=== PATIENT | female | born 1950 | race Caucasian/White ===

== ENCOUNTER 2019-06-07 14:22 | Emergency (ER) | payer MEDICARE ==
[~2019-06-07] VITALS: Ht 167.6 cm; Wt 87.5 kg
[~2019-06-07 14:22] MED LIST: ALDACTONE; BACLOFEN; COREG; HYDROCODONE; MORPHINE
--- OUTSIDE RECORDS SUMMARY | 2019-06-07 14:31 | XMS REPORT | Clinical Summary ---
Author Author NAZ [facility] Address Unknown Phone Unavailable Care Team Providers Care Auditor Name Role Phone Sabina Duncan MD PCP Unavailable Allergies Comments Active Allergy Reactions Severity Noted Date Baltazar Inhibitors Anaphylaxis High 03/03/2019 Amoxicillin 07/04/2017 Arb-Angiotensin Receptor Swelling 03/03/2019 Antagonist Luteinizing Hormone 07/25/2017 Analogues Medications End Date Status Medication Sig Dispensed Refills Start Date Active aspirin 81 MG EC tablet Take 1 tablet 0 (81 mg total) 7 by mouth daily. Active HYDROcodone-acetaminophen Take 1 tablet 0 (NORCO 10-325) 10-325 mg by mouth per tablet every 6 (six) hours as needed for Pain . Active amiodarone (PACERONE) 200 Take 1 tablet 0 201 MG tablet (200 mg 7 total) by mouth daily. Active doxycycline (DORYX) 100 Take 100 mg 0 MG EC tablet by mouth 2 (two) times daily. Active famotidine (PEPCID) 20 MG Take 1 tablet 30 tablet 0 tablet (20 mg total) 7 by mouth nightly. Active escitalopram oxalate Take 20 mg by 0 (LEXAPRO) 20 MG tablet mouth daily. 8 Active traZODone (DESYREL) 50 MG Take 50 mg by 0 tablet mouth 8 nightly. 03/11/2020 Active gabapentin (NEURONTIN) Take 1 60 capsule 0 400 MG capsule capsule (400 9 mg total) by mouth 3 (three) times daily. 03/11/2020 Active bumetanide (BUMEX) 1 MG Take 1 tablet 60 tablet 0 tablet (1 mg total) 9 by mouth 2 (two) times daily. 03/12/2020 Active magnesium oxide (MAG-OX) Take 1 tablet 60 tablet 0 400 mg (241.3 mg (400 mg 9 magnesium) tablet total) by mouth 2 (two) times daily. 03/12/2019 Discontinued docusate sodium (COLACE) Take 1 10 capsule 0 100 MG capsule capsule (100 7 mg total) by mouth 2 (two) times daily. 03/12/2019 Discontinued polyethylene glycol Take 17 g by 0 (GLYCOLAX) 17 gram packet mouth daily. 03/12/2019 Discontinued gabapentin (NEURONTIN) Take 300 mg 0 300 MG capsule by mouth 3 (three) times daily. 10/11/2018 omeprazole (PRILOSEC) 20 Take 1 30 capsule 0 MG capsule capsule (20 7 mg total) by mouth every morning before breakfast. 06/13/2018 morphine (MS CONTIN) 60 Take 60 mg by 0 MG 12 hr tablet mouth every 8 12 (twelve) hours as needed for Pain. 05/25/2019 acetaminophen (TYLENOL) Take 2 30 tablet 0 325 MG tablet tablets (650 8 mg total) by mouth every 4 (four) hours as needed for up to 360 days. 03/12/2019 Discontinued furosemide (LASIX) 20 MG Take 1 tablet 20 tablet 0 tablet (20 mg total) 8 by mouth daily. 03/13/2019 Discontinued heparin injection 5,000 Inject 1 mL 1 mL 0 units/mL for DVT (5,000 Units 8 prophylaxis/dialysis total) lock/IV bolus subcutaneousl y every 12 (twelve) hours. 06/30/2018 lidocaine (LIDODERM) 5 % Place 2 30 patch 0 patch patches onto 8 the skin daily for 30 days Remove & Discard patch within 12 hours or as directed by . 03/12/2019 Discontinued morphine (MSIR) 30 MG Take 30 mg by 0 tabletIndications: Pain mouth every 12 (twelve) hours as needed for Pain. 03/12/2019 Discontinued amLODIPine (NORVASC) 5 MG Take 5 mg by 0 tabletIndications: mouth daily. hypertension 03/12/2019 Discontinued bumetanide (BUMEX) 1 MG Take 1 mg by 0 tablet mouth 2 (two) times daily. 03/12/2019 Discontinued citalopram (CELEXA) 40 MG Take 40 mg by 0 tablet mouth daily. 03/12/2019 Discontinued lisinopril Take 10 mg by 0 (PRINIVIL,ZESTRIL) 10 MG mouth 2 (two) tablet times daily. 03/12/2019 Discontinued metOLazone (ZAROXOLYN) Take 2.5 mg 0 2.5 MG tablet by mouth daily. 03/12/2019 Discontinued pantoprazole (PROTONIX) Take 40 mg by 0 40 MG tablet mouth daily. 03/12/2019 Discontinued propranolol (INDERAL) 10 Take 10 mg by 0 MG tablet mouth 2 (two) times daily. 03/12/2019 Discontinued bumetanide (BUMEX) 1 MG Take 1 tablet 60 tablet 0 tablet (1 mg total) 9 by mouth daily. 03/13/2019 Discontinued doxycycline (MONODOX) 100 Take 1 14 capsule 0 MG capsule capsule (100 9 mg total) by mouth every 12 (twelve) hours for 7 days. 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 10/07/2017 Chronic diastolic congestive heart failure 10/07/2017 Chronic back pain greater than 3 months duration 10/07/2017 Depression 10/07/2017 Postoperative atrial fibrillation 10/07/2017 Syncope, unspecified syncope type 10/06/2017 H/O aortic valve replacement with tissue graft 07/23/2017 H/O aortic arch replacement 07/23/2017 Essential hypertension 07/04/2017 CKD (chronic kidney disease) stage 3, GFR 30-59 ml/min 07/04/2017 Paroxysmal atrial fibrillation Encounters Care Team Description Date Type Specialty Jorge Luis Monteiro MD Barrantes Perez, Jairo Hernando, MD Al-Himyary, Ali Jafar S., MD Nuria, Rodney, MD Encephalopathy acute (Primary Dx); Hypotension, unspecified hypotension type; Hypotension due to hypovolemia; Anxiety and depression 03/02/2019 [facility] General Internal Medicine - Encounter 03/13/2019 03/02/2019 Orders Only General Internal Medicine 03/02/2019 Travel after 06/06/2018 Family History Medical History Relation Name Comments Cancer Brother Heart disease Father Cancer Mother Cancer Paternal Aunt Relation Name Status Comments Brother Father Mother Paternal Aunt Social History Date Tobacco Use Types Packs/Day Years Used Former Smoker 10 Smokeless Tobacco: Former Quit: 10/31/2002 User Alcohol Use Drinks/Week oz/Week Comments No Sex Assigned at Date Recorded Not on file Industry Job Start Date Occupation Not on file Not on file Not on file Travel End Travel History Travel Start No recent travel history available. Last Filed Vital Signs Time Taken Vital Sign Reading 03/13/2019 11:58 AM CDT Blood Pressure 135/86 03/13/2019 11:58 AM CDT Pulse 71 03/13/2019 11:58 AM CDT Temperature 36.3 C (97.3 F) 03/13/2019 11:58 AM CDT Respiratory Rate 18 03/13/2019 11:58 AM CDT Oxygen Saturation 99% - Inhaled Oxygen - Concentration 03/13/2019 6:00 AM CDT Weight 87.1 kg (192 lb) 03/04/2019 3:40 PM CDT Height 167.6 cm (5' 6") 03/13/2019 6:00 AM CDT Body Mass Index 30.99 Plan of Treatment Not on file Implants Device Identifier Shelf Expiration Date Model / Serial / Lot Implanted Type Area Manufactur er 03/30/2022 M655G / / [id number] Sut Surg Stl 7 18g 18in Mls Mp Crowley/Art N/A: Chest J M655g - [id number] hroscopy Wall &J:ETHICON Implanted: Qty: 3 on 07/04/2017 by Wilmer Juan MD 03/30/2022 M655G / N/A / [id number] Sut Surg Stl 7 18g 18in Mls Mp Crowley/Art J M655g - Sn/A hroscopy &J:ETHICON Implanted: Qty: 2 on 08/08/2017 by Wilmer Juan MD 03/30/2021 BW-012 / NONE / [id number] Material Bone Hemostasis Bw-012 - Cement/Rakan N/A: Sternum CEREMED Snone ler/Adhesi Implanted: Qty: 1 on 07/04/2017 by Wilmer Valenzuela MD 01/03/2019 [id number] / / [id number] Tiss Live Bioglue 10ml [id number] Cement/Rakan N/A: Aorta CRYOLIFE - [id number] ler/Adhesi Implanted: Qty: 1 on 07/04/2017 by Wilmer Valenzuela MD 06/30/2018 [id number] / / [id number] Cement Bone Smplx Tobra 40gm Cement/Rakan N/A: Chest SREEKANTH:ST [id number] - [id number] ler/Adhesi ALTON Implanted: Qty: 1 on 07/25/2017 by Lobito Beaulieu MD 02/25/2022 [id number] / NONE / [id number] Patch Vasc [place] 1.65mm 1x6in Graft/Patc N/A: Aorta CR [id number] - Snone h BARD:PERIP Implanted: Qty: 1 on 07/04/2017 by HERAL Wilmer Real MD [id number] / [id number] / [id number] Grft Vasc [id number] - Graft/Patc N/A: Aorta TERUMO:VAS [id number] CUTEK Implanted: Qty: 1 on 07/04/2017 by Wilmer Juan MD 01/28/2022 [id number] / [id number] / [id number] Grft Vasc 26x8mm [id number]/8a - Graft/Patc N/A: Sternum TERUMO:CAR [id number] DIOVASC Implanted: Qty: 1 on 07/04/2017 by Wilmer Redman MD 12/13/2021 [id number] / / [id number] Patch Supple Aneta-Grd [id number] Tissue SYNOVIS Pc-1016sn - [id number] Graft/Subs LIFE TECH Implanted: Qty: 1 on 07/25/2017 by Wilmer Eubanks MD 01/18/2021 TFGT-25A / [id number] / NONE Valve Tiss Trifecta W/Gld 25a Valves N/A: Sternum ST VERONICA Tfgt-25a - [id number] MED:CARDIA Implanted: Qty: 1 on 07/04/2017 by Wilmer Grimaldo MD Procedures Comments Procedure Name Priority Date/Time Associated Diagnosis RHYTHM STRIP - SCAN 03/14/2019 1:31 PM CDT POCT-GLUCOSE METER Routine 03/12/2019 12:06 PM CDT MAGNESIUM Routine 03/12/2019 6:05 AM CDT BASIC METABOLIC PANEL (7) Routine 03/12/2019 6:05 AM CDT POCT-GLUCOSE METER Routine 03/10/2019 9:37 PM CDT POCT-GLUCOSE METER Routine 03/10/2019 8:08 AM CDT PHOSPHORUS Routine 03/10/2019 6:02 AM CDT MAGNESIUM Routine 03/10/2019 6:02 AM CDT BASIC METABOLIC PANEL (7) Routine 03/10/2019 6:02 AM CDT POCT-GLUCOSE METER Routine 03/09/2019 9:25 PM CDT POCT-GLUCOSE METER Routine 03/09/2019 5:54 PM CDT POCT-GLUCOSE METER Routine 03/09/2019 11:48 AM CDT POCT-GLUCOSE METER Routine 03/09/2019 7:52 AM CDT PHOSPHORUS Routine 03/09/2019 6:50 AM CDT MAGNESIUM Routine 03/09/2019 6:50 AM CDT BASIC METABOLIC PANEL (7) Routine 03/09/2019 6:50 AM CDT POCT-GLUCOSE METER Routine 03/08/2019 9:54 PM CDT POCT-GLUCOSE METER Routine 03/08/2019 11:22 AM CDT PHOSPHORUS Routine 03/08/2019 6:38 AM CDT MAGNESIUM Routine 03/08/2019 6:38 AM CDT BASIC METABOLIC PANEL (7) Routine 03/08/2019 6:38 AM CDT POCT-GLUCOSE METER Routine 03/07/2019 10:20 PM CDT POCT-GLUCOSE METER Routine 03/07/2019 1:06 PM CDT POCT-GLUCOSE METER Routine 03/07/2019 9:12 AM CDT CBC W/PLT COUNT & AUTO Routine 03/07/2019 DIFFERENTIAL 7:53 AM CDT CBC W/PLT COUNT & AUTO Routine 03/07/2019 DIFFERENTIAL 7:53 AM CDT PHOSPHORUS Routine 03/07/2019 5:47 AM CDT MAGNESIUM Routine 03/07/2019 5:47 AM CDT BASIC METABOLIC PANEL (7) Routine 03/07/2019 5:47 AM CDT POCT-GLUCOSE METER Routine 03/06/2019 9:04 PM CDT REPORT OF PROCEDURE - 03/06/2019 ENDOSCOPY SCAN 6:00 PM CDT POCT-GLUCOSE METER Routine 03/06/2019 4:45 PM CDT POCT-GLUCOSE METER Routine 03/06/2019 12:20 PM CDT POCT-GLUCOSE METER Routine 03/06/2019 7:25 AM CDT PHOSPHORUS Routine 03/06/2019 3:07 AM CDT MAGNESIUM Routine 03/06/2019 3:07 AM CDT BASIC METABOLIC PANEL (7) Routine 03/06/2019 3:07 AM CDT POCT-GLUCOSE METER Routine 03/05/2019 9:05 PM CDT POCT-GLUCOSE METER Routine 03/05/2019 5:05 PM CDT DRUG SCREEN, URINE, Routine 03/05/2019 COMPREHENSIVE 4:46 PM CDT CBC W/PLT COUNT & AUTO Routine 03/05/2019 DIFFERENTIAL 5:49 AM CDT VANCOMYCIN LEVEL, RANDOM Routine 03/05/2019 5:49 AM CDT BASIC METABOLIC PANEL (7) Routine 03/05/2019 5:49 AM CDT B-TYPE NATRIURETIC FACTOR Routine 03/05/2019 (BNP) 5:49 AM CDT CBC W/PLT COUNT & AUTO Routine 03/05/2019 DIFFERENTIAL 5:49 AM CDT POCT-GLUCOSE METER Routine 03/04/2019 9:40 PM CDT ECHOCARDIOGRAM REPORT - 03/04/2019 SCAN 9:20 PM CDT VANCOMYCIN LEVEL, RANDOM Timed 03/04/2019 8:12 PM CDT BASIC METABOLIC PANEL (7) Routine 03/04/2019 1:26 PM CDT POCT-GLUCOSE METER Routine 03/04/2019 11:23 AM CDT CBC W/PLT COUNT & AUTO Routine 03/04/2019 DIFFERENTIAL 5:56 AM CDT BASIC METABOLIC PANEL (7) Routine 03/04/2019 5:56 AM CDT B-TYPE NATRIURETIC FACTOR Routine 03/04/2019 (BNP) 5:56 AM CDT CBC W/PLT COUNT & AUTO Routine 03/04/2019 DIFFERENTIAL 5:56 AM CDT POCT-GLUCOSE METER Routine 03/04/2019 5:54 AM CDT BASIC METABOLIC PANEL (7) Routine 03/04/2019 12:19 AM CDT POCT-GLUCOSE METER Routine 03/03/2019 8:32 PM CDT VANCOMYCIN LEVEL, RANDOM Timed 03/03/2019 8:22 PM CDT 2D ECHO W/ DOPPLER Routine 03/03/2019 (CW/PW/COLOR) 4:17 PM CDT BLOOD CULTURE Routine 03/03/2019 3:38 PM CDT BLOOD CULTURE Routine 03/03/2019 3:37 PM CDT POCT-GLUCOSE METER Routine 03/03/2019 10:38 AM CDT BASIC METABOLIC PANEL (7) STAT 03/03/2019 9:34 AM CDT POCT-GLUCOSE METER Routine 03/03/2019 6:44 AM CDT CBC W/PLT COUNT & AUTO Routine 03/03/2019 DIFFERENTIAL 3:44 AM CDT B-TYPE NATRIURETIC FACTOR Routine 03/03/2019 (BNP) 3:44 AM CDT CBC W/PLT COUNT & AUTO Routine 03/03/2019 DIFFERENTIAL 3:44 AM CDT STOOL PATH CHARGE Routine 03/03/2019 3:43 AM CDT SHIGA TOXIN SCREEN Routine 03/03/2019 3:43 AM CDT STOOL CULTURE + SHIGA Routine 03/03/2019 TOXIN 3:43 AM CDT C. DIFFICILE GDH TOXIN Routine 03/03/2019 3:43 AM CDT US RENAL COMPLETE Routine 03/02/2019 11:01 PM CDT POCT-GLUCOSE METER Routine 03/02/2019 10:12 PM CDT B-TYPE NATRIURETIC FACTOR Routine 03/02/2019 (BNP) 10:02 PM CDT LACTIC ACID, ARTERIAL Routine 03/02/2019 10:02 PM CDT URINALYSIS W/ REFLEX STAT 03/02/2019 URINE CULTURE 9:53 PM CDT URINE CULTURE Routine 03/02/2019 9:53 PM CDT B-TYPE NATRIURETIC FACTOR STAT 03/02/2019 (BNP) 9:17 PM CDT CBC W/PLT COUNT & AUTO STAT 03/02/2019 DIFFERENTIAL 8:20 PM CDT MAGNESIUM STAT 03/02/2019 8:20 PM CDT PT/APTT STAT 03/02/2019 8:20 PM CDT TROPONIN I STAT 03/02/2019 8:20 PM CDT COMPREHENSIVE METABOLIC STAT 03/02/2019 PANEL 8:20 PM CDT CBC W/PLT COUNT & AUTO STAT 03/02/2019 DIFFERENTIAL 8:20 PM CDT XR CHEST 1 VIEW STAT 03/02/2019 PORTABLE/BEDSIDE 7:59 PM CDT POCT-GLUCOSE METER Routine 03/02/2019 7:01 PM CDT BLOOD CULTURE STAT 03/02/2019 6:59 PM CDT BLOOD CULTURE STAT 03/02/2019 6:[address] SPINE CERVICAL WITHOUT STAT 03/02/2019 IV CONTRAST 6:[address] BRAIN WITHOUT IV STAT 03/02/2019 CONTRAST 6:52 PM CDT XR CHEST 1 VIEW STAT 03/02/2019 PORTABLE/BEDSIDE 6:39 PM CDT POCT-LACTIC ACID, VENOUS Routine 03/02/2019 6:36 PM CDT CRITICAL CARE Routine 03/02/2019 6:27 PM CDT ECG 12-LEAD Routine 03/02/2019 6:15 PM CDT Procedure Note - Interface, External Ris In - 03/02/2019 9:16 PM CDT Ventricula r Rate 63 BPM Atrial Rate 63 BPM P-R Interval 182 ms QRS Duration 88 ms Q-T Interval 458 ms QTC Calculatio n(Bazett) 468 ms P [place] 49 degrees R [place] -67 degrees T [place] 87 degrees Normal sinus rhythm Possible Left atrial enlargemen t Left axis deviation Septal infarct , age undetermin ed Abnormal ECG When compared with ECG of 8 00:21, QRS axis Shifted left Septal infarct is now Present ECG 12-LEAD STAT 03/02/2019 6:15 PM CDT RHYTHM STRIP - SCAN 02/23/2019 5:36 PM CDT TRANSFUSE LEUKO-REDUCED Routine 12/07/2018 RED BLOOD CELLS 5:24 PM COMPLETION SUPERVISOR TRANSFUSE LEUKO-REDUCED STAT 12/07/2018 RED BLOOD CELLS 5:24 PM COMPLETION SUPERVISOR TRANSFUSE LEUKO-REDUCED EVAN 12/07/2018 RED BLOOD CELLS 5:24 PM COMPLETION SUPERVISOR after 06/06/2018 Results * RHYTHM STRIP - SCAN (03/14/2019 1:31 PM CDT) Only the most recent of 2 results within the time period is included. Narrative Performed At * POC-Glucose meter (03/12/2019 12:06 PM CDT) Only the most recent of 26 results within the time period is included. POC-Glucose Meter 107Comment: TESTED AT [facility] 70 - 110 mg/dL [place] [id number] [facility] Specimen Blood Performing Organization Address City/State/Zipcode Phone Number [address] [address] [facility] * Magnesium (03/12/2019 6:05 AM CDT) Only the most recent of 7 results within the time period is included. Magnesium 1.2 (L) 1.6 - 2.6 mg/dL [facility] Specimen Blood Performing Organization Address City/[facility]/Zipcode Phone Number [facility] [address] [place] [address] [facility] * Basic Metabolic Panel (03/12/2019 6:05 AM CDT) Only the most recent of 11 results within the time period is included. Sodium 137 136 - 145 meq/L [facility] Potassium 4.9 3.5 - 5.1 meq/L [facility] Chloride 100 98 - 107 meq/L [facility] CO2 26 22 - 29 meq/L [facility] BUN 37 (H) 7 - 21 mg/dL [facility] Creatinine 1.85 (H) 0.57 - 1.25 mg/dL [facility] Glucose 130 (H) 70 - 105 mg/dL [facility] Calcium 9.6 8.4 - 10.2 mg/dL [facility] EGFR 33Comment: ESTIMATED GFR IS mL/min/1.73 sq m [facility] NOT ACCURATE CREATININE [facility] CLEARANCE IN PREDICTING GLOMERULAR FILTRATION RATE. ESTIMATED GFR IS NOT APPLICABLE FOR DIALYSIS PATIENTS. Specimen Blood Performing Organization Address City/[facility] Phone Number [facility] [address] [place] [address] [facility] * Phosphorus (03/10/2019 6:02 AM CDT) Only the most recent of 5 results within the time period is included. Phosphorus 2.6 2.3 - 4.7 mg/dL [facility] Specimen Blood Performing Organization Address City/[facility]/Zipcode Phone Number [facility] [address] [place] [address] [facility] * CBC with platelet count + automated diff (03/07/2019 7:53 AM CDT) Only the most recent of 5 results within the time period is included. WBC 12.1 (H) 3.5 - 10.5 K/L [facility] RBC 3.70 (L) 3.93 - 5.22 M/L [facility] Hemoglobin 9.5 (L) 11.2 - 15.7 GM/DL [facility] Hematocrit 29.6 (L) 34.1 - 44.9 % [facility] MCV 80.0 79.4 - 94.8 fL [facility] MCH 25.7 25.6 - 32.2 pg [facility] MCHC 32.1 (L) 32.2 - 35.5 GM/DL [facility] RDW 14.1 11.7 - 14.4 % [facility] Platelets 164 150 - 450 K/CU MM [facility] MPV 9.2 (L) 9.4 - 12.3 fL [facility] nRBC 3 (H) 0 - 0 /100 WBC [facility] % Neutros 73 % [facility] % Lymphs 17 % [facility] % Monos 9 % [facility] % Eos 0 % [facility] % Baso 0 % [facility] # Neutros 8.84 (H) 1.56 - 6.13 K/L [facility] # Lymphs 2.10 1.18 - 3.74 K/L [facility] # Monos 1.14 (H) 0.24 - 0.36 K/L [facility] # Eos 0.00 (L) 0.04 - 0.36 K/L [facility] # Baso 0.01 0.01 - 0.08 K/L [facility] Immature 0 0 - 1 % [facility] Granulocytes-Relative [facility] Specimen Blood Performing Organization Address City/[facility]/Zipcode Phone Number [facility] [address] [place] [phone] [address] * EKG-SCANNED (03/06/2019 6:00 PM CDT) Narrative Performed At * Drug screen, urine, comprehensive (03/05/2019 4:46 PM CDT) Specimen Urine Narrative Performed At * B-type Natriuretic Factor (BNP) (03/05/2019 5:49 AM CDT) Only the most recent of 5 results within the time period is included. BNP 3,118 (H) 0 - 100 pg/mL [facility] Specimen Blood Performing Organization Address City/[facility] Phone Number [address] * Vancomycin level, random (03/05/2019 5:49 AM CDT) Only the most recent of 3 results within the time period is included. Vancomycin Rm 22.4 ug/mL [facility] Specimen Blood Narrative Performed At Reference Range: No Normals [facility] Performing Organization Address City/[facility] Phone Number [address] [address] [phone] * ECHOCARDIOGRAM REPORT - SCAN (03/04/2019 9:20 PM CDT) Narrative Performed At * 2D Echo W/Doppler(CW/PW/Color) (03/03/2019 4:17 PM CDT) Ejection Fraction [facility] ECHO [facility]ART[facility] Specimen Narrative Performed At Transthoracic Echocardiography Report (TTE) [facility] ECHO [facility]ART[facility] Demographics [facility] Patient Name Dell ALEXIS of Study 03/03/2019 ANDRÉS [id number] Female Visit Number [id number] Room Number 2109 Number Date of Birth1950Referring Physician Jorge Luis Monteiro MD Age68 year(s)Head Teller Taiwo Cain, Physician MD Young Willis MD Procedure Type of Study TTE procedure:2DECHO W DOPPLER(CW/PW/COLOR) (Routine) Indications:Valvular Disease with change in clinical symptoms and Heart murmur. Clinical History HGB 10.3 HCT 31.9 % CKD HTN OK AFIB CHF AVR 07/04/17 25 MM [address]AST. VERONICA AATA REPAIR 07/04/17 Height: 67 inches Weight: 122.02 kg (269 lbs) BSA: 2.29 m^2 BMI: 42.13 kg/m^2 HR: 70 bpm BP: 89/66 mmHg Summary 1. Normal LV size and function. LVEF is >60%. Mild concentric LVH noted 2. Diastology: Indeterminate 3. Normal RV size and function 4. S/p AVR. Pk /Mn: 13 / 8 mm Hg. DI=0.63 5. S/p AATA repair 6. Mild TR. Estimated PASP is 30-35 mm Hg 7. No pericardial effusion noted Previous Study In comparison with the prior exam on 05-25-18 there are no significant changes. Signature Findings Technical Quality: Technically adequate exam. Left Ventricle The left ventricle is chamber size (by PSLAX dimension) is normal (female - LVIDd 3.8-5.2cm) . Mild concentric LV hypertrophy. Septal motion is abnormal, likely related to prior cardiac surgery . The other segments contract normally. Global LV systolic function normal . Estimated LVEF by qualitative assessment is normal (>60%) . Normal (cardiac index 2-3 L/min/m2) cardiac output state at rest is noted. Diastology: Indeterminate Left AtriumLA size is moderately enlarged (42-48 ml/m2) . Right VentricleRV chamber size is mildly enlarged . Global RV systolic function is normal . Right Atrium RA cavity size is enlarged . Aortic Valve A stented biologic AoV prosthesis is visualized . The prosthetic AoV appears well-seated with normal function by Doppler. AoV dimensionless obstructive index (DOI)) is 0.63 . Prosthetic AoV systolic gradients are normal . Prosthetic AoV regurgitaton is not demonstrated . Mitral Valve Normal MV structure. Trace mitral regurgitation. Tricuspid ValveMild tricuspid regurgitation. Estimated peak systolic PA pressure is 30-35 mmHg . Pulmonic Valve Normal PV structure and function. AortaS/P AATA repair. Aortic root size is normal . PericardiumNo significant pericardial effusion is visualized. IVC/SVC/PA/PV/PleuralThe estimated RA pressure by IVC dynamics 5-10mmHg . Chambers/Structures Left Atrium LA Volume: 107.52 mlLA Area: 28.09 cm^2 LA Vol. Index: 47 ml/m^2 Left Ventricle LVIDd: 3.92 cm LV Septum Diastolic: 1.2 cm LV PW Diastolic: 1.17 cm LV Length: 8.09 cm LVOT Diameter: 2.17 cm Aorta Ao Root S of Thania.: 3.3 cm Doppler/Quantitative Measurements Mitral Valve MV Peak E-Wave: 0.83 m/sMV Peak A-Wave: 0.7 m/s E/A Ratio: 1.18 Peak Gradient: 2.75 mmHg Deceleration Time: 126.5 msec MV Herbert. Peak: Tissue Doppler E' Septal Velocity: 0.08 m/sE/E': 10.6 E' Lateral Velocity: 0.11 m/s Aortic Valve Peak Velocity: 1.81 m/sMean Velocity: 1.4 m/s Peak Gradient: 13.05 mmHgMean Gradient: 8.57 mmHg AV Area (continuity): 2.33 cm^2 AV VTI: 42.13 cm AV DVI: 0.63 LVOT Peak Velocity: 1.07 m/s Peak Gradient: 4.54 mmHg Mean Velocity: 0.8 m/sMean Gradient: 2.77 mmHg LVOT Diameter: 2.17 cmLVOT VTI: 26.61 cm LVOT Area: 3.7 cm^2 LVOT SV:98.36 ml LVOT CO: 6.89 l/min LVOT CI: 3.01 l/min/m^2 Tricuspid Valve TR Velocity: 2.51 m/s TR Gradient: 25.16 mmHg Procedure Note Interface, External Ris In - 03/04/2019 6:12 PM CDT Transthoracic Echocardiography Report (TTE) Demographics Patient Name ANN ALEXIS Date of Study 03/03/2019 ANDRÉS Gender Female Visit Number [id number] Race Black Room Number 2109 Number Date of 1950 Referring Physician Jorge Luis Monteiro MD Age 68 year(s) Head Teller Taiwo Romero Angle Shear Operator Zayda Owen Interpreting Usama Cain, Physician MD Young Willis MD Procedure Type of Study TTE procedure:2DECHO W DOPPLER(CW/PW/COLOR) (Routine) Indications:Valvular Disease with change in clinical symptoms and Heart murmur. Clinical History HGB 10.3 HCT 31.9 % CKD HTN OK AFIB CHF AVR 07/04/17 25 [address]. VERONICA AATA REPAIR 07/04/17 Height: 67 inches Weight: 122.02 kg (269 lbs) BSA: 2.29 m^2 BMI: 42.13 kg/m^2 HR: 70 bpm BP: 89/66 mmHg Summary 1. Normal LV size and function. LVEF is >60%. Mild concentric LVH noted 2. Diastology: Indeterminate 3. Normal RV size and function 4. S/p AVR. Pk /Mn: 13 / 8 mm Hg. DI=0.63 5. S/p AATA repair 6. Mild TR. Estimated PASP is 30-35 mm Hg 7. No pericardial effusion noted Previous Study In comparison with the prior exam on 05-25-18 there are no significant changes. Signature Findings Technical Quality: Technically adequate exam. Left Ventricle The left ventricle is chamber size (by PSLAX dimension) is normal (female - LVIDd 3.8-5.2cm) . Mild concentric LV hypertrophy. Septal motion is abnormal, likely related to prior cardiac surgery . The other segments contract normally. Global LV systolic function normal . Estimated LVEF by qualitative assessment is normal (>60%) . Normal (cardiac index 2-3 L/min/m2) cardiac output state at rest is noted. Diastology: Indeterminate Left Atrium LA size is moderately enlarged (42-48 ml/m2) . Right Ventricle RV chamber size is mildly enlarged . Global RV systolic function is normal . Right Atrium RA cavity size is enlarged . Aortic Valve A stented biologic AoV prosthesis is visualized . The prosthetic AoV appears well-seated with normal function by Doppler. AoV dimensionless obstructive index (DOI)) is 0.63 . Prosthetic AoV systolic gradients are normal . Prosthetic AoV regurgitaton is not demonstrated . Mitral Valve Normal MV structure. Trace mitral regurgitation. Tricuspid Valve Mild tricuspid regurgitation. Estimated peak systolic PA pressure is 30-35 mmHg . Pulmonic Valve Normal PV structure and function. Aorta S/P AATA repair. Aortic root size is normal . Pericardium No significant pericardial effusion is visualized. IVC/SVC/PA/PV/Pleural The estimated RA pressure by IVC dynamics 5-10mmHg . Chambers/Structures Left Atrium LA Volume: 107.52 ml LA Area: 28.09 cm^2 LA Vol. Index: 47 ml/m^2 Left Ventricle LVIDd: 3.92 cm LV Septum Diastolic: 1.2 cm LV PW Diastolic: 1.17 cm LV Length: 8.09 cm LVOT Diameter: 2.17 cm Aorta Ao Root S of Thania.: 3.3 cm Doppler/Quantitative Measurements Mitral Valve MV Peak E-Wave: 0.83 m/s MV Peak A-Wave: 0.7 m/s E/A Ratio: 1.18 Peak Gradient: 2.75 mmHg Deceleration Time: 126.5 msec MV Herbert. Peak: Tissue Doppler E' Septal Velocity: 0.08 m/s E/E': 10.6 E' Lateral Velocity: 0.11 m/s Aortic Valve Peak Velocity: 1.81 m/s Mean Velocity: 1.4 m/s Peak Gradient: 13.05 mmHg Mean Gradient: 8.57 mmHg AV Area (continuity): 2.33 cm^2 AV VTI: 42.13 cm AV DVI: 0.63 LVOT Peak Velocity: 1.07 m/s Peak Gradient: 4.54 mmHg Mean Velocity: 0.8 m/s Mean Gradient: 2.77 mmHg LVOT Diameter: 2.17 cm LVOT VTI: 26.61 cm LVOT Area: 3.7 cm^2 LVOT SV:98.36 ml LVOT CO: 6.89 l/min LVOT CI: 3.01 l/min/m^2 Tricuspid Valve TR Velocity: 2.51 m/s TR Gradient: 25.16 mmHg Performing Organization Address City/[facility] Phone Number [facility] * Blood Culture - Routine (Left Venipuncture) (03/03/2019 3:38 PM CDT) Only the most recent of 4 results within the time period is included. Result No growth in 5 days [facility] Specimen Blood Performing Organization Address City/[facility]/Zipcode Phone Number [facility] [address] [place] [address] [facility] * Clostridium difficile [facility] Toxin (03/03/2019 3:43 AM CDT) C. Difficle Toxin Negative Negative [facility] C. Difficile GDH Antigen NegativeComment: No indication Negative [facility] of Clostridium difficile [facility] infection and no colonization. Discontinue enteric isolation and therapy. Specimen Stool Narrative Performed At Testing performed by [employer] Rapid Cassette Assay.For GDH, published [facility] sensitivity of the assay is 98.7% compared to cytotoxicity testing.For Toxin [facility] AB, published sensitivity is 87.8% and specificity 99.4% compared to cytotoxicity testing. Verification of kit performance was done by the [facility] Microbiology Lab prior to clinical use. Performing Organization Address City/State/Zipcode Phone Number [facility] [address] [place] [address] [facility] * STOOL PATH CHARGE (03/03/2019 3:43 AM CDT) Pathogen exam charged Done [facility] Specimen Stool Performing Organization Address City/[facility]/Zipcode Phone Number [address] [address] [phone] [place] [address] * Shiga Toxin Screen (03/03/2019 3:43 AM CDT) Shiga toxin 1 Not detected Not detected [facility] Shiga toxin 2 Not detected Not detected [facility] Specimen Stool Performing Organization Address City/[facility]/Zipcode Phone Number [address] [address] [phone] [place] [address] * Stool culture + Shiga toxin (03/03/2019 3:43 AM CDT) Result No Salmonella, Shigella or [facility] Campylobacter isolated [facility] Specimen Stool Performing Organization Address City/[facility] Phone Number [address] [address] [phone] [place] [address] * US renal complete (03/02/2019 11:01 PM CDT) Specimen Narrative Performed At FINAL REPORT [id number] Renal ultrasound dated 03/02/2019 Comment:Real-time transabdominal renal ultrasound was performed. Right kidney measures 6.9 x 3.1 x 2.1 cm.Left kidney measures 11 x 4.9 x 4 point cm.Right renal cortex measures 0.6 cm.Left renal cortex measures 1.7 cm. Echogenicity of the right renal parenchyma is increased. The echogenicity of the left renal parenchyma is normal. No hydronephrosis, solid or cystic mass seen. The urinary bladder measures 11 cc. Doppler ultrasound demonstrates patent main renal artery and vein bilaterally. Impression:Small atrophic right kidney. Signed: Glenys Ruiz MD Report Verified Date/Time:03/02/2019 23:21:09 Reading Location: [facility] [id number] Consult Reading Room Procedure Note Interface, External Ris In - 03/02/2019 11:23 PM CDT FINAL REPORT Renal ultrasound dated 03/02/2019 Comment: Real-time transabdominal renal ultrasound was performed. Right kidney measures 6.9 x 3.1 x 2.1 cm. Left kidney measures 11 x 4.9 x 4 point cm. Right renal cortex measures 0.6 cm. Left renal cortex measures 1.7 cm. Echogenicity of the right renal parenchyma is increased. The echogenicity of the left renal parenchyma is normal. No hydronephrosis, solid or cystic mass seen. The urinary bladder measures 11 cc. Doppler ultrasound demonstrates patent main renal artery and vein bilaterally. Impression: Small atrophic right kidney. Signed: Glenys Ruiz MD Report Verified Date/Time: 03/02/2019 23:21:09 Reading Location: [facility] [id number] Consult Reading Room Performing Organization Address City/State/Zipcode Phone Number [facility] * Lactic Acid, Arterial (03/02/2019 10:02 PM CDT) Lactate, Art 1.3Comment: Specimen 0.5 - 2.2 mmol/L [facility] moderately hemolyzed [facility] Specimen Blood, Arterial Performing Organization Address City/[facility]/Zipcode Phone Number [place] [phone] [place] [address] [facility] * Urinalysis w/Microscopic + Reflex to Culture (03/02/2019 9:53 PM CDT) Color, UA Light Yellow [facility] Clarity, UA Clear [facility] Specific Gilbert, UA 1.007 1.001 - 1.035 [facility] pH, UA 7.0 5.0 - 8.0 [facility] Protein, UA Negative Negative [facility] Glucose, UA Negative Negative [facility] Ketones, UA Negative Negative [facility] Bilirubin, UA Negative Negative [facility] Blood, UA Negative Negative [facility] Nitrite, UA Negative Negative [facility] Leukocytes, UA Negative Negative [facility] Urobilinogen, UA 0.2 0.2 - 1.0 mg/dL [facility] RBC, UA 0 /HPF [facility] WBC, UA <1 /HPF [facility] Specimen Source [facility] Specimen Urine Performing Organization Address City/State/Zipcode Phone Number [address] * Urine culture (03/02/2019 9:53 PM CDT) Result No growth [facility] Specimen Urine Performing Organization Address City/[facility]/Zipcode Phone Number [address] * PT/aPTT (03/02/2019 8:20 PM CDT) Protime 16.4 (H) 11.7 - 14.7 seconds [facility] INR 1.4 <=5.9 [facility] PTT 34.3 22.5 - 36.0 seconds [facility] Specimen Blood Narrative Performed At RECOMMENDED COUMADIN/WARFARIN INR THERAPY RANGES [facility] STANDARD DOSE: 2.0 - 3.0 Includes: PROPHYLAXIS for venous thrombosis, [facility] systemic embolization; TREATMENT for venous thrombosis and/or pulmonary embolus. HIGH RISK: Target INR is 2.5-3.5 for patients with mechanical heart valves. Performing Organization Address [facility] Phone Number [place] [phone] [place] [address] [phone] * Troponin I (03/02/2019 8:20 PM CDT) Troponin I <0.01 0.00 - 0.03 ng/mL [facility] Specimen Blood Narrative Performed At Troponin I (TnI) levels must be interpreted in the context of the presenting [facility] symptoms and the clinical findings. Elevated TnI levels indicate myocardial [facility] damage, but are not specific for ischemic heart disease. Elevated TnI levels are seen in patients with other cardiac conditions (including myocarditis and congestive heart failure), and slight TnI elevations occur in patients with other conditions, including sepsis, renal failure, acidosis, acute neurological disease, and persistent tachyarrhythmia. Performing Organization Address [facility] Hospitalcomt Phone Number [address] * Comprehensive metabolic panel (03/02/2019 8:20 PM CDT) Protein, Total 5.5 (L) 6.0 - 8.3 gm/dL [facility] Albumin 2.9 (L) 3.5 - 5.0 g/dL [facility] Alkaline Phosphatase 59 40 - 150 U/L [facility] Total Bilirubin 0.5 0.2 - 1.2 mg/dL [facility] Sodium 127 (L) 136 - 145 meq/L [facility] Potassium 4.2 3.5 - 5.1 meq/L [facility] Chloride 90 (L) 98 - 107 meq/L [facility] CO2 27 22 - 29 meq/L [facility] BUN 124 (H) 7 - 21 mg/dL [facility] Creatinine 4.07 (H) 0.57 - 1.25 mg/dL [facility] Glucose 150 (H) 70 - 105 mg/dL [facility] Calcium 7.9 (L) 8.4 - 10.2 mg/dL [facility] AST 36 (H) 5 - 34 U/L [facility] ALT 15 6 - 55 U/L [facility] EGFR 13Comment: ESTIMATED GFR IS mL/min/1.73 sq m [facility] NOT ACCURATE CREATININE [facility] CLEARANCE IN PREDICTING GLOMERULAR FILTRATION RATE. ESTIMATED GFR IS NOT APPLICABLE FOR DIALYSIS PATIENTS. Specimen Blood Performing Organization Address City/State/Zipcode Phone Number [facility] [address] [place] [address] [facility] * XR chest 1 view portable / bedside (03/02/2019 7:59 PM CDT) Only the most recent of 2 results within the time period is included. Specimen Narrative Performed At FINAL REPORT [facility] EXAMINATION: AP PORTABLE CHEST RADIOGRAPH CLINICAL INDICATION: Central line placement. Altered mental status IMPRESSION: Compared with 03/02/2019, 1839 hours. Tip of the new right jugular central line projects along the expected course of the superior vena cava. 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 Heart is enlarged as before. Mediastinal contours are stable with soft tissue fullness of the paratracheal spaces and an ectatic thoracic aorta. Thin curvilinear opacities persist at the lung bases. Morphology and distribution favor atelectasis. No evidence of new focal lung consolidation, pulmonary edema, large pleural effusion or pneumothorax. Signed: Davis Hartman MD Report Verified Date/Time:03/02/2019 21:27:02 Reading Location: [address] Reading Room Procedure Note Interface, External Ris In - 03/02/2019 9:29 PM CDT FINAL REPORT EXAMINATION: AP PORTABLE CHEST RADIOGRAPH CLINICAL INDICATION: Central line placement. Altered mental status IMPRESSION: Compared with 03/02/2019, 1839 hours. Tip of the new right jugular central line projects along the expected course of the superior vena cava. 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 Heart is enlarged as before. Mediastinal contours are stable with soft tissue fullness of the paratracheal spaces and an ectatic thoracic aorta. Thin curvilinear opacities persist at the lung bases. Morphology and distribution favor atelectasis. No evidence of new focal lung consolidation, pulmonary edema, large pleural effusion or pneumothorax. Signed: Davis Hartman MD Report Verified Date/Time: 03/02/2019 21:27:02 Reading Location: [address] Reading Room Performing Organization Address City/State/Zipcode Phone Number [facility] * CT spine cervical without IV contrast (03/02/2019 6:52 PM CDT) Specimen Narrative Performed At FINAL REPORT [id number] CT cervical spine without contrast INDICATION: C-spine trauma, NEXUS/CCR positive, +risk factor(s) fall COMPARISON: No priors TECHNIQUE: Multiple axial CT images of the cervical spine were obtained without contrast. Sagittal and coronal 2D reconstructions were provided as well. This exam was performed according to our departmental dose optimization program which includes automated exposure control, adjustment of the mA and/or kV according to patient's size and/or use of iterative reconstructive technique. FINDINGS: Vertebral body height is normal, and alignment is maintained. No acute fracture, or dislocation is identified. There is moderate degenerative change in cervical spine, most pronounced at C5-C6 and C6-C7. There is no hematoma, or abnormal fluid collection. No prevertebral edema. Visualized paraspinal soft tissues are unremarkable. There are multiple nodules in both lobes of the thyroid gland, the largest is located in the left, measuring up to 1.5 cm. Visualized lung apices are unremarkable. IMPRESSION: Degenerative change in cervical spine. No acute fracture, or dislocation is identified. Bilateral thyroid nodules, measuring up to 1.5 cm. Finding is amenable to ultrasound correlation on a nonemergent basis. Signed: Bony Morrow MD Report Verified Date/Time:03/02/2019 19:17:52 Reading Location: [facility] Reading Room Procedure Note Interface, External Ris In - 03/02/2019 7:20 PM CDT FINAL REPORT CT cervical spine without contrast INDICATION: C-spine trauma, NEXUS/CCR positive, +risk factor(s) fall COMPARISON: No priors TECHNIQUE: Multiple axial CT images of the cervical spine were obtained without contrast. Sagittal and coronal 2D reconstructions were provided as well. This exam was performed according to our departmental dose optimization program which includes automated exposure control, adjustment of the mA and/or kV according to patient's size and/or use of iterative reconstructive technique. FINDINGS: Vertebral body height is normal, and alignment is maintained. No acute fracture, or dislocation is identified. There is moderate degenerative change in cervical spine, most pronounced at C5-C6 and C6-C7. There is no hematoma, or abnormal fluid collection. No prevertebral edema. Visualized paraspinal soft tissues are unremarkable. There are multiple nodules in both lobes of the thyroid gland, the largest is located in the left, measuring up to 1.5 cm. Visualized lung apices are unremarkable. IMPRESSION: Degenerative change in cervical spine. No acute fracture, or dislocation is identified. Bilateral thyroid nodules, measuring up to 1.5 cm. Finding is amenable to ultrasound correlation on a nonemergent basis. Signed: Bony Morrow MD Report Verified Date/Time: 03/02/2019 19:17:52 Reading Location: [facility] Radiology Reading Room Performing Organization Address City/State/Zipcode Phone Number [place] [facility] * CT brain without IV contrast (03/02/2019 6:52 PM CDT) Specimen Narrative Performed At FINAL REPORT [id number] CT head without contrast. Reason for exam: AMS, fall Comparisons: May 24, 2018 Discussion: Multiple axial CT images of the head are provided without contrast evaluated in brain and bone windows. This exam was performed according to our departmental dose optimization program which includes automated exposure control, adjustment of the mA and/or kV according to patient's size and/or use of iterative reconstructive technique. There is age related generalized brain volume loss. Nonspecific scattered supratentorial white matter hypodensity most likely reflects chronic small vessel ischemic disease. No evidence of acute territorial infarct. Intracranial vascular calcifications are present.There is no CT evidence of intracranial hemorrhage, mass-effect, hydrocephalus, shift, or extra-axial collections. The visualized orbital contents, bones and surrounding soft tissues are unremarkable. The visualized paranasal sinuses and mastoid air cells are unremarkable. Impressions: No CT evidence of acute intracranial process. Mild involutional and chronic microvascular ischemic changes. Signed: Bony Morrow MD Report Verified Date/Time:03/02/2019 19:10:06 Reading Location: [facility] Radiology Reading Room Procedure Note Interface, External Ris In - 03/02/2019 7:12 PM CDT FINAL REPORT CT head without contrast. Reason for exam: AMS, fall Comparisons: May 24, 2018 Discussion: Multiple axial CT images of the head are provided without contrast evaluated in brain and bone windows. This exam was performed according to our departmental dose optimization program which includes automated exposure control, adjustment of the mA and/or kV according to patient's size and/or use of iterative reconstructive technique. There is age related generalized brain volume loss. Nonspecific scattered supratentorial white matter hypodensity most likely reflects chronic small vessel ischemic disease. No evidence of acute territorial infarct. Intracranial vascular calcifications are present. There is no CT evidence of intracranial hemorrhage, mass-effect, hydrocephalus, shift, or extra-axial collections. The visualized orbital contents, bones and surrounding soft tissues are unremarkable. The visualized paranasal sinuses and mastoid air cells are unremarkable. Impressions: No CT evidence of acute intracranial process. Mild involutional and chronic microvascular ischemic changes. Signed: Bony Morrow MD Report Verified Date/Time: 03/02/2019 19:10:06 Reading Location: [facility] Radiology Reading Room Performing Organization Address City/[facility]/Zipcode Phone Number [facility] * POC-Lactic Acid, Venous (03/02/2019 6:36 PM CDT) POC-Lactic Acid, Venous 2.0 (H)Comment: TESTED AT 0.9 - 1.7 mmol/L [facility] [address] [facility] [address] Specimen Blood Performing Organization Address City/[facility]/Zipcode Phone Number [facility] [address] [place] [address] [facility] * CRITICAL CARE (03/02/2019 6:27 PM CDT) Narrative Performed At Jorge Luis Monteiro MD 03/05/20198:26 AM Critical Care Performed by: Jorge Luis Monteiro MD Authorized by: Harlan Cerda MD Total critical care time: 60 minutes Critical care time was exclusive of separately billable procedures and treating other patients and teaching time. Critical care was necessary to treat or prevent imminent or life-threatening deterioration of the following conditions: RECORD LABEL INTERN failure or compromise and shock. Critical care was time spent personally by me on the following activities: blood draw for specimens, discussions with consultants, evaluation of patient's response to treatment, obtaining history from patient or surrogate, ordering and review of laboratory studies, pulse oximetry, re-evaluation of patient's condition, ordering and review of radiographic studies, examination of patient, interpretation of cardiac output measurements, development of treatment plan with patient or surrogate and ordering and performing treatments and interventions. * ECG 12 lead (03/02/2019 6:15 PM CDT) Specimen Narrative Performed At Ventricular Rate 63 BPM [facility] Atrial Rate 63 BPM P-R Interval 182 ms QRS Duration 88 ms Q-T Interval 458 ms QTC Calculation(Bazett) 468 ms P [place] 49 degrees R [place] -67 degrees T [place] 87 degrees Normal sinus rhythm Possible Left atrial enlargement Left axis deviation Septal infarct , age undetermined Abnormal ECG When compared with ECG of 27-MAY-2018 00:21, QRS axis Shifted left Septal infarct is now Present Confirmed by MD OSHEA RUPA ([id number]) on 03/04/2019 1:44:37 PM Procedure Note Interface, External Ris In - 03/04/2019 1:44 PM CDT Ventricular Rate 63 BPM Atrial Rate 63 BPM P-R Interval 182 ms QRS Duration 88 ms Q-T Interval 458 ms QTC Calculation(Bazett) 468 ms P [place] 49 degrees R [place] -67 degrees T [place] 87 degrees Normal sinus rhythm Possible Left atrial enlargement Left axis deviation Septal infarct , age undetermined Abnormal ECG When compared with ECG of 27-MAY-2018 00:21, QRS axis Shifted left Septal infarct is now Present Confirmed by MD OSHEA RUPA ([id number]) on 03/04/2019 1:44:37 PM Performing Organization Address City/State/Zipcode Phone Number [facility] * Transfuse Leuko-Red RBC (12/07/2018 5:24 PM COMPLETION SUPERVISOR) Only the most recent of 6 results within the time period is included. after 06/06/2018 Insurance Payer Benefit Subscriber ID Type Phone Address Plan / Group [employer] xxxxxxxxx Maps HMO ALL Contracted Advance Directives For more information, please contact: [facility] [address] [place] [address] Date Inactivated Comments Code Status Date Activated 03/13/2019 5:50 PM Full Code 03/02/2019 9:31 PM This code status was determined by: Patient 03/02/2019 9:30 PM Full Code 03/02/2019 8:03 PM This code status was determined by: Patient 03/02/2019 8:03 PM Full Code 03/02/2019 7:50 PM This code status was determined by: Patient 05/30/2018 9:25 PM Full Code 05/24/2018 8:38 PM This code status was determined by: Patient 03/08/2018 7:03 PM Full Code 03/06/2018 7:12 PM This code status was determined by: Patient
--- OUTSIDE RECORDS SUMMARY | 2019-06-07 14:35 | XMS REPORT ---
[facility] Address Unknown Phone Unavailable Care Team Providers Care Churn Operator Name Role Phone KIRSTENKAMINI LORRAINE Unavailable Unavailable Jeanette MAYERS Unavailable Unavailable JAIME HANKINS Unavailable Unavailable PAULCHUN Unavailable Unavailable OTHEE, BROOKLYN JON Unavailable Unavailable CUCO LOZADA Unavailable Unavailable SOLOMON SETHI Unavailable Unavailable GLENYS BALLESTEROS Unavailable Unavailable Payers Payer Name Policy Type Policy Number Effective Date Expiration Date Problems This patient has no known problems. Allergies, Adverse Reactions, Alerts Allergy Name Allergy Type Status Severity Reaction(s) Onset Date Inactive Date Treating Clinician Comments lisinopril DA Active U 2019-05-29 00:00:00 amoxicillin DA Active U 2019-05-29 00:00:00 amoxicillin DA Active U 2017-07-03 00:00:00 Medications This patient has no known medications. Results Test Description Test Time Test Comments Text Results Atomic Results Result Comments BASIC METABOLIC PANEL 2019-06-04 08:05:00 SODIUM (test code=NA) 143 mmol/L 136-145 POTASSIUM (test code=K) 4.1 mmol/L 3.5-5.1 CHLORIDE (test code=CL) 111.0 mmol/L 98-107 CARBON DIOXIDE (test code=CO2) 27.0 mmol/L 21-32 ANION GAP (test code=GAP) 9.1 10-20 GLUCOSE (test code=GLU) 75 mg/dL 74-106 BLOOD UREA NITROGEN (test code=BUN) 22 mg/dL 7-18 GLOMERULAR FILTRATION RATE (test code=GFR) 39 mL/min >=60 Estimated GFR by using Modified MDRD formula.Chronic kidney disease is defined as either kidney damageor GFR <60 mL/min/1.73 m2 for >3 months. CREATININE (test code=CREAT) 1.60 mg/dL 0.55-1.02 Note change in reference range due to change in reagent. BUN/CREATININE RATIO (test code=BUN/CREA) 14.1 10-20 CALCIUM (test code=CA) 8.8 mg/dL 8.5-10.1 BASIC METABOLIC [id number] 07:58:00* Test Item Value Reference Range Comments SODIUM (test code=NA) 143 mmol/L 136-145 POTASSIUM (test code=K) 4.1 mmol/L 3.5-5.1 CHLORIDE (test code=CL) 111.0 mmol/L 98-107 CARBON DIOXIDE (test code=CO2) mmol/L 21-32 ANION GAP (test code=GAP) 10-20 GLUCOSE (test code=GLU) mg/dL 74-106 BLOOD UREA NITROGEN (test code=BUN) mg/dL 7-18 GLOMERULAR FILTRATION RATE (test code=GFR) mL/min >=60 CREATININE (test code=CREAT) mg/dL 0.55-1.02 BUN/CREATININE RATIO (test code=BUN/CREA) 10-20 CALCIUM (test code=CA) mg/dL 8.5-10.1 CBC W/AUTO [id number] 07:43:00* Test Item Value Reference Range Comments WHITE BLOOD CELL (test code=WBC) 4.1 K/mm3 4.5-12.5 RED BLOOD CELL (test code=RBC) 4.01 mill/mm3 3.7-5.2 HEMOGLOBIN (test code=HGB) 10.0 gram/dL 11.5-15.5 HEMATOCRIT (test code=HCT) 32.4 % 36.0-46.0 MEAN CELL VOLUME (test code=MCV) 80.8 fL 80-98 MEAN CELL HGB (test code=MCH) 24.9 picogram 27.0-33.0 MEAN CELL HGB CONCETRATION (test code=MCHC) 30.9 gram/dL 33.0-36.0 RED CELL DISTRIBUTION WIDTH (test code=RDW) 14.3 % 11.6-16.2 RED CELL DISTRIBUTION WIDTH SD (test code=RDW-SD) 42.3 fL 37.0-51.0 PLATELET COUNT (test code=PLT) 225 K/mm3 150-450 MEAN PLATELET VOLUME (test code=MPV) 8.9 fL 6.7-11.0 NEUTROPHIL % (test code=NT%) 27.9 % 39.0-69.0 IMMATURE GRANULOCYTE % (test code=IG%) 0.2 % 0.0-5.0 LYMPHOCYTE % (test code=LY%) 56.0 % 25.0-55.0 MONOCYTE % (test code=MO%) 12.5 % 0.0-10.0 EOSINOPHIL % (test code=EO%) 2.7 % 0.0-5.0 BASOPHIL % (test code=BA%) 0.7 % 0.0-1.0 NUCLEATED RBC % (test code=NRBC%) 0.0 % 0-0 NEUTROPHIL # (test code=NT#) 1.13 K/mm3 1.8-7.7 IMMATURE GRANULOCYTE # (test code=IG#) 0.01 x10 3/uL 0-0.03 LYMPHOCYTE # (test code=LY#) 2.28 K/mm3 1.0-5.0 MONOCYTE # (test code=MO#) 0.51 K/mm3 0-0.8 EOSINOPHIL # (test code=EO#) 0.11 K/mm3 0.0-0.5 BASOPHIL # (test code=BA#) 0.03 K/mm3 0.0-0.2 NUCLEATED RBC # (test code=NRBC#) 0.00 K/mm3 0.0-0.1 BASIC METABOLIC [id number] 09:17:00* Test Item Value Reference Range Comments SODIUM (test code=NA) 142 mmol/L 136-145 POTASSIUM (test code=K) 3.9 mmol/L 3.5-5.1 CHLORIDE (test code=CL) 109.0 mmol/L 98-107 CARBON DIOXIDE (test code=CO2) 29.0 mmol/L 21-32 ANION GAP (test code=GAP) 7.9 10-20 GLUCOSE (test code=GLU) 79 mg/dL 74-106 BLOOD UREA NITROGEN (test code=BUN) 24 mg/dL 7-18 GLOMERULAR FILTRATION RATE (test code=GFR) 36 mL/min >=60 Estimated GFR by using Modified MDRD formula.Chronic kidney disease is defined as either kidney damageor GFR <60 mL/min/1.73 m2 for >3 months. CREATININE (test code=CREAT) 1.70 mg/dL 0.55-1.02 Note change in reference range due to change in reagent. BUN/CREATININE RATIO (test code=BUN/CREA) 14.3 10-20 CALCIUM (test code=CA) 8.9 mg/dL 8.5-10.1 BASIC METABOLIC [id number] 09:10:00* Test Item Value Reference Range Comments SODIUM (test code=NA) 142 mmol/L 136-145 POTASSIUM (test code=K) 3.9 mmol/L 3.5-5.1 CHLORIDE (test code=CL) 109.0 mmol/L 98-107 CARBON DIOXIDE (test code=CO2) mmol/L 21-32 ANION GAP (test code=GAP) 10-20 GLUCOSE (test code=GLU) mg/dL 74-106 BLOOD UREA NITROGEN (test code=BUN) mg/dL 7-18 GLOMERULAR FILTRATION RATE (test code=GFR) mL/min >=60 CREATININE (test code=CREAT) mg/dL 0.55-1.02 BUN/CREATININE RATIO (test code=BUN/CREA) 10-20 CALCIUM (test code=CA) mg/dL 8.5-10.1 BASIC METABOLIC [id number] 07:07:00* Test Item Value Reference Range Comments SODIUM (test code=NA) 141 mmol/L 136-145 POTASSIUM (test code=K) 3.3 mmol/L 3.5-5.1 CHLORIDE (test code=CL) 106.0 mmol/L 98-107 CARBON DIOXIDE (test code=CO2) 30.0 mmol/L 21-32 ANION GAP (test code=GAP) 8.3 10-20 GLUCOSE (test code=GLU) 83 mg/dL 74-106 BLOOD UREA NITROGEN (test code=BUN) 25 mg/dL 7-18 GLOMERULAR FILTRATION RATE (test code=GFR) 36 mL/min >=60 Estimated GFR by using Modified MDRD formula.Chronic kidney disease is defined as either kidney damageor GFR <60 mL/min/1.73 m2 for >3 months. CREATININE (test code=CREAT) 1.70 mg/dL 0.55-1.02 Note change in reference range due to change in reagent. BUN/CREATININE RATIO (test code=BUN/CREA) 14.4 10-20 CALCIUM (test code=CA) 8.7 mg/dL 8.5-10.1 BASIC METABOLIC [id number] 07:03:00* Test Item Value Reference Range Comments SODIUM (test code=NA) 141 mmol/L 136-145 POTASSIUM (test code=K) 3.3 mmol/L 3.5-5.1 CHLORIDE (test code=CL) 106.0 mmol/L 98-107 CARBON DIOXIDE (test code=CO2) mmol/L 21-32 ANION GAP (test code=GAP) 10-20 GLUCOSE (test code=GLU) mg/dL 74-106 BLOOD UREA NITROGEN (test code=BUN) mg/dL 7-18 GLOMERULAR FILTRATION RATE (test code=GFR) mL/min >=60 CREATININE (test code=CREAT) mg/dL 0.55-1.02 BUN/CREATININE RATIO (test code=BUN/CREA) 10-20 CALCIUM (test code=CA) mg/dL 8.5-10.1 UR CREATININE CLEARANCE [id number] 23:21:00* Test Item Value Reference Range Comments CREATININE CLEARANCE RESULT (test code=CREATCLR) 43 mL/min 100-120 CREATININE (test code=CREAT) 3.10 mg/dL 0.55-1.02 Note change in reference range due to change in reagent. UR CREATININE RANDOM (test code=CREATU) 66.0 mg/dL 30-125 UR VOLUME 24HR (test code=VOL) 2900 mL/24hrs [id number] 24 HR URINE TOTAL MOMXZA=1671 ML UR CREATININE CLEARANCE [id number] 23:16:00* Test Item Value Reference Range Comments CREATININE CLEARANCE RESULT (test code=CREATCLR) mL/min 100-120 CREATININE (test code=CREAT) 3.10 mg/dL 0.55-1.02 Note change in reference range due to change in reagent. UR CREATININE RANDOM (test code=CREATU) 66.0 mg/dL 30-125 UR VOLUME 24HR (test code=VOL) mL/24hrs [id number] 24 HR URINE TOTAL ZTBAHP=5576 ML COMPREHENSIVE METABOLIC [id number] 02:55:00* Test Item Value Reference Range Comments SODIUM (test code=NA) 139 mmol/L 136-145 POTASSIUM (test code=K) 3.4 mmol/L 3.5-5.1 CHLORIDE (test code=CL) 104.0 mmol/L 98-107 CARBON DIOXIDE (test code=CO2) 27.0 mmol/L 21-32 ANION GAP (test code=GAP) 11.4 10-20 GLUCOSE (test code=GLU) 105 mg/dL 74-106 BLOOD UREA NITROGEN (test code=BUN) 47 mg/dL 7-18 GLOMERULAR FILTRATION RATE (test code=GFR) 18 mL/min >=60 Estimated GFR by using Modified MDRD formula.Chronic kidney disease is defined as either kidney damageor GFR <60 mL/min/1.73 m2 for >3 months. CREATININE (test code=CREAT) 3.10 mg/dL 0.55-1.02 Note change in reference range due to change in reagent. BUN/CREATININE RATIO (test code=BUN/CREA) 15.1 10-20 TOTAL PROTEIN (test code=PROT) 6.1 gram/dL 6.4-8.2 ALBUMIN (test code=ALB) 2.8 g/dL 3.4-5.0 GLOBULIN (test code=GLOB) 3.3 gram/dL 2.7-4.2 ALBUMIN/GLOBULIN RATIO (test code=A/G) 0.8 0.75-1.50 CALCIUM (test code=CA) 8.1 mg/dL 8.5-10.1 BILIRUBIN TOTAL (test code=BILT) 0.30 mg/dL 0.0-1.0 SGOT/AST (test code=AST) 14 IUnit/L 15-37 SGPT/ALT (test code=ALT) 13 IUnit/L 12-78 ALKALINE PHOSPHATASE TOTAL (test code=ALKP) 117 IUnit/L 45-117 Note change in reference range due to change in reagent. COMPREHENSIVE METABOLIC [id number] 02:47:00* Test Item Value Reference Range Comments SODIUM (test code=NA) 139 mmol/L 136-145 POTASSIUM (test code=K) 3.4 mmol/L 3.5-5.1 CHLORIDE (test code=CL) 104.0 mmol/L 98-107 CARBON DIOXIDE (test code=CO2) mmol/L 21-32 ANION GAP (test code=GAP) 10-20 GLUCOSE (test code=GLU) mg/dL 74-106 BLOOD UREA NITROGEN (test code=BUN) mg/dL 7-18 GLOMERULAR FILTRATION RATE (test code=GFR) mL/min >=60 CREATININE (test code=CREAT) mg/dL 0.55-1.02 BUN/CREATININE RATIO (test code=BUN/CREA) 10-20 TOTAL PROTEIN (test code=PROT) gram/dL 6.4-8.2 ALBUMIN (test code=ALB) g/dL 3.4-5.0 GLOBULIN (test code=GLOB) gram/dL 2.7-4.2 ALBUMIN/GLOBULIN RATIO (test code=A/G) 0.75-1.50 CALCIUM (test code=CA) mg/dL 8.5-10.1 BILIRUBIN TOTAL (test code=BILT) mg/dL 0.0-1.0 SGOT/AST (test code=AST) IUnit/L 15-37 SGPT/ALT (test code=ALT) IUnit/L 12-78 ALKALINE PHOSPHATASE TOTAL (test code=ALKP) IUnit/L 45-117 - US RETRO [id number] 18:46:00 Name: DARYL ALEXIS [facility] : 1950 Age/S: 68 / F [address] [facility]: [id number] Loc: [place] [address] Phys: Genaro Kenney MD Acct: [id number] Dis Date: Status: ADM IN PHONE #: [phone] Exam Date: 05/30/2019 1843 FAX #: [phone] Reason: ASHLEE EXAMS: CPT CODE: [id number] US RETRO LTD [id number] REASON FOR EXAM: ASHLEE EXAM ORDER DATE: 05/30/2019 5:15 PM Attending M.Maura.: Genaro Kenney MD PROCEDURE: - US RETRO LTD FINDINGS: The right kidney measures 4.3 x 2.5 cm. The cross-sectional thickness of the right renal cortex measured 0.5 cm. The left kidney measures 10.6 x 4.9 cm. The cross-sectional thickness of the left renal cortex measured 1.5 cm. There is no evidence of hydronephrosis. There is no evidence of nephrolithiasis. There is no evidence of renal mass. The urinary bladder is unremarkable IMPRESSION: Severe atrophy of the right kidney. Unremarkable left kidney at 1846 Reported and signed by: Luis Cazares M.D. CC: Genaro Kenney MD; Glenys Bernardo; Cabrera Uribe MD Technologist: Clayton Luo Trnscb Date/Time: 05/30/2019 (184) t.SDR.VTL Orig Print D/T: S: 05/30/2019 (1848) Probe: PAGE 1 Signed Report BASIC METABOLIC [id number] 08:58:00* Test Item Value Reference Range Comments SODIUM (test code=NA) 139 mmol/L 136-145 POTASSIUM (test code=K) 3.3 mmol/L 3.5-5.1 CHLORIDE (test code=CL) 101.0 mmol/L 98-107 CARBON DIOXIDE (test code=CO2) 30.0 mmol/L 21-32 ANION GAP (test code=GAP) 11.3 10-20 GLUCOSE (test code=GLU) 81 mg/dL 74-106 BLOOD UREA NITROGEN (test code=BUN) 46 mg/dL 7-18 GLOMERULAR FILTRATION RATE (test code=GFR) 13 mL/min >=60 Estimated GFR by using Modified MDRD formula.Chronic kidney disease is defined as either kidney damageor GFR <60 mL/min/1.73 m2 for >3 months. CREATININE (test code=CREAT) 4.10 mg/dL 0.55-1.02 Note change in reference range due to change in reagent. BUN/CREATININE RATIO (test code=BUN/CREA) 11.2 10-20 CALCIUM (test code=CA) 8.9 mg/dL 8.5-10.1 THYROID PROFILE [id number] 08:58:00* Test Item Value Reference Range Comments T3 UPTAKE (test code=T3UP) 38.0 % 30.0-40.0 T4 (THYROXINE) (test code=T4) 9.6 ug/dL 4.5-13.9 T7 (FREE THYROXINE INDEX) (test code=T7) 3.64 FTI 1.3-5.1 THYROID STIMULATING HORMONE (test code=TSH) 7.020 uIU/mL 0.36-3.74 TSH REFERENCE RANGES: EUTHYROID: 0.35 - 4.3 mIU/mL HYPO : > 5.5 mIU/mL HYPER : < 0.35 mIU/mL BASIC METABOLIC [id number] 08:51:00* Test Item Value Reference Range Comments SODIUM (test code=NA) 139 mmol/L 136-145 POTASSIUM (test code=K) 3.3 mmol/L 3.5-5.1 CHLORIDE (test code=CL) 101.0 mmol/L 98-107 CARBON DIOXIDE (test code=CO2) mmol/L 21-32 ANION GAP (test code=GAP) 10-20 GLUCOSE (test code=GLU) mg/dL 74-106 BLOOD UREA NITROGEN (test code=BUN) mg/dL 7-18 GLOMERULAR FILTRATION RATE (test code=GFR) mL/min >=60 CREATININE (test code=CREAT) mg/dL 0.55-1.02 BUN/CREATININE RATIO (test code=BUN/CREA) 10-20 CALCIUM (test code=CA) mg/dL 8.5-10.1 THYROID PROFILE [id number] 08:51:00* Test Item Value Reference Range Comments T3 UPTAKE (test code=T3UP) % 30.0-40.0 T4 (THYROXINE) (test code=T4) ug/dL 4.5-13.9 T7 (FREE THYROXINE INDEX) (test code=T7) FTI 1.3-5.1 THYROID STIMULATING HORMONE (test code=TSH) uIU/mL 0.36-3.74 [id number] 08:50:00* Test Item Value Reference Range Comments TROPONIN-I (test code=TROPI) 0.043 ng/mL 0-0.045 COMMENTS TO STOPPING BUILDER: COLLECT 3 HOURS AFTER PREVIOUS SAMPLECBC W/AUTO [id number] 08:28:00* Test Item Value Reference Range Comments WHITE BLOOD CELL (test code=WBC) 6.0 K/mm3 4.5-12.5 RED BLOOD CELL (test code=RBC) 4.61 mill/mm3 3.7-5.2 HEMOGLOBIN (test code=HGB) 11.4 gram/dL 11.5-15.5 HEMATOCRIT (test code=HCT) 37.7 % 36.0-46.0 MEAN CELL VOLUME (test code=MCV) 81.8 fL 80-98 MEAN CELL HGB (test code=MCH) 24.7 picogram 27.0-33.0 MEAN CELL HGB CONCETRATION (test code=MCHC) 30.2 gram/dL 33.0-36.0 RED CELL DISTRIBUTION WIDTH (test code=RDW) 14.5 % 11.6-16.2 RED CELL DISTRIBUTION WIDTH SD (test code=RDW-SD) 42.5 fL 37.0-51.0 PLATELET COUNT (test code=PLT) 212 K/mm3 150-450 RESULT VERIFIED BY REPEAT ANALYSIS MEAN PLATELET VOLUME (test code=MPV) 8.7 fL 6.7-11.0 NEUTROPHIL % (test code=NT%) 37.1 % 39.0-69.0 IMMATURE GRANULOCYTE % (test code=IG%) 0.2 % 0.0-5.0 LYMPHOCYTE % (test code=LY%) 48.9 % 25.0-55.0 MONOCYTE % (test code=MO%) 11.6 % 0.0-10.0 EOSINOPHIL % (test code=EO%) 1.7 % 0.0-5.0 BASOPHIL % (test code=BA%) 0.5 % 0.0-1.0 NUCLEATED RBC % (test code=NRBC%) 0.0 % 0-0 NEUTROPHIL # (test code=NT#) 2.23 K/mm3 1.8-7.7 IMMATURE GRANULOCYTE # (test code=IG#) 0.01 x10 3/uL 0-0.03 LYMPHOCYTE # (test code=LY#) 2.94 K/mm3 1.0-5.0 MONOCYTE # (test code=MO#) 0.70 K/mm3 0-0.8 EOSINOPHIL # (test code=EO#) 0.10 K/mm3 0.0-0.5 BASOPHIL # (test code=BA#) 0.03 K/mm3 0.0-0.2 NUCLEATED RBC # (test code=NRBC#) 0.00 K/mm3 0.0-0.1 MANUAL DIFF REQUIRED (test code=MDIFF) NO URINALYSIS [id number] 03:01:00* Test Item Value Reference Range Comments UA COLOR (test code=COLU) YELLOW YELLOW UA APPEARANCE (test code=APPU) Cloudy CLEAR UA GLUCOSE DIPSTICK (test code=DGLUU) NEGATIVE mg/dL NEGATIVE UA BILIRUBIN DIPSTICK (test code=BILU) NEGATIVE mg/dL NEGATIVE UA KETONE DIPSTICK (test code=KETU) NEGATIVE mg/dL NEGATIVE UA SPECIFIC GRAVITY (test code=SGU) 1.023 1.001-1.035 UA BLOOD DIPSTICK (test code=MAURA) Negative mg/dL NEGATIVE UA PH DIPSTICK (test code=NAOMI) 5.5 5.0-8.0 UA PROTEIN DIPSTICK (test code=PROU) 50 (1+) mg/dL NEGATIVE UA UROBILINIOGEN DIPSTICK (test code=URO) 2.0 (1+) mg/dL NEGATIVE UA NITRITE DIPSTICK (test code=CURTIS) NEGATIVE NEGATIVE UA LEUKOCYTE ESTERASE W REFLEX (test code=LEUUR) NEGATIVE Genet/uL NEGATIVE UA WBC (test code=WBCU) 0-5 per HPF 0-5 UA RBC (test code=RBCU) 0-2 #/HPF 0-5 UA EPITHELIAL CELLS (test code=EPIU) MANY per HPF FEW UA BACTERIA (test code=BACU) FEW #/HPF NONE UA HYALINE CAST (test code=HYALU) >20 #/LPF 0-5 UA MUCUS (test code=MUCU) FEW #/LPF FEW Urine Source? Clean CatchDRUGS OF ABUSE SCREEN [id number] 03:01:00* Test Item Value Reference Range Comments URN COCAINE (test code=COCAURN) NEGATIVE <300 ng/mL URN CANNABINOIDS (test code=CANNABURN) NEGATIVE <50 ng/mL URN AMPHETAMINE (test code=AMPHETURN) NEGATIVE <1000 ng/mL URN BARBITURATE (test code=BARBITURN) NEGATIVE <200 ng/mL URN BENZODIAZEPINE (test code=BENZOURN) NEGATIVE <200 ng/mL URN OPIATES (test code=OPIATURN) POSITIVE <300 ng/mL This test provides only a preliminary test result. A morespecific alternate chemical method must be used in order toobtain a confirmed analytical result. Gas chromatography/mass spectrometry (GC/MS) is thepreferred confirmatory method. Other chemical confirmationmethods are available. Clinical consideration and professional judgment should be applied to any drug of abusetest result, particularly when preliminary positive resultsare used.Unconfirmed screening results must not be used fornon-medical purposes (e.g., employment testing, legaltesting). URN PHENCYCLIDINE (PCP) (test code=PHENCURN) NEGATIVE <25 ng/mL URN METHADONE (test code=METHAURN) NEGATIVE <300 ng/mL Urine Source? Clean [id number] 02:24:00* Test Item Value Reference Range Comments TROPONIN-I (test code=TROPI) 0.037 ng/mL 0-0.045 COMMENTS TO STOPPING BUILDER: COLLECT 3 HOURS AFTER PREVIOUS SAMPLEURINALYSIS [id number] 01:04:00* Test Item Value Reference Range Comments UA COLOR (test code=COLU) YELLOW YELLOW UA APPEARANCE (test code=APPU) Cloudy CLEAR UA GLUCOSE DIPSTICK (test code=DGLUU) NEGATIVE mg/dL NEGATIVE UA BILIRUBIN DIPSTICK (test code=BILU) NEGATIVE mg/dL NEGATIVE UA KETONE DIPSTICK (test code=KETU) NEGATIVE mg/dL NEGATIVE UA SPECIFIC GRAVITY (test code=SGU) 1.023 1.001-1.035 UA BLOOD DIPSTICK (test code=MAURA) Negative mg/dL NEGATIVE UA PH DIPSTICK (test code=NAOMI) 5.5 5.0-8.0 UA PROTEIN DIPSTICK (test code=PROU) 50 (1+) mg/dL NEGATIVE UA UROBILINIOGEN DIPSTICK (test code=URO) 2.0 (1+) mg/dL NEGATIVE UA NITRITE DIPSTICK (test code=CURTIS) NEGATIVE NEGATIVE UA LEUKOCYTE ESTERASE W REFLEX (test code=LEUUR) NEGATIVE Genet/uL NEGATIVE UA WBC (test code=WBCU) 0-5 per HPF 0-5 UA RBC (test code=RBCU) 0-2 #/HPF 0-5 UA EPITHELIAL CELLS (test code=EPIU) MANY per HPF FEW UA BACTERIA (test code=BACU) FEW #/HPF NONE UA HYALINE CAST (test code=HYALU) >20 #/LPF 0-5 UA MUCUS (test code=MUCU) FEW #/LPF FEW Urine Source? Clean CatchDRUGS OF ABUSE SCREEN [id number] 01:04:00* Test Item Value Reference Range Comments URN COCAINE (test code=COCAURN) <300 ng/mL URN CANNABINOIDS (test code=CANNABURN) <50 ng/mL URN AMPHETAMINE (test code=AMPHETURN) <1000 ng/mL URN BARBITURATE (test code=BARBITURN) <200 ng/mL URN BENZODIAZEPINE (test code=BENZOURN) <200 ng/mL URN OPIATES (test code=OPIATURN) <300 ng/mL URN PHENCYCLIDINE (PCP) (test code=PHENCURN) <25 ng/mL URN METHADONE (test code=METHAURN) <300 ng/mL Urine Source? Clean CatchB-TYPE NATRIURETIC [id number] 19:58:00* Test Item Value Reference Range Comments B-TYPE NATRIURETIC PEPTIDE (test code=BNP) 298.60 pgram/mL 0-100 CBC W/O [id number] 19:35:00* Test Item Value Reference Range Comments WHITE BLOOD CELL (test code=WBC) 7.4 K/mm3 4.5-12.5 RED BLOOD CELL (test code=RBC) 5.11 mill/mm3 3.7-5.2 HEMOGLOBIN (test code=HGB) 12.7 gram/dL 11.5-15.5 HEMATOCRIT (test code=HCT) 41.5 % 36.0-46.0 MEAN CELL VOLUME (test code=MCV) 81.2 fL 80-98 MEAN CELL HGB (test code=MCH) 24.9 picogram 27.0-33.0 MEAN CELL HGB CONCETRATION (test code=MCHC) 30.6 gram/dL 33.0-36.0 RED CELL DISTRIBUTION WIDTH (test code=RDW) 14.5 % 11.6-16.2 PLATELET COUNT (test code=PLT) 262 K/mm3 150-450 MEAN PLATELET VOLUME (test code=MPV) 8.7 fL 6.7-11.0 BASIC METABOLIC [id number] 19:29:00* Test Item Value Reference Range Comments SODIUM (test code=NA) 138 mmol/L 136-145 POTASSIUM (test code=K) 3.4 mmol/L 3.5-5.1 CHLORIDE (test code=CL) 97.0 mmol/L 98-107 CARBON DIOXIDE (test code=CO2) 31.0 mmol/L 21-32 ANION GAP (test code=GAP) 13.4 10-20 GLUCOSE (test code=GLU) 92 mg/dL 74-106 BLOOD UREA NITROGEN (test code=BUN) 40 mg/dL 7-18 GLOMERULAR FILTRATION RATE (test code=GFR) 13 mL/min >=60 Estimated GFR by using Modified MDRD formula.Chronic kidney disease is defined as either kidney damageor GFR <60 mL/min/1.73 m2 for >3 months. CREATININE (test code=CREAT) 4.10 mg/dL 0.55-1.02 Note change in reference range due to change in reagent. BUN/CREATININE RATIO (test code=BUN/CREA) 9.9 10-20 CALCIUM (test code=CA) 9.5 mg/dL 8.5-10.1 HEPATIC FUNCTION [id number] 19:29:00* Test Item Value Reference Range Comments TOTAL PROTEIN (test code=PROT) 7.8 gram/dL 6.4-8.2 ALBUMIN (test code=ALB) 3.8 g/dL 3.4-5.0 GLOBULIN (test code=GLOB) 4.0 gram/dL 2.7-4.2 ALBUMIN/GLOBULIN RATIO (test code=A/G) 1.0 0.75-1.50 BILIRUBIN TOTAL (test code=BILT) 0.50 mg/dL 0.0-1.0 BILIRUBIN DIRECT (test code=BILD) 0.15 mg/dL 0.0-0.20 SGOT/AST (test code=AST) 26 IUnit/L 15-37 SGPT/ALT (test code=ALT) 19 IUnit/L 12-78 ALKALINE PHOSPHATASE TOTAL (test code=ALKP) 114 IUnit/L 45-117 Note change in reference range due to change in reagent. [id number] 19:29:00* Test Item Value Reference Range Comments LIPASE (test code=LIP) 464 U/L 73.0-393.0 [id number] 19:29:00* Test Item Value Reference Range Comments TROPONIN-I (test code=TROPI) 0.053 ng/mL 0-0.045 Results called to [id number] by V.[email or web address].LT 05/29/19 192Critical results verified and read back by Nurse? Y CBC W/O [id number] 19:25:00* Test Item Value Reference Range Comments WHITE BLOOD CELL (test code=WBC) K/mm3 4.5-12.5 RED BLOOD CELL (test code=RBC) mill/mm3 3.7-5.2 HEMOGLOBIN (test code=HGB) 12.7 gram/dL 11.5-15.5 HEMATOCRIT (test code=HCT) 41.5 % 36.0-46.0 MEAN CELL VOLUME (test code=MCV) fL 80-98 MEAN CELL HGB (test code=MCH) picogram 27.0-33.0 MEAN CELL HGB CONCETRATION (test code=MCHC) gram/dL 33.0-36.0 RED CELL DISTRIBUTION WIDTH (test code=RDW) % 11.6-16.2 PLATELET COUNT (test code=PLT) K/mm3 150-450 MEAN PLATELET VOLUME (test code=MPV) fL 6.7-11.0 BASIC METABOLIC [id number] 19:17:00* Test Item Value Reference Range Comments SODIUM (test code=NA) 138 mmol/L 136-145 POTASSIUM (test code=K) 3.4 mmol/L 3.5-5.1 CHLORIDE (test code=CL) 97.0 mmol/L 98-107 CARBON DIOXIDE (test code=CO2) mmol/L 21-32 ANION GAP (test code=GAP) 10-20 GLUCOSE (test code=GLU) mg/dL 74-106 BLOOD UREA NITROGEN (test code=BUN) mg/dL 7-18 GLOMERULAR FILTRATION RATE (test code=GFR) mL/min >=60 CREATININE (test code=CREAT) mg/dL 0.55-1.02 BUN/CREATININE RATIO (test code=BUN/CREA) 10-20 CALCIUM (test code=CA) mg/dL 8.5-10.1 HEPATIC FUNCTION [id number] 19:17:00* Test Item Value Reference Range Comments TOTAL PROTEIN (test code=PROT) gram/dL 6.4-8.2 ALBUMIN (test code=ALB) g/dL 3.4-5.0 GLOBULIN (test code=GLOB) gram/dL 2.7-4.2 ALBUMIN/GLOBULIN RATIO (test code=A/G) 0.75-1.50 BILIRUBIN TOTAL (test code=BILT) mg/dL 0.0-1.0 BILIRUBIN DIRECT (test code=BILD) mg/dL 0.0-0.20 SGOT/AST (test code=AST) IUnit/L 15-37 SGPT/ALT (test code=ALT) IUnit/L 12-78 ALKALINE PHOSPHATASE TOTAL (test code=ALKP) IUnit/L 45-117 [id number] 19:17:00* Test Item Value Reference Range Comments LIPASE (test code=LIP) U/L 73.0-393.0 [id number] 19:17:00* Test Item Value Reference Range Comments TROPONIN-I (test code=TROPI) ng/mL 0-0.045 - XR CHEST 1 [id number] 19:03:00 FAX: Selvin Bermudez [place]: St: REG Name: DARYL [facility] : 07/10/19 50 Age/S: 68/F [address] [facility] Unit #: [id number] Loc: [place] [address] Phys: Sevlin Bermudez MD Acct: [id number] Dis Date: Status: REG ER PHONE #: [phone] Exam Date: 05/29/2019 1853 FAX #: [phone] Reason: CHEST PAIN EXAMS: CPT CODE: [id number] XR CHEST 1 V [id number] REASON FOR EXAM: CHEST PAIN EXAM ORDER DATE: 05/29/2019 6:26 PM Ordering MBruce: Selvin Bermudez MD PROCEDURE: - XR CHEST 1 V CO MPARISON: 07/19/2018 FINDINGS: Portable AP frontal view of the [facility] st obtained at 6:53 PM shows clear lungs without evidence of consolidation . There is no evidence of effusion. The heart size is minimally enlarged. Pulmonary vasculatures are unremarkable. IMPRESSION: No a ctive disease. a t 1903 Reported and signed by: Luis Cazares M.D. CC: Selvin Bermudez MD Technolog ist: Christopher Santiago, RT(R Trnscrd Date/Time/By : 05/29/2019 (1902) : By: CassidyVTL Orig Print D/T: S: 05/29/2019 (190 6) PAGE 1 Signed Report POCT-GLUCOSE [id number] 12:10:00* Test Item Value Reference Range Comments POC-GLUCOSE METER (BEAKER) (test syjl=1214) 107 mg/dL 70-[address] [facility] [address] [facility] [address] [id number] 07:32:00* Test Item Value Reference Range Comments MAGNESIUM (BEAKER) (test yboz=177) 1.2 mg/dL 1.6-2.6 BASIC METABOLIC [id number] 07:32:00* Test Item Value Reference Range Comments SODIUM (BEAKER) (test cdqx=465) 137 meq/L 136-145 POTASSIUM (BEAKER) (test yace=545) 4.9 meq/L 3.5-5.1 CHLORIDE (BEAKER) (test rpkh=542) 100 meq/L 98-107 CO2 (BEAKER) (test mhwm=467) 26 meq/L 22-29 BLOOD UREA NITROGEN (BEAKER) (test ujbk=951) 37 mg/dL 7-21 CREATININE (BEAKER) (test obri=467) 1.85 mg/dL 0.57-1.25 GLUCOSE RANDOM (BEAKER) (test xdhq=228) 130 mg/dL 70-105 CALCIUM (BEAKER) (test qben=099) 9.6 mg/dL 8.4-10.2 EGFR (BEAKER) (test bhqy=9212) 33 mL/min/1.73 sq m ESTIMATED GFR IS NOT ACCURATE CREATININE CLEARANCE IN PREDICTING GLOMERULAR FILTRATION RATE. ESTIMATED GFR IS NOT APPLICABLE FOR DIALYSIS PATIENTS. POCT-GLUCOSE [id number] 21:38:00* Test Item Value Reference Range Comments POC-GLUCOSE METER (BEAKER) (test nqcf=4648) 72 mg/dL 70-[address] [facility] [address] [facility] [address] POCT-GLUCOSE [id number] 08:13:00* Test Item Value Reference Range Comments POC-GLUCOSE METER (BEAKER) (test elmm=6525) 69 mg/dL 70-[address] [facility] [address] [facility] [address] [id number] 07:57:00* Test Item Value Reference Range Comments PHOSPHORUS (BEAKER) (test spuz=448) 2.6 mg/dL 2.3-4.7 [id number] 07:57:00* Test Item Value Reference Range Comments MAGNESIUM (BEAKER) (test xvdw=143) 1.4 mg/dL 1.6-2.6 BASIC METABOLIC [id number] 07:57:00* Test Item Value Reference Range Comments SODIUM (BEAKER) (test rzzp=584) 134 meq/L 136-145 POTASSIUM (BEAKER) (test wzse=523) 3.9 meq/L 3.5-5.1 CHLORIDE (BEAKER) (test gbco=570) 99 meq/L 98-107 CO2 (BEAKER) (test zssc=749) 27 meq/L 22-29 BLOOD UREA NITROGEN (BEAKER) (test hyhx=757) 34 mg/dL 7-21 CREATININE (BEAKER) (test eplm=151) 1.95 mg/dL 0.57-1.25 GLUCOSE RANDOM (BEAKER) (test hjfu=039) 80 mg/dL 70-105 CALCIUM (BEAKER) (test ibhb=643) 8.5 mg/dL 8.4-10.2 EGFR (BEAKER) (test vtmo=5857) 31 mL/min/1.73 sq m ESTIMATED GFR IS NOT ACCURATE CREATININE CLEARANCE IN PREDICTING GLOMERULAR FILTRATION RATE. ESTIMATED GFR IS NOT APPLICABLE FOR DIALYSIS PATIENTS. POCT-GLUCOSE [id number] 21:27:00* Test Item Value Reference Range Comments POC-GLUCOSE METER (BEAKER) (test hzxc=0502) 126 mg/dL 70-[address] [facility] [address] [facility] [address] POCT-GLUCOSE [id number] 18:02:00* Test Item Value Reference Range Comments POC-GLUCOSE METER (BEAKER) (test vslt=7113) 115 mg/dL 70-[address] [facility] [address] [facility] [address] POCT-GLUCOSE [id number] 12:47:00* Test Item Value Reference Range Comments POC-GLUCOSE METER (BEAKER) (test hhdl=9013) 93 mg/dL 70-110 [address]ED AT [address] [address] POCT-GLUCOSE [id number] 08:30:00* Test Item Value Reference Range Comments POC-GLUCOSE METER (BEAKER) (test syxt=1573) 79 mg/dL 70-110 TESTED AT [address] [address] [id number] 07:39:00* Test Item Value Reference Range Comments PHOSPHORUS (BEAKER) (test inzh=401) 1.7 mg/dL 2.3-4.7 [id number] 07:39:00* Test Item Value Reference Range Comments MAGNESIUM (BEAKER) (test lpfi=212) 1.4 mg/dL 1.6-2.6 BASIC METABOLIC [id number] 07:39:00* Test Item Value Reference Range Comments SODIUM (BEAKER) (test gdcr=593) 133 meq/L 136-145 POTASSIUM (BEAKER) (test ubbx=971) 3.3 meq/L 3.5-5.1 CHLORIDE (BEAKER) (test nktl=567) 99 meq/L 98-107 CO2 (BEAKER) (test xgks=995) 27 meq/L 22-29 BLOOD UREA NITROGEN (BEAKER) (test bqqp=035) 40 mg/dL 7-21 CREATININE (BEAKER) (test zwbm=697) 2.08 mg/dL 0.57-1.25 GLUCOSE RANDOM (BEAKER) (test bpic=845) 94 mg/dL 70-105 CALCIUM (BEAKER) (test walf=846) 8.3 mg/dL 8.4-10.2 EGFR (BEAKER) (test bcii=4344) 29 mL/min/1.73 sq m ESTIMATED GFR IS NOT ACCURATE CREATININE CLEARANCE IN PREDICTING GLOMERULAR FILTRATION RATE. ESTIMATED GFR IS NOT APPLICABLE FOR DIALYSIS PATIENTS. POCT-GLUCOSE [id number] 22:09:00* Test Item Value Reference Range Comments POC-GLUCOSE METER (BEAKER) (test bfdb=0531) 81 mg/dL 70-[address] [facility] [address] [facility] [address] BLOOD [id number] 20:01:00* Test Item Value Reference Range Comments CULTURE (BEAKER) (test tfxh=9159) No growth in 5 days BLOOD [id number] 20:01:00* Test Item Value Reference Range Comments CULTURE (BEAKER) (test qsxj=2231) No growth in 5 days POCT-GLUCOSE [id number] 11:24:00* Test Item Value Reference Range Comments POC-GLUCOSE METER (BEAKER) (test ygnf=9544) 98 mg/dL 70-[address] [facility] [address] [facility] [address] BASIC METABOLIC [id number] 08:02:00* Test Item Value Reference Range Comments SODIUM (BEAKER) (test eglh=826) 136 meq/L 136-145 POTASSIUM (BEAKER) (test pbvx=140) 3.0 meq/L 3.5-5.1 CHLORIDE (BEAKER) (test ryqa=824) 97 meq/L 98-107 CO2 (BEAKER) (test sbse=410) 30 meq/L 22-29 BLOOD UREA NITROGEN (BEAKER) (test azdv=726) 47 mg/dL 7-21 CREATININE (BEAKER) (test cfbj=472) 2.19 mg/dL 0.57-1.25 GLUCOSE RANDOM (BEAKER) (test rnqg=097) 81 mg/dL 70-105 CALCIUM (BEAKER) (test neuk=058) 8.8 mg/dL 8.4-10.2 EGFR (BEAKER) (test bxfq=3086) 27 mL/min/1.73 sq m ESTIMATED GFR IS NOT ACCURATE CREATININE CLEARANCE IN PREDICTING GLOMERULAR FILTRATION RATE. ESTIMATED GFR IS NOT APPLICABLE FOR DIALYSIS PATIENTS. [id number] 08:01:00* Test Item Value Reference Range Comments PHOSPHORUS (BEAKER) (test ezhv=758) 2.2 mg/dL 2.3-4.7 [id number] 08:01:00* Test Item Value Reference Range Comments MAGNESIUM (BEAKER) (test elew=051) 1.2 mg/dL 1.6-2.6 BLOOD [id number] 02:01:00* Test Item Value Reference Range Comments CULTURE (BEAKER) (test lgxy=6960) No growth in 5 days BLOOD [id number] 02:01:00* Test Item Value Reference Range Comments CULTURE (BEAKER) (test wygd=8934) No growth in 5 days POCT-GLUCOSE [id number] 22:23:00* Test Item Value Reference Range Comments POC-GLUCOSE METER (BEAKER) (test tnam=0435) 103 mg/dL 70-110 TESTED AT [address] [address] POCT-GLUCOSE [id number] 13:09:00* Test Item Value Reference Range Comments POC-GLUCOSE METER (BEAKER) (test qzxt=9248) 91 mg/dL 70-110 TESTED AT [address] [address] POCT-GLUCOSE [id number] 09:36:00* Test Item Value Reference Range Comments POC-GLUCOSE METER (BEAKER) (test thzj=0210) 117 mg/dL 70-110 TESTED AT [address] [address] CBC W/PLT COUNT & AUTO [id number] 08:45:00* Test Item Value Reference Range Comments WHITE BLOOD CELL COUNT (BEAKER) (test raig=110) 12.1 K/ L 3.5-10.5 RED BLOOD CELL COUNT (BEAKER) (test ivgs=601) 3.70 M/ L 3.93-5.22 HEMOGLOBIN (BEAKER) (test uwwk=591) 9.5 GM/DL 11.2-15.7 HEMATOCRIT (BEAKER) (test gfcz=598) 29.6 % 34.1-44.9 MEAN CORPUSCULAR VOLUME (BEAKER) (test kcsz=824) 80.0 fL 79.4-94.8 MEAN CORPUSCULAR HEMOGLOBIN (BEAKER) (test hcoj=250) 25.7 pg 25.6-32.2 MEAN CORPUSCULAR HEMOGLOBIN CONC (BEAKER) (test svch=124) 32.1 GM/DL 32.2-35.5 RED CELL DISTRIBUTION WIDTH (BEAKER) (test cjcv=902) 14.1 % 11.7-14.4 PLATELET COUNT (BEAKER) (test uaso=865) 164 K/CU MM 150-450 MEAN PLATELET VOLUME (BEAKER) (test ratp=606) 9.2 fL 9.4-12.3 NUCLEATED RED BLOOD CELLS (BEAKER) (test bdyy=980) 3 /100 WBC 0-0 NEUTROPHILS RELATIVE PERCENT (BEAKER) (test qjlu=921) 73 % LYMPHOCYTES RELATIVE PERCENT (BEAKER) (test iemp=559) 17 % MONOCYTES RELATIVE PERCENT (BEAKER) (test exlk=786) 9 % EOSINOPHILS RELATIVE PERCENT (BEAKER) (test dhyj=773) 0 % BASOPHILS RELATIVE PERCENT (BEAKER) (test ljqi=260) 0 % NEUTROPHILS ABSOLUTE COUNT (BEAKER) (test mwue=776) 8.84 K/ L 1.56-6.13 LYMPHOCYTES ABSOLUTE COUNT (BEAKER) (test ugzp=483) 2.10 K/ L 1.18-3.74 MONOCYTES ABSOLUTE COUNT (BEAKER) (test yjtu=147) 1.14 K/ L 0.24-0.36 EOSINOPHILS ABSOLUTE COUNT (BEAKER) (test acjv=322) 0.00 K/ L 0.04-0.36 BASOPHILS ABSOLUTE COUNT (BEAKER) (test lxwi=657) 0.01 K/ L 0.01-0.08 IMMATURE GRANULOCYTES-RELATIVE PERCENT (BEAKER) (test kell=2291) 0 % 0-1 BASIC METABOLIC [id number] 06:43:00* Test Item Value Reference Range Comments SODIUM (BEAKER) (test jkio=893) 139 meq/L 136-145 POTASSIUM (BEAKER) (test ecad=727) 3.5 meq/L 3.5-5.1 Specimen slightly hemolyzed CHLORIDE (BEAKER) (test ppiv=746) 103 meq/L 98-107 CO2 (BEAKER) (test mohl=124) 25 meq/L 22-29 BLOOD UREA NITROGEN (BEAKER) (test dgyo=381) 49 mg/dL 7-21 CREATININE (BEAKER) (test pgwo=775) 2.16 mg/dL 0.57-1.25 Specimen slightly hemolyzed GLUCOSE RANDOM (BEAKER) (test vhzg=579) 106 mg/dL 70-105 CALCIUM (BEAKER) (test lxpl=116) 9.0 mg/dL 8.4-10.2 EGFR (BEAKER) (test jubz=3614) 27 mL/min/1.73 sq m ESTIMATED GFR IS NOT ACCURATE CREATININE CLEARANCE IN PREDICTING GLOMERULAR FILTRATION RATE. ESTIMATED GFR IS NOT APPLICABLE FOR DIALYSIS PATIENTS. [id number] 06:37:00* Test Item Value Reference Range Comments MAGNESIUM (BEAKER) (test izyq=187) 1.6 mg/dL 1.6-2.6 Specimen slightly hemolyzed [id number] 06:37:00* Test Item Value Reference Range Comments PHOSPHORUS (BEAKER) (test ydyt=327) 2.0 mg/dL 2.3-4.7 Specimen slightly hemolyzed POCT-GLUCOSE [id number] 21:13:00* Test Item Value Reference Range Comments POC-GLUCOSE METER (BEAKER) (test jozg=0797) 141 mg/dL 70-110 TESTED AT [address] [address] POCT-GLUCOSE [id number] 21:13:00* Test Item Value Reference Range Comments POC-GLUCOSE METER (BEAKER) (test ppva=4170) 158 mg/dL 70-110 TESTED AT [address] [address] POCT-GLUCOSE [id number] 17:00:00* Test Item Value Reference Range Comments POC-GLUCOSE METER (BEAKER) (test wjub=3001) 146 mg/dL 70-110 TESTED AT [address] [address] STOOL CULTURE + SHIGA [id number] 10:05:00* Test Item Value Reference Range Comments CULTURE (BEAKER) (test ztts=9440) No Salmonella, Shigella or Campylobacter isolated POCT-GLUCOSE [id number] 07:43:00* Test Item Value Reference Range Comments POC-GLUCOSE METER (BEAKER) (test mwvg=3440) 176 mg/dL 70-110 TESTED AT [address] [address] BASIC METABOLIC [id number] 05:06:00* Test Item Value Reference Range Comments SODIUM (BEAKER) (test korr=243) 142 meq/L 136-145 POTASSIUM (BEAKER) (test voug=833) 3.4 meq/L 3.5-5.1 CHLORIDE (BEAKER) (test sjcf=987) 102 meq/L 98-107 CO2 (BEAKER) (test stcg=795) 27 meq/L 22-29 BLOOD UREA NITROGEN (BEAKER) (test caen=334) 53 mg/dL 7-21 CREATININE (BEAKER) (test iiob=615) 2.10 mg/dL 0.57-1.25 GLUCOSE RANDOM (BEAKER) (test sepk=997) 146 mg/dL 70-105 CALCIUM (BEAKER) (test qzbi=120) 9.3 mg/dL 8.4-10.2 EGFR (BEAKER) (test ninu=4579) 28 mL/min/1.73 sq m ESTIMATED GFR IS NOT ACCURATE CREATININE CLEARANCE IN PREDICTING GLOMERULAR FILTRATION RATE. ESTIMATED GFR IS NOT APPLICABLE FOR DIALYSIS PATIENTS. [id number] 05:05:00* Test Item Value Reference Range Comments PHOSPHORUS (BEAKER) (test hcpl=031) 2.0 mg/dL 2.3-4.7 [id number] 05:05:00* Test Item Value Reference Range Comments MAGNESIUM (BEAKER) (test ufju=778) 1.3 mg/dL 1.6-2.6 POCT-GLUCOSE [id number] 21:07:00* Test Item Value Reference Range Comments POC-GLUCOSE METER (BEAKER) (test jzti=8138) 141 mg/dL 70-110 TESTED AT [address] [address] POCT-GLUCOSE [id number] 17:07:00* Test Item Value Reference Range Comments POC-GLUCOSE METER (BEAKER) (test vadr=4216) 163 mg/dL 70-110 TESTED AT [address] [address] SHIGA TOXIN [id number] 15:40:00* Test Item Value Reference Range Comments SHIGA TOXIN 1 (BEAKER) (test ozkc=4618) Not detected Not detected SHIGA TOXIN 2 (BEAKER) (test wrlb=1006) Not detected Not detected BASIC METABOLIC [id number] 07:16:00* Test Item Value Reference Range Comments SODIUM (BEAKER) (test jzrc=544) 139 meq/L 136-145 POTASSIUM (BEAKER) (test vejy=151) 3.3 meq/L 3.5-5.1 Specimen slightly hemolyzed CHLORIDE (BEAKER) (test ugtj=730) 106 meq/L 98-107 CO2 (BEAKER) (test smzd=481) 23 meq/L 22-29 BLOOD UREA NITROGEN (BEAKER) (test nklk=711) 72 mg/dL 7-21 CREATININE (BEAKER) (test hpce=454) 2.20 mg/dL 0.57-1.25 Specimen slightly hemolyzed GLUCOSE RANDOM (BEAKER) (test tats=675) 118 mg/dL 70-105 CALCIUM (BEAKER) (test exgn=320) 8.5 mg/dL 8.4-10.2 EGFR (BEAKER) (test vzmn=1707) 27 mL/min/1.73 sq m ESTIMATED GFR IS NOT ACCURATE CREATININE CLEARANCE IN PREDICTING GLOMERULAR FILTRATION RATE. ESTIMATED GFR IS NOT APPLICABLE FOR DIALYSIS PATIENTS. B-TYPE NATRIURETIC FACTOR (BNP)2019-03-05 06:38:00* Test Item Value Reference Range Comments B-TYPE NATRIURETIC PEPTIDE (BEAKER) (test hjhe=776) 3118 pg/mL 0-100 VANCOMYCIN LEVEL, [id number] 06:38:00* Test Item Value Reference Range Comments VANCOMYCIN RANDOM (BEAKER) (test apho=807) 22.4 ug/mL Reference Range: No NormalsCBC W/PLT COUNT & AUTO [id number] 06:29:00* Test Item Value Reference Range Comments WHITE BLOOD CELL COUNT (BEAKER) (test lefm=803) 12.7 K/ L 3.5-10.5 RED BLOOD CELL COUNT (BEAKER) (test rwug=581) 3.56 M/ L 3.93-5.22 HEMOGLOBIN (BEAKER) (test ohei=450) 9.1 GM/DL 11.2-15.7 HEMATOCRIT (BEAKER) (test utgh=518) 28.1 % 34.1-44.9 MEAN CORPUSCULAR VOLUME (BEAKER) (test zdkz=460) 78.9 fL 79.4-94.8 MEAN CORPUSCULAR HEMOGLOBIN (BEAKER) (test ppau=644) 25.6 pg 25.6-32.2 MEAN CORPUSCULAR HEMOGLOBIN CONC (BEAKER) (test gxpb=465) 32.4 GM/DL 32.2-35.5 RED CELL DISTRIBUTION WIDTH (BEAKER) (test binj=692) 13.6 % 11.7-14.4 PLATELET COUNT (BEAKER) (test dofc=442) 148 K/CU MM 150-450 MEAN PLATELET VOLUME (BEAKER) (test zzjd=602) 9.1 fL 9.4-12.3 NUCLEATED RED BLOOD CELLS (BEAKER) (test dkju=168) 0 /100 WBC 0-0 NEUTROPHILS RELATIVE PERCENT (BEAKER) (test fruc=973) 83 % LYMPHOCYTES RELATIVE PERCENT (BEAKER) (test jnlc=510) 10 % MONOCYTES RELATIVE PERCENT (BEAKER) (test piak=790) 6 % EOSINOPHILS RELATIVE PERCENT (BEAKER) (test byvj=882) 0 % BASOPHILS RELATIVE PERCENT (BEAKER) (test gjxz=443) 0 % NEUTROPHILS ABSOLUTE COUNT (BEAKER) (test viqc=637) 10.51 K/ L 1.56-6.13 LYMPHOCYTES ABSOLUTE COUNT (BEAKER) (test ymyd=594) 1.28 K/ L 1.18-3.74 MONOCYTES ABSOLUTE COUNT (BEAKER) (test kszf=405) 0.78 K/ L 0.24-0.36 EOSINOPHILS ABSOLUTE COUNT (BEAKER) (test chxj=634) 0.00 K/ L 0.04-0.36 BASOPHILS ABSOLUTE COUNT (BEAKER) (test zxhc=486) 0.01 K/ L 0.01-0.08 IMMATURE GRANULOCYTES-RELATIVE PERCENT (BEAKER) (test rjqt=7651) 1 % 0-1 POCT-GLUCOSE [id number] 21:45:00* Test Item Value Reference Range Comments POC-GLUCOSE METER (BEAKER) (test szdd=3929) 113 mg/dL 70-110 TESTED AT [place] [id number] [facility] [address] VANCOMYCIN LEVEL, [id number] 20:52:00* Test Item Value Reference Range Comments VANCOMYCIN RANDOM (BEAKER) (test ytqh=553) 26.4 ug/mL Reference Range: No NormalsBASIC METABOLIC [id number] 14:11:00* Test Item Value Reference Range Comments SODIUM (BEAKER) (test ljdx=309) 135 meq/L 136-145 POTASSIUM (BEAKER) (test hrbm=663) 3.9 meq/L 3.5-5.1 CHLORIDE (BEAKER) (test luda=429) 101 meq/L 98-107 CO2 (BEAKER) (test ltib=072) 25 meq/L 22-29 BLOOD UREA NITROGEN (BEAKER) (test wkbs=317) 93 mg/dL 7-21 CREATININE (BEAKER) (test ndyi=330) 2.84 mg/dL 0.57-1.25 GLUCOSE RANDOM (BEAKER) (test qydt=147) 90 mg/dL 70-105 CALCIUM (BEAKER) (test qlbu=737) 8.6 mg/dL 8.4-10.2 EGFR (BEAKER) (test dnxu=4283) 20 mL/min/1.73 sq m ESTIMATED GFR IS NOT ACCURATE CREATININE CLEARANCE IN PREDICTING GLOMERULAR FILTRATION RATE. ESTIMATED GFR IS NOT APPLICABLE FOR DIALYSIS PATIENTS. POCT-GLUCOSE [id number] 11:27:00* Test Item Value Reference Range Comments POC-GLUCOSE METER (BEAKER) (test pjhg=6068) 121 mg/dL 70-[address] [facility] [address] [facility] [address] URINE [id number] 09:01:00* Test Item Value Reference Range Comments CULTURE (BEAKER) (test meyp=8584) No growth BASIC METABOLIC [id number] 08:59:00* Test Item Value Reference Range Comments SODIUM (BEAKER) (test htuy=878) 132 meq/L 136-145 POTASSIUM (BEAKER) (test wvld=397) 3.9 meq/L 3.5-5.1 CHLORIDE (BEAKER) (test anxb=817) 100 meq/L 98-107 CO2 (BEAKER) (test kzwi=002) 24 meq/L 22-29 BLOOD UREA NITROGEN (BEAKER) (test oqvd=016) 99 mg/dL 7-21 CREATININE (BEAKER) (test rvrh=842) 2.95 mg/dL 0.57-1.25 GLUCOSE RANDOM (BEAKER) (test qoog=842) 87 mg/dL 70-105 CALCIUM (BEAKER) (test siga=850) 8.1 mg/dL 8.4-10.2 EGFR (BEAKER) (test dufh=5247) 19 mL/min/1.73 sq m ESTIMATED GFR IS NOT ACCURATE CREATININE CLEARANCE IN PREDICTING GLOMERULAR FILTRATION RATE. ESTIMATED GFR IS NOT APPLICABLE FOR DIALYSIS PATIENTS. B-TYPE NATRIURETIC FACTOR (BNP)2019-03-04 08:32:00* Test Item Value Reference Range Comments B-TYPE NATRIURETIC PEPTIDE (BEAKER) (test obia=510) 1406 pg/mL 0-100 STOOL PATH [id number] 08:14:00* Test Item Value Reference Range Comments PATHOGEN EXAM CHARGED (BEAKER) (test fwjg=5673) Done CBC W/PLT COUNT & AUTO [id number] 08:08:00* Test Item Value Reference Range Comments WHITE BLOOD CELL COUNT (BEAKER) (test ahvc=314) 10.7 K/ L 3.5-10.5 RED BLOOD CELL COUNT (BEAKER) (test frcq=467) 3.16 M/ L 3.93-5.22 HEMOGLOBIN (BEAKER) (test tiri=288) 8.1 GM/DL 11.2-15.7 HEMATOCRIT (BEAKER) (test qslw=610) 24.8 % 34.1-44.9 MEAN CORPUSCULAR VOLUME (BEAKER) (test zwmi=572) 78.5 fL 79.4-94.8 MEAN CORPUSCULAR HEMOGLOBIN (BEAKER) (test riid=745) 25.6 pg 25.6-32.2 MEAN CORPUSCULAR HEMOGLOBIN CONC (BEAKER) (test otek=031) 32.7 GM/DL 32.2-35.5 RED CELL DISTRIBUTION WIDTH (BEAKER) (test opdp=546) 13.6 % 11.7-14.4 PLATELET COUNT (BEAKER) (test ntyi=998) 134 K/CU MM 150-450 MEAN PLATELET VOLUME (BEAKER) (test pdxo=598) 9.1 fL 9.4-12.3 NUCLEATED RED BLOOD CELLS (BEAKER) (test stib=771) 0 /100 WBC 0-0 NEUTROPHILS RELATIVE PERCENT (BEAKER) (test uuxu=464) 86 % LYMPHOCYTES RELATIVE PERCENT (BEAKER) (test cbnb=087) 10 % MONOCYTES RELATIVE PERCENT (BEAKER) (test glxb=268) 4 % EOSINOPHILS RELATIVE PERCENT (BEAKER) (test chnm=126) 0 % BASOPHILS RELATIVE PERCENT (BEAKER) (test mgus=779) 0 % NEUTROPHILS ABSOLUTE COUNT (BEAKER) (test nxqm=125) 9.23 K/ L 1.56-6.13 LYMPHOCYTES ABSOLUTE COUNT (BEAKER) (test gtjq=607) 1.02 K/ L 1.18-3.74 MONOCYTES ABSOLUTE COUNT (BEAKER) (test hniy=384) 0.39 K/ L 0.24-0.36 EOSINOPHILS ABSOLUTE COUNT (BEAKER) (test mleq=370) 0.00 K/ L 0.04-0.36 BASOPHILS ABSOLUTE COUNT (BEAKER) (test okdq=429) 0.00 K/ L 0.01-0.08 IMMATURE GRANULOCYTES-RELATIVE PERCENT (BEAKER) (test wwaj=6465) 1 % 0-1 POCT-GLUCOSE [id number] 05:58:00* Test Item Value Reference Range Comments POC-GLUCOSE METER (BEAKER) (test aizq=5320) 101 mg/dL 70-110 TESTED AT [address] [address] BASIC METABOLIC [id number] 01:42:00* Test Item Value Reference Range Comments SODIUM (BEAKER) (test teuj=479) 131 meq/L 136-145 POTASSIUM (BEAKER) (test tvuv=356) 3.8 meq/L 3.5-5.1 CHLORIDE (BEAKER) (test gmge=886) 98 meq/L 98-107 CO2 (BEAKER) (test egbh=241) 23 meq/L 22-29 BLOOD UREA NITROGEN (BEAKER) (test ffjw=069) 105 mg/dL 7-21 CREATININE (BEAKER) (test mlgr=000) 3.19 mg/dL 0.57-1.25 GLUCOSE RANDOM (BEAKER) (test rbll=754) 112 mg/dL 70-105 CALCIUM (BEAKER) (test zyfl=177) 8.0 mg/dL 8.4-10.2 EGFR (BEAKER) (test serl=3889) 18 mL/min/1.73 sq m ESTIMATED GFR IS NOT ACCURATE CREATININE CLEARANCE IN PREDICTING GLOMERULAR FILTRATION RATE. ESTIMATED GFR IS NOT APPLICABLE FOR DIALYSIS PATIENTS. POCT-GLUCOSE [id number] 21:27:00* Test Item Value Reference Range Comments POC-GLUCOSE METER (BEAKER) (test pfhh=5117) 146 mg/dL 70-110 TESTED AT [address] [address] VANCOMYCIN LEVEL, [id number] 20:46:00* Test Item Value Reference Range Comments VANCOMYCIN RANDOM (BEAKER) (test bwdg=900) 16.0 ug/mL Reference Range: No NormalsC. DIFFICILE GDH [id number] 13:53:00* Test Item Value Reference Range Comments CDT TOXIN (test hdvn=[id number]) Negative Negative CDT GDH ANTIGEN (test zhxw=[id number]) Negative Negative No indication of Clostridium difficile infection and no colonization. Discontinue enteric isolation and therapy. Testing performed by [employer] Rapid Cassette Assay. For GDH, published sensitivity of the assay is 98.7% compared to cytotoxicity testing. For Toxin AB, published sensitivity is 87.8% and specificity 99.4% compared to cytotoxicity testing.Ve rification of kit performance was done by the [facility] prior to cl inical use.POCT-GLUCOSE [id number] 11:05:00* Test Item Value Reference Range Comments POC-GLUCOSE METER (BEAKER) (test ejss=6903) 150 mg/dL 70-110 TESTED AT [address] [address] BASIC METABOLIC [id number] 10:07:00* Test Item Value Reference Range Comments SODIUM (BEAKER) (test ektz=823) 129 meq/L 136-145 POTASSIUM (BEAKER) (test onso=150) 3.9 meq/L 3.5-5.1 CHLORIDE (BEAKER) (test qzok=114) 93 meq/L 98-107 CO2 (BEAKER) (test ycoj=400) 26 meq/L 22-29 BLOOD UREA NITROGEN (BEAKER) (test etjs=090) 120 mg/dL 7-21 CREATININE (BEAKER) (test vbtk=747) 3.70 mg/dL 0.57-1.25 GLUCOSE RANDOM (BEAKER) (test zhwe=217) 130 mg/dL 70-105 CALCIUM (BEAKER) (test qasq=615) 7.8 mg/dL 8.4-10.2 EGFR (BEAKER) (test nmuk=5903) 15 mL/min/1.73 sq m ESTIMATED GFR IS NOT ACCURATE CREATININE CLEARANCE IN PREDICTING GLOMERULAR FILTRATION RATE. ESTIMATED GFR IS NOT APPLICABLE FOR DIALYSIS PATIENTS. POCT-GLUCOSE [id number] 06:55:00* Test Item Value Reference Range Comments POC-GLUCOSE METER (BEAKER) (test rvca=8765) 147 mg/dL 70-110 TESTED AT [address] [address] B-TYPE NATRIURETIC FACTOR (BNP)2019-03-03 04:52:00* Test Item Value Reference Range Comments B-TYPE NATRIURETIC PEPTIDE (BEAKER) (test kwyy=387) 270 pg/mL 0-100 CBC W/PLT COUNT & AUTO [id number] 04:19:00* Test Item Value Reference Range Comments WHITE BLOOD CELL COUNT (BEAKER) (test lcew=582) 12.6 K/ L 3.5-10.5 RED BLOOD CELL COUNT (BEAKER) (test qjbb=832) 4.05 M/ L 3.93-5.22 HEMOGLOBIN (BEAKER) (test ebny=858) 10.3 GM/DL 11.2-15.7 HEMATOCRIT (BEAKER) (test haue=310) 31.9 % 34.1-44.9 MEAN CORPUSCULAR VOLUME (BEAKER) (test qgkq=528) 78.8 fL 79.4-94.8 MEAN CORPUSCULAR HEMOGLOBIN (BEAKER) (test vvtt=368) 25.4 pg 25.6-32.2 MEAN CORPUSCULAR HEMOGLOBIN CONC (BEAKER) (test cydi=709) 32.3 GM/DL 32.2-35.5 RED CELL DISTRIBUTION WIDTH (BEAKER) (test yrpu=918) 13.4 % 11.7-14.4 PLATELET COUNT (BEAKER) (test gjhu=400) 170 K/CU MM 150-450 MEAN PLATELET VOLUME (BEAKER) (test sduc=848) 8.7 fL 9.4-12.3 NUCLEATED RED BLOOD CELLS (BEAKER) (test ygda=279) 0 /100 WBC 0-0 NEUTROPHILS RELATIVE PERCENT (BEAKER) (test oohz=548) 91 % LYMPHOCYTES RELATIVE PERCENT (BEAKER) (test lbly=532) 8 % MONOCYTES RELATIVE PERCENT (BEAKER) (test fmja=601) 1 % EOSINOPHILS RELATIVE PERCENT (BEAKER) (test vfbo=948) 0 % BASOPHILS RELATIVE PERCENT (BEAKER) (test ompu=904) 0 % NEUTROPHILS ABSOLUTE COUNT (BEAKER) (test gcsi=506) 11.49 K/ L 1.56-6.13 LYMPHOCYTES ABSOLUTE COUNT (BEAKER) (test iyvn=702) 0.98 K/ L 1.18-3.74 MONOCYTES ABSOLUTE COUNT (BEAKER) (test cqfd=556) 0.11 K/ L 0.24-0.36 EOSINOPHILS ABSOLUTE COUNT (BEAKER) (test wjov=998) 0.00 K/ L 0.04-0.36 BASOPHILS ABSOLUTE COUNT (BEAKER) (test tgal=699) 0.01 K/ L 0.01-0.08 IMMATURE GRANULOCYTES-RELATIVE PERCENT (BEAKER) (test mwjv=5691) 0 % 0-1 POCT-GLUCOSE [id number] 23:57:00* Test Item Value Reference Range Comments POC-GLUCOSE METER (BEAKER) (test zigi=0168) 122 mg/dL 70-[address] [facility] [address] [facility] [address] U/S, RENAL, [id number] 23:21:00Reason for exam:->acute renal failure FINAL REPORT Renal ultrasound dated 03/02/2019 Comment: R eal-time transabdominal renal ultrasound was performed.Right kidney measures 6.9 x 3.1 x 2.1 cm. Left kidney measures 11 x 4.9 x 4 point cm. Right renal cortex measures 0.6 cm. Left renal cortex measures 1.7 cm. Echogenicity of the right renal parenchyma is increased. The echogenicity of the left renal parenchyma is normal. No hydronephrosis, solid or cystic mass seen. The urinary bladder measu res 11 cc. Doppler ultrasound demonstrates patent main renal artery and vein minnie aterally. Impression: Small atrophic right kidney. Signed: Glenys Ruiz Verified Date/Time: 03/02/2019 23:21:09 Reading Location: [facility] [address] Reading Room 1 1:21 PM URINALYSIS W/ REFLEX URINE [id number] 22:54:00* Test Item Value Reference Range Comments COLOR (BEAKER) (test vslg=147) Light Yellow CLARITY (BEAKER) (test iatl=140) Clear SPECIFIC GRAVITY UA (BEAKER) (test ncey=737) 1.007 1.001-1.035 PH UA (BEAKER) (test ptrs=660) 7.0 5.0-8.0 PROTEIN UA (BEAKER) (test wdjs=970) Negative Negative GLUCOSE UA (BEAKER) (test okhg=155) Negative Negative KETONES UA (BEAKER) (test shne=762) Negative Negative BILIRUBIN UA (BEAKER) (test dcka=972) Negative Negative BLOOD UA (BEAKER) (test vxqg=790) Negative Negative NITRITE UA (BEAKER) (test ryzd=442) Negative Negative LEUKOCYTE ESTERASE UA (BEAKER) (test zgmz=218) Negative Negative UROBILINOGEN UA (BEAKER) (test mryq=971) 0.2 mg/dL 0.2-1.0 RBC UA (BEAKER) (test cgnx=615) 0 /HPF WBC UA (BEAKER) (test lcaq=105) < /HPF SOURCE(BEAKER) (test oexm=2896) B-TYPE NATRIURETIC FACTOR (BNP)2019-03-02 22:46:00* Test Item Value Reference Range Comments B-TYPE NATRIURETIC PEPTIDE (BEAKER) (test angw=014) 231 pg/mL 0-100 LACTIC ACID, [id number] 22:34:00* Test Item Value Reference Range Comments LACTATE BLOOD ARTERIAL (2) (BEAKER) (test pfqm=0017) 1.3 mmol/L 0.5-2.2 Specimen moderately hemolyzed B-TYPE NATRIURETIC FACTOR (BNP)2019-03-02 22:21:00* Test Item Value Reference Range Comments B-TYPE NATRIURETIC PEPTIDE (BEAKER) (test rsut=875) 259 pg/mL 0-100 RAD, CHEST, 1 VIEW, NON [id number] 21:27:00Reason for exam:->ALTERED MENTAL STATUSReason for exam:->ANGIOEDEMAShould this be performed at the bedside?->Yes FINAL REPORT EXAMINATION: AP PORTABLE CHEST RADIOGRAPH CL INICAL INDICATION: Central line placement. Altered mental status IMPRESSION: Com pared with 03/02/2019, 1839 hours. Tip of the new right jugular central line proje cts along the expected course of the superior vena cava. 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 Heart is enlarged as before. Mediastin al contours are stable with soft tissue fullness of the paratracheal spaces and an ectatic thoracic aorta. Thin curvilinear opacities persist at the lung bases. Morphology and distribution favor atelectasis. No evidence of new focal lung co nsolidation, pulmonary edema, large pleural effusion or pneumothorax. Signed: Maldonado Solis Verified Date/Time: 03/02/2019 21:27:02 Reading Location: [address] Reading Room ONIN [id number] 21:04:00* Test Item Value Reference Range Comments TROPONIN I (BEAKER) (test ftui=422) < ng/mL 0.00-0.03 Troponin I (TnI) levels must be interpreted in the context of the presenting sym ptoms and the clinical findings. Elevated TnI levels indicate myocardial damage, but are not specific for ischemic heart disease. Elevated TnI levels are seen in patients with other cardiac conditions (including myocarditis and congestive h eart failure), and slight TnI elevations occur in patients with other conditions , including sepsis, renal failure, acidosis, acute neurological disease, and per sistent tachyarrhythmia.COMPREHENSIVE METABOLIC [id number] 21:04:00* Test Item Value Reference Range Comments TOTAL PROTEIN (BEAKER) (test cycp=571) 5.5 gm/dL 6.0-8.3 ALBUMIN (BEAKER) (test odbf=5390) 2.9 g/dL 3.5-5.0 ALKALINE PHOSPHATASE (BEAKER) (test ezxg=355) 59 U/L 40-150 BILIRUBIN TOTAL (BEAKER) (test fkjb=404) 0.5 mg/dL 0.2-1.2 SODIUM (BEAKER) (test chah=665) 127 meq/L 136-145 POTASSIUM (BEAKER) (test qofc=409) 4.2 meq/L 3.5-5.1 CHLORIDE (BEAKER) (test ojrj=599) 90 meq/L 98-107 CO2 (BEAKER) (test xmaw=001) 27 meq/L 22-29 BLOOD UREA NITROGEN (BEAKER) (test wtuc=383) 124 mg/dL 7-21 CREATININE (BEAKER) (test nrfu=383) 4.07 mg/dL 0.57-1.25 GLUCOSE RANDOM (BEAKER) (test uamh=962) 150 mg/dL 70-105 CALCIUM (BEAKER) (test uneb=889) 7.9 mg/dL 8.4-10.2 AST (SGOT) (BEAKER) (test edhx=381) 36 U/L 5-34 ALT (SGPT) (BEAKER) (test rrqm=987) 15 U/L 6-55 EGFR (BEAKER) (test lpla=1116) 13 mL/min/1.73 sq m ESTIMATED GFR IS NOT ACCURATE CREATININE CLEARANCE IN PREDICTING GLOMERULAR FILTRATION RATE. ESTIMATED GFR IS NOT APPLICABLE FOR DIALYSIS PATIENTS. [id number] 20:57:00* Test Item Value Reference Range Comments MAGNESIUM (BEAKER) (test jsqp=945) 1.7 mg/dL 1.6-2.6 CBC W/PLT COUNT & AUTO [id number] 20:52:00* Test Item Value Reference Range Comments WHITE BLOOD CELL COUNT (BEAKER) (test yybk=436) 13.8 K/ L 3.5-10.5 RED BLOOD CELL COUNT (BEAKER) (test hxlk=012) 4.77 M/ L 3.93-5.22 HEMOGLOBIN (BEAKER) (test mypx=343) 12.3 GM/DL 11.2-15.7 HEMATOCRIT (BEAKER) (test hjjk=194) 37.4 % 34.1-44.9 MEAN CORPUSCULAR VOLUME (BEAKER) (test vitn=718) 78.4 fL 79.4-94.8 MEAN CORPUSCULAR HEMOGLOBIN (BEAKER) (test bqwe=871) 25.8 pg 25.6-32.2 MEAN CORPUSCULAR HEMOGLOBIN CONC (BEAKER) (test ktfy=071) 32.9 GM/DL 32.2-35.5 RED CELL DISTRIBUTION WIDTH (BEAKER) (test cnzb=899) 13.5 % 11.7-14.4 PLATELET COUNT (BEAKER) (test jxde=445) 185 K/CU MM 150-450 MEAN PLATELET VOLUME (BEAKER) (test hrfq=105) 8.5 fL 9.4-12.3 NUCLEATED RED BLOOD CELLS (BEAKER) (test jgct=465) 0 /100 WBC 0-0 NEUTROPHILS RELATIVE PERCENT (BEAKER) (test orcw=307) 88 % LYMPHOCYTES RELATIVE PERCENT (BEAKER) (test lhhx=556) 7 % MONOCYTES RELATIVE PERCENT (BEAKER) (test rrzc=458) 4 % EOSINOPHILS RELATIVE PERCENT (BEAKER) (test cfys=578) 0 % BASOPHILS RELATIVE PERCENT (BEAKER) (test pghc=816) 0 % NEUTROPHILS ABSOLUTE COUNT (BEAKER) (test xemx=474) 12.21 K/ L 1.56-6.13 LYMPHOCYTES ABSOLUTE COUNT (BEAKER) (test dkqi=330) 0.93 K/ L 1.18-3.74 MONOCYTES ABSOLUTE COUNT (BEAKER) (test poyp=549) 0.56 K/ L 0.24-0.36 EOSINOPHILS ABSOLUTE COUNT (BEAKER) (test elbi=159) 0.01 K/ L 0.04-0.36 BASOPHILS ABSOLUTE COUNT (BEAKER) (test nzkm=630) 0.03 K/ L 0.01-0.08 IMMATURE GRANULOCYTES-RELATIVE PERCENT (BEAKER) (test pfmf=7184) 1 % 0-1 [id number] 20:40:00* Test Item Value Reference Range Comments PROTIME (BEAKER) (test gbhe=763) 16.4 seconds 11.7-14.7 INR (BEAKER) (test yrbx=608) 1.4 <=5.9 PARTIAL THROMBOPLASTIN TIME (BEAKER) (test flmh=278) 34.3 seconds 22.5-36.0 RECOMMENDED COUMADIN/WARFARIN INR THERAPY RANGESSTANDARD DOSE: 2.0 - 3.0 Inclu rip: PROPHYLAXIS for venous thrombosis, systemic embolization; TREATMENT for kris ous thrombosis and/or pulmonary embolus.HIGH RISK: Target INR is 2.5-3.5 for pat ients with mechanical heart valves.RAD, CHEST, 1 VIEW, NON [id number] 19:30:00Reason for exam:->chest painShould this be performed at the bedside?-> YesFINAL REPORT EXAMINATION: AP PORTABLE CHEST RADIOGRAPH CLINICAL INDICATION: Chest pain IMPRESSION: Compared with upright PA and lateral chest radiograph 05/27/2018. Lung volumes have decreased in the interval. Thin curvilinear basilar lung opacities are favored to reflect associated passive atelectasis. No definite evidence of pulmonary edema, large pleural effusion or pneumothorax. The heart is mildly enlarged as before. Mediastinal contours are grossly unchanged allowing for differences in technique, positioning and inspiratory effort. 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 Signed: Maldonado Hartman MDReport Verified Date/Time: 03/02/2019 19:30:39 Reading Location: [address] Reading Room -GLUCOSE METER 2019-03-02 19:17:00* Test Item Value Reference Range Comments POC-GLUCOSE METER (BEAKER) (test akjk=7904) 122 mg/dL 70-110 TESTED AT [address] [address] [address], SPINE, CERVICAL, WO [id number] 19:17:00Reason for exam:->fallWhat is the patient's sedation requirement?->No SedationFINAL REPORT CT cervical spine without contrast INDICATION: C-spine trauma, NEXUS/CCR positive, +risk factor(s)fall COMPARISON: No priors TECHNIQUE: Multiple axial CT images of the cervical spine were obtained without contrast. Sagittal and coronal 2D reconstructions were provided as well. This exam was performed according to our departmental dose optimization program which includes automated exposure control, adjustment of the mA and/or kV according to patient's size and/or use of iterative reconstructive technique. FINDINGS: Vert ebral body height is normal, and alignment is maintained. No acute fracture, or dislocation is identified. There is moderate degenerative change in cervical spi ne, most pronounced at C5-C6 and C6-C7. There is no hematoma, or abnormal fluid collection. No prevertebral edema. Visualized paraspinal soft tissues are unrema rkable. There are multiple nodules in both lobes of the thyroid gland, the large st is located in the left, measuring up to 1.5 cm. Visualized lung apices are un remarkable. IMPRESSION: Degenerative change in cervical spine. No acute fracture , or dislocation is identified. Bilateral thyroid nodules, measuring up to 1.5 c m. Finding is amenable to ultrasound correlation on a nonemergent basis. Signed: Bony Morrow Verified Date/Time: 03/02/2019 19:17:52 Reading Location: [facility] Radiology Reading Room , BRAIN, WITHOUT [id number] 19:10:00Reason for exam:->AMS, fallWhat is the patient's sedation requirement?->No Sedation FINAL REPORT CT head without contrast. Reason for exam: AMS, fall Comparisons: May 24, 2018 Discussion: Multiple axial CT images of the head are provided without contrast evaluated in brain and bone windows. This ex am was performed according to our departmental dose optimization program which i ncludes automated exposure control, adjustment of the mA and/or kV according to patient's size and/or use of iterative reconstructive technique. There is age re lated generalized brain volume loss. Nonspecific scattered supratentorial white matter hypodensity most likely reflects chronic small vessel ischemic disease. N o evidence of acute territorial infarct. Intracranial vascular calcifications ar e present. There is no CT evidence of intracranial hemorrhage, mass-effect, hyd rocephalus, shift, or extra-axial collections. The visualized orbital contents, bones and surrounding soft tissues are unremarkable. The visualized paranasal si nuses and mastoid air cells are unremarkable. Impressions: No CT evidence of ac tahir intracranial process. Mild involutional and chronic microvascular ischemic changes. Signed: Bony Morroweport Verified Date/Time: 03/02/2019 19:10:06 Read ing Location: [facility] Radiology Reading Room -LACTIC ACID, [id number] 18:41:00* Test Item Value Reference Range Comments POC-LACTIC ACID, VENOUS (BEAKER) (test sfns=1004) 2.0 mmol/L 0.9-1.[address] [facility] [address] [place] [address] BASIC METABOLIC [id number] 06:07:00* Test Item Value Reference Range Comments SODIUM (BEAKER) (test kwsi=333) 137 meq/L 136-145 POTASSIUM (BEAKER) (test kblu=329) 5.2 meq/L 3.5-5.1 Specimen slightly hemolyzed CHLORIDE (BEAKER) (test qsrx=723) 105 meq/L 98-107 CO2 (BEAKER) (test aaud=203) 25 meq/L 22-29 BLOOD UREA NITROGEN (BEAKER) (test miym=328) 44 mg/dL 7-21 CREATININE (BEAKER) (test ntun=908) 1.74 mg/dL 0.57-1.25 Specimen slightly hemolyzed GLUCOSE RANDOM (BEAKER) (test nudi=211) 86 mg/dL 70-105 CALCIUM (BEAKER) (test lehh=639) 9.4 mg/dL 8.4-10.2 EGFR (BEAKER) (test iabz=4733) 35 mL/min/1.73 sq m ESTIMATED GFR IS NOT ACCURATE CREATININE CLEARANCE IN PREDICTING GLOMERULAR FILTRATION RATE. ESTIMATED GFR IS NOT APPLICABLE FOR DIALYSIS PATIENTS. BASIC METABOLIC [id number] 06:28:00* Test Item Value Reference Range Comments SODIUM (BEAKER) (test bjje=687) 137 meq/L 136-145 POTASSIUM (BEAKER) (test aslg=304) 5.4 meq/L 3.5-5.1 CHLORIDE (BEAKER) (test cvvy=948) 104 meq/L 98-107 CO2 (BEAKER) (test hvlm=402) 29 meq/L 22-29 BLOOD UREA NITROGEN (BEAKER) (test eoqn=490) 41 mg/dL 7-21 CREATININE (BEAKER) (test ifcy=680) 1.65 mg/dL 0.57-1.25 GLUCOSE RANDOM (BEAKER) (test txro=122) 82 mg/dL 70-105 CALCIUM (BEAKER) (test rnus=320) 9.4 mg/dL 8.4-10.2 EGFR (BEAKER) (test zzwr=8882) 38 mL/min/1.73 sq m ESTIMATED GFR IS NOT ACCURATE CREATININE CLEARANCE IN PREDICTING GLOMERULAR FILTRATION RATE. ESTIMATED GFR IS NOT APPLICABLE FOR DIALYSIS PATIENTS. BASIC METABOLIC [id number] 06:27:00* Test Item Value Reference Range Comments SODIUM (BEAKER) (test vfky=246) 140 meq/L 136-145 POTASSIUM (BEAKER) (test gpnz=672) 5.2 meq/L 3.5-5.1 CHLORIDE (BEAKER) (test ypsd=596) 107 meq/L 98-107 CO2 (BEAKER) (test rkzz=607) 26 meq/L 22-29 BLOOD UREA NITROGEN (BEAKER) (test wwks=312) 43 mg/dL 7-21 CREATININE (BEAKER) (test xjsq=812) 1.64 mg/dL 0.57-1.25 GLUCOSE RANDOM (BEAKER) (test vowg=090) 80 mg/dL 70-105 CALCIUM (BEAKER) (test aolw=690) 9.2 mg/dL 8.4-10.2 EGFR (BEAKER) (test hzpo=7012) 38 mL/min/1.73 sq m ESTIMATED GFR IS NOT ACCURATE CREATININE CLEARANCE IN PREDICTING GLOMERULAR FILTRATION RATE. ESTIMATED GFR IS NOT APPLICABLE FOR DIALYSIS PATIENTS. RAD, CHEST, 2 [id number] 15:48:00Reason for exam:->CPShould this be performed at the bedside?->NoFINAL REPORT Chest, two views HISTORY: Chest pain COMPARISON: 05/24/2018 IMPRESSION: No significant change. Lungs clear without focal consolidation. Mild tortuosity and ectasia of the thoracic aorta. Cardiomediastinal silhouette is mildly enlarged but unchanged from prior examination. Signed: Efren Cesarort Verified Date/Time: 05/27/2018 15:48:16 Reading Location: [facility] C013Y CT Body Reading Room [id number] 06:12:00* Test Item Value Reference Range Comments MAGNESIUM (BEAKER) (test xvca=359) 1.9 mg/dL 1.6-2.6 BASIC METABOLIC [id number] 06:12:00* Test Item Value Reference Range Comments SODIUM (BEAKER) (test uxxq=181) 139 meq/L 136-145 POTASSIUM (BEAKER) (test cikl=117) 4.5 meq/L 3.5-5.1 CHLORIDE (BEAKER) (test kbsn=837) 107 meq/L 98-107 CO2 (BEAKER) (test decg=318) 29 meq/L 22-29 BLOOD UREA NITROGEN (BEAKER) (test pvhy=094) 46 mg/dL 7-21 CREATININE (BEAKER) (test qmnr=138) 1.75 mg/dL 0.57-1.25 GLUCOSE RANDOM (BEAKER) (test soyc=128) 85 mg/dL 70-105 CALCIUM (BEAKER) (test rqeo=632) 8.7 mg/dL 8.4-10.2 EGFR (BEAKER) (test igmk=4365) 35 mL/min/1.73 sq m ESTIMATED GFR IS NOT ACCURATE CREATININE CLEARANCE IN PREDICTING GLOMERULAR FILTRATION RATE. ESTIMATED GFR IS NOT APPLICABLE FOR DIALYSIS PATIENTS. [id number] 04:07:00* Test Item Value Reference Range Comments MAGNESIUM (BEAKER) (test edcv=152) 2.1 mg/dL 1.6-2.6 BASIC METABOLIC [id number] 04:07:00* Test Item Value Reference Range Comments SODIUM (BEAKER) (test ngns=340) 140 meq/L 136-145 POTASSIUM (BEAKER) (test zuxr=920) 4.5 meq/L 3.5-5.1 CHLORIDE (BEAKER) (test ckqn=792) 105 meq/L 98-107 CO2 (BEAKER) (test sdax=006) 30 meq/L 22-29 BLOOD UREA NITROGEN (BEAKER) (test qyxy=620) 46 mg/dL 7-21 CREATININE (BEAKER) (test xurw=006) 1.66 mg/dL 0.57-1.25 GLUCOSE RANDOM (BEAKER) (test cdpu=475) 81 mg/dL 70-105 CALCIUM (BEAKER) (test ndrq=853) 9.1 mg/dL 8.4-10.2 EGFR (BEAKER) (test sfdb=9532) 37 mL/min/1.73 sq m ESTIMATED GFR IS NOT ACCURATE CREATININE CLEARANCE IN PREDICTING GLOMERULAR FILTRATION RATE. ESTIMATED GFR IS NOT APPLICABLE FOR DIALYSIS PATIENTS. TROPONIN [id number] 08:41:00* Test Item Value Reference Range Comments TROPONIN I (BEAKER) (test zgze=010) 0.01 ng/mL 0.00-0.03 Troponin I (TnI) levels must be interpreted in the context of the presenting sym ptoms and the clinical findings. Elevated TnI levels indicate myocardial damage, but are not specific for ischemic heart disease. Elevated TnI levels are seen in patients with other cardiac conditions (including myocarditis and congestive h eart failure), and slight TnI elevations occur in patients with other conditions , including sepsis, renal failure, acidosis, acute neurological disease, and per sistent tachyarrhythmia.TROPONIN [id number] 01:55:00* Test Item Value Reference Range Comments TROPONIN I (BEAKER) (test cmbc=638) < ng/mL 0.00-0.03 Troponin I (TnI) levels must be interpreted in the context of the presenting sym ptoms and the clinical findings. Elevated TnI levels indicate myocardial damage, but are not specific for ischemic heart disease. Elevated TnI levels are seen in patients with other cardiac conditions (including myocarditis and congestive h eart failure), and slight TnI elevations occur in patients with other conditions , including sepsis, renal failure, acidosis, acute neurological disease, and per sistent tachyarrhythmia.CBC W/PLT COUNT & AUTO [id number] 01:53:00* Test Item Value Reference Range Comments WHITE BLOOD CELL COUNT (BEAKER) (test atkb=608) 4.5 K/ L 3.5-10.5 RED BLOOD CELL COUNT (BEAKER) (test lrdj=621) 3.32 M/ L 3.93-5.22 HEMOGLOBIN (BEAKER) (test rvzh=393) 8.5 GM/DL 11.2-15.7 HEMATOCRIT (BEAKER) (test vyqr=973) 27.6 % 34.1-44.9 MEAN CORPUSCULAR VOLUME (BEAKER) (test erxc=926) 83.1 fL 79.4-94.8 MEAN CORPUSCULAR HEMOGLOBIN (BEAKER) (test zfox=847) 25.6 pg 25.6-32.2 MEAN CORPUSCULAR HEMOGLOBIN CONC (BEAKER) (test jlpw=341) 30.8 GM/DL 32.2-35.5 RED CELL DISTRIBUTION WIDTH (BEAKER) (test nfyw=914) 12.8 % 11.7-14.4 PLATELET COUNT (BEAKER) (test lske=698) 198 K/CU MM 150-450 MEAN PLATELET VOLUME (BEAKER) (test muor=056) 8.9 fL 9.4-12.3 NUCLEATED RED BLOOD CELLS (BEAKER) (test mfog=023) 0 /100 WBC 0-0 NEUTROPHILS RELATIVE PERCENT (BEAKER) (test ejqx=631) 42 % LYMPHOCYTES RELATIVE PERCENT (BEAKER) (test rdhl=592) 47 % MONOCYTES RELATIVE PERCENT (BEAKER) (test ivob=715) 9 % EOSINOPHILS RELATIVE PERCENT (BEAKER) (test avwt=299) 2 % BASOPHILS RELATIVE PERCENT (BEAKER) (test flpc=980) 0 % NEUTROPHILS ABSOLUTE COUNT (BEAKER) (test wxzd=033) 1.91 K/ L 1.56-6.13 LYMPHOCYTES ABSOLUTE COUNT (BEAKER) (test ikqj=635) 2.12 K/ L 1.18-3.74 MONOCYTES ABSOLUTE COUNT (BEAKER) (test yhst=726) 0.41 K/ L 0.24-0.36 EOSINOPHILS ABSOLUTE COUNT (BEAKER) (test juih=981) 0.07 K/ L 0.04-0.36 BASOPHILS ABSOLUTE COUNT (BEAKER) (test enzo=627) 0.02 K/ L 0.01-0.08 IMMATURE GRANULOCYTES-RELATIVE PERCENT (BEAKER) (test jeho=2389) 0 % 0-1 [id number] 01:47:00* Test Item Value Reference Range Comments MAGNESIUM (BEAKER) (test xkvs=767) 2.2 mg/dL 1.6-2.6 BASIC METABOLIC [id number] 01:47:00* Test Item Value Reference Range Comments SODIUM (BEAKER) (test hmjo=247) 139 meq/L 136-145 POTASSIUM (BEAKER) (test oubo=949) 3.7 meq/L 3.5-5.1 CHLORIDE (BEAKER) (test clyc=168) 104 meq/L 98-107 CO2 (BEAKER) (test jlzx=088) 26 meq/L 22-29 BLOOD UREA NITROGEN (BEAKER) (test drju=345) 49 mg/dL 7-21 CREATININE (BEAKER) (test ezfd=011) 2.02 mg/dL 0.57-1.25 GLUCOSE RANDOM (BEAKER) (test zfwp=549) 103 mg/dL 70-105 CALCIUM (BEAKER) (test jxdb=680) 8.7 mg/dL 8.4-10.2 EGFR (BEAKER) (test oiie=6159) 30 mL/min/1.73 sq m ESTIMATED GFR IS NOT ACCURATE CREATININE CLEARANCE IN PREDICTING GLOMERULAR FILTRATION RATE. ESTIMATED GFR IS NOT APPLICABLE FOR DIALYSIS PATIENTS. CREATININE [id number] 23:28:00* Test Item Value Reference Range Comments CREATININE CLEARANCE (BEAKER) (test kjmm=949) 20.7 mL/min 70.0-140.0 VOLUME, TOTAL (BEAKER) (test eyme=5521) 1700 ml CREATININE URINE (BEAKER) (test rldw=996) 46.2 mg/dL PATIENT HEIGHT (CM) (BEAKER) (test ilot=1705) 170.2 cm PATIENT WEIGHT (KG) (BEAKER) (test cqjj=7058) 73.500 kg [id number] 20:05:00* Test Item Value Reference Range Comments CREATININE (BEAKER) (test limd=046) 2.45 mg/dL 0.57-1.25 EGFR (BEAKER) (test dbkt=1437) 24 mL/min/1.73 sq m ESTIMATED GFR IS NOT ACCURATE CREATININE CLEARANCE IN PREDICTING GLOMERULAR FILTRATION RATE. ESTIMATED GFR IS NOT APPLICABLE FOR DIALYSIS PATIENTS. CT, BRAIN, WITHOUT [id number] 18:10:00Reason for exam:->LOSS OF CONSCIOUSNESSReason for exam:->HEADACHEWhat is the patient's sedation requirement?->No SedationFINAL REPORT CT head without contrast 05/24/2018 6:08 PM CLINICAL HISTORY: Head trauma, headacheLOSS OF CONSCIOUSNESSHEADACHE TECHNIQUE: Axial noncontrast CT images through the head were obtained. This examination was performed according to our departmental dose optimization program, which includes automated exposure control, adjustment of the mA and/or kV according to patient size, and/or use of iterated reconstruction technique. COMPARISON: 01/09/2018 FINDINGS: There is no hemorrhage, extra-axial collection, mass, hydrocephalus, or midline shift. There is rare chronic-appearing microvascular ischemia in the supratentorial white matter. There is generalized parenchymal volume loss. There is an empty sella turcica appearance. The paranasal sinuses and mastoid air cells are well aerated. There is a shallow right parietal scalp hematoma. The skull is intact. IMPRESSION: No intracranial hemorrhage or mass effect. If concern for acute pathology persists, further evaluation with MRI is recommended. Signed: Taot Montano Verified Date/Time: 05/24/2018 18:10:31 Reading Location: [facility] Radiology Reading Room TINE KINASE (CK), TOTAL AND [id number] 17:52:00* Test Item Value Reference Range Comments CREATINE KINASE TOTAL (BEAKER) (test mdpy=884) 114 U/L 29-200 CREATINE KINASE-MB (BEAKER) (test tszv=200) 1.9 ng/mL 0.0-6.6 CREATINE KINASE-MB INDEX (BEAKER) (test bkbs=601) 1.7 % CK-MB Reference Range:<6.7 Normal6.7-10.0 Borderline>10.0 Abnormal TROPONIN [id number] 17:52:00* Test Item Value Reference Range Comments TROPONIN I (BEAKER) (test lwml=704) < ng/mL 0.00-0.03 Troponin I (TnI) levels must be interpreted in the context of the presenting sym ptoms and the clinical findings. Elevated TnI levels indicate myocardial damage, but are not specific for ischemic heart disease. Elevated TnI levels are seen in patients with other cardiac conditions (including myocarditis and congestive h eart failure), and slight TnI elevations occur in patients with other conditions , including sepsis, renal failure, acidosis, acute neurological disease, and per sistent tachyarrhythmia.B-TYPE NATRIURETIC FACTOR (BNP)2018-05-24 17:50:00* Test Item Value Reference Range Comments B-TYPE NATRIURETIC PEPTIDE (BEAKER) (test ddqu=113) 246 pg/mL 0-100 BASIC METABOLIC [id number] 17:47:00* Test Item Value Reference Range Comments SODIUM (BEAKER) (test epqh=605) 138 meq/L 136-145 POTASSIUM (BEAKER) (test nptl=107) 4.0 meq/L 3.5-5.1 CHLORIDE (BEAKER) (test wryc=839) 100 meq/L 98-107 CO2 (BEAKER) (test vxet=271) 30 meq/L 22-29 BLOOD UREA NITROGEN (BEAKER) (test qufb=289) 51 mg/dL 7-21 CREATININE (BEAKER) (test eshm=609) 2.62 mg/dL 0.57-1.25 GLUCOSE RANDOM (BEAKER) (test doex=907) 122 mg/dL 70-105 CALCIUM (BEAKER) (test vknx=604) 10.0 mg/dL 8.4-10.2 EGFR (BEAKER) (test zhtq=5368) 22 mL/min/1.73 sq m ESTIMATED GFR IS NOT ACCURATE CREATININE CLEARANCE IN PREDICTING GLOMERULAR FILTRATION RATE. ESTIMATED GFR IS NOT APPLICABLE FOR DIALYSIS PATIENTS. [id number] 17:45:00* Test Item Value Reference Range Comments MAGNESIUM (BEAKER) (test bemk=206) 2.1 mg/dL 1.6-2.6 PT/[id number] 17:39:00* Test Item Value Reference Range Comments PROTIME (BEAKER) (test fsvo=290) 15.5 seconds 11.7-14.7 INR (BEAKER) (test mbgl=126) 1.2 <=5.9 PARTIAL THROMBOPLASTIN TIME (BEAKER) (test jyfk=395) 33.7 seconds 22.5-36.0 RECOMMENDED COUMADIN/WARFARIN INR THERAPY RANGESSTANDARD DOSE: 2.0 - 3.0 Inclu rip: PROPHYLAXIS for venous thrombosis, systemic embolization; TREATMENT for kris ous thrombosis and/or pulmonary embolus.HIGH RISK: Target INR is 2.5-3.5 for pat ients with mechanical heart valves.CBC W/PLT COUNT & AUTO [id number] 17:31:00* Test Item Value Reference Range Comments WHITE BLOOD CELL COUNT (BEAKER) (test yknm=306) 5.0 K/ L 3.5-10.5 RED BLOOD CELL COUNT (BEAKER) (test grai=159) 3.62 M/ L 3.93-5.22 HEMOGLOBIN (BEAKER) (test uqph=057) 9.4 GM/DL 11.2-15.7 HEMATOCRIT (BEAKER) (test kjsk=014) 30.5 % 34.1-44.9 MEAN CORPUSCULAR VOLUME (BEAKER) (test qcph=868) 84.3 fL 79.4-94.8 MEAN CORPUSCULAR HEMOGLOBIN (BEAKER) (test jxuo=241) 26.0 pg 25.6-32.2 MEAN CORPUSCULAR HEMOGLOBIN CONC (BEAKER) (test jmjq=250) 30.8 GM/DL 32.2-35.5 RED CELL DISTRIBUTION WIDTH (BEAKER) (test wkvv=769) 12.8 % 11.7-14.4 PLATELET COUNT (BEAKER) (test mmnx=107) 205 K/CU MM 150-450 MEAN PLATELET VOLUME (BEAKER) (test axwm=126) 8.8 fL 9.4-12.3 NUCLEATED RED BLOOD CELLS (BEAKER) (test yukd=369) 0 /100 WBC 0-0 NEUTROPHILS RELATIVE PERCENT (BEAKER) (test ycqg=396) 47 % LYMPHOCYTES RELATIVE PERCENT (BEAKER) (test xhts=698) 43 % MONOCYTES RELATIVE PERCENT (BEAKER) (test rxpf=078) 8 % EOSINOPHILS RELATIVE PERCENT (BEAKER) (test cqlh=196) 1 % BASOPHILS RELATIVE PERCENT (BEAKER) (test vkyg=296) 0 % NEUTROPHILS ABSOLUTE COUNT (BEAKER) (test jhnx=796) 2.36 K/ L 1.56-6.13 LYMPHOCYTES ABSOLUTE COUNT (BEAKER) (test xyqa=549) 2.16 K/ L 1.18-3.74 MONOCYTES ABSOLUTE COUNT (BEAKER) (test fgmz=849) 0.41 K/ L 0.24-0.36 EOSINOPHILS ABSOLUTE COUNT (BEAKER) (test zqex=413) 0.06 K/ L 0.04-0.36 BASOPHILS ABSOLUTE COUNT (BEAKER) (test nppo=169) 0.02 K/ L 0.01-0.08 IMMATURE GRANULOCYTES-RELATIVE PERCENT (BEAKER) (test nfey=7524) 0 % 0-1 RAD, ANKLE, MIN 3 VIEWS, [id number] 17:25:00Reason for exam:->LOSS OF CONSCIOUSNESSReason for exam:->ankle injuryFINAL REPORT Technique: 3 views of the right ankle COMPARISON: None FINDINGS: There is a subtle cortical lucency along the lateral aspect of the distal tibia , only seen on the oblique view, for which a subtle nondisplaced fracture cannot be excluded.Correlation with focal tenderness and history recommended. No definite additional fracture or dislocation. Ankle mortise is well-maintained. Signed: Logan Dolanort Verified Date/Time: 05/24/2018 17:25:10 Reading Location: [facility] Radiology Reading Room , CHEST, 1 VIEW, NON [id number] 17:25:00Reason for exam:->LOSS OF CONSCIOUSNESSReason for exam:->coughFINAL REPORT TECHNIQUE: Single view of the chest. COMPARISON: 03/06/2018 FINDINGS: The cardiac silhouette is enlarged. Postsurgical changes in the mediastinum noted. Lungs are clear. No acute skeletal abnormality. Soft tissues appear unremarkable. IMPRESSION: No acute cardiopulmonary disease. Signed: Logan Dolan Verified Date/Time: 05/24/2018 17:25:40 Reading Location: [facility] Radiology Reading Room , KNEE, COMPLETE (4 VIEWS), [id number] 17:23:00 Reason for exam:->LOSS OF CONSCIOUSNESSReason for exam:->knee injuryFINAL REPORT COMPARISON: None TECHNIQUE: Multiple views of the right knee. FINDINGS: There are no acute fractures or dislocations. No radiopaque foreign bodies. Joint spaces are maintained. No lytic or blastic lesions. Degenerative changes in the joint noted. IMPRESSION: No acute bony abnormality. Signed: Logan Dolan MDReport Verified Date/Time: 05/24/2018 17:23:00 Reading Location: [facility] Radiology Reading Room -GLUCOSE [id number] 17:15:00 * Test Item Value Reference Range Comments POC-GLUCOSE METER (BEAKER) (test fdqx=8423) 128 mg/dL 70-[address] [facility] [address] [place] [address] BLOOD [id number] 00:00:00* Test Item Value Reference Range Comments CULTURE (BEAKER) (test zvnb=2804) No growth in 5 days BLOOD [id number] 00:00:00* Test Item Value Reference Range Comments CULTURE (BEAKER) (test zkyp=0953) No growth in 5 days BLOOD [id number] 12:31:00* Test Item Value Reference Range Comments CULTURE (BEAKER) (test dusd=5810) From Aerobic Bottle Only Same organism has been isolated from cultures(s) of the same body site and collection date. Repeat identification and susceptibility testing performed only after consultation with the clinical microbiology laboratory.Refer to previous culture ofCoagulase negative Staphylococcus GRAM STAIN RESULT (BEAKER) (test ciud=5188) From aerobic bottle only: gram positive cocci in clusters BLOOD [id number] 12:24:00* Test Item Value Reference Range Comments CULTURE (BEAKER) (test hiig=8759) COAGULASE NEGATIVE STAPHYLOCOCCUS From Aerobic Bottle Only Coagulase negative Staphylococcus Clindamycin (test code=10) Erythromycin (test code=4) Levofloxacin (test code=22) Linezolid (test code=40) Nitrofurantoin (test code=23) Oxacillin (test code=14) Rifampin (test code=43) Tetracycline (test code=2) Trimethoprim + Sulfamethoxazole (test code=47) Vancomycin (test code=13) GRAM STAIN RESULT (BEAKER) (test xewp=8686) From aerobic bottle only: gram positive cocci in clusters 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 Other organisms and resistance markers not contained in this PCR panel cannot be excluded and follow-up of traditional culture results is requir ed. This sample was tested at the [facility] using the [employer] Blood Culture ID Panel. This test is FDA cleared for in vi tro diagnostic use and has been verified and approved by the [facility] Clinical Micr obiology laboratory for clinical use. Reference Range: Not DetectedPHOSPHORUS 2018-03-08 06:00:00* Test Item Value Reference Range Comments PHOSPHORUS (BEAKER) (test thsa=261) 2.7 mg/dL 2.3-4.7 [id number] 06:00:00* Test Item Value Reference Range Comments MAGNESIUM (BEAKER) (test tduw=950) 1.9 mg/dL 1.6-2.6 BASIC METABOLIC [id number] 06:00:00* Test Item Value Reference Range Comments SODIUM (BEAKER) (test rimp=582) 140 meq/L 136-145 POTASSIUM (BEAKER) (test jjzg=961) 4.1 meq/L 3.5-5.1 CHLORIDE (BEAKER) (test nzun=162) 104 meq/L 98-107 CO2 (BEAKER) (test utfx=146) 31 meq/L 22-29 BLOOD UREA NITROGEN (BEAKER) (test glud=033) 60 mg/dL 7-21 CREATININE (BEAKER) (test sswh=214) 1.85 mg/dL 0.57-1.25 GLUCOSE RANDOM (BEAKER) (test vscr=097) 98 mg/dL 70-105 CALCIUM (BEAKER) (test xxat=044) 8.6 mg/dL 8.4-10.2 EGFR (BEAKER) (test lnny=8560) 33 mL/min/1.73 sq m ESTIMATED GFR IS NOT ACCURATE CREATININE CLEARANCE IN PREDICTING GLOMERULAR FILTRATION RATE. ESTIMATED GFR IS NOT APPLICABLE FOR DIALYSIS PATIENTS. LIPID [id number] 06:00:00* Test Item Value Reference Range Comments TRIGLYCERIDES (BEAKER) (test dkza=287) 42 mg/dL CHOLESTEROL (BEAKER) (test kirp=567) 122 mg/dL HDL CHOLESTEROL (BEAKER) (test kseq=404) 46 mg/dL LDL CHOLESTEROL CALCULATED (BEAKER) (test caiv=176) 68 mg/dL Triglyceride Reference Range: Low Risk <150 Borderline 150-199 High Risk 200-499 Very High Risk >=500Cholesterol Reference Range: Low Risk <200 Borderline 200-239 High Risk >240HDL Cholesterol Reference Range: Low Risk >=60 High Risk <40LDL Cholesterol Reference Range: Optimal <100 Near Optimal 100-129 Borderline 130-159 High 160-189 Very High >=190 HEPATIC FUNCTION [id number] 06:00:00* Test Item Value Reference Range Comments TOTAL PROTEIN (BEAKER) (test zrkt=892) 5.0 gm/dL 6.0-8.3 ALBUMIN (BEAKER) (test xolh=3966) 2.9 g/dL 3.5-5.0 BILIRUBIN TOTAL (BEAKER) (test ocmv=039) 0.3 mg/dL 0.2-1.2 BILIRUBIN DIRECT (BEAKER) (test mkgd=707) 0.1 mg/dL 0.1-0.5 ALKALINE PHOSPHATASE (BEAKER) (test pfcg=548) 67 U/L 40-150 AST (SGOT) (BEAKER) (test oswu=521) 22 U/L 5-34 ALT (SGPT) (BEAKER) (test lrjo=392) 12 U/L 6-55 B-TYPE NATRIURETIC FACTOR (BNP)2018-03-08 05:57:00* Test Item Value Reference Range Comments B-TYPE NATRIURETIC PEPTIDE (BEAKER) (test unwr=065) 736 pg/mL 0-100 CALCIUM, [id number] 05:55:00* Test Item Value Reference Range Comments CALCIUM IONIZED (BEAKER) (test ggee=210) 1.10 mmol/L 1.12-1.27 PH, BLOOD (BEAKER) (test paes=7843) 7.43 MISCELLANEOUS LAB [id number] 05:45:00* Test Item Value Reference Range Comments SCAN RESULT (test jvih=[id number]) Result comments: Coagulase Negative Staphylococcus Species (CoNS) DETECTED, Meth icillin Resistant First line therapy: Vancomycin Coagulase Negative Staphylo coccus (CoNS) DETECTED mecA DETECTED Possible contamination.The likelihood of pa thogenicity is increased if the organism is observed in multiple blood cultures obtained from separate venipunctures. Other organisms and resistance markers not contained in this PCR panel cannot be excluded and follow-up of traditional cul ture results is required. This sample was tested at the [facility] using the [employer] Blood Culture ID Panel. This test i s FDA cleared for in vitro diagnostic use and has been verified and approved by the [facility]biology laboratory for clinical use. Reference Range: No t DetectedCT, CHEST, WITHOUT [id number] 23:27:00FINAL REPORT INDICATION: 67-year-old female with positive blood cultures (bacteremia). Evaluate for pneumonia. COMPARISON:Chest radiograph March 06, 2018Chest CT October 06, 2017 TECHNIQUE: Chest CT exam WITHOUT intravenous contrast. The exam was performed according to our department dose-optimization protocol, which includes automated exposure control, adjustments of mA and kV according to patient size. Iterative reconstructions are also sometimes employe d. FINDINGS:Lung parenchyma is normal in attenuation and architecture. There is no pneumonia. No suspicious pulmonary nodule or mass. Central airways are clear. No pleural effusion. No mediastinal or hilar lymphadenopathy is demonstrated. T hyroid gland and esophagus are unremarkable. Patient is status post aortic valve replacement and there is suggestion of a graft of the ascending aorta. Left atr ium is mildly enlarged. No pericardial effusion. Upper abdomen notable for atrop hy right kidney. Median sternotomy with intact sternal wires noted. IMPRESSION: No evidence of pneumonia. Prior aortic valve replacement and graft of the ascend ing aorta. Signed: Jess Sellers MDReport Verified Date/Time: 03/07/2018 23: 27:34 Reading Location: [address] Consult Reading Room MENTATION RATE 2018-03-07 19:43:00* Test Item Value Reference Range Comments SEDIMENTATION RATE, ERYTHROCYTE (BEAKER) (test lmij=775) 20 mm/HR 0-40 C-REACTIVE [id number] 18:56:00* Test Item Value Reference Range Comments C-REACTIVE PROTEIN (BEAKER) (test bkjx=989) 0.07 mg/dL 0.00-0.50 [id number] 07:49:00* Test Item Value Reference Range Comments PHOSPHORUS (BEAKER) (test epof=013) 3.5 mg/dL 2.3-4.7 [id number] 07:49:00* Test Item Value Reference Range Comments MAGNESIUM (BEAKER) (test abjc=123) 2.3 mg/dL 1.6-2.6 BASIC METABOLIC [id number] 07:49:00* Test Item Value Reference Range Comments SODIUM (BEAKER) (test bzij=994) 140 meq/L 136-145 POTASSIUM (BEAKER) (test ypwy=619) 4.7 meq/L 3.5-5.1 CHLORIDE (BEAKER) (test ccwy=391) 103 meq/L 98-107 CO2 (BEAKER) (test ksre=897) 30 meq/L 22-29 BLOOD UREA NITROGEN (BEAKER) (test nahy=875) 61 mg/dL 7-21 CREATININE (BEAKER) (test enxx=185) 1.94 mg/dL 0.57-1.25 GLUCOSE RANDOM (BEAKER) (test xyqh=698) 82 mg/dL 70-105 CALCIUM (BEAKER) (test turx=596) 8.9 mg/dL 8.4-10.2 EGFR (BEAKER) (test jszc=5174) 31 mL/min/1.73 sq m ESTIMATED GFR IS NOT ACCURATE CREATININE CLEARANCE IN PREDICTING GLOMERULAR FILTRATION RATE. ESTIMATED GFR IS NOT APPLICABLE FOR DIALYSIS PATIENTS. LIPID [id number] 07:49:00* Test Item Value Reference Range Comments TRIGLYCERIDES (BEAKER) (test zifj=923) 25 mg/dL CHOLESTEROL (BEAKER) (test mkxi=807) 134 mg/dL HDL CHOLESTEROL (BEAKER) (test uloc=834) 51 mg/dL LDL CHOLESTEROL CALCULATED (BEAKER) (test zsks=004) 78 mg/dL Triglyceride Reference Range: Low Risk <150 Borderline 150-199 High Risk 200-499 Very High Risk >=500Cholesterol Reference Range: Low Risk <200 Borderline 200-239 High Risk >240HDL Cholesterol Reference Range: Low Risk >=60 High Risk <40LDL Cholesterol Reference Range: Optimal <100 Near Optimal 100-129 Borderline 130-159 High 160-189 Very High >=190 HEPATIC FUNCTION [id number] 07:49:00* Test Item Value Reference Range Comments TOTAL PROTEIN (BEAKER) (test pjud=517) 5.7 gm/dL 6.0-8.3 ALBUMIN (BEAKER) (test ozvv=1954) 3.3 g/dL 3.5-5.0 BILIRUBIN TOTAL (BEAKER) (test tafb=802) 0.3 mg/dL 0.2-1.2 BILIRUBIN DIRECT (BEAKER) (test ipxa=677) 0.1 mg/dL 0.1-0.5 ALKALINE PHOSPHATASE (BEAKER) (test turl=627) 69 U/L 40-150 AST (SGOT) (BEAKER) (test vfsk=632) 25 U/L 5-34 ALT (SGPT) (BEAKER) (test azrq=669) 13 U/L 6-55 CALCIUM, [id number] 07:44:00* Test Item Value Reference Range Comments CALCIUM IONIZED (BEAKER) (test goof=475) 1.05 mmol/L 1.12-1.27 PH, BLOOD (BEAKER) (test tnsa=6701) 7.42 TROPONIN [id number] 07:41:00* Test Item Value Reference Range Comments TROPONIN I (BEAKER) (test yyus=110) 0.02 ng/mL 0.00-0.03 Troponin I (TnI) levels must be interpreted in the context of the presenting sym ptoms and the clinical findings. Elevated TnI levels indicate myocardial damage, but are not specific for ischemic heart disease. Elevated TnI levels are seen in patients with other cardiac conditions (including myocarditis and congestive h eart failure), and slight TnI elevations occur in patients with other conditions , including sepsis, renal failure, acidosis, acute neurological disease, and per sistent tachyarrhythmia.B-TYPE NATRIURETIC FACTOR (BNP)2018-03-07 07:29:00* Test Item Value Reference Range Comments B-TYPE NATRIURETIC PEPTIDE (BEAKER) (test shds=542) 624 pg/mL 0-100 TROPONIN [id number] 00:43:00* Test Item Value Reference Range Comments TROPONIN I (BEAKER) (test wrfu=936) < ng/mL 0.00-0.03 Troponin I (TnI) levels must be interpreted in the context of the presenting sym ptoms and the clinical findings. Elevated TnI levels indicate myocardial damage, but are not specific for ischemic heart disease. Elevated TnI levels are seen in patients with other cardiac conditions (including myocarditis and congestive h eart failure), and slight TnI elevations occur in patients with other conditions , including sepsis, renal failure, acidosis, acute neurological disease, and per sistent tachyarrhythmia.TROPONIN [id number] 20:46:00* Test Item Value Reference Range Comments TROPONIN I (BEAKER) (test klys=105) 0.01 ng/mL 0.00-0.03 Troponin I (TnI) levels must be interpreted in the context of the presenting sym ptoms and the clinical findings. Elevated TnI levels indicate myocardial damage, but are not specific for ischemic heart disease. Elevated TnI levels are seen in patients with other cardiac conditions (including myocarditis and congestive h eart failure), and slight TnI elevations occur in patients with other conditions , including sepsis, renal failure, acidosis, acute neurological disease, and per sistent tachyarrhythmia.B-TYPE NATRIURETIC FACTOR (BNP)2018-03-06 20:06:00* Test Item Value Reference Range Comments B-TYPE NATRIURETIC PEPTIDE (BEAKER) (test jtmy=550) 341 pg/mL 0-100 CBC W/PLT COUNT & AUTO [id number] 19:45:00* Test Item Value Reference Range Comments WHITE BLOOD CELL COUNT (BEAKER) (test zvbo=479) 4.5 K/ L 3.5-10.5 RED BLOOD CELL COUNT (BEAKER) (test whns=569) 2.87 M/ L 3.93-5.22 HEMOGLOBIN (BEAKER) (test ztet=273) 7.7 GM/DL 11.2-15.7 HEMATOCRIT (BEAKER) (test kpuo=804) 24.4 % 34.1-44.9 MEAN CORPUSCULAR VOLUME (BEAKER) (test mapy=584) 85.0 fL 79.4-94.8 MEAN CORPUSCULAR HEMOGLOBIN (BEAKER) (test msiw=476) 26.8 pg 25.6-32.2 MEAN CORPUSCULAR HEMOGLOBIN CONC (BEAKER) (test pqib=380) 31.6 GM/DL 32.2-35.5 RED CELL DISTRIBUTION WIDTH (BEAKER) (test yyfv=608) 12.7 % 11.7-14.4 PLATELET COUNT (BEAKER) (test gomn=380) 170 K/CU MM 150-450 MEAN PLATELET VOLUME (BEAKER) (test abvc=497) 8.0 fL 9.4-12.3 NUCLEATED RED BLOOD CELLS (BEAKER) (test sfhz=315) 0 /100 WBC 0-0 NEUTROPHILS RELATIVE PERCENT (BEAKER) (test kbdf=903) 39 % LYMPHOCYTES RELATIVE PERCENT (BEAKER) (test ksvl=148) 48 % MONOCYTES RELATIVE PERCENT (BEAKER) (test bniy=601) 11 % EOSINOPHILS RELATIVE PERCENT (BEAKER) (test lqys=392) 2 % BASOPHILS RELATIVE PERCENT (BEAKER) (test sknq=996) 0 % NEUTROPHILS ABSOLUTE COUNT (BEAKER) (test rygh=675) 1.74 K/ L 1.56-6.13 LYMPHOCYTES ABSOLUTE COUNT (BEAKER) (test gehx=061) 2.17 K/ L 1.18-3.74 MONOCYTES ABSOLUTE COUNT (BEAKER) (test nycr=481) 0.49 K/ L 0.24-0.36 EOSINOPHILS ABSOLUTE COUNT (BEAKER) (test vpyh=309) 0.08 K/ L 0.04-0.36 BASOPHILS ABSOLUTE COUNT (BEAKER) (test anct=754) 0.01 K/ L 0.01-0.08 IMMATURE GRANULOCYTES-RELATIVE PERCENT (BEAKER) (test pwbf=4496) 0 % 0-1 URINALYSIS W/ REFLEX URINE [id number] 14:55:00* Test Item Value Reference Range Comments COLOR (BEAKER) (test sqyg=364) Light Yellow CLARITY (BEAKER) (test yuee=180) Clear SPECIFIC GRAVITY UA (BEAKER) (test imae=057) 1.008 1.001-1.035 PH UA (BEAKER) (test iwim=027) 5.0 5.0-8.0 PROTEIN UA (BEAKER) (test poeq=985) Negative Negative GLUCOSE UA (BEAKER) (test itqk=990) Negative Negative KETONES UA (BEAKER) (test cidz=220) Negative Negative BILIRUBIN UA (BEAKER) (test tpxc=942) Negative Negative BLOOD UA (BEAKER) (test gpgd=408) Negative Negative NITRITE UA (BEAKER) (test cpcf=111) Negative Negative LEUKOCYTE ESTERASE UA (BEAKER) (test bcuh=266) Negative Negative UROBILINOGEN UA (BEAKER) (test ngkr=881) 0.2 mg/dL 0.2-1.0 RBC UA (BEAKER) (test dhos=403) < /HPF WBC UA (BEAKER) (test eqcr=281) 0 /HPF BACTERIA (BEAKER) (test wbth=686) Rare HYALINE CASTS (BEAKER) (test isrv=681) 3 /LPF SOURCE(BEAKER) (test shdo=2433) BASIC METABOLIC [id number] 14:40:00* Test Item Value Reference Range Comments SODIUM (BEAKER) (test avsv=866) 138 meq/L 136-145 POTASSIUM (BEAKER) (test rrxx=888) 4.2 meq/L 3.5-5.1 CHLORIDE (BEAKER) (test qhls=043) 101 meq/L 98-107 CO2 (BEAKER) (test ctdw=685) 30 meq/L 22-29 BLOOD UREA NITROGEN (BEAKER) (test gmxr=839) 64 mg/dL 7-21 CREATININE (BEAKER) (test ibja=482) 2.05 mg/dL 0.57-1.25 GLUCOSE RANDOM (BEAKER) (test hgjb=369) 112 mg/dL 70-105 CALCIUM (BEAKER) (test btho=116) 9.2 mg/dL 8.4-10.2 EGFR (BEAKER) (test dxmb=6400) 29 mL/min/1.73 sq m ESTIMATED GFR IS NOT ACCURATE CREATININE CLEARANCE IN PREDICTING GLOMERULAR FILTRATION RATE. ESTIMATED GFR IS NOT APPLICABLE FOR DIALYSIS PATIENTS. CREATINE KINASE (CK), TOTAL AND [id number] 14:24:00* Test Item Value Reference Range Comments CREATINE KINASE TOTAL (BEAKER) (test ldys=667) 232 U/L 29-200 CREATINE KINASE-MB (BEAKER) (test xmcr=131) 3.1 ng/mL 0.0-6.6 CREATINE KINASE-MB INDEX (BEAKER) (test sdvg=729) 1.3 % CK-MB Reference Range:<6.7 Normal6.7-10.0 Borderline>10.0 Abnormal TROPONIN [id number] 14:24:00* Test Item Value Reference Range Comments TROPONIN I (BEAKER) (test hulx=666) 0.02 ng/mL 0.00-0.03 Troponin I (TnI) levels must be interpreted in the context of the presenting sym ptoms and the clinical findings. Elevated TnI levels indicate myocardial damage, but are not specific for ischemic heart disease. Elevated TnI levels are seen in patients with other cardiac conditions (including myocarditis and congestive h eart failure), and slight TnI elevations occur in patients with other conditions , including sepsis, renal failure, acidosis, acute neurological disease, and per sistent tachyarrhythmia.RAD, CHEST, 2 [id number] 14:17:00Reason for exam:-> SHORTNESS OF BREATHReason for exam:->LEG SWELLINGFINAL REPORT EXAM: Frontal and lateral chest radiograph HISTORY PROVIDED: Shortness of breath, leg swelling COMPARISON: 01/09/2018 FINDINGS:Postsurgical changes of median sternotomy for cardiac valve replacement are noted. No focal consolidation, pneumothorax, or significant pleural fluid. The cardiac silhouette is mildly enlarged. The thoracic aorta is ectatic/tortuous. No acute osseous abnormality. IMPRESSION:No acute cardiopulmonary disease. Signed: Nataliia [facility] Verified Date/Time: 03/06/2018 14:17:29 Reading Loc ation: [facility] Mammo Reading Room W/PLT COUNT & AUTO [id number] 13:53:00 * Test Item Value Reference Range Comments WHITE BLOOD CELL COUNT (BEAKER) (test hvwl=567) 4.8 K/ L 3.5-10.5 RED BLOOD CELL COUNT (BEAKER) (test pivb=360) 3.13 M/ L 3.93-5.22 HEMOGLOBIN (BEAKER) (test zsij=803) 8.2 GM/DL 11.2-15.7 HEMATOCRIT (BEAKER) (test klkd=013) 27.1 % 34.1-44.9 MEAN CORPUSCULAR VOLUME (BEAKER) (test bfvl=675) 86.6 fL 79.4-94.8 MEAN CORPUSCULAR HEMOGLOBIN (BEAKER) (test npew=781) 26.2 pg 25.6-32.2 MEAN CORPUSCULAR HEMOGLOBIN CONC (BEAKER) (test dayt=777) 30.3 GM/DL 32.2-35.5 RED CELL DISTRIBUTION WIDTH (BEAKER) (test eetw=672) 12.6 % 11.7-14.4 PLATELET COUNT (BEAKER) (test hssu=704) 193 K/CU MM 150-450 MEAN PLATELET VOLUME (BEAKER) (test geng=649) 8.8 fL 9.4-12.3 NUCLEATED RED BLOOD CELLS (BEAKER) (test cccq=843) 0 /100 WBC 0-0 NEUTROPHILS RELATIVE PERCENT (BEAKER) (test dpos=511) 48 % LYMPHOCYTES RELATIVE PERCENT (BEAKER) (test fzhb=389) 39 % MONOCYTES RELATIVE PERCENT (BEAKER) (test qolr=716) 10 % EOSINOPHILS RELATIVE PERCENT (BEAKER) (test joic=712) 2 % BASOPHILS RELATIVE PERCENT (BEAKER) (test opkq=650) 1 % NEUTROPHILS ABSOLUTE COUNT (BEAKER) (test pmur=563) 2.30 K/ L 1.56-6.13 LYMPHOCYTES ABSOLUTE COUNT (BEAKER) (test hahg=937) 1.88 K/ L 1.18-3.74 MONOCYTES ABSOLUTE COUNT (BEAKER) (test unro=503) 0.50 K/ L 0.24-0.36 EOSINOPHILS ABSOLUTE COUNT (BEAKER) (test whoi=954) 0.07 K/ L 0.04-0.36 BASOPHILS ABSOLUTE COUNT (BEAKER) (test quau=474) 0.03 K/ L 0.01-0.08 IMMATURE GRANULOCYTES-RELATIVE PERCENT (BEAKER) (test cbdh=3442) 0 % 0-1 MYOCARD IMAGING, MULTI, PHARM, [id number] 16:36:00NPO for 4 hr and caffeine-free for 12 hr prior to testingReason for exam:->cpFINAL REPORT PROCEDURE: Rest/Stress MYOCARDIAL PERFUSION SPECT with regadenoson\\XA9\\ CPT CODE: 31504 INDICATION: Chest pain HISTORY: Cardiac risk factors: Age, hypertension. Other cardiovascular history: Myocardial infarction, congestive heart failure. Recent cardiac symptoms: Chest pain. Current cardiovascular-related medications: Aspirin, carvedilol. PROTOCOL: 11.0 mCi of Tc-99m sestamibi was injected iv at rest, and SPECT (tomographic) images were obtained. Also, 32.1 mCi of Tc-99m sestamibi was injected iv at expected peak pharmacologic effect, and gated SPECT images were o btained. PRELIMINARY STRESS TEST DATA FROM NONINVASIVE CARDIOLOGY: Pharmacolog ic stress was by 10-second iv infusion of 0.4 mg of regadenoson. Radiotracer was injected 30 seconds after start of stress. Heart rate was 58 beats/min at rest and 56 beats/min (36 % of MPHR) at tracer injection. BP was 184/90 mmHg at rest and 150/90 mmHg at tracer injection. Stress was stopped for predetermined endpoi nt. The patient experienced no symptoms; treatment was not required. Preliminary ECG evaluation revealed sinus bradycardia at rest and no ischemic changes with stress. (Final ECG interpretation and other stress and monitoring data are repor deyanira separately by Cardiology.) IMAGING FINDINGS: Study quality is good. Images obtained after stress injection and at rest show moderate decrease in act ivity in the apical inferior LV and mild decrease in the mid inferior LV. LV and RV volumes appear normal. Gated images obtained at rest show normal LV wall mot ion and thickening. QGS LVEF is 58%. IMPRESSION: 1. Abnormal study. 2. Appro priate pharmacologic stress. 3. Abnormal myocardial perfusion. There is a moder ate, small, fixed, inferior/inferoapical perfusion defect. No reversibility is i dentified. 4. Normal resting LV function. 5. Normal extracardiac tracer distrib ution. 6. No previous [facility] study for comparison. Signed: Jace Alvarenga MDRep ort Verified Date/Time: 01/13/2018 16:36:38 Reading Location: [address] Reading Room Electronically signed by: JACE ALVARENGA MD on 0 01/13/2018 04:36 PM POCT-GLUCOSE [id number] 22:24:00* Test Item Value Reference Range Comments POC-GLUCOSE METER (BEAKER) (test vrpa=8168) 157 mg/dL 70-110 [address]ED AT [address] [address] POCT-GLUCOSE [id number] 16:55:00* Test Item Value Reference Range Comments POC-GLUCOSE METER (BEAKER) (test lazx=8473) 140 mg/dL 70-110 TESTED AT [address] [address] POCT-GLUCOSE [id number] 13:48:00* Test Item Value Reference Range Comments POC-GLUCOSE METER (BEAKER) (test konv=0841) 67 mg/dL 70-110 TESTED AT [address] [address] POCT-GLUCOSE [id number] 09:03:00* Test Item Value Reference Range Comments POC-GLUCOSE METER (BEAKER) (test rhzl=4765) 81 mg/dL 70-[address] [facility] [address] [facility] [address] CBC W/PLT COUNT & AUTO [id number] 08:07:00* Test Item Value Reference Range Comments WHITE BLOOD CELL COUNT (BEAKER) (test cxmi=280) 4.6 K/ L 3.5-10.5 RED BLOOD CELL COUNT (BEAKER) (test rmpa=115) 3.95 M/ L 3.93-5.22 HEMOGLOBIN (BEAKER) (test guqv=525) 10.3 GM/DL 11.2-15.7 HEMATOCRIT (BEAKER) (test ooge=080) 34.2 % 34.1-44.9 MEAN CORPUSCULAR VOLUME (BEAKER) (test bqiz=793) 86.6 fL 79.4-94.8 MEAN CORPUSCULAR HEMOGLOBIN (BEAKER) (test wbgo=504) 26.1 pg 25.6-32.2 MEAN CORPUSCULAR HEMOGLOBIN CONC (BEAKER) (test vkel=393) 30.1 GM/DL 32.2-35.5 RED CELL DISTRIBUTION WIDTH (BEAKER) (test tqzy=325) 13.4 % 11.7-14.4 PLATELET COUNT (BEAKER) (test lezm=516) 197 K/CU MM 150-450 MEAN PLATELET VOLUME (BEAKER) (test qnlt=157) 9.0 fL 9.4-12.3 NUCLEATED RED BLOOD CELLS (BEAKER) (test opbb=195) 0 /100 WBC 0-0 NEUTROPHILS RELATIVE PERCENT (BEAKER) (test oyvh=296) 31 % LYMPHOCYTES RELATIVE PERCENT (BEAKER) (test zele=121) 55 % MONOCYTES RELATIVE PERCENT (BEAKER) (test vmin=053) 10 % EOSINOPHILS RELATIVE PERCENT (BEAKER) (test hylr=858) 3 % BASOPHILS RELATIVE PERCENT (BEAKER) (test fmci=652) 1 % NEUTROPHILS ABSOLUTE COUNT (BEAKER) (test brba=965) 1.42 K/ L 1.56-6.13 LYMPHOCYTES ABSOLUTE COUNT (BEAKER) (test tbzc=014) 2.57 K/ L 1.18-3.74 MONOCYTES ABSOLUTE COUNT (BEAKER) (test vuzz=155) 0.47 K/ L 0.24-0.36 EOSINOPHILS ABSOLUTE COUNT (BEAKER) (test zbli=049) 0.14 K/ L 0.04-0.36 BASOPHILS ABSOLUTE COUNT (BEAKER) (test khjl=612) 0.03 K/ L 0.01-0.08 IMMATURE GRANULOCYTES-RELATIVE PERCENT (BEAKER) (test sykw=3237) 0 % 0-1 (MANUAL DIFFERENTIAL)2018-01-12 08:07:00* Test Item Value Reference Range Comments TOTAL COUNTED (BEAKER) (test jslo=9804) BASIC METABOLIC [id number] 07:16:00* Test Item Value Reference Range Comments SODIUM (BEAKER) (test yjhq=846) 140 meq/L 136-145 POTASSIUM (BEAKER) (test wfxm=693) 5.0 meq/L 3.5-5.1 CHLORIDE (BEAKER) (test kdyq=031) 102 meq/L 98-107 CO2 (BEAKER) (test hqja=802) 32 meq/L 22-29 BLOOD UREA NITROGEN (BEAKER) (test pbzu=512) 39 mg/dL 7-21 CREATININE (BEAKER) (test tkqa=150) 1.50 mg/dL 0.57-1.25 GLUCOSE RANDOM (BEAKER) (test vxhy=793) 80 mg/dL 70-105 CALCIUM (BEAKER) (test kkwv=580) 9.3 mg/dL 8.4-10.2 EGFR (BEAKER) (test lgbk=8830) 42 mL/min/1.73 sq m ESTIMATED GFR IS NOT ACCURATE CREATININE CLEARANCE IN PREDICTING GLOMERULAR FILTRATION RATE. ESTIMATED GFR IS NOT APPLICABLE FOR DIALYSIS PATIENTS. CREATINE KINASE (CK), TOTAL AND [id number] 07:16:00* Test Item Value Reference Range Comments CREATINE KINASE TOTAL (BEAKER) (test kely=608) 52 U/L 29-200 CREATINE KINASE-MB (BEAKER) (test ietn=729) 0.6 ng/mL 0.0-6.6 CREATINE KINASE-MB INDEX (BEAKER) (test onqc=999) 1.2 % CK-MB Reference Range:<6.7 Normal6.7-10.0 Borderline>10.0 Abnormal TROPONIN [id number] 07:06:00* Test Item Value Reference Range Comments TROPONIN I (BEAKER) (test wbya=565) 0.01 ng/mL 0.00-0.03 Troponin I (TnI) levels must be interpreted in the context of the presenting sym ptoms and the clinical findings. Elevated TnI levels indicate myocardial damage, but are not specific for ischemic heart disease. Elevated TnI levels are seen in patients with other cardiac conditions (including myocarditis and congestive h eart failure), and slight TnI elevations occur in patients with other conditions , including sepsis, renal failure, acidosis, acute neurological disease, and per sistent tachyarrhythmia.POCT-GLUCOSE [id number] 22:32:00* Test Item Value Reference Range Comments POC-GLUCOSE METER (BEAKER) (test rnht=3375) 127 mg/dL 70-[address] [facility] [address] [facility] [address] CREATINE KINASE (CK), TOTAL AND [id number] 18:26:00* Test Item Value Reference Range Comments CREATINE KINASE TOTAL (BEAKER) (test wfmx=829) 53 U/L 29-200 CREATINE KINASE-MB (BEAKER) (test muiv=985) 0.6 ng/mL 0.0-6.6 CREATINE KINASE-MB INDEX (BEAKER) (test ipgv=687) 1.1 % CK-MB Reference Range:<6.7 Normal6.7-10.0 Borderline>10.0 Abnormal TROPONIN [id number] 18:25:00* Test Item Value Reference Range Comments TROPONIN I (BEAKER) (test wizl=250) 0.01 ng/mL 0.00-0.03 Troponin I (TnI) levels must be interpreted in the context of the presenting sym ptoms and the clinical findings. Elevated TnI levels indicate myocardial damage, but are not specific for ischemic heart disease. Elevated TnI levels are seen in patients with other cardiac conditions (including myocarditis and congestive h eart failure), and slight TnI elevations occur in patients with other conditions , including sepsis, renal failure, acidosis, acute neurological disease, and per sistent tachyarrhythmia.POCT-GLUCOSE [id number] 17:29:00* Test Item Value Reference Range Comments POC-GLUCOSE METER (BEAKER) (test gjfb=5302) 91 mg/dL 70-[address] [facility] [address] [facility] [address] POCT-GLUCOSE [id number] 13:13:00* Test Item Value Reference Range Comments POC-GLUCOSE METER (BEAKER) (test jyyi=0947) 116 mg/dL 70-[address] [facility] [address] [facility] [address] POCT-GLUCOSE [id number] 08:49:00* Test Item Value Reference Range Comments POC-GLUCOSE METER (BEAKER) (test lgbv=8621) 84 mg/dL 70-[address] [facility] [address] [facility] [address] BASIC METABOLIC [id number] 06:50:00* Test Item Value Reference Range Comments SODIUM (BEAKER) (test jeej=228) 144 meq/L 136-145 POTASSIUM (BEAKER) (test yfru=270) 4.1 meq/L 3.5-5.1 CHLORIDE (BEAKER) (test ylib=966) 106 meq/L 98-107 CO2 (BEAKER) (test fyts=089) 33 meq/L 22-29 BLOOD UREA NITROGEN (BEAKER) (test juki=071) 36 mg/dL 7-21 CREATININE (BEAKER) (test msdg=349) 1.56 mg/dL 0.57-1.25 GLUCOSE RANDOM (BEAKER) (test jolr=171) 80 mg/dL 70-105 CALCIUM (BEAKER) (test orvf=546) 9.3 mg/dL 8.4-10.2 EGFR (BEAKER) (test qmml=5930) 40 mL/min/1.73 sq m ESTIMATED GFR IS NOT ACCURATE CREATININE CLEARANCE IN PREDICTING GLOMERULAR FILTRATION RATE. ESTIMATED GFR IS NOT APPLICABLE FOR DIALYSIS PATIENTS. CBC W/PLT COUNT & AUTO [id number] 06:45:00* Test Item Value Reference Range Comments WHITE BLOOD CELL COUNT (BEAKER) (test dglr=813) 4.8 K/ L 3.5-10.5 RED BLOOD CELL COUNT (BEAKER) (test tder=539) 3.93 M/ L 3.93-5.22 HEMOGLOBIN (BEAKER) (test cdnx=368) 10.0 GM/DL 11.2-15.7 HEMATOCRIT (BEAKER) (test oxcs=191) 33.7 % 34.1-44.9 MEAN CORPUSCULAR VOLUME (BEAKER) (test ydzk=930) 85.8 fL 79.4-94.8 MEAN CORPUSCULAR HEMOGLOBIN (BEAKER) (test fgke=468) 25.4 pg 25.6-32.2 MEAN CORPUSCULAR HEMOGLOBIN CONC (BEAKER) (test hjyb=121) 29.7 GM/DL 32.2-35.5 RED CELL DISTRIBUTION WIDTH (BEAKER) (test wbtw=403) 13.5 % 11.7-14.4 PLATELET COUNT (BEAKER) (test tydd=297) 195 K/CU MM 150-450 MEAN PLATELET VOLUME (BEAKER) (test dgds=811) 9.3 fL 9.4-12.3 NUCLEATED RED BLOOD CELLS (BEAKER) (test qcsc=573) 0 /100 WBC 0-0 NEUTROPHILS RELATIVE PERCENT (BEAKER) (test ztno=452) 27 % LYMPHOCYTES RELATIVE PERCENT (BEAKER) (test vdis=738) 59 % MONOCYTES RELATIVE PERCENT (BEAKER) (test ztcf=528) 11 % EOSINOPHILS RELATIVE PERCENT (BEAKER) (test mdpa=162) 3 % BASOPHILS RELATIVE PERCENT (BEAKER) (test ovri=690) 1 % NEUTROPHILS ABSOLUTE COUNT (BEAKER) (test izau=095) 1.26 K/ L 1.56-6.13 LYMPHOCYTES ABSOLUTE COUNT (BEAKER) (test ptvp=618) 2.82 K/ L 1.18-3.74 MONOCYTES ABSOLUTE COUNT (BEAKER) (test snvz=743) 0.53 K/ L 0.24-0.36 EOSINOPHILS ABSOLUTE COUNT (BEAKER) (test wghe=143) 0.12 K/ L 0.04-0.36 BASOPHILS ABSOLUTE COUNT (BEAKER) (test alrd=143) 0.03 K/ L 0.01-0.08 IMMATURE GRANULOCYTES-RELATIVE PERCENT (BEAKER) (test bdee=0119) 0 % 0-1 POCT-GLUCOSE [id number] 21:51:00* Test Item Value Reference Range Comments POC-GLUCOSE METER (BEAKER) (test buya=8815) 135 mg/dL 70-[address] [facility] [address] [facility] [address] PUL PERF IMAGING, [facility], [id number] 12:24:00FINAL REPORT PROCEDURE: V/Q LUNG SCAN CPT CODE: 67117 INDICATION: Acute chest pain. PROTOCOL: 9.2 mCi of Xe-133 gas was administered by inhalation. Single breath and rebreathing/washout images were obtained in the anterior and the posterior projections. 4.2 mCi of Tc-99m MAA was then injected intravenously, and static perfusion images were obtained in multiple projections. FINDINGS: Ventilation: There is mild decrease in activity in the left upper lung field and moderate decrease in the left lower lung field. Distribution in the right lung is mildly irregular. Tracer washout is symm etrically moderately delayed. Perfusion: Mild nonsegmental irregulariti es of the left lung. Mild decrease tracer uptake over the left lung, more promin ent on the lower lung benedict. IMPRESSION: 1.Very low probability for acute p ulmonary embolism.2.Parenchymal abnormality of the left lung. Signed: Logan Alvarenga [facility] Verified Date/Time: 01/10/2018 12:24:54 Reading Location: [address] Reading Room TINE KINASE (CK), TOTAL AND [id number] 08:36:00* Test Item Value Reference Range Comments CREATINE KINASE TOTAL (BEAKER) (test dpun=703) 72 U/L 29-200 CREATINE KINASE-MB (BEAKER) (test duvp=453) 1.1 ng/mL 0.0-6.6 CREATINE KINASE-MB INDEX (BEAKER) (test jqbw=541) 1.5 % CK-MB Reference Range:<6.7 Normal6.7-10.0 Borderline>10.0 Abnormal TROPONIN [id number] 08:36:00* Test Item Value Reference Range Comments TROPONIN I (BEAKER) (test mibd=240) < ng/mL 0.00-0.03 Troponin I (TnI) levels must be interpreted in the context of the presenting sym ptoms and the clinical findings. Elevated TnI levels indicate myocardial damage, but are not specific for ischemic heart disease. Elevated TnI levels are seen in patients with other cardiac conditions (including myocarditis and congestive h eart failure), and slight TnI elevations occur in patients with other conditions , including sepsis, renal failure, acidosis, acute neurological disease, and per sistent tachyarrhythmia.CBC W/PLT COUNT & AUTO [id number] 08:19:00* Test Item Value Reference Range Comments WHITE BLOOD CELL COUNT (BEAKER) (test bcbk=691) 4.9 K/ L 3.5-10.5 RED BLOOD CELL COUNT (BEAKER) (test plti=819) 3.90 M/ L 3.93-5.22 HEMOGLOBIN (BEAKER) (test urml=507) 10.1 GM/DL 11.2-15.7 HEMATOCRIT (BEAKER) (test sgqk=504) 33.3 % 34.1-44.9 MEAN CORPUSCULAR VOLUME (BEAKER) (test dkje=354) 85.4 fL 79.4-94.8 MEAN CORPUSCULAR HEMOGLOBIN (BEAKER) (test dwql=350) 25.9 pg 25.6-32.2 MEAN CORPUSCULAR HEMOGLOBIN CONC (BEAKER) (test gffb=541) 30.3 GM/DL 32.2-35.5 RED CELL DISTRIBUTION WIDTH (BEAKER) (test tsft=087) 13.5 % 11.7-14.4 PLATELET COUNT (BEAKER) (test hrtw=034) 192 K/CU MM 150-450 MEAN PLATELET VOLUME (BEAKER) (test cnkl=434) 8.7 fL 9.4-12.3 NUCLEATED RED BLOOD CELLS (BEAKER) (test oebj=809) 0 /100 WBC 0-0 IMMATURE GRANULOCYTES-RELATIVE PERCENT (BEAKER) (test nldx=6657) 0 % 0-1 (MANUAL DIFFERENTIAL)2018-01-10 08:19:00* Test Item Value Reference Range Comments NEUTROPHILS - REL (DIFF) (BEAKER) (test xkry=3838) 38 % LYMPHOCYTES - REL (DIFF) (BEAKER) (test gntw=8400) 49 % MONOCYTES - REL (DIFF) (BEAKER) (test yoco=0600) 8 % EOSINOPHILS - REL (DIFF) (BEAKER) (test fjyp=7542) 3 % BASOPHILS - REL (DIFF) (BEAKER) (test blhm=6204) 2 % NEUTROPHILS - ABS (DIFF) (BEAKER) (test wvtm=3590) 1.86 K/ L 1.80-8.00 LYMPHOCYTES - ABS (DIFF) (BEAKER) (test chgr=6702) 2.40 K/ L 1.48-4.50 MONOCYTES - ABS (DIFF) (BEAKER) (test ozzm=3038) 0.39 K/ L 0.00-1.30 EOSINOPHILS - ABS (DIFF) (BEAKER) (test wktn=5379) 0.15 K/ L 0.00-0.50 BASOPHILS - ABS (DIFF) (BEAKER) (test cgic=9688) 0.10 K/ L 0.00-0.20 TOTAL COUNTED (BEAKER) (test gkeo=0930) 100 PLT MORPHOLOGY (BEAKER) (test idrv=807) Normal ATYPICAL LYMPHS(BEAKER) (test iucn=6613) Present POIKILOCYTES (BEAKER) (test uemh=518) 1+ few URINALYSIS W/ [id number] 05:46:00* Test Item Value Reference Range Comments COLOR (BEAKER) (test hlyw=450) Light Yellow CLARITY (BEAKER) (test rhgp=345) Clear SPECIFIC GRAVITY UA (BEAKER) (test wwyf=270) 1.007 1.001-1.035 PH UA (BEAKER) (test dsga=526) 7.0 5.0-8.0 PROTEIN UA (BEAKER) (test gpye=425) Negative Negative GLUCOSE UA (BEAKER) (test ekcy=094) Negative Negative KETONES UA (BEAKER) (test qfsg=895) Negative Negative BILIRUBIN UA (BEAKER) (test uryg=472) Negative Negative BLOOD UA (BEAKER) (test luza=049) Negative Negative NITRITE UA (BEAKER) (test hixn=312) Negative Negative LEUKOCYTE ESTERASE UA (BEAKER) (test gwfx=997) Negative Negative UROBILINOGEN UA (BEAKER) (test sqmz=809) 0.2 mg/dL 0.2-1.0 RBC UA (BEAKER) (test ajrb=534) 0 /HPF WBC UA (BEAKER) (test wfqu=043) < /HPF SOURCE(BEAKER) (test iwsu=4766) Urine, Clean Catch BASIC METABOLIC [id number] 04:38:00* Test Item Value Reference Range Comments SODIUM (BEAKER) (test mxzi=706) 143 meq/L 136-145 POTASSIUM (BEAKER) (test jcah=688) 3.5 meq/L 3.5-5.1 CHLORIDE (BEAKER) (test nbyx=195) 105 meq/L 98-107 CO2 (BEAKER) (test nlgc=330) 29 meq/L 22-29 BLOOD UREA NITROGEN (BEAKER) (test stlq=519) 40 mg/dL 7-21 CREATININE (BEAKER) (test euyt=766) 1.48 mg/dL 0.57-1.25 GLUCOSE RANDOM (BEAKER) (test ngsd=570) 71 mg/dL 70-105 CALCIUM (BEAKER) (test bmqu=518) 9.4 mg/dL 8.4-10.2 EGFR (BEAKER) (test gefo=7599) 43 mL/min/1.73 sq m ESTIMATED GFR IS NOT ACCURATE CREATININE CLEARANCE IN PREDICTING GLOMERULAR FILTRATION RATE. ESTIMATED GFR IS NOT APPLICABLE FOR DIALYSIS PATIENTS. CREATINE KINASE (CK), TOTAL AND [id number] 02:35:00* Test Item Value Reference Range Comments CREATINE KINASE TOTAL (BEAKER) (test okam=906) 69 U/L 29-200 CREATINE KINASE-MB (BEAKER) (test tnmb=409) 1.1 ng/mL 0.0-6.6 CREATINE KINASE-MB INDEX (BEAKER) (test xaas=773) 1.6 % CK-MB Reference Range:<6.7 Normal6.7-10.0 Borderline>10.0 Abnormal TROPONIN [id number] 02:35:00* Test Item Value Reference Range Comments TROPONIN I (BEAKER) (test bpek=462) 0.01 ng/mL 0.00-0.03 Troponin I (TnI) levels must be interpreted in the context of the presenting sym ptoms and the clinical findings. Elevated TnI levels indicate myocardial damage, but are not specific for ischemic heart disease. Elevated TnI levels are seen in patients with other cardiac conditions (including myocarditis and congestive h eart failure), and slight TnI elevations occur in patients with other conditions , including sepsis, renal failure, acidosis, acute neurological disease, and per sistent tachyarrhythmia.CT, BRAIN, WITHOUT [id number] 18:16:00Reason for exam:->HEART MURMURReason for exam:->FALLWhat is the patient's sedation requirement?->No SedationFINAL REPORT CT head without contrast 01/09/2018 6:15 PM CLINICAL HISTORY: Decreased alertnessHEART MURMURFALL TECHNIQUE: Axial noncontrast CT images through the head were obtained. This examination was performed according to our departmental dose optimization program, which includes automated exposure control, adjustment of the mA and/or kV according to patient size, and/or use of iterated reconstruction technique. COMPARISON: 10/06/2017 FINDINGS: There is no hemorrhage, extra-axial collection, mass, hydrocephalus, or midline shift. There is mild microvascular ischemia in the supratentorial white matter. There is generalized parenchymal volume loss. There is an empty sella turcica appearance. The visualized paranasal sinuses and mastoid air cells are well aerated. The skull is intact. IMPRESSION: No intracranial hemorrhage or mass effect. Chronic appearing microvascular and involutional changes. If concern for acute pathology persists, further evaluation with MRI is recommended. Signed: [facility] Verified Date/Time: 01/09/2018 18:16:46 Reading Location: [facility] Radiology Reading Room TINE KINASE (CK), TOTAL AND [id number] 17:03:00* Test Item Value Reference Range Comments CREATINE KINASE TOTAL (BEAKER) (test iymi=815) 97 U/L 29-200 CREATINE KINASE-MB (BEAKER) (test poyu=346) 1.7 ng/mL 0.0-6.6 CREATINE KINASE-MB INDEX (BEAKER) (test nmmm=441) 1.8 % CK-MB Reference Range:<6.7 Normal6.7-10.0 Borderline>10.0 Abnormal TROPONIN [id number] 17:03:00* Test Item Value Reference Range Comments TROPONIN I (BEAKER) (test bsun=870) 0.01 ng/mL 0.00-0.03 Troponin I (TnI) levels must be interpreted in the context of the presenting sym ptoms and the clinical findings. Elevated TnI levels indicate myocardial damage, but are not specific for ischemic heart disease. Elevated TnI levels are seen in patients with other cardiac conditions (including myocarditis and congestive h eart failure), and slight TnI elevations occur in patients with other conditions , including sepsis, renal failure, acidosis, acute neurological disease, and per sistent tachyarrhythmia.B-TYPE NATRIURETIC FACTOR (BNP)2018-01-09 16:58:00* Test Item Value Reference Range Comments B-TYPE NATRIURETIC PEPTIDE (BEAKER) (test lpzw=822) 344 pg/mL 0-100 COMPREHENSIVE METABOLIC [id number] 16:56:00* Test Item Value Reference Range Comments TOTAL PROTEIN (BEAKER) (test wryq=193) 6.6 gm/dL 6.0-8.3 ALBUMIN (BEAKER) (test lelw=9544) 3.8 g/dL 3.5-5.0 ALKALINE PHOSPHATASE (BEAKER) (test rikv=522) 90 U/L 40-150 BILIRUBIN TOTAL (BEAKER) (test kbue=326) < mg/dL 0.2-1.2 SODIUM (BEAKER) (test qblo=166) 142 meq/L 136-145 POTASSIUM (BEAKER) (test zsmo=699) 3.9 meq/L 3.5-5.1 CHLORIDE (BEAKER) (test cjcg=456) 105 meq/L 98-107 CO2 (BEAKER) (test nyyd=917) 30 meq/L 22-29 BLOOD UREA NITROGEN (BEAKER) (test kgel=355) 46 mg/dL 7-21 CREATININE (BEAKER) (test bjwj=374) 1.69 mg/dL 0.57-1.25 GLUCOSE RANDOM (BEAKER) (test whzu=368) 76 mg/dL 70-105 CALCIUM (BEAKER) (test xbyy=164) 9.4 mg/dL 8.4-10.2 AST (SGOT) (BEAKER) (test pzfk=737) 32 U/L 5-34 ALT (SGPT) (BEAKER) (test vuia=452) 28 U/L 6-55 EGFR (BEAKER) (test txyj=6818) 37 mL/min/1.73 sq m ESTIMATED GFR IS NOT ACCURATE CREATININE CLEARANCE IN PREDICTING GLOMERULAR FILTRATION RATE. ESTIMATED GFR IS NOT APPLICABLE FOR DIALYSIS PATIENTS. [id number] 16:51:00* Test Item Value Reference Range Comments D-DIMER QUANTITATIVE (BEAKER) (test dzgw=512) 1.81 MG/L FEU <0.50 Intended Use: The D-Dimer Assay can be used to aid in the diagnosis of Deep Vein Thrombosis (DVT) and Pulmonary Embolism Disease (PED).In patients with low pre- test probability, various studies concerning STA Liatest D-dimer test have repor deyanira that with a cutoff value of 0.50 MG/L FEU, the Negative Predictive Value (PETROLEUM REFINERY OPERATOR V) regarding the exclusion of thrombosis is within 95-100% range.PT/APTT 2018-01-09 16:50:00* Test Item Value Reference Range Comments PROTIME (BEAKER) (test yafy=880) 15.9 seconds 11.7-14.7 INR (BEAKER) (test qaei=578) 1.3 <=5.9 PARTIAL THROMBOPLASTIN TIME (BEAKER) (test lmch=816) 32.9 seconds 22.5-36.0 RECOMMENDED COUMADIN/WARFARIN INR THERAPY RANGESSTANDARD DOSE: 2.0 - 3.0 Inclu rip: PROPHYLAXIS for venous thrombosis, systemic embolization; TREATMENT for kris ous thrombosis and/or pulmonary embolus.HIGH RISK: Target INR is 2.5-3.5 for pat ients with mechanical heart valves.RAD, CHEST, 1 VIEW, NON [id number] 16:50:00Reason for exam:->HEART MURMURReason for exam:->FALLShould this be performed at the bedside?->YesFINAL REPORT Chest, AP view. History: Heart murmur, fall. Comparison: 10/07/2017. Discussion: Mild cardiomegaly and thoracic aortic ectasia. The lungs are clear without evidence of consolidation or effusion. There are no acute osseous abnormalities. The soft tissues are unremarkable. IMPRESSION: No acute cardiopulmonary abnormality. Signed: [facility] Verified Date/Time: 01/09/2018 16:50:53 Reading Location: [facility] Mammo Reading Room W/PLT COUNT & AUTO [id number] 16:38:00* Test Item Value Reference Range Comments WHITE BLOOD CELL COUNT (BEAKER) (test qjxi=775) 4.4 K/ L 3.5-10.5 RED BLOOD CELL COUNT (BEAKER) (test dmsa=908) 3.81 M/ L 3.93-5.22 HEMOGLOBIN (BEAKER) (test xnsd=187) 9.9 GM/DL 11.2-15.7 HEMATOCRIT (BEAKER) (test xedr=563) 32.9 % 34.1-44.9 MEAN CORPUSCULAR VOLUME (BEAKER) (test tcwz=213) 86.4 fL 79.4-94.8 MEAN CORPUSCULAR HEMOGLOBIN (BEAKER) (test mvog=254) 26.0 pg 25.6-32.2 MEAN CORPUSCULAR HEMOGLOBIN CONC (BEAKER) (test vsac=933) 30.1 GM/DL 32.2-35.5 RED CELL DISTRIBUTION WIDTH (BEAKER) (test qcrx=611) 13.4 % 11.7-14.4 PLATELET COUNT (BEAKER) (test lbxa=502) 196 K/CU MM 150-450 MEAN PLATELET VOLUME (BEAKER) (test rzvn=733) 8.9 fL 9.4-12.3 NUCLEATED RED BLOOD CELLS (BEAKER) (test zhzl=947) 0 /100 WBC 0-0 NEUTROPHILS RELATIVE PERCENT (BEAKER) (test yktl=654) 50 % LYMPHOCYTES RELATIVE PERCENT (BEAKER) (test qxit=588) 37 % MONOCYTES RELATIVE PERCENT (BEAKER) (test dgxk=923) 11 % EOSINOPHILS RELATIVE PERCENT (BEAKER) (test mnyb=828) 2 % BASOPHILS RELATIVE PERCENT (BEAKER) (test ddsk=444) 1 % NEUTROPHILS ABSOLUTE COUNT (BEAKER) (test ztvl=018) 2.18 K/ L 1.56-6.13 LYMPHOCYTES ABSOLUTE COUNT (BEAKER) (test xkci=939) 1.62 K/ L 1.18-3.74 MONOCYTES ABSOLUTE COUNT (BEAKER) (test qynn=912) 0.49 K/ L 0.24-0.36 EOSINOPHILS ABSOLUTE COUNT (BEAKER) (test yxyf=472) 0.08 K/ L 0.04-0.36 BASOPHILS ABSOLUTE COUNT (BEAKER) (test tcnf=145) 0.02 K/ L 0.01-0.08 IMMATURE GRANULOCYTES-RELATIVE PERCENT (BEAKER) (test smfx=0547) 0 % 0-1 BASIC METABOLIC [id number] 06:55:00* Test Item Value Reference Range Comments SODIUM (BEAKER) (test jxyj=077) 139 meq/L 136-145 POTASSIUM (BEAKER) (test euys=315) 4.6 meq/L 3.5-5.1 CHLORIDE (BEAKER) (test vmva=259) 106 meq/L 98-107 CO2 (BEAKER) (test rkhx=667) 27 meq/L 22-29 BLOOD UREA NITROGEN (BEAKER) (test rodc=746) 38 mg/dL 7-21 CREATININE (BEAKER) (test eosn=325) 1.63 mg/dL 0.57-1.25 GLUCOSE RANDOM (LEIGH) (test zusv=630) 76 mg/dL 70-105 CALCIUM (LEIGH) (test uqrn=160) 8.8 mg/dL 8.4-10.2 EGFR (LEIGH) (test fmrc=0906) 38 mL/min/1.73 sq m ESTIMATED GFR IS NOT ACCURATE CREATININE CLEARANCE IN PREDICTING GLOMERULAR FILTRATION RATE. ESTIMATED GFR IS NOT APPLICABLE FOR DIALYSIS PATIENTS. MR, MRA CHEST, [id number] 19:28:00FINAL REPORT Thoracic aortic MRA dated 10 October 2017 INDICATION: This is a 67 female, with diagnosis of aortic disease presents for assessment. The study is performed in an attempt to avoid an invasive procedure, and potentially nephrotoxic contrast agent. TECHNIQUE: [employer] MRI scanner. Gradient echo images were performed for planning purposes. In addition, a non-ECG gated gadolinium-enhanced MRA was performed in the oblique sagittal projection. Multi-planar 3-D volume-rendering reconstruction was performed using a [employer] work station. Please refer to the contrast sheet scanned in the RIS system for the amount and route of contrast given. FINDINGS: The chest wall and mediastinum appears unremarkable; patient is post median sternotomy. No pericardial effusion is seen in the central pulmonary artery is normal in calibre. Limited imaging through the lungs reveals no gross abnormalities; MR is not optimizing a ssessment of pulmonary parenchymal lung disease. The cardiac chambers demonstra te normal atrioventricular and ventriculoarterial concordance, and systemic and pulmonary venous return Once again of note, a bioprosthetic aortic valve is iden tified that appears to be well positioned. A graft is seen in the descending tho racic aorta that is widely patent with no anastomotic stenosis or extravasation of contrast identified. Thereafter remainder of the thoracic aorta is koi and is normal in course and calibre. Some atherosclerosis is identified throughout the course of the descending thoracic aorta. There is no evidence of acute aorti c pathology, such as dissection, intramural hematoma, or contained rupture. Not e, on review of the prior CT study only 2-3 months ago, the atherosclerotic ulce ration present near the diaphragmatic hiatus is no longer identified in this cur rent MRA series indicating interval improvement. The arch vessel branching patte rn is normal, and all of the arch branch vessels are widely patent in their prox imal portions. Quantitative dimension is of the thoracic aorta is not measured a s patient only had a CT scan 2-3 months ago. By comparison from prior examinatio n, no interval change is seen. Refer to prior dictation for measurement Note, in the cine imaging, turbulence is seen at the anastomotic site between the transv erse arch and the ascending thoracic aortic graft, however, by multiplanar refor mation, the minimum diameter is 2.9 x 1.6 cm suggesting no obstructive lesion is seen. See snapshot for details. The proximal abdominal aorta is also unremarkab le. Some atherosclerosis is identified. The celiac axis and widely patent proxim ally. Only single left renal arteries identified that is widely patent. Only the stump of the right renal artery is seen. Correlate clinically. The great veins are unremarkable. The visualised mesenteric veins also unremarkable. CONCLUSION : 1. No interval change is seen in the status of the thoracic aorta when meseret red to prior examination. The aortic root to be koi. A bioprosthetic aortic valve is present. A graft is seen in the ascending thoracic aorta. Thereafter re mainder of the thoracic aorta is koi with some atherosclerosis identified. In terval resolution of the atherosclerotic ulceration identified in July 2017 examination near the diaphragmatic hiatus. No interval change is seen in the si ze of the koi thoracic aorta is identified. No aneurysmal dilation or ectasia is seen in the koi aorta. 2. Other findings as described above Signed: Corey Prieto MDReport Verified Date/Time: 10/10/2017 19:28:50 Reading Location: [place] [id number] Cardiology MRI GLOBIN AND [id number] 10:08:00* Test Item Value Reference Range Comments HEMOGLOBIN (BEAKER) (test fdoq=510) 10.2 GM/DL 11.2-15.7 HEMATOCRIT (BEAKER) (test kqeb=443) 32.9 % 34.1-44.9 BASIC METABOLIC [id number] 06:38:00* Test Item Value Reference Range Comments SODIUM (BEAKER) (test aflk=336) 138 meq/L 136-145 POTASSIUM (BEAKER) (test awth=534) 4.5 meq/L 3.5-5.1 CHLORIDE (BEAKER) (test vnnr=024) 103 meq/L 98-107 CO2 (BEAKER) (test lwxe=284) 28 meq/L 22-29 BLOOD UREA NITROGEN (BEAKER) (test pnxn=944) 34 mg/dL 7-21 CREATININE (BEAKER) (test uxah=979) 1.99 mg/dL 0.57-1.25 GLUCOSE RANDOM (BEAKER) (test zxrs=850) 77 mg/dL 70-105 CALCIUM (BEAKER) (test llxi=875) 8.6 mg/dL 8.4-10.2 EGFR (BEAKER) (test caik=1874) 30 mL/min/1.73 sq m ESTIMATED GFR IS NOT ACCURATE CREATININE CLEARANCE IN PREDICTING GLOMERULAR FILTRATION RATE. ESTIMATED GFR IS NOT APPLICABLE FOR DIALYSIS PATIENTS. BASIC METABOLIC [id number] 03:43:00* Test Item Value Reference Range Comments SODIUM (BEAKER) (test uzfy=554) 137 meq/L 136-145 POTASSIUM (BEAKER) (test uwpf=362) 4.3 meq/L 3.5-5.1 CHLORIDE (BEAKER) (test ilqh=343) 103 meq/L 98-107 CO2 (BEAKER) (test ihad=837) 28 meq/L 22-29 BLOOD UREA NITROGEN (BEAKER) (test zdso=312) 25 mg/dL 7-21 CREATININE (BEAKER) (test axkm=416) 1.48 mg/dL 0.57-1.25 GLUCOSE RANDOM (BEAKER) (test outp=460) 85 mg/dL 70-105 CALCIUM (BEAKER) (test ejnn=988) 8.6 mg/dL 8.4-10.2 EGFR (BEAKER) (test pnjd=4305) 43 mL/min/1.73 sq m ESTIMATED GFR IS NOT ACCURATE CREATININE CLEARANCE IN PREDICTING GLOMERULAR FILTRATION RATE. ESTIMATED GFR IS NOT APPLICABLE FOR DIALYSIS PATIENTS. CBC W/PLT COUNT & AUTO [id number] 08:07:00* Test Item Value Reference Range Comments WHITE BLOOD CELL COUNT (BEAKER) (test soli=996) 5.3 K/ L 3.5-10.5 RED BLOOD CELL COUNT (BEAKER) (test crlf=304) 3.61 M/ L 3.93-5.22 HEMOGLOBIN (BEAKER) (test kcst=273) 9.4 GM/DL 11.2-15.7 HEMATOCRIT (BEAKER) (test ioed=455) 29.7 % 34.1-44.9 MEAN CORPUSCULAR VOLUME (BEAKER) (test xxbp=573) 82.3 fL 79.4-94.8 MEAN CORPUSCULAR HEMOGLOBIN (BEAKER) (test cwor=676) 26.0 pg 25.6-32.2 MEAN CORPUSCULAR HEMOGLOBIN CONC (BEAKER) (test xgqz=093) 31.6 GM/DL 32.2-35.5 RED CELL DISTRIBUTION WIDTH (BEAKER) (test ermx=639) 15.6 % 11.7-14.4 PLATELET COUNT (BEAKER) (test lbyz=934) 252 K/CU MM 150-450 MEAN PLATELET VOLUME (BEAKER) (test gzpp=408) 8.6 fL 9.4-12.3 NUCLEATED RED BLOOD CELLS (BEAKER) (test omdb=185) 0 /100 WBC 0-0 NEUTROPHILS RELATIVE PERCENT (BEAKER) (test mbwr=959) 38 % LYMPHOCYTES RELATIVE PERCENT (BEAKER) (test sbpk=122) 49 % MONOCYTES RELATIVE PERCENT (BEAKER) (test spog=896) 9 % EOSINOPHILS RELATIVE PERCENT (BEAKER) (test cvzp=336) 3 % BASOPHILS RELATIVE PERCENT (BEAKER) (test zrct=115) 1 % NEUTROPHILS ABSOLUTE COUNT (BEAKER) (test rcdn=206) 2.04 K/ L 1.56-6.13 LYMPHOCYTES ABSOLUTE COUNT (BEAKER) (test blix=012) 2.58 K/ L 1.18-3.74 MONOCYTES ABSOLUTE COUNT (BEAKER) (test sfmq=679) 0.46 K/ L 0.24-0.36 EOSINOPHILS ABSOLUTE COUNT (BEAKER) (test ewsz=859) 0.16 K/ L 0.04-0.36 BASOPHILS ABSOLUTE COUNT (BEAKER) (test ibuf=109) 0.05 K/ L 0.01-0.08 IMMATURE GRANULOCYTES-RELATIVE PERCENT (BEAKER) (test qfiu=8228) 1 % 0-1 (MANUAL DIFFERENTIAL)2017-10-08 08:07:00* Test Item Value Reference Range Comments TOTAL COUNTED (BEAKER) (test gfgu=4064) WBC MORPHOLOGY (BEAKER) (test uirm=160) Normal PLT MORPHOLOGY (BEAKER) (test uvkp=427) Normal RBC MORPHOLOGY (BEAKER) (test nmln=862) Normal [id number] 06:04:00* Test Item Value Reference Range Comments MAGNESIUM (BEAKER) (test pmih=953) 2.2 mg/dL 1.6-2.6 BASIC METABOLIC [id number] 06:04:00* Test Item Value Reference Range Comments SODIUM (BEAKER) (test qoem=306) 139 meq/L 136-145 POTASSIUM (BEAKER) (test ivni=677) 4.1 meq/L 3.5-5.1 CHLORIDE (BEAKER) (test vdkq=333) 106 meq/L 98-107 CO2 (BEAKER) (test xqya=959) 27 meq/L 22-29 BLOOD UREA NITROGEN (BEAKER) (test kwak=698) 17 mg/dL 7-21 CREATININE (BEAKER) (test wunw=490) 1.42 mg/dL 0.57-1.25 GLUCOSE RANDOM (BEAKER) (test baum=192) 77 mg/dL 70-105 CALCIUM (BEAKER) (test dbuk=256) 8.5 mg/dL 8.4-10.2 EGFR (BEAKER) (test ftiq=7437) 45 mL/min/1.73 sq m ESTIMATED GFR IS NOT ACCURATE CREATININE CLEARANCE IN PREDICTING GLOMERULAR FILTRATION RATE. ESTIMATED GFR IS NOT APPLICABLE FOR DIALYSIS PATIENTS. B-TYPE NATRIURETIC FACTOR (BNP)2017-10-08 05:49:00* Test Item Value Reference Range Comments B-TYPE NATRIURETIC PEPTIDE (BEAKER) (test gsll=791) 522 pg/mL 0-100 [id number] 23:33:00* Test Item Value Reference Range Comments MAGNESIUM (BEAKER) (test akae=971) 2.6 mg/dL 1.6-2.6 Specimen slightly hemolyzed BASIC METABOLIC [id number] 23:33:00* Test Item Value Reference Range Comments SODIUM (BEAKER) (test nmmp=950) 137 meq/L 136-145 POTASSIUM (BEAKER) (test rspu=667) 5.0 meq/L 3.5-5.1 Specimen slightly hemolyzed CHLORIDE (BEAKER) (test fvjd=774) 106 meq/L 98-107 CO2 (BEAKER) (test dxvh=574) 24 meq/L 22-29 BLOOD UREA NITROGEN (BEAKER) (test ccut=753) 19 mg/dL 7-21 CREATININE (BRIANNEAKER) (test qnou=592) 1.41 mg/dL 0.57-1.25 Specimen slightly hemolyzed GLUCOSE RANDOM (LEIGH) (test ilhu=298) 81 mg/dL 70-105 CALCIUM (BRIANNEAKER) (test fbli=031) 8.3 mg/dL 8.4-10.2 EGFR (LEIGH) (test hnpg=3641) 45 mL/min/1.73 sq m ESTIMATED GFR IS NOT ACCURATE CREATININE CLEARANCE IN PREDICTING GLOMERULAR FILTRATION RATE. ESTIMATED GFR IS NOT APPLICABLE FOR DIALYSIS PATIENTS. RAD, CHEST, 1 VIEW, NON [id number] 19:40:00Reason for exam:->dyspneaShould this be performed at the bedside?->YesFINAL REPORT EXAMINATION: AP PORTABLE CHEST RADIOGRAPH CLINICAL INDICATION: Dyspnea IMPRESSION: Compared with 08/12/2017. A midline sternotomy is again noted. Overall, aeration of the lungs has improved. No definite evidence of new focal lung consolidation, pulmonary edema or pleural effusion. The heart is enlarged as before. Mediastinal contours are grossly stable. No evidence of an acute osseous abnormality or pneumothorax. Signed: Maldonado Hartmaneport Verified Date/Time: 10/07/2017 19:40:25 Reading Location: [address] Reading Room ONIN [id number] 07:12:00* Test Item Value Reference Range Comments TROPONIN I (LEIGH) (test oujk=555) 0.01 ng/mL 0.00-0.03 Troponin I (TnI) levels must be interpreted in the context of the presenting sym ptoms and the clinical findings. Elevated TnI levels indicate myocardial damage, but are not specific for ischemic heart disease. Elevated TnI levels are seen in patients with other cardiac conditions (including myocarditis and congestive h eart failure), and slight TnI elevations occur in patients with other conditions , including sepsis, renal failure, acidosis, acute neurological disease, and per sistent tachyarrhythmia.CBC W/PLT COUNT & AUTO [id number] 07:09:00* Test Item Value Reference Range Comments WHITE BLOOD CELL COUNT (LEIGH) (test lwmm=568) 7.2 K/ L 3.5-10.5 RED BLOOD CELL COUNT (BEAKER) (test wavl=718) 3.07 M/ L 3.93-5.22 HEMOGLOBIN (BEAKER) (test srfg=158) 7.8 GM/DL 11.2-15.7 HEMATOCRIT (BEAKER) (test nqxs=550) 25.3 % 34.1-44.9 MEAN CORPUSCULAR VOLUME (BEAKER) (test feif=173) 82.4 fL 79.4-94.8 MEAN CORPUSCULAR HEMOGLOBIN (BEAKER) (test kgfx=230) 25.4 pg 25.6-32.2 MEAN CORPUSCULAR HEMOGLOBIN CONC (BEAKER) (test dkof=476) 30.8 GM/DL 32.2-35.5 RED CELL DISTRIBUTION WIDTH (BEAKER) (test bjee=121) 16.0 % 11.7-14.4 PLATELET COUNT (BEAKER) (test jrxp=422) 268 K/CU MM 150-450 MEAN PLATELET VOLUME (BEAKER) (test ibha=910) 8.8 fL 9.4-12.3 NUCLEATED RED BLOOD CELLS (BEAKER) (test wcki=069) 0 /100 WBC 0-0 NEUTROPHILS RELATIVE PERCENT (BEAKER) (test uogk=948) 51 % LYMPHOCYTES RELATIVE PERCENT (BEAKER) (test xbdl=761) 38 % MONOCYTES RELATIVE PERCENT (BEAKER) (test yush=892) 10 % EOSINOPHILS RELATIVE PERCENT (BEAKER) (test vsqr=467) 0 % BASOPHILS RELATIVE PERCENT (BEAKER) (test ehfs=504) 0 % NEUTROPHILS ABSOLUTE COUNT (BEAKER) (test nqih=941) 3.65 K/ L 1.56-6.13 LYMPHOCYTES ABSOLUTE COUNT (BEAKER) (test bkge=021) 2.77 K/ L 1.18-3.74 MONOCYTES ABSOLUTE COUNT (BEAKER) (test mqsb=588) 0.71 K/ L 0.24-0.36 EOSINOPHILS ABSOLUTE COUNT (BEAKER) (test gmlk=274) 0.03 K/ L 0.04-0.36 BASOPHILS ABSOLUTE COUNT (BEAKER) (test bxxo=612) 0.03 K/ L 0.01-0.08 IMMATURE GRANULOCYTES-RELATIVE PERCENT (BEAKER) (test pzpg=1368) 0 % 0-1 BASIC METABOLIC [id number] 07:04:00* Test Item Value Reference Range Comments SODIUM (BEAKER) (test bjrz=192) 140 meq/L 136-145 POTASSIUM (BEAKER) (test bmcs=220) 3.9 meq/L 3.5-5.1 CHLORIDE (BEAKER) (test rntv=862) 110 meq/L 98-107 CO2 (BEAKER) (test zvqy=915) 24 meq/L 22-29 BLOOD UREA NITROGEN (BEAKER) (test zmbi=094) 17 mg/dL 7-21 CREATININE (BEAKER) (test qmby=513) 1.27 mg/dL 0.57-1.25 GLUCOSE RANDOM (BEAKER) (test ojii=013) 78 mg/dL 70-105 CALCIUM (BEAKER) (test udmu=413) 8.8 mg/dL 8.4-10.2 EGFR (BEAKER) (test xycv=7422) 51 mL/min/1.73 sq m ESTIMATED GFR IS NOT ACCURATE CREATININE CLEARANCE IN PREDICTING GLOMERULAR FILTRATION RATE. ESTIMATED GFR IS NOT APPLICABLE FOR DIALYSIS PATIENTS. TROPONIN [id number] 01:18:00* Test Item Value Reference Range Comments TROPONIN I (BEAKER) (test efcr=537) 0.01 ng/mL 0.00-0.03 Troponin I (TnI) levels must be interpreted in the context of the presenting sym ptoms and the clinical findings. Elevated TnI levels indicate myocardial damage, but are not specific for ischemic heart disease. Elevated TnI levels are seen in patients with other cardiac conditions (including myocarditis and congestive h eart failure), and slight TnI elevations occur in patients with other conditions , including sepsis, renal failure, acidosis, acute neurological disease, and per sistent tachyarrhythmia.RAPID [id number] 16:49:00* Test Item Value Reference Range Comments RAPID CKMB (BEAKER) (test ktrv=3478) < ng/mL 0.0-4.3 RAPID [id number] 16:49:00* Test Item Value Reference Range Comments RAPID MYOGLOBIN (BEAKER) (test vzzv=7346) 63 ng/mL <107 RAPID TROPONIN [id number] 16:49:00* Test Item Value Reference Range Comments RAPID TROPONIN I (BEAKER) (test vafg=4475) < ng/mL <0.05 B-TYPE NATRIURETIC FACTOR (BNP)2017-10-06 16:49:00* Test Item Value Reference Range Comments B-TYPE NATRIURETIC PEPTIDE (BEAKER) (test kcjn=769) 530 pg/mL 0-100 [id number] 16:46:00* Test Item Value Reference Range Comments PROTIME (BEAKER) (test pjyf=368) 12.3 seconds 9.8-12.0 INR (BEAKER) (test bpke=285) 1.1 <=5.9 PARTIAL THROMBOPLASTIN TIME (BEAKER) (test jzcs=527) 28.0 seconds 25.8-34.5 RECOMMENDED COUMADIN/WARFARIN INR THERAPY RANGESSTANDARD DOSE: 2.0 - 3.0 Inclu rip: PROPHYLAXIS for venous thrombosis, systemic embolization; TREATMENT for kris ous thrombosis and/or pulmonary embolus.HIGH RISK: Target INR is 2.5-3.5 for pat ients with mechanical heart valves.[id number] 16:44:00* Test Item Value Reference Range Comments MAGNESIUM (BEAKER) (test tpjl=026) 1.9 mg/dL 1.5-3.0 BASIC METABOLIC [id number] 16:44:00* Test Item Value Reference Range Comments SODIUM (BEAKER) (test jqun=858) 139 meq/L 135-148 POTASSIUM (BEAKER) (test ybsz=720) 4.3 meq/L 3.6-5.5 CHLORIDE (BEAKER) (test heyi=911) 106 meq/L 98-106 CO2 (BEAKER) (test zxpz=554) 28 meq/L 24-32 BLOOD UREA NITROGEN (BEAKER) (test hwue=522) 19 mg/dL 10-26 CREATININE (BEAKER) (test mxlh=619) 1.40 mg/dL 0.50-1.20 GLUCOSE RANDOM (BEAKER) (test iggy=405) 107 mg/dL 70-110 CALCIUM (BEAKER) (test bdfg=170) 9.2 mg/dL 8.5-10.5 EGFR (BEAKER) (test gbjb=1985) 45 mL/min/1.73 sq m ESTIMATED GFR IS NOT ACCURATE CREATININE CLEARANCE IN PREDICTING GLOMERULAR FILTRATION RATE. ESTIMATED GFR IS NOT APPLICABLE FOR DIALYSIS PATIENTS. CREATINE KINASE (CK)2017-10-06 16:44:00* Test Item Value Reference Range Comments CREATINE KINASE TOTAL (BEAKER) (test pwub=370) 42 U/L 25-235 CBC W/PLT COUNT & AUTO [id number] 16:39:00* Test Item Value Reference Range Comments WHITE BLOOD CELL COUNT (BEAKER) (test gnsl=314) 4.4 10e3/ L 4.0-10.0 RED BLOOD CELL COUNT (BEAKER) (test urne=804) 3.62 10e6/ L 4.00-5.00 HEMOGLOBIN (BEAKER) (test jbnx=889) 9.4 g/dL 12.0-15.0 HEMATOCRIT (BEAKER) (test jryw=502) 29.5 % 36.0-45.0 MEAN CORPUSCULAR VOLUME (BEAKER) (test pwur=582) 81.6 fL 82.0-99.0 MEAN CORPUSCULAR HEMOGLOBIN (BEAKER) (test wfcs=520) 26.0 pg 27.0-33.0 MEAN CORPUSCULAR HEMOGLOBIN CONC (BEAKER) (test tnfq=953) 31.8 g/dL 32.0-36.0 RED CELL DISTRIBUTION WIDTH (BEAKER) (test yalv=157) 15.6 % 10.3-14.2 PLATELET COUNT (BEAKER) (test erhm=536) 302 10e3/ L 150-430 MEAN PLATELET VOLUME (BEAKER) (test rapz=313) 6.9 fL 6.5-10.5 NEUTROPHILS RELATIVE PERCENT (BEAKER) (test kbob=698) 77 % LYMPHOCYTES RELATIVE PERCENT (BEAKER) (test trzj=352) 20 % MONOCYTES RELATIVE PERCENT (BEAKER) (test opnt=512) 2 % EOSINOPHILS RELATIVE PERCENT (BEAKER) (test blzi=467) 1 % BASOPHILS RELATIVE PERCENT (BEAKER) (test fgim=089) 0 % NEUTROPHILS ABSOLUTE COUNT (BEAKER) (test piel=603) 3.40 10e3/ L 1.80-8.00 LYMPHOCYTES ABSOLUTE COUNT (BEAKER) (test qbze=581) 0.86 10e3/ L 1.48-4.50 MONOCYTES ABSOLUTE COUNT (BEAKER) (test zidf=851) 0.09 10e3/ L 0.00-1.30 EOSINOPHILS ABSOLUTE COUNT (BEAKER) (test xbrn=128) 0.04 10e3/ L 0.00-0.50 BASOPHILS ABSOLUTE COUNT (BEAKER) (test hzya=915) 0.01 10e3/ L 0.00-0.20 RAD, HAND, 3 VIEWS, [id number] 16:05:00Reason for exam:->right hand painShould this be performed at the bedside?->NoFINAL REPORT Exam:1. Right hand, three images.2. Right wrist, three images HISTORY: Pain Contrast: None IMPRESSION:Dorsal soft tissues are noted at the wrist and proximal hand. No fracture or subluxation evident. Normal osseous mineralization. No significant degenerative findings. Signed: Edwin Babin Verified Date/Time: 10/06/2017 16:05:32 Reading Location: [facility] Mammo Reading Room , WRIST, RIGHT, COMPLETE (MIN 3 VIEWS)2017-10-06 16:05:00 Reason for exam:->right wrist painShould this be performed at the bedside?->No FINAL REPORT Exam:1. Right hand, three images.2. Right wr ist, three images HISTORY: Pain Contrast: None IMPRESSION:Dorsal soft tissues ar e noted at the wrist and proximal hand. No fracture or subluxation evident. Norm al osseous mineralization. No significant degenerative findings. Signed: Edwin Babin Verified Date/Time: 10/06/2017 16:05:32 Reading Location: [facility] Mammo Reading Room , CHEST, WITHOUT [id number] 15:47:00FINAL REPORT CT scan of the chest. Clinical history: Chest trauma. COMPARISON STUDY: Chest x-ray dated August 12, [address] scan dated July 22, 2017. TECHNIQUE: Contiguous helical slices were acquired through the thorax without the administration of contrast. This exam was performed according to our department dose optimization program which includes automated exposure control, adjustment of the mA and/or kV according to the patient's size and/or use of iterative reconstruction technique. FINDINGS: The mediastinum demonstrates significant cardiomegaly. Atherosclerosis is seen and there has been aortic valve replacement. Trace pericardial fluid is present. No pleural effusions are seen. The visualized portions of the upper abdomen demonstrate an atrophic right kidney. Cholelithiasis is seen. Postsurgical changes are seen in the bowel. The tracheobronchial tree is clear with no endobronchial lesions. The pulmonary par enchyma demonstrates a tiny granuloma in the subpleural space of the left upper lobe on image 25. A 2.1 cm groundglass opacity is seen in the left lower lobe on image 42. Bone windows demonstrate degenerative changes. Poststernotomy changes are seen with no evidence of osseous union of the sternum. IMPRESSION:1. Cardio megaly with valve replacement.2. Upper abdominal findings as described above wit h no acute abnormality seen.3. Nonspecific groundglass opacity in the left lower lobe, atelectatic versus inflammatory change. It could be followed up to ensure resolution and exclude other etiologies. Signed: Cal Dangelo Verif ied Date/Time: 10/06/2017 15:47:10 Reading Location: [facility] Diagnostic Imaging [place] [id number] Electronically signed by: Margareth DUTTA 10/06/2017 03:[address], BRAIN, WITHOUT [id number] 15:39:00FINAL REPORT CT head without contrast INDICATION: Headache, post trauma. TECHNIQUE: Axial noncontrast CT images through the head were obtained. This exam was performed according to our departmental dose optimization program which includes automated exposure control, adjustment of the mA and/or kV according to patient size and/or use of iterative reconstruction technique. COM PARISON: None available FINDINGS:There is no focal scalp hematoma or calvarial f racture. No acute intra- or extra-axial hemorrhage is seen. Generalized volume l oss and mild vascular calcifications are noted. A partially empty sella turcica appearance is suspected. There is no hydrocephalus, mass effect, or midline shif t. There is minimal chronic sinus mucosal thickening, a small left ethmoid sinus osteoma, and trace left mastoid air cell fluid. The globes appear proptotic. Th ere is nonspecific mild parotid gland heterogeneity. IMPRESSION: No acute intrac ranial hemorrhage or calvarial fracture. Additional incidental and chronic findi ngs as discussed above. Signed: Celestine, Visveshwar MDReport Verified Date/Time : 10/06/2017 15:39:25 Reading Location: [facility] [id number] Consult Reading Room Comfort ctronically signed by: ROXANNE WOODS M.D. on 10/06/2017 03:39 PM AFB CULTURE + [id number] 11:00:00* Test Item Value Reference Range Comments CULTURE (BEAKER) (test bheh=8154) No acid-fast bacilli isolated in 42 days AFB SMEAR (BEAKER) (test puyp=949) No acid fast bacilli seen AFB CULTURE + [id number] 11:00:00* Test Item Value Reference Range Comments CULTURE (BEAKER) (test hpat=9957) No acid-fast bacilli isolated in 42 days AFB SMEAR (BEAKER) (test hcbc=352) No acid fast bacilli seen AFB CULTURE + [id number] 11:00:00* Test Item Value Reference Range Comments CULTURE (BEAKER) (test xdgg=4592) No acid-fast bacilli isolated in 42 days AFB SMEAR (BEAKER) (test wien=165) No acid fast bacilli seen FUNGUS CULTURE + [id number] 16:26:00* Test Item Value Reference Range Comments CULTURE (BEAKER) (test pqcf=0202) No fungus isolated in 28 days FUNGUS SMEAR (BEAKER) (test ilgh=5333) No fungi seen FUNGUS CULTURE + [id number] 16:26:00* Test Item Value Reference Range Comments CULTURE (BEAKER) (test oogs=1779) No fungus isolated in 28 days FUNGUS SMEAR (BEAKER) (test rwrm=0704) No fungi seen FUNGUS CULTURE + [id number] 16:26:00* Test Item Value Reference Range Comments CULTURE (BEAKER) (test bgil=1897) No fungus isolated in 28 days FUNGUS SMEAR (BEAKER) (test elrc=7828) No fungi seen RAD, CHEST, 1 VIEW, NON [id number] 09:54:00Reason for exam:->post opShould this be performed at the bedside?->YesFINAL REPORT Portable chest. CLINICAL HISTORY: Postoperative. COMPARISON STUDY: August 11, 2017. FINDINGS: The cardiac size is enlarged. The patient is status post sternotomy and valve replacement with a tortuous aorta. There is pulmonary venous congestion and increased interstitial and airspace opacities with costophrenic angle blunting. No pneumothorax is seen. A left PICC line remains in place. Degenerative changes are noted. IMPRESSION: Worsening pulmonary opacities most likely related to CHF. In the right clinical setting, a superimposed infection would be difficult to exclude. Clinical correlation and s hort term imaging follow-up could be made to exclude other etiologies. Signed: Cal Zamora MDReport Verified Date/Time: 08/12/2017 09:54:28 Reading Locatio n: H B1 P006J Ultrasound Reading Room (HEMOGRAM ONLY)2017-08-12 05:53:00* Test Item Value Reference Range Comments WHITE BLOOD CELL COUNT (BEAKER) (test syvm=441) 6.8 K/ L 3.5-10.5 RED BLOOD CELL COUNT (BEAKER) (test beof=866) 2.99 M/ L 3.93-5.22 HEMOGLOBIN (BEAKER) (test jwqy=976) 7.8 GM/DL 11.2-15.7 HEMATOCRIT (BEAKER) (test thkx=173) 24.7 % 34.1-44.9 MEAN CORPUSCULAR VOLUME (BEAKER) (test ipsv=136) 82.6 fL 79.4-94.8 MEAN CORPUSCULAR HEMOGLOBIN (BEAKER) (test bshf=387) 26.1 pg 25.6-32.2 MEAN CORPUSCULAR HEMOGLOBIN CONC (BEAKER) (test lyme=882) 31.6 GM/DL 32.2-35.5 RED CELL DISTRIBUTION WIDTH (BEAKER) (test ubvp=673) 17.4 % 11.7-14.4 PLATELET COUNT (BEAKER) (test ntxe=768) 312 K/CU MM 150-450 MEAN PLATELET VOLUME (BEAKER) (test eqhx=055) 8.4 fL 9.4-12.3 NUCLEATED RED BLOOD CELLS (BEAKER) (test uylp=663) 0 /100 WBC 0-0 [id number] 05:20:00* Test Item Value Reference Range Comments PHOSPHORUS (BEAKER) (test gnui=662) 2.6 mg/dL 2.3-4.7 [id number] 05:20:00* Test Item Value Reference Range Comments MAGNESIUM (BEAKER) (test fohb=107) 1.5 mg/dL 1.6-2.6 BASIC METABOLIC [id number] 05:20:00* Test Item Value Reference Range Comments SODIUM (BEAKER) (test vbtc=410) 139 meq/L 136-145 POTASSIUM (BEAKER) (test zlui=105) 3.8 meq/L 3.5-5.1 CHLORIDE (BEAKER) (test ejst=803) 111 meq/L 98-107 CO2 (BEAKER) (test krmp=550) 23 meq/L 22-29 BLOOD UREA NITROGEN (BEAKER) (test tudm=569) 9 mg/dL 7-21 CREATININE (BEAKER) (test xvko=452) 0.94 mg/dL 0.57-1.25 GLUCOSE RANDOM (BEAKER) (test jhbw=881) 91 mg/dL 70-105 CALCIUM (BEAKER) (test quyn=866) 8.6 mg/dL 8.4-10.2 EGFR (BEAKER) (test yxcu=3843) 72 mL/min/1.73 sq m ESTIMATED GFR IS NOT ACCURATE CREATININE CLEARANCE IN PREDICTING GLOMERULAR FILTRATION RATE. ESTIMATED GFR IS NOT APPLICABLE FOR DIALYSIS PATIENTS. [id number] 05:08:00* Test Item Value Reference Range Comments PARTIAL THROMBOPLASTIN TIME (BEAKER) (test cygg=870) 48.8 seconds 22.5-36.0 RAD, CHEST, 1 VIEW, NON [id number] 15:47:00Reason for exam:->post chest tube removalShould this be performed at the bedside?->YesFINAL REPORT Chest one view compared to August 11, 2017 Discussion: Sternotomy changes, left PICC line, midline drain, cardiac valve replacement are noted. Lungs are grossly clear. There may be a tiny right apical pneumothorax which was not convincingly seen on the previous study but may simply have been obscured by other regional structures. IMPRESSIONS: No significant change. Tiny right-sided potential pneumothorax. Signed: Lena Hinkle Verified Date/Time: 08/11/2017 15:47:24 Reading Location: [facility] C013W Consult Reading Room , CHEST, 1 VIEW, NON [id number] 11:04:00Reason for exam:->post opShould this be performed at the bedside?->YesFINAL REPORT Chest one view compared to August 10, 2017 Discussion: Left PICC line, sternotomy changes, cardiac valve replacement again noted. There is cardiac prominence and pulmonary congestion. No effusion or pneumothorax. Signed: Lena Hinkle MDReport Verified Date/Time: 08/11/2017 11:04:44 Reading Location: [facility] Radiology Reading Room [id number] 05:18:00* Test Item Value Reference Range Comments PHOSPHORUS (BEAKER) (test pbqj=594) 2.9 mg/dL 2.3-4.7 [id number] 05:18:00* Test Item Value Reference Range Comments MAGNESIUM (BEAKER) (test rgcd=033) 1.9 mg/dL 1.6-2.6 BASIC METABOLIC [id number] 05:18:00* Test Item Value Reference Range Comments SODIUM (BEAKER) (test eqiy=113) 139 meq/L 136-145 POTASSIUM (BEAKER) (test xlmx=261) 3.6 meq/L 3.5-5.1 CHLORIDE (BEAKER) (test qbrp=858) 111 meq/L 98-107 CO2 (BEAKER) (test sheo=772) 21 meq/L 22-29 BLOOD UREA NITROGEN (BEAKER) (test hvdm=231) 11 mg/dL 7-21 CREATININE (BEAKER) (test gfph=854) 1.03 mg/dL 0.57-1.25 GLUCOSE RANDOM (BEAKER) (test wqcw=533) 87 mg/dL 70-105 CALCIUM (BEAKER) (test jgxf=254) 8.2 mg/dL 8.4-10.2 EGFR (BEAKER) (test vvrw=9629) 65 mL/min/1.73 sq m ESTIMATED GFR IS NOT ACCURATE CREATININE CLEARANCE IN PREDICTING GLOMERULAR FILTRATION RATE. ESTIMATED GFR IS NOT APPLICABLE FOR DIALYSIS PATIENTS. [id number] 05:14:00* Test Item Value Reference Range Comments PARTIAL THROMBOPLASTIN TIME (BEAKER) (test kuto=011) 47.5 seconds 22.5-36.0 CBC (HEMOGRAM ONLY)2017-08-11 05:04:00* Test Item Value Reference Range Comments WHITE BLOOD CELL COUNT (BEAKER) (test txew=355) 7.4 K/ L 3.5-10.5 RED BLOOD CELL COUNT (BEAKER) (test crar=062) 3.09 M/ L 3.93-5.22 HEMOGLOBIN (BEAKER) (test hdqy=977) 8.0 GM/DL 11.2-15.7 HEMATOCRIT (BEAKER) (test woik=060) 25.6 % 34.1-44.9 MEAN CORPUSCULAR VOLUME (BEAKER) (test sroe=678) 82.8 fL 79.4-94.8 MEAN CORPUSCULAR HEMOGLOBIN (BEAKER) (test mciq=385) 25.9 pg 25.6-32.2 MEAN CORPUSCULAR HEMOGLOBIN CONC (BEAKER) (test vclj=266) 31.3 GM/DL 32.2-35.5 RED CELL DISTRIBUTION WIDTH (BEAKER) (test tode=243) 17.8 % 11.7-14.4 PLATELET COUNT (BEAKER) (test qkzu=312) 296 K/CU MM 150-450 MEAN PLATELET VOLUME (BEAKER) (test jsaa=441) 8.5 fL 9.4-12.3 NUCLEATED RED BLOOD CELLS (BEAKER) (test qcan=915) 0 /100 WBC 0-0 RAD, CHEST, 1 VIEW, NON [id number] 08:57:00Reason for exam:->post opShould this be performed at the bedside?->YesFINAL REPORT Chest one view compared to August 09 Discussion: Sternal wires, cardiac valve replacement, midline chest tubes, left PICC line unchanged. Lungs clear. No effusion or pneumothorax. Signed: Lena Hinkle Verified Date/Time: 08/10/2017 08:57:14 Reading Location: [facility] Radiology Reading Room PHORUS 2017-08-10 05:04:00* Test Item Value Reference Range Comments PHOSPHORUS (BEAKER) (test wkeu=309) 4.4 mg/dL 2.3-4.7 [id number] 05:04:00* Test Item Value Reference Range Comments MAGNESIUM (BEAKER) (test ewhz=480) 1.6 mg/dL 1.6-2.6 BASIC METABOLIC [id number] 05:04:00* Test Item Value Reference Range Comments SODIUM (BEAKER) (test xrkj=035) 136 meq/L 136-145 POTASSIUM (BEAKER) (test ymir=400) 3.9 meq/L 3.5-5.1 CHLORIDE (BEAKER) (test ilbj=470) 108 meq/L 98-107 CO2 (BEAKER) (test njtu=587) 20 meq/L 22-29 BLOOD UREA NITROGEN (BEAKER) (test pzcm=189) 13 mg/dL 7-21 CREATININE (BEAKER) (test szos=774) 1.12 mg/dL 0.57-1.25 GLUCOSE RANDOM (BEAKER) (test posa=459) 95 mg/dL 70-105 CALCIUM (BEAKER) (test hmsk=604) 8.3 mg/dL 8.4-10.2 EGFR (BEAKER) (test ccex=6882) 59 mL/min/1.73 sq m ESTIMATED GFR IS NOT ACCURATE CREATININE CLEARANCE IN PREDICTING GLOMERULAR FILTRATION RATE. ESTIMATED GFR IS NOT APPLICABLE FOR DIALYSIS PATIENTS. [id number] 04:32:00* Test Item Value Reference Range Comments PARTIAL THROMBOPLASTIN TIME (BEAKER) (test ilhj=310) 54.1 seconds 22.5-36.0 CBC (HEMOGRAM ONLY)2017-08-10 04:24:00* Test Item Value Reference Range Comments WHITE BLOOD CELL COUNT (BEAKER) (test pyxo=346) 10.8 K/ L 3.5-10.5 RED BLOOD CELL COUNT (BEAKER) (test bvie=873) 3.01 M/ L 3.93-5.22 HEMOGLOBIN (BEAKER) (test actu=252) 7.6 GM/DL 11.2-15.7 HEMATOCRIT (BEAKER) (test irpt=195) 25.3 % 34.1-44.9 MEAN CORPUSCULAR VOLUME (BEAKER) (test yxyu=369) 84.1 fL 79.4-94.8 MEAN CORPUSCULAR HEMOGLOBIN (BEAKER) (test zywy=668) 25.2 pg 25.6-32.2 MEAN CORPUSCULAR HEMOGLOBIN CONC (BEAKER) (test loxe=558) 30.0 GM/DL 32.2-35.5 RED CELL DISTRIBUTION WIDTH (BEAKER) (test letq=206) 18.6 % 11.7-14.4 PLATELET COUNT (BEAKER) (test adnm=257) 315 K/CU MM 150-450 MEAN PLATELET VOLUME (BEAKER) (test mwol=215) 8.3 fL 9.4-12.3 NUCLEATED RED BLOOD CELLS (BEAKER) (test hhqn=304) 0 /100 WBC 0-0 RAD, CHEST, 1 VIEW, NON [id number] 05:46:00Reason for exam:->post opShould this be performed at the bedside?->YesFINAL REPORT Comparison exam: 08/08/2017 No pneumothorax, focal pulmonary consolidation, or significant pleural effusion. Stable cardiomediastinal contours. Left PICC line terminates in the left subclavian vein. The remainder of the support hardware is appropriately positioned. Signed: Stoney Godfrey Verified Date/Time: 08/09/2017 05:46:44 Reading Location: [facility] C013X Ortho Consult Reading Room [id number] 05:09:00* Test Item Value Reference Range Comments PHOSPHORUS (BEAKER) (test yqtm=185) 3.5 mg/dL 2.3-4.7 [id number] 05:09:00* Test Item Value Reference Range Comments MAGNESIUM (BEAKER) (test mfcs=638) 1.6 mg/dL 1.6-2.6 BASIC METABOLIC [id number] 05:09:00* Test Item Value Reference Range Comments SODIUM (BEAKER) (test jiaq=506) 135 meq/L 136-145 POTASSIUM (BEAKER) (test sixp=209) 3.8 meq/L 3.5-5.1 CHLORIDE (BEAKER) (test tnfn=572) 107 meq/L 98-107 CO2 (BEAKER) (test kqmf=141) 18 meq/L 22-29 BLOOD UREA NITROGEN (BEAKER) (test ntxr=540) 10 mg/dL 7-21 CREATININE (BEAKER) (test iczm=563) 0.90 mg/dL 0.57-1.25 GLUCOSE RANDOM (BEAKER) (test irdp=959) 102 mg/dL 70-105 CALCIUM (BEAKER) (test nfoo=548) 8.6 mg/dL 8.4-10.2 EGFR (BEAKER) (test luuk=6736) 76 mL/min/1.73 sq m ESTIMATED GFR IS NOT ACCURATE CREATININE CLEARANCE IN PREDICTING GLOMERULAR FILTRATION RATE. ESTIMATED GFR IS NOT APPLICABLE FOR DIALYSIS PATIENTS. [id number] 04:46:00* Test Item Value Reference Range Comments PARTIAL THROMBOPLASTIN TIME (BEAKER) (test fego=106) 37.6 seconds 22.5-36.0 BLOOD GAS, [id number] 04:46:00* Test Item Value Reference Range Comments PH ARTERIAL (BEAKER) (test vsok=827) 7.53 7.35-7.45 PCO2 ARTERIAL (BEAKER) (test yccv=938) 24 mmHg 35-45 PO2 ARTERIAL (BEAKER) (test cbqb=383) 231 mmHg 80-90 O2 SATURATION ARTERIAL (BEAKER) (test aurt=787) 99.6 % 96.0-97.0 HCO3 ARTERIAL (BEAKER) (test upqc=438) 19 mmol/L 21-29 BASE EXCESS ARTERIAL (BEAKER) (test bodg=796) -2.5 mmol/L -2.0-3.0 PATIENT TEMPERATURE (BEAKER) (test npnj=4059) 37.0 C FIO2 (BEAKER) (test ooch=0227) 60.0 % Daily ABG with morning labs while patient is intubated.CBC (HEMOGRAM ONLY) 2017-08-09 04:45:00* Test Item Value Reference Range Comments WHITE BLOOD CELL COUNT (BEAKER) (test doji=481) 11.8 K/ L 3.5-10.5 RED BLOOD CELL COUNT (BEAKER) (test jwhw=539) 3.57 M/ L 3.93-5.22 HEMOGLOBIN (BEAKER) (test nrtz=347) 9.2 GM/DL 11.2-15.7 HEMATOCRIT (BEAKER) (test govz=841) 28.7 % 34.1-44.9 MEAN CORPUSCULAR VOLUME (BEAKER) (test xkyd=123) 80.4 fL 79.4-94.8 MEAN CORPUSCULAR HEMOGLOBIN (BEAKER) (test hcam=335) 25.8 pg 25.6-32.2 MEAN CORPUSCULAR HEMOGLOBIN CONC (BEAKER) (test easn=212) 32.1 GM/DL 32.2-35.5 RED CELL DISTRIBUTION WIDTH (BEAKER) (test jzow=257) 18.5 % 11.7-14.4 PLATELET COUNT (BEAKER) (test sxgo=412) 353 K/CU MM 150-450 MEAN PLATELET VOLUME (BEAKER) (test pkbx=976) 8.3 fL 9.4-12.3 NUCLEATED RED BLOOD CELLS (BEAKER) (test dsqy=660) 0 /100 WBC 0-0 RAD, CHEST, 1 VIEW, NON [id number] 18:28:00Reason for exam:->Post-opShould this be performed at the bedside?->YesFINAL REPORT TECHNIQUE: Frontal view of the chest. INDICATION: 67-year-old woman after surgery. COMPARISON: Chest radiograph from earlier same date. FINDINGS: LINES/TUBES: Unchanged left upper extremity PICC. Endotracheal tube tip appears to project approximately 4.6 cm above the deshaun, however accurate assessment of tube placement is limited by overlying median sternotomy wires. Mediastinal drains in place. Partially visualized enteric tube in place, the sidehole projects over the expected region of the proximal gastric body. LUNGS: Streaky opacities in the left lower lung zone. Right lung is clear. PLEURA: No pneumothorax or significant pleural effusion. HEART AND MEDIASTINUM: The car diomediastinal silhouette is mildly enlarged. Prosthetic cardiac valve. Tortuous thoracic aorta. SOFT TISSUES AND BONES: Median sternotomy wires. IMPRESSION:Li omar/tubes as above. Left lower lung zone opacities, likely atelectasis or aspira tion. Signed: Dolly Bowens MDReport Verified Date/Time: 08/08/2017 18:28:10 Reading Location: [facility] C013W Consult Reading Room [id number] 17:04:00* Test Item Value Reference Range Comments PHOSPHORUS (BEAKER) (test qgxt=556) 3.6 mg/dL 2.3-4.7 [id number] 17:04:00* Test Item Value Reference Range Comments MAGNESIUM (BEAKER) (test dulu=929) 1.6 mg/dL 1.6-2.6 BASIC METABOLIC [id number] 17:04:00* Test Item Value Reference Range Comments SODIUM (BEAKER) (test jhye=212) 137 meq/L 136-145 POTASSIUM (BEAKER) (test fngb=581) 4.1 meq/L 3.5-5.1 CHLORIDE (BEAKER) (test hpyd=610) 110 meq/L 98-107 CO2 (BEAKER) (test ydsu=492) 21 meq/L 22-29 BLOOD UREA NITROGEN (BEAKER) (test agla=077) 9 mg/dL 7-21 CREATININE (BEAKER) (test askf=057) 0.91 mg/dL 0.57-1.25 GLUCOSE RANDOM (BEAKER) (test wqzi=227) 103 mg/dL 70-105 CALCIUM (BEAKER) (test oyce=498) 9.3 mg/dL 8.4-10.2 EGFR (BEAKER) (test uiyu=7937) 75 mL/min/1.73 sq m ESTIMATED GFR IS NOT ACCURATE CREATININE CLEARANCE IN PREDICTING GLOMERULAR FILTRATION RATE. ESTIMATED GFR IS NOT APPLICABLE FOR DIALYSIS PATIENTS. PROTHROMBIN TIME/[id number] 16:57:00* Test Item Value Reference Range Comments PROTIME (BEAKER) (test omcr=537) 15.4 seconds 11.7-14.7 INR (BEAKER) (test fabz=462) 1.2 <=5.9 RECOMMENDED COUMADIN/WARFARIN INR THERAPY RANGESSTANDARD DOSE: 2.0 - 3.0 Inclu rip: PROPHYLAXIS for venous thrombosis, systemic embolization; TREATMENT for kris ous thrombosis and/or pulmonary embolus.HIGH RISK: Target INR is 2.5-3.5 for pat ients with mechanical heart valves.[id number] 16:57:00* Test Item Value Reference Range Comments PARTIAL THROMBOPLASTIN TIME (BEAKER) (test qmmi=027) 34.3 seconds 22.5-36.0 CBC W/PLT COUNT & AUTO [id number] 16:48:00* Test Item Value Reference Range Comments WHITE BLOOD CELL COUNT (BEAKER) (test tbhc=238) 8.4 K/ L 3.5-10.5 RED BLOOD CELL COUNT (BEAKER) (test dnue=530) 3.59 M/ L 3.93-5.22 HEMOGLOBIN (BEAKER) (test hukk=136) 9.4 GM/DL 11.2-15.7 HEMATOCRIT (BEAKER) (test xfhr=602) 29.2 % 34.1-44.9 MEAN CORPUSCULAR VOLUME (BEAKER) (test whdh=818) 81.3 fL 79.4-94.8 MEAN CORPUSCULAR HEMOGLOBIN (BEAKER) (test wifh=287) 26.2 pg 25.6-32.2 MEAN CORPUSCULAR HEMOGLOBIN CONC (BEAKER) (test gwop=335) 32.2 GM/DL 32.2-35.5 RED CELL DISTRIBUTION WIDTH (BEAKER) (test hjpd=734) 18.4 % 11.7-14.4 PLATELET COUNT (BEAKER) (test vmsn=166) 376 K/CU MM 150-450 MEAN PLATELET VOLUME (BEAKER) (test tdxw=343) 7.8 fL 9.4-12.3 NUCLEATED RED BLOOD CELLS (BEAKER) (test ugag=648) 0 /100 WBC 0-0 NEUTROPHILS RELATIVE PERCENT (BEAKER) (test zrup=947) 63 % LYMPHOCYTES RELATIVE PERCENT (BEAKER) (test iepf=792) 23 % MONOCYTES RELATIVE PERCENT (BEAKER) (test ocuf=120) 10 % EOSINOPHILS RELATIVE PERCENT (BEAKER) (test xnfs=868) 3 % BASOPHILS RELATIVE PERCENT (BEAKER) (test kuan=492) 1 % NEUTROPHILS ABSOLUTE COUNT (BEAKER) (test lbsa=908) 5.33 K/ L 1.56-6.13 LYMPHOCYTES ABSOLUTE COUNT (BEAKER) (test ydhm=660) 1.94 K/ L 1.18-3.74 MONOCYTES ABSOLUTE COUNT (BEAKER) (test pshh=499) 0.84 K/ L 0.24-0.36 EOSINOPHILS ABSOLUTE COUNT (BEAKER) (test znzf=598) 0.21 K/ L 0.04-0.36 BASOPHILS ABSOLUTE COUNT (BEAKER) (test eloy=915) 0.05 K/ L 0.01-0.08 IMMATURE GRANULOCYTES-RELATIVE PERCENT (BEAKER) (test sszg=2267) 1 % 0-1 GLUCOSE-STAT [id number] 16:39:00* Test Item Value Reference Range Comments GLUCOSE RANDOM (BEAKER) (test gmcz=757) 104 mg/dL 70-110 POTASSIUM-STAT [id number] 16:39:00* Test Item Value Reference Range Comments POTASSIUM (BEAKER) (test rjsl=257) 4.0 meq/L 3.6-5.5 BLOOD GAS, [id number] 16:39:00* Test Item Value Reference Range Comments PH ARTERIAL (BEAKER) (test qpcy=825) 7.55 7.35-7.45 PCO2 ARTERIAL (BEAKER) (test zfzo=115) 23 mmHg 35-45 PO2 ARTERIAL (BEAKER) (test dout=172) 252 mmHg 80-90 O2 SATURATION ARTERIAL (BEAKER) (test sple=932) 99.7 % 96.0-97.0 HCO3 ARTERIAL (BEAKER) (test amim=632) 20 mmol/L 21-29 BASE EXCESS ARTERIAL (BEAKER) (test nmab=636) -1.2 mmol/L -2.0-3.0 PATIENT TEMPERATURE (BEAKER) (test fctg=0033) 36.1 C FIO2 (BEAKER) (test muef=7343) 60.0 % SODIUM NA-STAT [id number] 16:39:00* Test Item Value Reference Range Comments SODIUM (BEAKER) (test blec=885) 134 meq/L 135-148 HGB/HCT (H&H) - STAT [id number] 16:39:00* Test Item Value Reference Range Comments HEMOGLOBIN (BEAKER) (test abhg=376) 10.2 g/dL 12.0-15.0 HEMATOCRIT (BEAKER) (test koyt=367) 30.0 % 36.0-45.0 CALCIUM, [id number] 16:38:00* Test Item Value Reference Range Comments CALCIUM IONIZED (BEAKER) (test rbdj=971) 1.25 mmol/L 1.12-1.27 PH, BLOOD (BEAKER) (test bvnj=9671) 7.54 RAD, X-RAY, NO [id number] 15:05:00Reason for exam:->Final Sternal Closure Should this be performed at the bedside?->YesFINAL REPORT Two frontal chest images compared to August 08 Discussion: Sternal wires are now in place. Antibiotic beads seen previously are removed. Note that I am not able to definitively exclude the possibility of a retained antibiotic bead given general low density. Cardiac valve replacement is present. Lungs grossly clear. Left PICC line and ET tube in place. Report called to the operating room. Signed: Lena Hinkle Verified Date/Time: 08/08/2017 15:05:54 Reading Location: [address] Consult Reading Room OSE-STAT [id number] 14:20:00* Test Item Value Reference Range Comments GLUCOSE RANDOM (BEAKER) (test cxko=679) 92 mg/dL 70-110 SODIUM NA-STAT [id number] 14:20:00* Test Item Value Reference Range Comments SODIUM (BEAKER) (test cuzk=854) 136 meq/L 135-148 POTASSIUM-STAT [id number] 14:20:00* Test Item Value Reference Range Comments POTASSIUM (BEAKER) (test kmuf=034) 4.0 meq/L 3.6-5.5 BLOOD GAS, [id number] 14:20:00* Test Item Value Reference Range Comments PH ARTERIAL (BEAKER) (test zqzg=670) 7.47 7.35-7.45 PCO2 ARTERIAL (BEAKER) (test xduy=142) 30 mmHg 35-45 PO2 ARTERIAL (BEAKER) (test bmms=220) 246 mmHg 80-90 O2 SATURATION ARTERIAL (BEAKER) (test xisb=939) 99.6 % 96.0-97.0 HCO3 ARTERIAL (BEAKER) (test ynsq=128) 21 mmol/L 21-29 BASE EXCESS ARTERIAL (BEAKER) (test pkex=045) -1.7 mmol/L -2.0-3.0 PATIENT TEMPERATURE (BEAKER) (test jbcc=9374) 36.6 C FIO2 (BEAKER) (test bcit=2292) 66.0 % HGB/HCT (H&H) - STAT [id number] 14:20:00* Test Item Value Reference Range Comments HEMOGLOBIN (BEAKER) (test zejo=336) 9.7 g/dL 12.0-15.0 HEMATOCRIT (BEAKER) (test evrj=155) 29.0 % 36.0-45.0 CALCIUM, [id number] 13:13:00* Test Item Value Reference Range Comments CALCIUM IONIZED (BEAKER) (test uevg=661) 0.80 mmol/L 1.12-1.27 PH, BLOOD (BEAKER) (test fmuj=7551) 7.45 GLUCOSE-STAT [id number] 13:05:00* Test Item Value Reference Range Comments GLUCOSE RANDOM (BEAKER) (test urcb=975) 76 mg/dL 70-110 SODIUM NA-STAT [id number] 13:05:00* Test Item Value Reference Range Comments SODIUM (BEAKER) (test zkrf=090) 141 meq/L 135-148 BLOOD GAS, [id number] 13:05:00* Test Item Value Reference Range Comments PH ARTERIAL (BEAKER) (test rdvn=697) 7.45 7.35-7.45 PCO2 ARTERIAL (BEAKER) (test wpos=950) 27 mmHg 35-45 PO2 ARTERIAL (BEAKER) (test mmuj=688) 222 mmHg 80-90 O2 SATURATION ARTERIAL (BEAKER) (test fovv=578) 99.5 % 96.0-97.0 HCO3 ARTERIAL (BEAKER) (test sofa=043) 18 mmol/L 21-29 BASE EXCESS ARTERIAL (BEAKER) (test cqwy=189) -4.9 mmol/L -2.0-3.0 PATIENT TEMPERATURE (BEAKER) (test sacf=5951) 36.7 C FIO2 (BEAKER) (test ofph=1334) 60.0 % POTASSIUM-STAT [id number] 13:05:00* Test Item Value Reference Range Comments POTASSIUM (BEAKER) (test muwd=979) 3.1 meq/L 3.6-5.5 HGB/HCT (H&H) - STAT [id number] 13:05:00* Test Item Value Reference Range Comments HEMOGLOBIN (BEAKER) (test trnf=932) 8.3 g/dL 12.0-15.0 HEMATOCRIT (BEAKER) (test rsna=213) 24.0 % 36.0-45.0 RAD, CHEST, 1 VIEW, NON [id number] 10:02:00Reason for exam:->post opShould this be performed at the bedside?->YesFINAL REPORT Chest one view compared to August 07 Discussion: Cardiac prominence, left PICC line, pulmonary congestion are similar. Cardiac valve replacement noted. No effusion or pneumothorax. Signed: Lena Hinkle Verified Date/Time: 08/08/2017 10:02:26 Reading Location: [facility] Radiology Reading Room OMYCIN LEVEL, [id number] 05:23:00* Test Item Value Reference Range Comments VANCOMYCIN TROUGH (BEAKER) (test jqte=449) 27.2 ug/mL 10.0-20.0 [id number] 05:23:00* Test Item Value Reference Range Comments PHOSPHORUS (BEAKER) (test rdfs=147) 3.3 mg/dL 2.3-4.7 [id number] 05:23:00* Test Item Value Reference Range Comments MAGNESIUM (BEAKER) (test ldyh=727) 1.9 mg/dL 1.6-2.6 BASIC METABOLIC [id number] 05:23:00* Test Item Value Reference Range Comments SODIUM (BEAKER) (test fzjr=909) 137 meq/L 136-145 POTASSIUM (BEAKER) (test ujao=055) 4.3 meq/L 3.5-5.1 CHLORIDE (BEAKER) (test whjx=214) 107 meq/L 98-107 CO2 (BEAKER) (test dpdq=635) 24 meq/L 22-29 BLOOD UREA NITROGEN (BEAKER) (test vexk=895) 10 mg/dL 7-21 CREATININE (BEAKER) (test shar=265) 1.03 mg/dL 0.57-1.25 GLUCOSE RANDOM (BEAKER) (test zvpd=632) 89 mg/dL 70-105 CALCIUM (BEAKER) (test wirm=944) 9.1 mg/dL 8.4-10.2 EGFR (BEAKER) (test oysi=2945) 65 mL/min/1.73 sq m ESTIMATED GFR IS NOT ACCURATE CREATININE CLEARANCE IN PREDICTING GLOMERULAR FILTRATION RATE. ESTIMATED GFR IS NOT APPLICABLE FOR DIALYSIS PATIENTS. [id number] 05:16:00* Test Item Value Reference Range Comments PARTIAL THROMBOPLASTIN TIME (BEAKER) (test jrya=973) 36.2 seconds 22.5-36.0 PROTHROMBIN TIME/[id number] 05:15:00* Test Item Value Reference Range Comments PROTIME (BEAKER) (test gmqy=402) 16.0 seconds 11.7-14.7 INR (BEAKER) (test silm=469) 1.3 <=5.9 RECOMMENDED COUMADIN/WARFARIN INR THERAPY RANGESSTANDARD DOSE: 2.0 - 3.0 Inclu rip: PROPHYLAXIS for venous thrombosis, systemic embolization; TREATMENT for kris ous thrombosis and/or pulmonary embolus.HIGH RISK: Target INR is 2.5-3.5 for pat ients with mechanical heart valves.CBC (HEMOGRAM ONLY)2017-08-08 05:08:00* Test Item Value Reference Range Comments WHITE BLOOD CELL COUNT (BEAKER) (test dkej=132) 7.2 K/ L 3.5-10.5 RED BLOOD CELL COUNT (BEAKER) (test ammi=884) 3.75 M/ L 3.93-5.22 HEMOGLOBIN (BEAKER) (test betq=245) 9.4 GM/DL 11.2-15.7 HEMATOCRIT (BEAKER) (test donm=932) 31.3 % 34.1-44.9 MEAN CORPUSCULAR VOLUME (BEAKER) (test meqd=073) 83.5 fL 79.4-94.8 MEAN CORPUSCULAR HEMOGLOBIN (BEAKER) (test djlh=231) 25.1 pg 25.6-32.2 MEAN CORPUSCULAR HEMOGLOBIN CONC (BEAKER) (test gjey=309) 30.0 GM/DL 32.2-35.5 RED CELL DISTRIBUTION WIDTH (BEAKER) (test pnnz=886) 18.6 % 11.7-14.4 PLATELET COUNT (BEAKER) (test nrso=242) 389 K/CU MM 150-450 MEAN PLATELET VOLUME (BEAKER) (test angs=371) 7.9 fL 9.4-12.3 NUCLEATED RED BLOOD CELLS (BEAKER) (test dxvx=537) 0 /100 WBC 0-0 VANCOMYCIN LEVEL, [id number] 16:24:00* Test Item Value Reference Range Comments VANCOMYCIN TROUGH (BEAKER) (test yqim=466) 34.4 ug/mL 10.0-20.0 RAD, CHEST, 1 VIEW, NON [id number] 09:03:00Reason for exam:->post opShould this be performed at the bedside?->YesFINAL REPORT INDICATION: post op COMPARISON: August 06, 2017 TECHNIQUE: Chest radiograph, single view, portable technique. FINDINGS / IMPRESSION: No pulmonary edema, aspiration, pneumonia, or pneumothorax is demonstrated. There is a probable small left pleural effusion. Cardiac and mediastinal contours are unremarkable. 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 Left PICC line again demonstrated. In summary, no evidence of postoperative complication. Signed: Jess Sellers MDReport Verified Date/Time: 08/07/2017 09:03:13 Reading Location: [address] Transitional Reading Room Electronically signed by: JESS SELLERS M.D. on 05/2017 09:03 AM [id number] 04:53:00* Test Item Value Reference Range Comments PHOSPHORUS (BEAKER) (test vulw=453) 3.4 mg/dL 2.3-4.7 [id number] 04:53:00* Test Item Value Reference Range Comments MAGNESIUM (BEAKER) (test grli=595) 2.1 mg/dL 1.6-2.6 BASIC METABOLIC [id number] 04:53:00* Test Item Value Reference Range Comments SODIUM (BEAKER) (test dmqy=392) 135 meq/L 136-145 POTASSIUM (BEAKER) (test pmwd=831) 4.1 meq/L 3.5-5.1 CHLORIDE (BEAKER) (test snqx=520) 106 meq/L 98-107 CO2 (BEAKER) (test uupz=759) 23 meq/L 22-29 BLOOD UREA NITROGEN (BEAKER) (test rnsi=226) 9 mg/dL 7-21 CREATININE (BEAKER) (test zusv=642) 0.99 mg/dL 0.57-1.25 GLUCOSE RANDOM (BEAKER) (test zwlj=926) 86 mg/dL 70-105 CALCIUM (BEAKER) (test tsho=490) 8.7 mg/dL 8.4-10.2 EGFR (BEAKER) (test bwhc=9113) 68 mL/min/1.73 sq m ESTIMATED GFR IS NOT ACCURATE CREATININE CLEARANCE IN PREDICTING GLOMERULAR FILTRATION RATE. ESTIMATED GFR IS NOT APPLICABLE FOR DIALYSIS PATIENTS. [id number] 03:50:00* Test Item Value Reference Range Comments PARTIAL THROMBOPLASTIN TIME (BEAKER) (test snfw=135) 34.9 seconds 22.5-36.0 PROTHROMBIN TIME/[id number] 03:49:00* Test Item Value Reference Range Comments PROTIME (BEAKER) (test amsv=358) 16.3 seconds 11.7-14.7 INR (BEAKER) (test dwny=143) 1.3 <=5.9 RECOMMENDED COUMADIN/WARFARIN INR THERAPY RANGESSTANDARD DOSE: 2.0 - 3.0 Inclu rip: PROPHYLAXIS for venous thrombosis, systemic embolization; TREATMENT for kris ous thrombosis and/or pulmonary embolus.HIGH RISK: Target INR is 2.5-3.5 for pat ients with mechanical heart valves.CBC (HEMOGRAM ONLY)2017-08-07 03:39:00* Test Item Value Reference Range Comments WHITE BLOOD CELL COUNT (BEAKER) (test adrf=054) 6.3 K/ L 3.5-10.5 RED BLOOD CELL COUNT (BEAKER) (test ebif=104) 3.67 M/ L 3.93-5.22 HEMOGLOBIN (BEAKER) (test cbtb=523) 9.5 GM/DL 11.2-15.7 HEMATOCRIT (BEAKER) (test svnp=748) 30.5 % 34.1-44.9 MEAN CORPUSCULAR VOLUME (BEAKER) (test sjzy=273) 83.1 fL 79.4-94.8 MEAN CORPUSCULAR HEMOGLOBIN (BEAKER) (test uufk=454) 25.9 pg 25.6-32.2 MEAN CORPUSCULAR HEMOGLOBIN CONC (BEAKER) (test ppvy=186) 31.1 GM/DL 32.2-35.5 RED CELL DISTRIBUTION WIDTH (BEAKER) (test ezvk=384) 18.7 % 11.7-14.4 PLATELET COUNT (BEAKER) (test fcuz=443) 355 K/CU MM 150-450 MEAN PLATELET VOLUME (BEAKER) (test tvue=924) 7.5 fL 9.4-12.3 NUCLEATED RED BLOOD CELLS (BEAKER) (test mmff=246) 0 /100 WBC 0-0 RAD, CHEST, 1 VIEW, NON [id number] 09:16:00Reason for exam:->post opShould this be performed at the bedside?->YesFINAL REPORT INDICATION: post op COMPARISON: August 05, 2017 TECHNIQUE: Chest radiograph, single view, portable technique. FINDINGS / IMPRESSION: No pulmonary edema, aspiration, pneumonia, pneumothorax, or pleural effusion is demonstrated. Patient is status post cardiac valve replacement. Cardiac silhouette unremarkable. Left PICC line unchanged in position. In summary, no evidence of postoperative complication. Signed: Jess Sellerseport Verified Date/Time: 08/06/2017 09:16:14 Reading Location: [address] ading Room [id number] 04:23:00* Test Item Value Reference Range Comments PHOSPHORUS (BEAKER) (test ccpu=486) 3.3 mg/dL 2.3-4.7 [id number] 04:23:00* Test Item Value Reference Range Comments MAGNESIUM (BEAKER) (test dvex=634) 1.7 mg/dL 1.6-2.6 BASIC METABOLIC [id number] 04:23:00* Test Item Value Reference Range Comments SODIUM (BEAKER) (test vjkq=067) 138 meq/L 136-145 POTASSIUM (BEAKER) (test veoe=702) 3.8 meq/L 3.5-5.1 CHLORIDE (BEAKER) (test dfoy=485) 107 meq/L 98-107 CO2 (BEAKER) (test lqup=117) 25 meq/L 22-29 BLOOD UREA NITROGEN (BEAKER) (test adby=434) 11 mg/dL 7-21 CREATININE (BEAKER) (test kibp=194) 1.00 mg/dL 0.57-1.25 GLUCOSE RANDOM (BEAKER) (test juuk=998) 86 mg/dL 70-105 CALCIUM (BEAKER) (test astl=460) 8.7 mg/dL 8.4-10.2 EGFR (BEAKER) (test qccm=7543) 67 mL/min/1.73 sq m ESTIMATED GFR IS NOT ACCURATE CREATININE CLEARANCE IN PREDICTING GLOMERULAR FILTRATION RATE. ESTIMATED GFR IS NOT APPLICABLE FOR DIALYSIS PATIENTS. [id number] 03:54:00* Test Item Value Reference Range Comments PARTIAL THROMBOPLASTIN TIME (BEAKER) (test vczg=800) 33.1 seconds 22.5-36.0 PROTHROMBIN TIME/[id number] 03:53:00* Test Item Value Reference Range Comments PROTIME (BEAKER) (test uyts=323) 15.5 seconds 11.7-14.7 INR (BEAKER) (test uftb=599) 1.2 <=5.9 RECOMMENDED COUMADIN/WARFARIN INR THERAPY RANGESSTANDARD DOSE: 2.0 - 3.0 Inclu rip: PROPHYLAXIS for venous thrombosis, systemic embolization; TREATMENT for kris ous thrombosis and/or pulmonary embolus.HIGH RISK: Target INR is 2.5-3.5 for pat ients with mechanical heart valves.CBC (HEMOGRAM ONLY)2017-08-06 03:45:00* Test Item Value Reference Range Comments WHITE BLOOD CELL COUNT (BEAKER) (test kzap=342) 6.9 K/ L 3.5-10.5 RED BLOOD CELL COUNT (BEAKER) (test fwbh=082) 3.29 M/ L 3.93-5.22 HEMOGLOBIN (BEAKER) (test umvv=523) 8.3 GM/DL 11.2-15.7 HEMATOCRIT (BEAKER) (test bllw=866) 27.3 % 34.1-44.9 MEAN CORPUSCULAR VOLUME (BEAKER) (test lode=034) 83.0 fL 79.4-94.8 MEAN CORPUSCULAR HEMOGLOBIN (BEAKER) (test vfig=164) 25.2 pg 25.6-32.2 MEAN CORPUSCULAR HEMOGLOBIN CONC (BEAKER) (test rfzh=356) 30.4 GM/DL 32.2-35.5 RED CELL DISTRIBUTION WIDTH (BEAKER) (test mzad=317) 19.8 % 11.7-14.4 PLATELET COUNT (BEAKER) (test xqqo=599) 397 K/CU MM 150-450 MEAN PLATELET VOLUME (BEAKER) (test pjyg=836) 7.7 fL 9.4-12.3 NUCLEATED RED BLOOD CELLS (BEAKER) (test sqrb=271) 0 /100 WBC 0-0 RAD, CHEST, 1 VIEW, NON [id number] 09:35:00Reason for exam:->post opShould this be performed at the bedside?->YesFINAL REPORT Chest one view compared to August 04 Discussion: Hazy lower lung opacities both sides left greater than right, overall similar. Left PICC line unchanged extending to the azygos arch level. I cannot exclude small left effusion. No pneumothorax. IMPRESSIONS: No significant change Signed: Lena Hinkle Verified Date/Time: 08/05/2017 09:35:01 Reading Location: [facility] Radiology Reading Room [id number] 05:52:00* Test Item Value Reference Range Comments PHOSPHORUS (BEAKER) (test vwas=597) 2.9 mg/dL 2.3-4.7 [id number] 05:52:00* Test Item Value Reference Range Comments MAGNESIUM (BEAKER) (test dxyb=042) 1.7 mg/dL 1.6-2.6 BASIC METABOLIC [id number] 05:52:00* Test Item Value Reference Range Comments SODIUM (BEAKER) (test bnjt=475) 137 meq/L 136-145 POTASSIUM (BEAKER) (test djhw=969) 3.9 meq/L 3.5-5.1 CHLORIDE (BEAKER) (test lonb=824) 106 meq/L 98-107 CO2 (BEAKER) (test adrv=658) 26 meq/L 22-29 BLOOD UREA NITROGEN (BEAKER) (test duna=585) 10 mg/dL 7-21 CREATININE (BEAKER) (test nuro=477) 0.97 mg/dL 0.57-1.25 GLUCOSE RANDOM (BEAKER) (test pwzd=131) 88 mg/dL 70-105 CALCIUM (BEAKER) (test zwee=028) 9.0 mg/dL 8.4-10.2 EGFR (BEAKER) (test soyc=6865) 69 mL/min/1.73 sq m ESTIMATED GFR IS NOT ACCURATE CREATININE CLEARANCE IN PREDICTING GLOMERULAR FILTRATION RATE. ESTIMATED GFR IS NOT APPLICABLE FOR DIALYSIS PATIENTS. [id number] 05:40:00* Test Item Value Reference Range Comments PARTIAL THROMBOPLASTIN TIME (BEAKER) (test pcbl=308) 38.3 seconds 22.5-36.0 PROTHROMBIN TIME/[id number] 05:38:00* Test Item Value Reference Range Comments PROTIME (BEAKER) (test drgy=565) 15.9 seconds 11.7-14.7 INR (BEAKER) (test dvqq=269) 1.3 <=5.9 RECOMMENDED COUMADIN/WARFARIN INR THERAPY RANGESSTANDARD DOSE: 2.0 - 3.0 Inclu rip: PROPHYLAXIS for venous thrombosis, systemic embolization; TREATMENT for kris ous thrombosis and/or pulmonary embolus.HIGH RISK: Target INR is 2.5-3.5 for pat ients with mechanical heart valves.CBC (HEMOGRAM ONLY)2017-08-05 05:35:00* Test Item Value Reference Range Comments WHITE BLOOD CELL COUNT (BEAKER) (test ohvg=943) 7.0 K/ L 3.5-10.5 RED BLOOD CELL COUNT (BEAKER) (test fjpx=575) 3.52 M/ L 3.93-5.22 HEMOGLOBIN (BEAKER) (test vibo=543) 9.1 GM/DL 11.2-15.7 HEMATOCRIT (BEAKER) (test sppb=818) 29.1 % 34.1-44.9 MEAN CORPUSCULAR VOLUME (BEAKER) (test vtnq=108) 82.7 fL 79.4-94.8 MEAN CORPUSCULAR HEMOGLOBIN (BEAKER) (test dzox=891) 25.9 pg 25.6-32.2 MEAN CORPUSCULAR HEMOGLOBIN CONC (BEAKER) (test kuoq=878) 31.3 GM/DL 32.2-35.5 RED CELL DISTRIBUTION WIDTH (BEAKER) (test bsez=737) 19.9 % 11.7-14.4 PLATELET COUNT (BEAKER) (test dmhs=467) 437 K/CU MM 150-450 MEAN PLATELET VOLUME (BEAKER) (test xedc=598) 8.1 fL 9.4-12.3 NUCLEATED RED BLOOD CELLS (BEAKER) (test laqm=814) 0 /100 WBC 0-0 RAD, CHEST, 1 VIEW, NON [id number] 09:59:00Reason for exam:->post opShould this be performed at the bedside?->YesFINAL REPORT Chest one view compared to August 03, 2017 Discussion: PICC line unchanged. Cardiac prominence and cardiac valve replacement are noted. Small suspected effusions left greater than right and nonspecific left lung base density are similar. No pneumothorax. Signed: Lena Hinkleeport Verified Date/Time: 08/04/2017 09:59:52 Reading Location: [facility] Radiology Reading Room PHORUS 2017-08-04 05:26:00* Test Item Value Reference Range Comments PHOSPHORUS (BEAKER) (test rxzw=950) 3.0 mg/dL 2.3-4.7 [id number] 05:26:00* Test Item Value Reference Range Comments MAGNESIUM (BEAKER) (test kjdn=084) 1.8 mg/dL 1.6-2.6 BASIC METABOLIC [id number] 05:26:00* Test Item Value Reference Range Comments SODIUM (BEAKER) (test lvwh=601) 137 meq/L 136-145 POTASSIUM (BEAKER) (test mcqt=929) 4.0 meq/L 3.5-5.1 CHLORIDE (BEAKER) (test szsl=642) 106 meq/L 98-107 CO2 (BEAKER) (test clmb=449) 26 meq/L 22-29 BLOOD UREA NITROGEN (BEAKER) (test etbo=883) 10 mg/dL 7-21 CREATININE (BEAKER) (test ezvq=499) 0.90 mg/dL 0.57-1.25 GLUCOSE RANDOM (BEAKER) (test mprj=808) 85 mg/dL 70-105 CALCIUM (BEAKER) (test kqhh=617) 8.6 mg/dL 8.4-10.2 EGFR (BEAKER) (test iflj=0563) 76 mL/min/1.73 sq m ESTIMATED GFR IS NOT ACCURATE CREATININE CLEARANCE IN PREDICTING GLOMERULAR FILTRATION RATE. ESTIMATED GFR IS NOT APPLICABLE FOR DIALYSIS PATIENTS. [id number] 05:06:00* Test Item Value Reference Range Comments PARTIAL THROMBOPLASTIN TIME (BEAKER) (test qjfu=597) 33.7 seconds 22.5-36.0 PROTHROMBIN TIME/[id number] 05:05:00* Test Item Value Reference Range Comments PROTIME (BEAKER) (test oonf=887) 15.2 seconds 11.7-14.7 INR (BEAKER) (test qcxe=273) 1.2 <=5.9 RECOMMENDED COUMADIN/WARFARIN INR THERAPY RANGESSTANDARD DOSE: 2.0 - 3.0 Inclu rip: PROPHYLAXIS for venous thrombosis, systemic embolization; TREATMENT for kris ous thrombosis and/or pulmonary embolus.HIGH RISK: Target INR is 2.5-3.5 for pat ients with mechanical heart valves.CBC (HEMOGRAM ONLY)2017-08-04 05:03:00* Test Item Value Reference Range Comments WHITE BLOOD CELL COUNT (BEAKER) (test mmec=901) 7.1 K/ L 3.5-10.5 RED BLOOD CELL COUNT (BEAKER) (test iysp=048) 3.36 M/ L 3.93-5.22 HEMOGLOBIN (BEAKER) (test frgo=407) 8.6 GM/DL 11.2-15.7 HEMATOCRIT (BEAKER) (test yvwo=040) 27.8 % 34.1-44.9 MEAN CORPUSCULAR VOLUME (BEAKER) (test mccc=818) 82.7 fL 79.4-94.8 MEAN CORPUSCULAR HEMOGLOBIN (BEAKER) (test nnqs=392) 25.6 pg 25.6-32.2 MEAN CORPUSCULAR HEMOGLOBIN CONC (BEAKER) (test nrov=692) 30.9 GM/DL 32.2-35.5 RED CELL DISTRIBUTION WIDTH (BEAKER) (test oodv=336) 19.9 % 11.7-14.4 PLATELET COUNT (BEAKER) (test ifgd=975) 405 K/CU MM 150-450 MEAN PLATELET VOLUME (BEAKER) (test ctfj=533) 8.2 fL 9.4-12.3 NUCLEATED RED BLOOD CELLS (BEAKER) (test jciv=715) 0 /100 WBC 0-0 RAD, CHEST, 1 VIEW, NON [id number] 08:30:00Reason for exam:->post opShould this be performed at the bedside?->YesFINAL REPORT Chest one view compared to August 02 Discussion: Bilateral small effusions and mild pulmonary congestion are noted. No pneumothorax. Left PICC line unchanged. Cardiac valve replacement again noted. Presumed antibiotic beads are seen along the midline. IMPRESSIONS: No significant change Signed: Lena Hinkleeport Verified Date/Time: 08/03/2017 08:30:01 Reading Location: [facility] Radiology Reading Room [id number] 06:14:00* Test Item Value Reference Range Comments PHOSPHORUS (BEAKER) (test mdtu=100) 2.9 mg/dL 2.3-4.7 [id number] 06:14:00* Test Item Value Reference Range Comments MAGNESIUM (BEAKER) (test uijd=675) 1.5 mg/dL 1.6-2.6 BASIC METABOLIC [id number] 06:14:00* Test Item Value Reference Range Comments SODIUM (BEAKER) (test nclz=912) 137 meq/L 136-145 POTASSIUM (BEAKER) (test kxmw=495) 3.7 meq/L 3.5-5.1 CHLORIDE (BEAKER) (test tfgu=047) 108 meq/L 98-107 CO2 (BEAKER) (test glwj=106) 24 meq/L 22-29 BLOOD UREA NITROGEN (BEAKER) (test vvfv=397) 7 mg/dL 7-21 CREATININE (BEAKER) (test wprf=437) 0.84 mg/dL 0.57-1.25 GLUCOSE RANDOM (BEAKER) (test antt=484) 88 mg/dL 70-105 CALCIUM (BEAKER) (test jzrv=505) 8.2 mg/dL 8.4-10.2 EGFR (BEAKER) (test cbsz=1129) 82 mL/min/1.73 sq m ESTIMATED GFR IS NOT ACCURATE CREATININE CLEARANCE IN PREDICTING GLOMERULAR FILTRATION RATE. ESTIMATED GFR IS NOT APPLICABLE FOR DIALYSIS PATIENTS. [id number] 05:58:00* Test Item Value Reference Range Comments PARTIAL THROMBOPLASTIN TIME (BEAKER) (test upag=164) 32.4 seconds 22.5-36.0 PROTHROMBIN TIME/[id number] 05:57:00* Test Item Value Reference Range Comments PROTIME (BEAKER) (test bqpe=972) 16.3 seconds 11.7-14.7 INR (BEAKER) (test lfts=106) 1.3 <=5.9 RECOMMENDED COUMADIN/WARFARIN INR THERAPY RANGESSTANDARD DOSE: 2.0 - 3.0 Inclu rip: PROPHYLAXIS for venous thrombosis, systemic embolization; TREATMENT for kris ous thrombosis and/or pulmonary embolus.HIGH RISK: Target INR is 2.5-3.5 for pat ients with mechanical heart valves.CBC (HEMOGRAM ONLY)2017-08-03 05:48:00* Test Item Value Reference Range Comments WHITE BLOOD CELL COUNT (BEAKER) (test qqnm=834) 7.4 K/ L 3.5-10.5 RED BLOOD CELL COUNT (BEAKER) (test matq=854) 3.36 M/ L 3.93-5.22 HEMOGLOBIN (BEAKER) (test oric=328) 8.6 GM/DL 11.2-15.7 HEMATOCRIT (BEAKER) (test ixiy=884) 27.7 % 34.1-44.9 MEAN CORPUSCULAR VOLUME (BEAKER) (test wkds=519) 82.4 fL 79.4-94.8 MEAN CORPUSCULAR HEMOGLOBIN (BEAKER) (test tzux=411) 25.6 pg 25.6-32.2 MEAN CORPUSCULAR HEMOGLOBIN CONC (BEAKER) (test wdqj=977) 31.0 GM/DL 32.2-35.5 RED CELL DISTRIBUTION WIDTH (BEAKER) (test prxj=568) 20.0 % 11.7-14.4 PLATELET COUNT (BEAKER) (test zicv=030) 407 K/CU MM 150-450 MEAN PLATELET VOLUME (BEAKER) (test phhs=197) 7.9 fL 9.4-12.3 NUCLEATED RED BLOOD CELLS (BEAKER) (test mrwq=001) 0 /100 WBC 0-0 TRIGLYCERIDES, BODY [id number] 15:57:00* Test Item Value Reference Range Comments TRIGLYCERIDES FLUID (BEAKER) (test uqgd=048) 129 mg/dL Reference Range: No Normals Assay performance has not been validated for this type of specimen.RAD, CHEST, 1 VIEW, NON [id number] 09:01:00Reason for exam:->post opShould this be performed at the bedside?->YesFINAL REPORT Portable chest. HISTORY: Postoperative. COMPARISON STUDY: August 01, 2017. FINDINGS: The cardiac silhouette is enlarged. The patient is status post valve replacement. A left-sided PICC line is noted, the tip projecting over the SVC. Airspace disease is seen in the mid to lower lung benedict bilaterally with small effusions, similar to previous. No pneumothorax is noted. Degenerative changes are seen. IMPRESSION: Findings most suggestive of CHF, similar to previous. Signed: Cal Dangelo Verified Date/Time: 09:01:29 Reading Location: [address] Radiology Reading Room El ectronically signed by: CAL DANGELO M.D. on 08/02/2017 09:01 AM PHOSPHORUS 2017-08-02 04:46:00* Test Item Value Reference Range Comments PHOSPHORUS (BEAKER) (test fwpu=659) 2.9 mg/dL 2.3-4.7 [id number] 04:46:00* Test Item Value Reference Range Comments MAGNESIUM (BEAKER) (test ufui=504) 1.9 mg/dL 1.6-2.6 BASIC METABOLIC [id number] 04:46:00* Test Item Value Reference Range Comments SODIUM (BEAKER) (test pzyw=635) 139 meq/L 136-145 POTASSIUM (BEAKER) (test eyds=243) 3.9 meq/L 3.5-5.1 CHLORIDE (BEAKER) (test lvrf=546) 109 meq/L 98-107 CO2 (BEAKER) (test mrsa=049) 25 meq/L 22-29 BLOOD UREA NITROGEN (BEAKER) (test coqg=106) 8 mg/dL 7-21 CREATININE (BEAKER) (test grdc=777) 0.86 mg/dL 0.57-1.25 GLUCOSE RANDOM (BEAKER) (test jflp=308) 89 mg/dL 70-105 CALCIUM (BEAKER) (test ftcc=551) 8.4 mg/dL 8.4-10.2 EGFR (BEAKER) (test lgvu=0752) 80 mL/min/1.73 sq m ESTIMATED GFR IS NOT ACCURATE CREATININE CLEARANCE IN PREDICTING GLOMERULAR FILTRATION RATE. ESTIMATED GFR IS NOT APPLICABLE FOR DIALYSIS PATIENTS. [id number] 04:22:00* Test Item Value Reference Range Comments PARTIAL THROMBOPLASTIN TIME (BEAKER) (test ysam=509) 37.1 seconds 22.5-36.0 PROTHROMBIN TIME/[id number] 04:21:00* Test Item Value Reference Range Comments PROTIME (BEAKER) (test orts=324) 16.4 seconds 11.7-14.7 INR (BEAKER) (test uflz=407) 1.3 <=5.9 RECOMMENDED COUMADIN/WARFARIN INR THERAPY RANGESSTANDARD DOSE: 2.0 - 3.0 Inclu rip: PROPHYLAXIS for venous thrombosis, systemic embolization; TREATMENT for kris ous thrombosis and/or pulmonary embolus.HIGH RISK: Target INR is 2.5-3.5 for pat ients with mechanical heart valves.CBC (HEMOGRAM ONLY)2017-08-02 04:16:00* Test Item Value Reference Range Comments WHITE BLOOD CELL COUNT (BEAKER) (test wabl=729) 8.2 K/ L 3.5-10.5 RED BLOOD CELL COUNT (BEAKER) (test hwnz=041) 3.28 M/ L 3.93-5.22 HEMOGLOBIN (BEAKER) (test eroq=246) 8.5 GM/DL 11.2-15.7 HEMATOCRIT (BEAKER) (test edwb=479) 26.9 % 34.1-44.9 MEAN CORPUSCULAR VOLUME (BEAKER) (test afmr=433) 82.0 fL 79.4-94.8 MEAN CORPUSCULAR HEMOGLOBIN (BEAKER) (test sspq=169) 25.9 pg 25.6-32.2 MEAN CORPUSCULAR HEMOGLOBIN CONC (BEAKER) (test gazp=237) 31.6 GM/DL 32.2-35.5 RED CELL DISTRIBUTION WIDTH (BEAKER) (test wiks=693) 20.3 % 11.7-14.4 PLATELET COUNT (BEAKER) (test bhjm=922) 380 K/CU MM 150-450 MEAN PLATELET VOLUME (BEAKER) (test mupn=264) 7.6 fL 9.4-12.3 NUCLEATED RED BLOOD CELLS (BEAKER) (test bvzj=404) 0 /100 WBC 0-0 ANAEROBIC [id number] 11:04:00* Test Item Value Reference Range Comments CULTURE (BEAKER) (test fzeq=9515) No anaerobes isolated RAD, CHEST, 1 VIEW, NON [id number] 09:16:00Reason for exam:->post opShould this be performed at the bedside?->YesFINAL REPORT Chest one view. Clinical history: post op Comparison: 07/31/2017 Discussion: A frontal chest is provided. Right IJ line has been removed. A left PICC line is in stable position. Cardiomediastinal contours are unchanged. There are small bilateral pleural effusions, grossly stable, associated with bibasilar atelectasis or consolidation. No new airspace disease identified. No pneumothorax. Signed: Bony Morrow Verified Date/Time: 08/01/2017 09:16:38 Reading Location: [facility] Radiology Reading Room D CULTURE + GRAM [id number] 08:07:00* Test Item Value Reference Range Comments CULTURE (BEAKER) (test yivm=1109) No growth GRAM STAIN RESULT (BEAKER) (test dobx=0580) <1+ WBCs GRAM STAIN RESULT (BEAKER) (test xvbj=63216) No organisms seen [id number] 03:59:00* Test Item Value Reference Range Comments PHOSPHORUS (BEAKER) (test uavo=494) 3.1 mg/dL 2.3-4.7 [id number] 03:59:00* Test Item Value Reference Range Comments MAGNESIUM (BEAKER) (test nojc=518) 1.6 mg/dL 1.6-2.6 BASIC METABOLIC [id number] 03:59:00* Test Item Value Reference Range Comments SODIUM (BEAKER) (test jtiz=468) 138 meq/L 136-145 POTASSIUM (BEAKER) (test ruwo=633) 3.8 meq/L 3.5-5.1 CHLORIDE (BEAKER) (test wiby=061) 108 meq/L 98-107 CO2 (BEAKER) (test gvgo=347) 23 meq/L 22-29 BLOOD UREA NITROGEN (BEAKER) (test omqb=921) 8 mg/dL 7-21 CREATININE (BEAKER) (test auuu=628) 0.89 mg/dL 0.57-1.25 GLUCOSE RANDOM (BEAKER) (test bxau=022) 86 mg/dL 70-105 CALCIUM (BEAKER) (test zeqg=526) 9.1 mg/dL 8.4-10.2 EGFR (BEAKER) (test lajt=4940) 77 mL/min/1.73 sq m ESTIMATED GFR IS NOT ACCURATE CREATININE CLEARANCE IN PREDICTING GLOMERULAR FILTRATION RATE. ESTIMATED GFR IS NOT APPLICABLE FOR DIALYSIS PATIENTS. CBC (HEMOGRAM ONLY)2017-08-01 03:56:00* Test Item Value Reference Range Comments WHITE BLOOD CELL COUNT (BEAKER) (test zmnx=726) 9.3 K/ L 3.5-10.5 RED BLOOD CELL COUNT (BEAKER) (test xzry=938) 3.37 M/ L 3.93-5.22 HEMOGLOBIN (BEAKER) (test bxza=107) 8.6 GM/DL 11.2-15.7 HEMATOCRIT (BEAKER) (test shzs=025) 27.7 % 34.1-44.9 MEAN CORPUSCULAR VOLUME (BEAKER) (test lfji=736) 82.2 fL 79.4-94.8 MEAN CORPUSCULAR HEMOGLOBIN (BEAKER) (test myhx=396) 25.5 pg 25.6-32.2 MEAN CORPUSCULAR HEMOGLOBIN CONC (BEAKER) (test vurf=308) 31.0 GM/DL 32.2-35.5 RED CELL DISTRIBUTION WIDTH (BEAKER) (test rwkf=789) 20.1 % 11.7-14.4 PLATELET COUNT (BEAKER) (test grbz=278) 438 K/CU MM 150-450 MEAN PLATELET VOLUME (BEAKER) (test ukxl=147) 8.0 fL 9.4-12.3 NUCLEATED RED BLOOD CELLS (BEAKER) (test kiec=539) 0 /100 WBC 0-0 [id number] 03:47:00* Test Item Value Reference Range Comments PARTIAL THROMBOPLASTIN TIME (BEAKER) (test dzvv=873) 30.3 seconds 22.5-36.0 PROTHROMBIN TIME/[id number] 03:46:00* Test Item Value Reference Range Comments PROTIME (BEAKER) (test clff=703) 15.6 seconds 11.7-14.7 INR (BEAKER) (test xfpt=287) 1.3 <=5.9 RECOMMENDED COUMADIN/WARFARIN INR THERAPY RANGESSTANDARD DOSE: 2.0 - 3.0 Inclu rip: PROPHYLAXIS for venous thrombosis, systemic embolization; TREATMENT for kris ous thrombosis and/or pulmonary embolus.HIGH RISK: Target INR is 2.5-3.5 for pat ients with mechanical heart valves.RAD, CHEST, 1 VIEW, NON [id number] 11:10:00Reason for exam:->post picc line insertion Should this be performed at the bedside?->YesFINAL REPORT Comparison: 07/30/2017 at 9:47 AM TECHNIQUE: Single view of the chest FINDINGS: Tip of the recently placed left PICC line projects at the mid SVC. No other significant change. Signed: Logan Dolan MDReport Verified Date/Time: 07/31/2017 11:10:35 Reading Location: [address] Transitional Reading Room [id number] 04:47:00* Test Item Value Reference Range Comments PHOSPHORUS (BEAKER) (test tvsw=105) 3.0 mg/dL 2.3-4.7 [id number] 04:47:00* Test Item Value Reference Range Comments MAGNESIUM (BEAKER) (test oikn=973) 1.7 mg/dL 1.6-2.6 BASIC METABOLIC [id number] 04:47:00* Test Item Value Reference Range Comments SODIUM (BEAKER) (test vjym=465) 137 meq/L 136-145 POTASSIUM (BEAKER) (test yyam=598) 4.0 meq/L 3.5-5.1 CHLORIDE (BEAKER) (test usle=638) 110 meq/L 98-107 CO2 (BEAKER) (test dbpb=748) 21 meq/L 22-29 BLOOD UREA NITROGEN (BEAKER) (test wzsl=374) 8 mg/dL 7-21 CREATININE (BEAKER) (test eolz=880) 0.84 mg/dL 0.57-1.25 GLUCOSE RANDOM (BEAKER) (test veyj=152) 81 mg/dL 70-105 CALCIUM (BEAKER) (test hdks=202) 8.2 mg/dL 8.4-10.2 EGFR (BEAKER) (test ptmf=8433) 82 mL/min/1.73 sq m ESTIMATED GFR IS NOT ACCURATE CREATININE CLEARANCE IN PREDICTING GLOMERULAR FILTRATION RATE. ESTIMATED GFR IS NOT APPLICABLE FOR DIALYSIS PATIENTS. VANCOMYCIN LEVEL, [id number] 04:38:00* Test Item Value Reference Range Comments VANCOMYCIN TROUGH (BEAKER) (test odad=793) 18.0 ug/mL 10.0-20.0 [id number] 04:36:00* Test Item Value Reference Range Comments PARTIAL THROMBOPLASTIN TIME (BEAKER) (test iawr=385) 40.9 seconds 22.5-36.0 PROTHROMBIN TIME/[id number] 04:35:00* Test Item Value Reference Range Comments PROTIME (BEAKER) (test dgac=687) 16.4 seconds 11.7-14.7 INR (BEAKER) (test xnve=164) 1.3 <=5.9 RECOMMENDED COUMADIN/WARFARIN INR THERAPY RANGESSTANDARD DOSE: 2.0 - 3.0 Inclu rip: PROPHYLAXIS for venous thrombosis, systemic embolization; TREATMENT for kris ous thrombosis and/or pulmonary embolus.HIGH RISK: Target INR is 2.5-3.5 for pat ients with mechanical heart valves.CBC (HEMOGRAM ONLY)2017-07-31 04:30:00* Test Item Value Reference Range Comments WHITE BLOOD CELL COUNT (BEAKER) (test cqix=751) 8.8 K/ L 3.5-10.5 RED BLOOD CELL COUNT (BEAKER) (test lezs=119) 3.31 M/ L 3.93-5.22 HEMOGLOBIN (BEAKER) (test eqym=479) 8.5 GM/DL 11.2-15.7 HEMATOCRIT (BEAKER) (test dtsk=062) 27.4 % 34.1-44.9 MEAN CORPUSCULAR VOLUME (BEAKER) (test gmvz=301) 82.8 fL 79.4-94.8 MEAN CORPUSCULAR HEMOGLOBIN (BEAKER) (test wzdj=980) 25.7 pg 25.6-32.2 MEAN CORPUSCULAR HEMOGLOBIN CONC (BEAKER) (test rnmx=667) 31.0 GM/DL 32.2-35.5 RED CELL DISTRIBUTION WIDTH (BEAKER) (test tcuc=417) 20.2 % 11.7-14.4 PLATELET COUNT (BEAKER) (test jkkn=249) 422 K/CU MM 150-450 MEAN PLATELET VOLUME (BEAKER) (test iwek=605) 7.8 fL 9.4-12.3 NUCLEATED RED BLOOD CELLS (BEAKER) (test ctjy=915) 0 /100 WBC 0-0 RAD, CHEST, 1 VIEW, NON [id number] 10:30:00Reason for exam:->post opShould this be performed at the bedside?->YesFINAL REPORT TECHNIQUE: Single view of the chest. COMPARISON: 07/29/2017 FINDINGS: Bilateral patchy interstitial and airspace opacities are stable. There are bilateral small, right greater than left pleural effusions. No gross pneumothorax.No gross new lung parenchymal changes. Support lines and tubes are stable. IMPRESSION: 1. No significant interval change. Signed: [facility] Verified Date/Time: 07/30/2017 10:30:44 Reading Location: [address] Transitional Reading Room ROBIC [id number] 07:40:00* Test Item Value Reference Range Comments CULTURE (BEAKER) (test qgap=1503) No anaerobes isolated [id number] 05:16:00* Test Item Value Reference Range Comments PHOSPHORUS (BEAKER) (test ehlj=154) 2.3 mg/dL 2.3-4.7 [id number] 05:16:00* Test Item Value Reference Range Comments MAGNESIUM (BEAKER) (test niqc=597) 2.0 mg/dL 1.6-2.6 BASIC METABOLIC [id number] 05:16:00* Test Item Value Reference Range Comments SODIUM (BEAKER) (test hhny=081) 137 meq/L 136-145 POTASSIUM (BEAKER) (test mlyw=059) 4.1 meq/L 3.5-5.1 CHLORIDE (BEAKER) (test kmwi=698) 112 meq/L 98-107 CO2 (BEAKER) (test gbhu=514) 21 meq/L 22-29 BLOOD UREA NITROGEN (BEAKER) (test zica=883) 9 mg/dL 7-21 CREATININE (BEAKER) (test pjyu=835) 0.79 mg/dL 0.57-1.25 GLUCOSE RANDOM (BEAKER) (test mtdt=364) 78 mg/dL 70-105 CALCIUM (BEAKER) (test ijss=460) 8.3 mg/dL 8.4-10.2 EGFR (BEAKER) (test bsce=6161) 88 mL/min/1.73 sq m ESTIMATED GFR IS NOT ACCURATE CREATININE CLEARANCE IN PREDICTING GLOMERULAR FILTRATION RATE. ESTIMATED GFR IS NOT APPLICABLE FOR DIALYSIS PATIENTS. CBC (HEMOGRAM ONLY)2017-07-30 04:45:00* Test Item Value Reference Range Comments WHITE BLOOD CELL COUNT (BEAKER) (test jpir=206) 9.8 K/ L 3.5-10.5 RED BLOOD CELL COUNT (BEAKER) (test lxxv=833) 3.22 M/ L 3.93-5.22 HEMOGLOBIN (BEAKER) (test kiww=910) 8.4 GM/DL 11.2-15.7 HEMATOCRIT (BEAKER) (test xrnb=560) 26.6 % 34.1-44.9 MEAN CORPUSCULAR VOLUME (BEAKER) (test uple=436) 82.6 fL 79.4-94.8 MEAN CORPUSCULAR HEMOGLOBIN (BEAKER) (test eyak=287) 26.1 pg 25.6-32.2 MEAN CORPUSCULAR HEMOGLOBIN CONC (BEAKER) (test zwvv=966) 31.6 GM/DL 32.2-35.5 RED CELL DISTRIBUTION WIDTH (BEAKER) (test gcfn=844) 20.5 % 11.7-14.4 PLATELET COUNT (BEAKER) (test kpcy=944) 412 K/CU MM 150-450 MEAN PLATELET VOLUME (BEAKER) (test nznj=303) 7.5 fL 9.4-12.3 NUCLEATED RED BLOOD CELLS (BEAKER) (test mhty=968) 0 /100 WBC 0-0 [id number] 04:38:00* Test Item Value Reference Range Comments PARTIAL THROMBOPLASTIN TIME (BEAKER) (test ysot=606) 40.0 seconds 22.5-36.0 PROTHROMBIN TIME/[id number] 04:37:00* Test Item Value Reference Range Comments PROTIME (BEAKER) (test hqtw=745) 16.0 seconds 11.7-14.7 INR (BEAKER) (test cstm=542) 1.3 <=5.9 RECOMMENDED COUMADIN/WARFARIN INR THERAPY RANGESSTANDARD DOSE: 2.0 - 3.0 Inclu rip: PROPHYLAXIS for venous thrombosis, systemic embolization; TREATMENT for kris ous thrombosis and/or pulmonary embolus.HIGH RISK: Target INR is 2.5-3.5 for pat ients with mechanical heart valves.CBC (HEMOGRAM ONLY)2017-07-29 08:15:00* Test Item Value Reference Range Comments WHITE BLOOD CELL COUNT (BEAKER) (test umel=315) 12.1 K/ L 3.5-10.5 RED BLOOD CELL COUNT (BEAKER) (test ilfd=876) 2.96 M/ L 3.93-5.22 HEMOGLOBIN (BEAKER) (test eyhl=061) 7.7 GM/DL 11.2-15.7 HEMATOCRIT (BEAKER) (test ossl=718) 24.2 % 34.1-44.9 MEAN CORPUSCULAR VOLUME (BEAKER) (test cyez=720) 81.8 fL 79.4-94.8 MEAN CORPUSCULAR HEMOGLOBIN (BEAKER) (test sfdq=036) 26.0 pg 25.6-32.2 MEAN CORPUSCULAR HEMOGLOBIN CONC (BEAKER) (test qvym=704) 31.8 GM/DL 32.2-35.5 RED CELL DISTRIBUTION WIDTH (BEAKER) (test hvmo=223) 21.4 % 11.7-14.4 PLATELET COUNT (BEAKER) (test vepa=933) 581 K/CU MM 150-450 MEAN PLATELET VOLUME (BEAKER) (test eajd=610) 8.0 fL 9.4-12.3 NUCLEATED RED BLOOD CELLS (BEAKER) (test oidh=116) 0 /100 WBC 0-0 RAD, CHEST, 1 VIEW, NON [id number] 04:53:00Reason for exam:->post opShould this be performed at the bedside?->YesFINAL REPORT EXAMINATION: AP PORTABLE CHEST RADIOGRAPH CLINICAL INDICATION: Shortness of breath. IMPRESSION: Compared with 07/28/2017. Tip of the right jugular dialysis catheter projects over the superior vena cava. The enlarged heart, basilar lung opacities and superimposed pleural fluid are stable. Constellation of findings are worrisome for fluid overload/heart failure. No evidence of new lung consolidation or pneumothorax. In summary, no significant interval change. Signed: Maldonado Hartman MDReport Verified Date/Time: 07/29/2017 04:53:33 Reading Location: [address] Reading Room [id number] 04:44:00* Test Item Value Reference Range Comments PHOSPHORUS (BEAKER) (test ynkk=463) 2.2 mg/dL 2.3-4.7 [id number] 04:44:00* Test Item Value Reference Range Comments MAGNESIUM (BEAKER) (test xzdm=250) 1.9 mg/dL 1.6-2.6 BASIC METABOLIC [id number] 04:44:00* Test Item Value Reference Range Comments SODIUM (BEAKER) (test lvcb=682) 140 meq/L 136-145 POTASSIUM (BEAKER) (test ssna=821) 3.8 meq/L 3.5-5.1 CHLORIDE (BEAKER) (test fgyq=358) 117 meq/L 98-107 CO2 (BEAKER) (test vrsq=029) 18 meq/L 22-29 BLOOD UREA NITROGEN (BEAKER) (test rckx=167) 8 mg/dL 7-21 CREATININE (BEAKER) (test ofpv=905) 0.75 mg/dL 0.57-1.25 GLUCOSE RANDOM (BEAKER) (test tzpy=151) 94 mg/dL 70-105 CALCIUM (BEAKER) (test qapj=384) 8.0 mg/dL 8.4-10.2 EGFR (BEAKER) (test aybp=6744) 93 mL/min/1.73 sq m ESTIMATED GFR IS NOT ACCURATE CREATININE CLEARANCE IN PREDICTING GLOMERULAR FILTRATION RATE. ESTIMATED GFR IS NOT APPLICABLE FOR DIALYSIS PATIENTS. [id number] 04:41:00* Test Item Value Reference Range Comments PARTIAL THROMBOPLASTIN TIME (BEAKER) (test ftzk=876) 42.6 seconds 22.5-36.0 PROTHROMBIN TIME/[id number] 04:40:00* Test Item Value Reference Range Comments PROTIME (BEAKER) (test ehoy=460) 17.5 seconds 11.7-14.7 INR (BEAKER) (test jlpy=360) 1.4 <=5.9 RECOMMENDED COUMADIN/WARFARIN INR THERAPY RANGESSTANDARD DOSE: 2.0 - 3.0 Inclu rip: PROPHYLAXIS for venous thrombosis, systemic embolization; TREATMENT for kris ous thrombosis and/or pulmonary embolus.HIGH RISK: Target INR is 2.5-3.5 for pat ients with mechanical heart valves.LACTIC ACID, ARTERIAL, WHOLE [id number] 04:39:00* Test Item Value Reference Range Comments LACTATE BLOOD ARTERIAL (2) (BEAKER) (test ylwz=1692) 0.5 mmol/L 0.5-2.2 Effective 03/03/2016: Units/Reference Range ChangeNew: 0.5-2.2 mmol/L Previous: 5 -20 mg/dLANAEROBIC [id number] 18:28:00* Test Item Value Reference Range Comments CULTURE (BEAKER) (test nhrt=0862) No anaerobes isolated BLOOD GAS, [id number] 12:29:00* Test Item Value Reference Range Comments PH ARTERIAL (BEAKER) (test tmtn=919) 7.47 7.35-7.45 PCO2 ARTERIAL (BEAKER) (test flgq=285) 26 mmHg 35-45 PO2 ARTERIAL (BEAKER) (test qgxh=061) 87 mmHg 80-90 O2 SATURATION ARTERIAL (BEAKER) (test zjat=419) 97.3 % 96.0-97.0 HCO3 ARTERIAL (BEAKER) (test fxcf=745) 18 mmol/L 21-29 BASE EXCESS ARTERIAL (BEAKER) (test deii=453) -4.2 mmol/L -2.0-3.0 PATIENT TEMPERATURE (BEAKER) (test jion=8983) 37.0 C FIO2 (BEAKER) (test rcpg=3027) 36.0 % SURGICALLY OBTAINED CULTURE + GRAM [id number] 09:52:00* Test Item Value Reference Range Comments CULTURE (BEAKER) (test rhha=0179) No growth GRAM STAIN RESULT (BEAKER) (test jkbo=8444) 3+ WBCs GRAM STAIN RESULT (BEAKER) (test qilx=54095) No organisms seen SURGICALLY OBTAINED CULTURE + GRAM [id number] 09:51:00* Test Item Value Reference Range Comments CULTURE (BEAKER) (test jpju=5495) No growth GRAM STAIN RESULT (BEAKER) (test lpua=7406) 1+ WBCs GRAM STAIN RESULT (BEAKER) (test dhaa=67706) No organisms seen SURGICALLY OBTAINED CULTURE + GRAM [id number] 09:51:00* Test Item Value Reference Range Comments CULTURE (BEAKER) (test nxyj=2322) No growth GRAM STAIN RESULT (BEAKER) (test stgx=0752) 2+ WBCs GRAM STAIN RESULT (BEAKER) (test bswi=50356) No organisms seen [id number] 05:25:00* Test Item Value Reference Range Comments PHOSPHORUS (BEAKER) (test ozxp=669) 2.4 mg/dL 2.3-4.7 [id number] 05:25:00* Test Item Value Reference Range Comments MAGNESIUM (BEAKER) (test jtgx=877) 1.9 mg/dL 1.6-2.6 BASIC METABOLIC [id number] 05:25:00* Test Item Value Reference Range Comments SODIUM (BEAKER) (test gibu=704) 142 meq/L 136-145 POTASSIUM (BEAKER) (test xhti=934) 3.7 meq/L 3.5-5.1 CHLORIDE (BEAKER) (test czyq=915) 115 meq/L 98-107 CO2 (BEAKER) (test memx=272) 16 meq/L 22-29 BLOOD UREA NITROGEN (BEAKER) (test gekw=936) 7 mg/dL 7-21 CREATININE (BEAKER) (test eymv=105) 0.79 mg/dL 0.57-1.25 GLUCOSE RANDOM (BEAKER) (test cses=696) 117 mg/dL 70-105 CALCIUM (BEAKER) (test vzfn=232) 8.2 mg/dL 8.4-10.2 EGFR (BEAKER) (test itbj=8378) 88 mL/min/1.73 sq m ESTIMATED GFR IS NOT ACCURATE CREATININE CLEARANCE IN PREDICTING GLOMERULAR FILTRATION RATE. ESTIMATED GFR IS NOT APPLICABLE FOR DIALYSIS PATIENTS. LACTIC ACID, ARTERIAL, WHOLE [id number] 05:16:00* Test Item Value Reference Range Comments LACTATE BLOOD ARTERIAL (2) (LEIGH) (test hzld=5226) 0.6 mmol/L 0.5-2.2 Effective 03/03/2016: Units/Reference Range ChangeNew: 0.5-2.2 mmol/L Previous: 5 -20 mg/dLRAD, CHEST, 1 VIEW, NON [id number] 05:16:00Reason for exam:->post opShould this be performed at the bedside?->YesFINAL REPORT RAD, CHEST, 1 VIEW, NON DEPT INDICATION: post op COMPARISON: Prior day's exam FINDINGS: Portable frontal view of the chest. IMPRESSION: Support Lines: The endotracheal tube is been removed. A right IJ central venous catheter is stable. Lungs and pleura: Clear right lung. Left basilar airspace disease and/. No pneumothorax.Heart and mediastinum: Stable contours. Redemonstration of mediastinal antibiotic beads and stable surgical changes.Additional findings: None. Signed: JR Gema, Murtaza Maxwell Verified Date/Time: 07/28/2017 05:16:47 Reading Location: [address] Body Reading Room [id number] 05:15:00 * Test Item Value Reference Range Comments PARTIAL THROMBOPLASTIN TIME (LEIGH) (test zwef=894) 41.8 seconds 22.5-36.0 PROTHROMBIN TIME/[id number] 05:14:00* Test Item Value Reference Range Comments PROTIME (LEIGH) (test okyv=220) 17.5 seconds 11.7-14.7 INR (LEIGH) (test fwat=136) 1.4 <=5.9 RECOMMENDED COUMADIN/WARFARIN INR THERAPY RANGESSTANDARD DOSE: 2.0 - 3.0 Inclu rip: PROPHYLAXIS for venous thrombosis, systemic embolization; TREATMENT for kris ous thrombosis and/or pulmonary embolus.HIGH RISK: Target INR is 2.5-3.5 for pat ients with mechanical heart valves.CBC (HEMOGRAM ONLY)2017-07-28 05:07:00* Test Item Value Reference Range Comments WHITE BLOOD CELL COUNT (BEAKER) (test xlxn=055) 17.5 K/ L 3.5-10.5 RED BLOOD CELL COUNT (BEAKER) (test este=840) 3.55 M/ L 3.93-5.22 HEMOGLOBIN (BEAKER) (test kkvm=037) 9.0 GM/DL 11.2-15.7 HEMATOCRIT (BEAKER) (test pdue=046) 28.2 % 34.1-44.9 MEAN CORPUSCULAR VOLUME (BEAKER) (test xsdr=564) 79.4 fL 79.4-94.8 MEAN CORPUSCULAR HEMOGLOBIN (BEAKER) (test qdtl=374) 25.4 pg 25.6-32.2 MEAN CORPUSCULAR HEMOGLOBIN CONC (BEAKER) (test tnyq=043) 31.9 GM/DL 32.2-35.5 RED CELL DISTRIBUTION WIDTH (BEAKER) (test eayk=754) 20.8 % 11.7-14.4 PLATELET COUNT (BEAKER) (test vuvc=989) 549 K/CU MM 150-450 MEAN PLATELET VOLUME (BEAKER) (test equj=167) 7.8 fL 9.4-12.3 NUCLEATED RED BLOOD CELLS (BEAKER) (test yhao=022) 0 /100 WBC 0-0 BLOOD GAS, [id number] 10:49:00* Test Item Value Reference Range Comments PH ARTERIAL (BEAKER) (test swoi=876) 7.47 7.35-7.45 PCO2 ARTERIAL (BEAKER) (test qdmm=803) 24 mmHg 35-45 PO2 ARTERIAL (BEAKER) (test qdtv=949) 59 mmHg 80-90 O2 SATURATION ARTERIAL (BEAKER) (test lhbd=405) 93.4 % 96.0-97.0 HCO3 ARTERIAL (BEAKER) (test fgks=521) 17 mmol/L 21-29 BASE EXCESS ARTERIAL (BEAKER) (test pthy=105) -5.5 mmol/L -2.0-3.0 PATIENT TEMPERATURE (BEAKER) (test nkml=0175) 36.4 C FIO2 (BEAKER) (test okrw=5859) 40.0 % BLOOD GAS, [id number] 08:59:00* Test Item Value Reference Range Comments PH ARTERIAL (BEAKER) (test mejf=185) 7.43 7.35-7.45 PCO2 ARTERIAL (BEAKER) (test xjig=267) 26 mmHg 35-45 PO2 ARTERIAL (BEAKER) (test ytdu=976) 73 mmHg 80-90 O2 SATURATION ARTERIAL (BEAKER) (test zwqg=276) 95.5 % 96.0-97.0 HCO3 ARTERIAL (BEAKER) (test lfcg=044) 17 mmol/L 21-29 BASE EXCESS ARTERIAL (BEAKER) (test vgal=148) -6.4 mmol/L -2.0-3.0 PATIENT TEMPERATURE (BEAKER) (test lyif=5717) 36.7 C FIO2 (BEAKER) (test ptfu=3265) 40.0 % POCT-GLUCOSE [id number] 06:03:00* Test Item Value Reference Range Comments POC-GLUCOSE METER (BEAKER) (test lwqr=5410) 142 mg/dL 70-110 TESTED AT [address] [address] RAD, CHEST, 1 VIEW, NON [id number] 05:33:00Reason for exam:->post opShould this be performed at the bedside?->YesFINAL REPORT RAD, CHEST, 1 VIEW, NON DEPT INDICATION: post op COMPARISON: Prior day's exam FINDINGS: Portable frontal view of the chest. IMPRESSION: Support Lines: Stable. Lungs and pleura: Unchanged airspace and pleural opacities. No pneumothorax.Heart and mediastinum: Stable contours. Stable surgical changes and mediastinal antibiotic beads.Additional findings: None. Signed: JR Ribeiro Robert MDReport Verified Date/Time: 07/27/2017 05:33:39 Reading Location: [facility] C013Y CT Body Reading Room [id number] 04:03:00* Test Item Value Reference Range Comments PARTIAL THROMBOPLASTIN TIME (BEAKER) (test tgjx=669) 41.8 seconds 22.5-36.0 PROTHROMBIN TIME/[id number] 04:02:00* Test Item Value Reference Range Comments PROTIME (BEAKER) (test cjfg=140) 17.4 seconds 11.7-14.7 INR (BEAKER) (test fdvx=953) 1.4 <=5.9 RECOMMENDED COUMADIN/WARFARIN INR THERAPY RANGESSTANDARD DOSE: 2.0 - 3.0 Inclu rip: PROPHYLAXIS for venous thrombosis, systemic embolization; TREATMENT for kris ous thrombosis and/or pulmonary embolus.HIGH RISK: Target INR is 2.5-3.5 for pat ients with mechanical heart valves.[id number] 03:54:00* Test Item Value Reference Range Comments PHOSPHORUS (BEAKER) (test yiyl=820) 3.4 mg/dL 2.3-4.7 [id number] 03:54:00* Test Item Value Reference Range Comments MAGNESIUM (BEAKER) (test oayd=179) 2.3 mg/dL 1.6-2.6 BASIC METABOLIC [id number] 03:54:00* Test Item Value Reference Range Comments SODIUM (BEAKER) (test amxu=579) 139 meq/L 136-145 POTASSIUM (BEAKER) (test tkuo=756) 3.9 meq/L 3.5-5.1 CHLORIDE (BEAKER) (test xhhw=800) 112 meq/L 98-107 CO2 (BEAKER) (test bhvd=103) 17 meq/L 22-29 BLOOD UREA NITROGEN (BEAKER) (test dsmv=010) 7 mg/dL 7-21 CREATININE (BEAKER) (test qnhm=467) 0.83 mg/dL 0.57-1.25 GLUCOSE RANDOM (BEAKER) (test uetl=313) 141 mg/dL 70-105 CALCIUM (BEAKER) (test rtvm=220) 8.2 mg/dL 8.4-10.2 EGFR (BEAKER) (test jzgg=9282) 83 mL/min/1.73 sq m ESTIMATED GFR IS NOT ACCURATE CREATININE CLEARANCE IN PREDICTING GLOMERULAR FILTRATION RATE. ESTIMATED GFR IS NOT APPLICABLE FOR DIALYSIS PATIENTS. CBC (HEMOGRAM ONLY)2017-07-27 03:53:00* Test Item Value Reference Range Comments WHITE BLOOD CELL COUNT (BEAKER) (test eseq=174) 14.0 K/ L 3.5-10.5 RED BLOOD CELL COUNT (BEAKER) (test nlmg=809) 4.01 M/ L 3.93-5.22 HEMOGLOBIN (BEAKER) (test wdae=412) 10.0 GM/DL 11.2-15.7 HEMATOCRIT (BEAKER) (test emgu=950) 32.3 % 34.1-44.9 MEAN CORPUSCULAR VOLUME (BEAKER) (test wudi=759) 80.5 fL 79.4-94.8 MEAN CORPUSCULAR HEMOGLOBIN (BEAKER) (test kdxp=477) 24.9 pg 25.6-32.2 MEAN CORPUSCULAR HEMOGLOBIN CONC (BEAKER) (test mpwh=579) 31.0 GM/DL 32.2-35.5 RED CELL DISTRIBUTION WIDTH (BEAKER) (test zmpp=648) 20.4 % 11.7-14.4 PLATELET COUNT (BEAKER) (test mlmv=596) 581 K/CU MM 150-450 MEAN PLATELET VOLUME (BEAKER) (test gplq=773) 7.3 fL 9.4-12.3 NUCLEATED RED BLOOD CELLS (BEAKER) (test ywlf=720) 0 /100 WBC 0-0 LACTIC ACID, ARTERIAL, WHOLE [id number] 03:50:00* Test Item Value Reference Range Comments LACTATE BLOOD ARTERIAL (2) (BEAKER) (test uqxd=8105) 0.5 mmol/L 0.5-2.2 Effective 03/03/2016: Units/Reference Range ChangeNew: 0.5-2.2 mmol/L Previous: 5 -20 mg/[id number] 23:58:00* Test Item Value Reference Range Comments MAGNESIUM (BEAKER) (test lamn=315) 2.4 mg/dL 1.6-2.6 [id number] 23:15:00* Test Item Value Reference Range Comments PHOSPHORUS (BEAKER) (test eahd=370) 3.9 mg/dL 2.3-4.7 BASIC METABOLIC [id number] 23:15:00* Test Item Value Reference Range Comments SODIUM (BEAKER) (test yvye=296) 139 meq/L 136-145 POTASSIUM (BEAKER) (test lmlo=518) 4.0 meq/L 3.5-5.1 CHLORIDE (BEAKER) (test vaxo=535) 113 meq/L 98-107 CO2 (BEAKER) (test dgti=015) 17 meq/L 22-29 BLOOD UREA NITROGEN (BEAKER) (test ymqp=496) 8 mg/dL 7-21 CREATININE (BEAKER) (test ugbu=261) 0.85 mg/dL 0.57-1.25 GLUCOSE RANDOM (BEAKER) (test kysf=414) 98 mg/dL 70-105 CALCIUM (BEAKER) (test ajps=582) 8.0 mg/dL 8.4-10.2 EGFR (BEAKER) (test bugo=3332) 81 mL/min/1.73 sq m ESTIMATED GFR IS NOT ACCURATE CREATININE CLEARANCE IN PREDICTING GLOMERULAR FILTRATION RATE. ESTIMATED GFR IS NOT APPLICABLE FOR DIALYSIS PATIENTS. BASIC METABOLIC [id number] 19:03:00* Test Item Value Reference Range Comments SODIUM (BEAKER) (test vhud=834) 141 meq/L 136-145 POTASSIUM (BEAKER) (test zpar=333) 4.5 meq/L 3.5-5.1 Specimen moderately hemolyzed CHLORIDE (BEAKER) (test ubll=745) 115 meq/L 98-107 CO2 (BEAKER) (test iknn=804) 16 meq/L 22-29 BLOOD UREA NITROGEN (BEAKER) (test qzjd=370) 7 mg/dL 7-21 CREATININE (BEAKER) (test mvjw=212) 0.81 mg/dL 0.57-1.25 Specimen moderately hemolyzed GLUCOSE RANDOM (BEAKER) (test ysjv=898) 88 mg/dL 70-105 CALCIUM (BEAKER) (test bunk=781) 7.5 mg/dL 8.4-10.2 EGFR (BEAKER) (test edon=3031) 85 mL/min/1.73 sq m ESTIMATED GFR IS NOT ACCURATE CREATININE CLEARANCE IN PREDICTING GLOMERULAR FILTRATION RATE. ESTIMATED GFR IS NOT APPLICABLE FOR DIALYSIS PATIENTS. CBC (HEMOGRAM ONLY)2017-07-26 16:33:00* Test Item Value Reference Range Comments WHITE BLOOD CELL COUNT (BEAKER) (test qqvv=502) 10.5 K/ L 3.5-10.5 RED BLOOD CELL COUNT (BEAKER) (test qigz=481) 3.44 M/ L 3.93-5.22 HEMOGLOBIN (BEAKER) (test stid=642) 8.9 GM/DL 11.2-15.7 HEMATOCRIT (BEAKER) (test ccgv=232) 28.1 % 34.1-44.9 MEAN CORPUSCULAR VOLUME (BEAKER) (test emsb=357) 81.7 fL 79.4-94.8 MEAN CORPUSCULAR HEMOGLOBIN (BEAKER) (test zeag=976) 25.9 pg 25.6-32.2 MEAN CORPUSCULAR HEMOGLOBIN CONC (BEAKER) (test pmea=741) 31.7 GM/DL 32.2-35.5 RED CELL DISTRIBUTION WIDTH (BEAKER) (test axnm=463) 20.4 % 11.7-14.4 PLATELET COUNT (BEAKER) (test ztma=323) 537 K/CU MM 150-450 MEAN PLATELET VOLUME (BEAKER) (test ydfq=638) 7.7 fL 9.4-12.3 NUCLEATED RED BLOOD CELLS (BEAKER) (test umel=346) 0 /100 WBC 0-0 LACTIC ACID, ARTERIAL, WHOLE [id number] 12:31:00* Test Item Value Reference Range Comments LACTATE BLOOD ARTERIAL (2) (BEAKER) (test rgye=2397) 0.5 mmol/L 0.5-2.2 Specimen moderately hemolyzed Effective 03/03/2016: Units/Reference Range ChangeNew: 0.5-2.2 mmol/L Previous: 5 -20 mg/dLBLOOD GAS, [id number] 10:31:00* Test Item Value Reference Range Comments PH ARTERIAL (BEAKER) (test vicm=392) 7.42 7.35-7.45 PCO2 ARTERIAL (BEAKER) (test yjiy=969) 30 mmHg 35-45 PO2 ARTERIAL (BEAKER) (test eqgi=431) 72 mmHg 80-90 O2 SATURATION ARTERIAL (BEAKER) (test uyiv=977) 95.1 % 96.0-97.0 HCO3 ARTERIAL (BEAKER) (test dxvy=472) 19 mmol/L 21-29 BASE EXCESS ARTERIAL (BEAKER) (test gchq=055) -4.7 mmol/L -2.0-3.0 PATIENT TEMPERATURE (BEAKER) (test ghaw=9034) 36.9 C FIO2 (BEAKER) (test tkmd=1442) 60.0 % Daily ABG with morning labs while patient is intubated.[id number] 10:28:00* Test Item Value Reference Range Comments MAGNESIUM (BEAKER) (test aeuv=978) 1.9 mg/dL 1.6-2.6 LACTATE DEHYDROGENASE (LDH)2017-07-26 10:28:00* Test Item Value Reference Range Comments LACTATE DEHYDROGENASE (BEAKER) (test itwk=655) 374 U/L 125-220 RAD, CHEST, 1 VIEW, NON [id number] 06:26:00while patient is intubated or has chest tubes.Reason for exam:->post opShould this be performed at the bedside?-> YesFINAL REPORT RAD, CHEST, 1 VIEW, NON DEPT INDICATION: post op COMPARISON: Prior day's exam FINDINGS: Portable frontal view of the chest. IMPRESSION: Support Lines: Stable. Lungs and pleura: Unchanged airspace and pleural opacities. No pneumothorax.Heart and mediastinum: Stable contours and surgical changes. Antibiotic beads project over the midline.Additional findings: None. Signed: JR Ribeiro Robert MDReport Verified Date/Time: 07/26/2017 06:26:33 Reading Location: [address] Transitional Reading Room D GAS, [id number] 05:50:00* Test Item Value Reference Range Comments PH ARTERIAL (BEAKER) (test xpqt=422) 7.53 7.35-7.45 PCO2 ARTERIAL (BEAKER) (test nkwm=734) 22 mmHg 35-45 PO2 ARTERIAL (BEAKER) (test jyle=890) 187 mmHg 80-90 O2 SATURATION ARTERIAL (BEAKER) (test ufyc=115) 99.5 % 96.0-97.0 HCO3 ARTERIAL (BEAKER) (test kkwr=215) 18 mmol/L 21-29 BASE EXCESS ARTERIAL (BEAKER) (test scyj=992) -3.1 mmol/L -2.0-3.0 PATIENT TEMPERATURE (BEAKER) (test hgzc=7197) 37.3 C FIO2 (BEAKER) (test stli=6491) 60.0 % POCT-GLUCOSE [id number] 05:44:00* Test Item Value Reference Range Comments POC-GLUCOSE METER (BEAKER) (test uivb=5704) 81 mg/dL 70-[address] [facility] [address] [facility] [address] [id number] 04:18:00* Test Item Value Reference Range Comments PHOSPHORUS (BEAKER) (test onwa=209) 3.0 mg/dL 2.3-4.7 [id number] 04:18:00* Test Item Value Reference Range Comments MAGNESIUM (BEAKER) (test mycg=621) 1.5 mg/dL 1.6-2.6 BASIC METABOLIC [id number] 04:18:00* Test Item Value Reference Range Comments SODIUM (BEAKER) (test kobg=226) 138 meq/L 136-145 POTASSIUM (BEAKER) (test qjnl=837) 3.9 meq/L 3.5-5.1 CHLORIDE (BEAKER) (test fhca=118) 111 meq/L 98-107 CO2 (BEAKER) (test lxic=938) 18 meq/L 22-29 BLOOD UREA NITROGEN (BEAKER) (test aqgj=148) 9 mg/dL 7-21 CREATININE (BEAKER) (test sdms=641) 0.81 mg/dL 0.57-1.25 GLUCOSE RANDOM (BEAKER) (test krtm=822) 89 mg/dL 70-105 CALCIUM (BEAKER) (test hnhj=152) 8.3 mg/dL 8.4-10.2 EGFR (BEAKER) (test medu=0070) 85 mL/min/1.73 sq m ESTIMATED GFR IS NOT ACCURATE CREATININE CLEARANCE IN PREDICTING GLOMERULAR FILTRATION RATE. ESTIMATED GFR IS NOT APPLICABLE FOR DIALYSIS PATIENTS. PROTHROMBIN TIME/[id number] 04:05:00* Test Item Value Reference Range Comments PROTIME (BEAKER) (test alig=848) 16.6 seconds 11.7-14.7 INR (BEAKER) (test fycw=757) 1.4 <=5.9 RECOMMENDED COUMADIN/WARFARIN INR THERAPY RANGESSTANDARD DOSE: 2.0 - 3.0 Inclu rip: PROPHYLAXIS for venous thrombosis, systemic embolization; TREATMENT for kris ous thrombosis and/or pulmonary embolus.HIGH RISK: Target INR is 2.5-3.5 for pat ients with mechanical heart valves.CBC (HEMOGRAM ONLY)2017-07-26 04:05:00* Test Item Value Reference Range Comments WHITE BLOOD CELL COUNT (BEAKER) (test awoq=023) 8.4 K/ L 3.5-10.5 RED BLOOD CELL COUNT (BEAKER) (test giir=382) 3.62 M/ L 3.93-5.22 HEMOGLOBIN (BEAKER) (test ptfv=621) 9.1 GM/DL 11.2-15.7 HEMATOCRIT (BEAKER) (test oqjs=761) 28.6 % 34.1-44.9 MEAN CORPUSCULAR VOLUME (BEAKER) (test fohm=901) 79.0 fL 79.4-94.8 MEAN CORPUSCULAR HEMOGLOBIN (BEAKER) (test ducn=901) 25.1 pg 25.6-32.2 MEAN CORPUSCULAR HEMOGLOBIN CONC (BEAKER) (test ltpj=906) 31.8 GM/DL 32.2-35.5 RED CELL DISTRIBUTION WIDTH (BEAKER) (test hxfu=346) 20.2 % 11.7-14.4 PLATELET COUNT (BEAKER) (test zxyx=797) 578 K/CU MM 150-450 MEAN PLATELET VOLUME (BEAKER) (test wisl=731) 7.4 fL 9.4-12.3 NUCLEATED RED BLOOD CELLS (BEAKER) (test vmqz=091) 0 /100 WBC 0-0 [id number] 04:05:00* Test Item Value Reference Range Comments PARTIAL THROMBOPLASTIN TIME (BEAKER) (test fsbd=930) 39.3 seconds 22.5-36.0 SPIN/CONCENTRATION [id number] 23:32:00* Test Item Value Reference Range Comments CONCENTRATION CHARGED (BEAKER) (test ryyr=1923) Done HEMOGLOBIN AND [id number] 20:30:00* Test Item Value Reference Range Comments HEMOGLOBIN (BEAKER) (test nxgq=589) 9.7 GM/DL 11.2-15.7 HEMATOCRIT (BEAKER) (test wjht=692) 30.4 % 34.1-44.9 RAD, CHEST, 1 VIEW, NON [id number] 18:37:00Reason for exam:->post opShould this be performed at the bedside?->YesFINAL REPORT Chest, portable AP view History: Postop evaluation Comparison: 07/24/2017 IMPRESSION: The tip of the endotracheal tube is approximately 4.8 cm above the deshaun. There is been interval removal of the median sternotomy cerclage wires. New radiopaque beads are present along the length of the sternum. Right IJ central venous catheter tip projects over the distal SVC. There is a trace right pleural effusion. The heart is of stable size and configuration. Signed: Efren Allison MDReport Verified Date/Time: 07/25/2017 18:37:52 Reading Location: [address] Consult Reading Room [id number] 18:29:00* Test Item Value Reference Range Comments PHOSPHORUS (BEAKER) (test gybb=741) 3.2 mg/dL 2.3-4.7 [id number] 18:29:00* Test Item Value Reference Range Comments MAGNESIUM (BEAKER) (test cecl=323) 1.6 mg/dL 1.6-2.6 BASIC METABOLIC [id number] 18:29:00* Test Item Value Reference Range Comments SODIUM (BEAKER) (test esed=094) 138 meq/L 136-145 POTASSIUM (BEAKER) (test cdxk=254) 4.2 meq/L 3.5-5.1 CHLORIDE (BEAKER) (test pmjf=811) 111 meq/L 98-107 CO2 (BEAKER) (test stkx=774) 21 meq/L 22-29 BLOOD UREA NITROGEN (BEAKER) (test wipr=912) 9 mg/dL 7-21 CREATININE (BEAKER) (test vfym=018) 0.81 mg/dL 0.57-1.25 GLUCOSE RANDOM (BEAKER) (test ycum=642) 96 mg/dL 70-105 CALCIUM (BEAKER) (test jmmi=266) 9.2 mg/dL 8.4-10.2 EGFR (BEAKER) (test fztx=3444) 85 mL/min/1.73 sq m ESTIMATED GFR IS NOT ACCURATE CREATININE CLEARANCE IN PREDICTING GLOMERULAR FILTRATION RATE. ESTIMATED GFR IS NOT APPLICABLE FOR DIALYSIS PATIENTS. PROTHROMBIN TIME/[id number] 18:14:00* Test Item Value Reference Range Comments PROTIME (BEAKER) (test qbbg=678) 16.8 seconds 11.7-14.7 INR (BEAKER) (test eqxe=633) 1.4 <=5.9 RECOMMENDED COUMADIN/WARFARIN INR THERAPY RANGESSTANDARD DOSE: 2.0 - 3.0 Inclu rip: PROPHYLAXIS for venous thrombosis, systemic embolization; TREATMENT for kris ous thrombosis and/or pulmonary embolus.HIGH RISK: Target INR is 2.5-3.5 for pat ients with mechanical heart valves.[id number] 18:14:00* Test Item Value Reference Range Comments PARTIAL THROMBOPLASTIN TIME (BEAKER) (test eily=183) 38.3 seconds 22.5-36.0 CBC W/PLT COUNT & AUTO [id number] 18:08:00* Test Item Value Reference Range Comments WHITE BLOOD CELL COUNT (BEAKER) (test gtyp=369) 6.6 K/ L 3.5-10.5 RED BLOOD CELL COUNT (BEAKER) (test axou=969) 3.07 M/ L 3.93-5.22 HEMOGLOBIN (BEAKER) (test yhoy=508) 7.8 GM/DL 11.2-15.7 HEMATOCRIT (BEAKER) (test kfxd=048) 24.6 % 34.1-44.9 MEAN CORPUSCULAR VOLUME (BEAKER) (test hvus=837) 80.1 fL 79.4-94.8 MEAN CORPUSCULAR HEMOGLOBIN (BEAKER) (test ntwp=315) 25.4 pg 25.6-32.2 MEAN CORPUSCULAR HEMOGLOBIN CONC (BEAKER) (test wfrf=239) 31.7 GM/DL 32.2-35.5 RED CELL DISTRIBUTION WIDTH (BEAKER) (test eabw=172) 21.7 % 11.7-14.4 PLATELET COUNT (BEAKER) (test akth=584) 579 K/CU MM 150-450 MEAN PLATELET VOLUME (BEAKER) (test sxic=812) 7.7 fL 9.4-12.3 NUCLEATED RED BLOOD CELLS (BEAKER) (test hgtz=755) 0 /100 WBC 0-0 NEUTROPHILS RELATIVE PERCENT (BEAKER) (test qssg=832) 60 % LYMPHOCYTES RELATIVE PERCENT (BEAKER) (test mrkn=720) 28 % MONOCYTES RELATIVE PERCENT (BEAKER) (test reyy=404) 10 % EOSINOPHILS RELATIVE PERCENT (BEAKER) (test rkuy=098) 2 % BASOPHILS RELATIVE PERCENT (BEAKER) (test cxxa=128) 1 % NEUTROPHILS ABSOLUTE COUNT (BEAKER) (test gejm=380) 3.90 K/ L 1.56-6.13 LYMPHOCYTES ABSOLUTE COUNT (BEAKER) (test rkvu=361) 1.82 K/ L 1.18-3.74 MONOCYTES ABSOLUTE COUNT (BEAKER) (test nzwf=463) 0.63 K/ L 0.24-0.36 EOSINOPHILS ABSOLUTE COUNT (BEAKER) (test ofgj=216) 0.10 K/ L 0.04-0.36 BASOPHILS ABSOLUTE COUNT (BEAKER) (test qruv=977) 0.04 K/ L 0.01-0.08 IMMATURE GRANULOCYTES-RELATIVE PERCENT (BEAKER) (test xnmn=4621) 1 % 0-1 OXYGEN SATURATION, [id number] 18:01:00* Test Item Value Reference Range Comments O2 SATURATION (MEASURED) (BEAKER) (test pvza=4750) 69.1 % GLUCOSE-STAT [id number] 18:01:00* Test Item Value Reference Range Comments GLUCOSE RANDOM (BEAKER) (test okqv=636) 94 mg/dL 70-110 SODIUM NA-STAT [id number] 18:01:00* Test Item Value Reference Range Comments SODIUM (BEAKER) (test wdwi=856) 135 meq/L 135-148 POTASSIUM-STAT [id number] 18:01:00* Test Item Value Reference Range Comments POTASSIUM (BEAKER) (test najm=497) 4.0 meq/L 3.6-5.5 BLOOD GAS, [id number] 18:01:00* Test Item Value Reference Range Comments PH ARTERIAL (BEAKER) (test qkul=711) 7.55 7.35-7.45 PCO2 ARTERIAL (BEAKER) (test htlb=889) 25 mmHg 35-45 PO2 ARTERIAL (BEAKER) (test dhcx=224) 169 mmHg 80-90 O2 SATURATION ARTERIAL (BEAKER) (test mykq=648) 99.4 % 96.0-97.0 HCO3 ARTERIAL (BEAKER) (test tisf=059) 21 mmol/L 21-29 BASE EXCESS ARTERIAL (BEAKER) (test caqy=304) -0.7 mmol/L -2.0-3.0 PATIENT TEMPERATURE (BEAKER) (test ghzv=6876) 36.3 C FIO2 (BEAKER) (test mnmz=7713) 60.0 % HGB/HCT (H&H) - STAT [id number] 18:01:00* Test Item Value Reference Range Comments HEMOGLOBIN (BEAKER) (test glsj=908) 8.6 g/dL 12.0-15.0 HEMATOCRIT (BEAKER) (test svru=780) 25.0 % 36.0-45.0 CALCIUM, [id number] 18:01:00* Test Item Value Reference Range Comments CALCIUM IONIZED (BEAKER) (test xsdc=534) 1.26 mmol/L 1.12-1.27 PH, BLOOD (BEAKER) (test kbmk=8251) 7.55 BLOOD GAS, [id number] 16:06:00* Test Item Value Reference Range Comments PH ARTERIAL (BEAKER) (test gumv=737) 7.48 7.35-7.45 PCO2 ARTERIAL (BEAKER) (test wvhf=331) 32 mmHg 35-45 PO2 ARTERIAL (BEAKER) (test rfdv=998) 207 mmHg 80-90 O2 SATURATION ARTERIAL (BEAKER) (test ebty=153) 99.5 % 96.0-97.0 HCO3 ARTERIAL (BEAKER) (test xljk=724) 24 mmol/L 21-29 BASE EXCESS ARTERIAL (BEAKER) (test nrjx=936) 0.1 mmol/L -2.0-3.0 PATIENT TEMPERATURE (BEAKER) (test krst=7097) 36.0 C FIO2 (BEAKER) (test eppp=4447) 100.0 % GLUCOSE-STAT [id number] 16:06:00* Test Item Value Reference Range Comments GLUCOSE RANDOM (BEAKER) (test cmav=064) 116 mg/dL 70-110 HGB/HCT (H&H) - STAT [id number] 16:06:00* Test Item Value Reference Range Comments HEMOGLOBIN (BEAKER) (test mehz=601) 7.9 g/dL 12.0-15.0 HEMATOCRIT (BEAKER) (test euil=679) 23.0 % 36.0-45.0 CALCIUM, [id number] 16:05:00* Test Item Value Reference Range Comments CALCIUM IONIZED (BEAKER) (test nexx=696) 1.25 mmol/L 1.12-1.27 PH, BLOOD (BEAKER) (test zfyo=1465) 7.46 SODIUM NA-STAT [id number] 16:05:00* Test Item Value Reference Range Comments SODIUM (BEAKER) (test eoov=967) 137 meq/L 135-148 POTASSIUM-STAT [id number] 16:05:00* Test Item Value Reference Range Comments POTASSIUM (BEAKER) (test pyar=190) 3.9 meq/L 3.6-5.5 [id number] 05:24:00* Test Item Value Reference Range Comments PHOSPHORUS (BEAKER) (test fhcx=722) 3.0 mg/dL 2.3-4.7 [id number] 05:24:00* Test Item Value Reference Range Comments MAGNESIUM (BEAKER) (test eclp=963) 1.9 mg/dL 1.6-2.6 BASIC METABOLIC [id number] 05:24:00* Test Item Value Reference Range Comments SODIUM (BEAKER) (test opzy=730) 139 meq/L 136-145 POTASSIUM (BEAKER) (test intb=267) 4.2 meq/L 3.5-5.1 CHLORIDE (BEAKER) (test tdwc=358) 107 meq/L 98-107 CO2 (BEAKER) (test tqqx=941) 25 meq/L 22-29 BLOOD UREA NITROGEN (BEAKER) (test xcfw=297) 10 mg/dL 7-21 CREATININE (BEAKER) (test fqgu=791) 0.95 mg/dL 0.57-1.25 GLUCOSE RANDOM (BEAKER) (test tikc=968) 89 mg/dL 70-105 CALCIUM (BEAKER) (test nipg=502) 8.5 mg/dL 8.4-10.2 EGFR (BEAKER) (test yeur=7574) 71 mL/min/1.73 sq m ESTIMATED GFR IS NOT ACCURATE CREATININE CLEARANCE IN PREDICTING GLOMERULAR FILTRATION RATE. ESTIMATED GFR IS NOT APPLICABLE FOR DIALYSIS PATIENTS. CBC (HEMOGRAM ONLY)2017-07-25 05:19:00* Test Item Value Reference Range Comments WHITE BLOOD CELL COUNT (BEAKER) (test wqvh=547) 7.4 K/ L 3.5-10.5 RED BLOOD CELL COUNT (BEAKER) (test ohnx=425) 3.07 M/ L 3.93-5.22 HEMOGLOBIN (BEAKER) (test ihxs=007) 7.4 GM/DL 11.2-15.7 HEMATOCRIT (BEAKER) (test rksi=441) 24.5 % 34.1-44.9 MEAN CORPUSCULAR VOLUME (BEAKER) (test tfqp=013) 79.8 fL 79.4-94.8 MEAN CORPUSCULAR HEMOGLOBIN (BEAKER) (test gmrm=474) 24.1 pg 25.6-32.2 MEAN CORPUSCULAR HEMOGLOBIN CONC (BEAKER) (test ezhk=782) 30.2 GM/DL 32.2-35.5 RED CELL DISTRIBUTION WIDTH (BEAKER) (test nwnx=928) 21.6 % 11.7-14.4 PLATELET COUNT (BEAKER) (test usfo=614) 674 K/CU MM 150-450 MEAN PLATELET VOLUME (BEAKER) (test eahr=683) 8.0 fL 9.4-12.3 NUCLEATED RED BLOOD CELLS (BEAKER) (test smem=976) 0 /100 WBC 0-0 [id number] 05:13:00* Test Item Value Reference Range Comments PARTIAL THROMBOPLASTIN TIME (BEAKER) (test aiqi=500) 44.1 seconds 22.5-36.0 PROTHROMBIN TIME/[id number] 05:12:00* Test Item Value Reference Range Comments PROTIME (BEAKER) (test nbhn=562) 17.2 seconds 11.7-14.7 INR (BEAKER) (test sgog=719) 1.4 <=5.9 RECOMMENDED COUMADIN/WARFARIN INR THERAPY RANGESSTANDARD DOSE: 2.0 - 3.0 Inclu rip: PROPHYLAXIS for venous thrombosis, systemic embolization; TREATMENT for kris ous thrombosis and/or pulmonary embolus.HIGH RISK: Target INR is 2.5-3.5 for pat ients with mechanical heart valves.RAD, ABDOMEN/KUB, 1 VIEW [id number] 01:51:00Reason for exam:->Constipation x 5-6 daysFINAL REPORT EXAM: SUPINE ABDOMEN CLINICAL INDICATION: CONSTIPATION IMPRESSION: A relatively large volume of inspissated stool is noted throughout the colon extending from the cecum to the rectum concerning for constipation. The bowel gas pattern is otherwise nonspecific. Signed: Maldonado Hartman MDReport Verified Date/Time: 07/25/2017 01:51:50 Reading Location: [address] Reading Room (HEMOGRAM ONLY)2017-07-24 10:30:00* Test Item Value Reference Range Comments WHITE BLOOD CELL COUNT (BEAKER) (test yfxy=740) 7.9 K/ L 3.5-10.5 RED BLOOD CELL COUNT (BEAKER) (test gjsh=203) 3.25 M/ L 3.93-5.22 HEMOGLOBIN (BEAKER) (test yuei=324) 8.0 GM/DL 11.2-15.7 HEMATOCRIT (BEAKER) (test egkg=955) 26.3 % 34.1-44.9 MEAN CORPUSCULAR VOLUME (BEAKER) (test rawe=122) 80.9 fL 79.4-94.8 MEAN CORPUSCULAR HEMOGLOBIN (BEAKER) (test xmqz=769) 24.6 pg 25.6-32.2 MEAN CORPUSCULAR HEMOGLOBIN CONC (BEAKER) (test pmwo=582) 30.4 GM/DL 32.2-35.5 RED CELL DISTRIBUTION WIDTH (BEAKER) (test pbgg=505) 21.6 % 11.7-14.4 PLATELET COUNT (BEAKER) (test ugwy=747) 778 K/CU MM 150-450 MEAN PLATELET VOLUME (BEAKER) (test iokf=567) 7.8 fL 9.4-12.3 NUCLEATED RED BLOOD CELLS (BEAKER) (test foxe=852) 0 /100 WBC 0-0 [id number] 07:19:00* Test Item Value Reference Range Comments PHOSPHORUS (BEAKER) (test mtzu=633) 3.3 mg/dL 2.3-4.7 [id number] 07:19:00* Test Item Value Reference Range Comments MAGNESIUM (BEAKER) (test hthc=823) 1.9 mg/dL 1.6-2.6 BASIC METABOLIC [id number] 07:19:00* Test Item Value Reference Range Comments SODIUM (BEAKER) (test zxxr=262) 138 meq/L 136-145 POTASSIUM (BEAKER) (test arnh=831) 4.6 meq/L 3.5-5.1 CHLORIDE (BEAKER) (test qtuq=664) 107 meq/L 98-107 CO2 (BEAKER) (test dwjf=512) 25 meq/L 22-29 BLOOD UREA NITROGEN (BEAKER) (test ywce=816) 8 mg/dL 7-21 CREATININE (BEAKER) (test evmb=789) 1.02 mg/dL 0.57-1.25 GLUCOSE RANDOM (BEAKER) (test xyts=319) 93 mg/dL 70-105 CALCIUM (BEAKER) (test zucw=565) 9.3 mg/dL 8.4-10.2 EGFR (BEAKER) (test zuqf=7577) 66 mL/min/1.73 sq m ESTIMATED GFR IS NOT ACCURATE CREATININE CLEARANCE IN PREDICTING GLOMERULAR FILTRATION RATE. ESTIMATED GFR IS NOT APPLICABLE FOR DIALYSIS PATIENTS. [id number] 06:43:00* Test Item Value Reference Range Comments PARTIAL THROMBOPLASTIN TIME (BEAKER) (test zwgi=762) 46.1 seconds 22.5-36.0 PROTHROMBIN TIME/[id number] 06:42:00* Test Item Value Reference Range Comments PROTIME (BEAKER) (test gpio=912) 16.5 seconds 11.7-14.7 INR (BEAKER) (test dhzs=878) 1.3 <=5.9 RECOMMENDED COUMADIN/WARFARIN INR THERAPY RANGESSTANDARD DOSE: 2.0 - 3.0 Inclu rip: PROPHYLAXIS for venous thrombosis, systemic embolization; TREATMENT for kris ous thrombosis and/or pulmonary embolus.HIGH RISK: Target INR is 2.5-3.5 for pat ients with mechanical heart valves.RAD, CHEST, 1 VIEW, NON [id number] 08:45:00Reason for exam:->baseline evaluationShould this be performed at the bedside?->YesFINAL REPORT HISTORY : baseline evaluation. Comparison: 07/13/2017 Comment: Single portable view of the chest was obtained. The cardiac silhouette size is enlarged. There is a tortuous/ectatic thoracic aorta. There is some widening of the mediastinum. There are small bilateral pleural effusions with some adjacent consolidation/airspace disease. No pneumothorax is visualized. Signed: Katrina Yousifeport Verified Date/Time: 07/23/2017 08:45:53 Reading Location: [address] Transitional Reading Room W/PLT COUNT & AUTO [id number] 06:45:00* Test Item Value Reference Range Comments WHITE BLOOD CELL COUNT (BEAKER) (test ijrx=984) 7.7 K/ L 3.5-10.5 RED BLOOD CELL COUNT (BEAKER) (test qwfh=240) 3.09 M/ L 3.93-5.22 HEMOGLOBIN (BEAKER) (test akjb=346) 7.6 GM/DL 11.2-15.7 HEMATOCRIT (BEAKER) (test pttp=626) 24.6 % 34.1-44.9 MEAN CORPUSCULAR VOLUME (BEAKER) (test kchh=694) 79.6 fL 79.4-94.8 MEAN CORPUSCULAR HEMOGLOBIN (BEAKER) (test ghqi=791) 24.6 pg 25.6-32.2 MEAN CORPUSCULAR HEMOGLOBIN CONC (BEAKER) (test nhxj=262) 30.9 GM/DL 32.2-35.5 RED CELL DISTRIBUTION WIDTH (BEAKER) (test wqoc=460) 21.7 % 11.7-14.4 PLATELET COUNT (BEAKER) (test jepe=252) 721 K/CU MM 150-450 MEAN PLATELET VOLUME (BEAKER) (test iano=567) 7.8 fL 9.4-12.3 NUCLEATED RED BLOOD CELLS (BEAKER) (test tpsu=458) 0 /100 WBC 0-0 NEUTROPHILS RELATIVE PERCENT (BEAKER) (test lgil=291) 61 % LYMPHOCYTES RELATIVE PERCENT (BEAKER) (test fqov=929) 24 % MONOCYTES RELATIVE PERCENT (BEAKER) (test oexq=023) 12 % EOSINOPHILS RELATIVE PERCENT (BEAKER) (test uycj=459) 2 % BASOPHILS RELATIVE PERCENT (BEAKER) (test xrtw=691) 0 % NEUTROPHILS ABSOLUTE COUNT (BEAKER) (test zrpx=990) 4.71 K/ L 1.56-6.13 LYMPHOCYTES ABSOLUTE COUNT (BEAKER) (test vsci=678) 1.86 K/ L 1.18-3.74 MONOCYTES ABSOLUTE COUNT (BEAKER) (test kfwh=873) 0.96 K/ L 0.24-0.36 EOSINOPHILS ABSOLUTE COUNT (BEAKER) (test gwwq=764) 0.13 K/ L 0.04-0.36 BASOPHILS ABSOLUTE COUNT (BEAKER) (test qfau=706) 0.03 K/ L 0.01-0.08 IMMATURE GRANULOCYTES-RELATIVE PERCENT (BEAKER) (test uxsl=6928) 1 % 0-1 [id number] 06:25:00* Test Item Value Reference Range Comments PARTIAL THROMBOPLASTIN TIME (BEAKER) (test ecez=895) 47.7 seconds 22.5-36.0 PROTHROMBIN TIME/[id number] 06:24:00* Test Item Value Reference Range Comments PROTIME (BEAKER) (test chvf=536) 16.3 seconds 11.7-14.7 INR (BEAKER) (test bobg=149) 1.3 <=5.9 RECOMMENDED COUMADIN/WARFARIN INR THERAPY RANGESSTANDARD DOSE: 2.0 - 3.0 Inclu rip: PROPHYLAXIS for venous thrombosis, systemic embolization; TREATMENT for kris ous thrombosis and/or pulmonary embolus.HIGH RISK: Target INR is 2.5-3.5 for pat ients with mechanical heart valves.BASIC METABOLIC [id number] 06:04:00* Test Item Value Reference Range Comments SODIUM (BEAKER) (test srxy=529) 137 meq/L 136-145 POTASSIUM (BEAKER) (test lwaf=243) 4.6 meq/L 3.5-5.1 CHLORIDE (BEAKER) (test dlpj=992) 106 meq/L 98-107 CO2 (BEAKER) (test rnvx=150) 25 meq/L 22-29 BLOOD UREA NITROGEN (BEAKER) (test aipu=017) 8 mg/dL 7-21 CREATININE (BEAKER) (test rsqe=072) 0.84 mg/dL 0.57-1.25 GLUCOSE RANDOM (BEAKER) (test zhvh=784) 95 mg/dL 70-105 CALCIUM (BEAKER) (test vbap=295) 9.2 mg/dL 8.4-10.2 EGFR (BEAKER) (test lymz=9566) 82 mL/min/1.73 sq m ESTIMATED GFR IS NOT ACCURATE CREATININE CLEARANCE IN PREDICTING GLOMERULAR FILTRATION RATE. ESTIMATED GFR IS NOT APPLICABLE FOR DIALYSIS PATIENTS. CT, CHEST WITH IV CONTRAST- PE TEST [id number] 17:16:00Reason for exam:-> WOUND CHECKWhat is the patient's sedation requirement?->No SedationFINAL REPORT CT OF THE CHEST, PULMONARY EMBOLISM PROTOCOL CLINICAL HISTORY: Chest pain TECHNIQUE: Precontrast axial images at the level of the pulmonary outflow tract are obtained for the purpose of contrast bolus tracking. Postcontrast axial images of the chest are subsequently obtained with optimal pulmonary arterial enhancement followed by delayed postcontrast images. Coronal 2D reformatted images are reviewed. This exam was performed according to our departmental dose-optimization program which includes automated exposure con trol, adjustment of the mA and/or kV according to patient size and/or use of ite rative reconstruction technique. COMPARISON FILM: CTA of the chest, abdomen, an d pelvis from 07/08/2017 DISCUSSION: TECHNICAL QUALITY: Adequate. PULMONARY ARTERI ES: Proximal to its bifurcation,the main pulmonary artery measures 2.6 cm. No fi lling defects are identified within the pulmonary arteries to suggest acute pulm onary embolism. LINES/TUBES: None. LUNGS/AIRWAYS: Trachea and major airways are grossly patent. There is minimal subsegmental bibasilar atelectasis and consolid ation. Assessment for subcentimeter nodule is limited by respiratory motion cameron facts.PLEURA: Trace bilateral pleural effusions. No pneumothorax.HEART AND MEDIA STINUM: There is a large peripherally enhancing fluid collection surrounding the ascending aortic graft circumferentially, measuring up to 4 cm anterior to the graft. The fluid collection extends from the aortic root to the arch. There is a lso a soft tissue component of the fluid collection along a previous mediastinal drainage catheter tract inferiorly. There is also a small superficial fluid col lection measuring 4.3 cm in AP dimension superior to the manubrium. BONES AND SO FT TISSUES: Median sternotomy wires. The sternotomy defect is well apposed for t he majority of the sternotomy defect. There is only 2 mm separation at the manub rium. Mild degenerative changes in the thoracic spine. UPPER ABDOMEN: Visualized portions grossly unremarkable. IMPRESSION: Large perigraft fluid collection in the anterior mediastinum with fluid tracking along a previous drainage catheter tract in the subxiphoid region as well as superiorly into the soft tissues super ior to the manubrium at the midline. Superimposed infection is a possibility giv en the focus of air within the collection and peripheral enhancement. Negative f or pulmonary embolism. Trace bilateral pleural effusions and minimal subsegmenta l bibasilar atelectasis and consolidation. Findings discussed with Dr. Sethi at 5:15 PM on 07/20/2017. Signed: Efren Cesareport Verified Date/Time: 017 17:16:15 Reading Location: [facility] C013Y CT Body Reading Room Electronic ally signed by: EFREN CESAR on 07/22/2017 05:16 PM B-TYPE NATRIURETIC FACTOR (BNP)2017-07-22 15:37:00* Test Item Value Reference Range Comments B-TYPE NATRIURETIC PEPTIDE (BEAKER) (test gsmh=573) 530 pg/mL 0-100 COMPREHENSIVE METABOLIC [id number] 15:33:00* Test Item Value Reference Range Comments TOTAL PROTEIN (BEAKER) (test txrs=292) 6.9 gm/dL 6.0-8.5 ALBUMIN (BEAKER) (test bhtd=4357) 2.7 g/dL 3.5-5.0 ALKALINE PHOSPHATASE (BEAKER) (test aaoe=377) 102 U/L 30-115 BILIRUBIN TOTAL (BEAKER) (test blji=136) 0.3 mg/dL 0.1-1.2 SODIUM (BEAKER) (test mxks=837) 137 meq/L 135-148 POTASSIUM (BEAKER) (test oaji=460) 4.5 meq/L 3.6-5.5 CHLORIDE (BEAKER) (test xicq=255) 105 meq/L 98-106 CO2 (BEAKER) (test igki=106) 24 meq/L 20-29 BLOOD UREA NITROGEN (BEAKER) (test cjtq=137) 10 mg/dL 10-26 CREATININE (BEAKER) (test pmtr=872) 0.91 mg/dL 0.50-1.20 GLUCOSE RANDOM (BEAKER) (test fuck=969) 112 mg/dL 70-110 CALCIUM (BEAKER) (test ktni=550) 9.1 mg/dL 8.5-10.5 AST (SGOT) (BEAKER) (test tllj=735) 20 U/L 5-40 ALT (SGPT) (BEAKER) (test plch=112) 15 U/L 5-50 EGFR (BEAKER) (test sfov=0503) 75 mL/min/1.73 sq m ESTIMATED GFR IS NOT ACCURATE CREATININE CLEARANCE IN PREDICTING GLOMERULAR FILTRATION RATE. ESTIMATED GFR IS NOT APPLICABLE FOR DIALYSIS PATIENTS. CBC W/PLT COUNT & AUTO [id number] 15:14:00* Test Item Value Reference Range Comments WHITE BLOOD CELL COUNT (BEAKER) (test swlc=726) 8.2 K/ L 4.0-10.0 RED BLOOD CELL COUNT (BEAKER) (test mlug=887) 3.12 M/ L 4.00-5.00 HEMOGLOBIN (BEAKER) (test ubkr=107) 8.0 GM/DL 12.0-15.0 HEMATOCRIT (BEAKER) (test nlxn=963) 24.6 % 36.0-45.0 MEAN CORPUSCULAR VOLUME (BEAKER) (test bceb=666) 78.8 fL 82.0-99.0 MEAN CORPUSCULAR HEMOGLOBIN (BEAKER) (test qihb=092) 25.6 pg 27.0-33.0 MEAN CORPUSCULAR HEMOGLOBIN CONC (BEAKER) (test siaa=487) 32.5 GM/DL 32.0-36.0 RED CELL DISTRIBUTION WIDTH (BEAKER) (test lrqa=275) 21.1 % 10.3-14.2 PLATELET COUNT (BEAKER) (test khwx=888) 679 K/CU MM 150-430 MEAN PLATELET VOLUME (BEAKER) (test xoaz=132) 7.3 fL 6.5-10.5 NUCLEATED RED BLOOD CELLS (BEAKER) (test ktbx=473) 0 /100 WBC 0-0 NEUTROPHILS RELATIVE PERCENT (BEAKER) (test cjzl=825) 60 % LYMPHOCYTES RELATIVE PERCENT (BEAKER) (test vbad=630) 27 % MONOCYTES RELATIVE PERCENT (BEAKER) (test cizv=125) 10 % EOSINOPHILS RELATIVE PERCENT (BEAKER) (test rnwe=788) 2 % BASOPHILS RELATIVE PERCENT (BEAKER) (test przn=429) 0 % NEUTROPHILS ABSOLUTE COUNT (BEAKER) (test xrmj=454) 4.95 K/ L 1.80-8.00 LYMPHOCYTES ABSOLUTE COUNT (BEAKER) (test hrty=843) 2.20 K/ L 1.48-4.50 MONOCYTES ABSOLUTE COUNT (BEAKER) (test ykms=636) 0.85 K/ L 0.00-1.30 EOSINOPHILS ABSOLUTE COUNT (BEAKER) (test fzbb=615) 0.16 K/ L 0.00-0.50 BASOPHILS ABSOLUTE COUNT (BEAKER) (test kodl=185) 0.03 K/ L 0.00-0.20 RAD, CHEST, 1 VIEW, NON [id number] 08:15:00Reason for exam:->Post-op AATA repair with AV replacementShould this be performed at the bedside?->YesFINAL REPORT INDICATION: Post-op AATA repair with AV repl acement COMPARISON: July 12, 2017 TECHNIQUE: Chest radiograph, single view, portable technique. FINDINGS / IMPRESSION: No pulmonary venous congestion or pn eumothorax is demonstrated. Cardiac and mediastinal contours are unchanged. Left retrocardiac opacity is unchanged, likely representing pleural effusion and ass ociated atelectasis. Cardiac valve replacement, mediastinum surgical clips, and median sternotomy wires are again noted. Signed: Jess Sellers MDReport Verif ied Date/Time: 07/13/2017 08:15:18 Reading Location: [facility] Diagnostic Imaging Re ading Room - [place] [address] -GLUCOSE [id number] 21:17:00* Test Item Value Reference Range Comments POC-GLUCOSE METER (BEAKER) (test hlrl=2914) 91 mg/dL 70-[address] [facility] [address] [facility] [address] POCT-GLUCOSE [id number] 17:35:00* Test Item Value Reference Range Comments POC-GLUCOSE METER (BEAKER) (test jdlc=0454) 103 mg/dL 70-[address] [facility] [address] [facility] [address] RAD, CHEST, 1 VIEW, NON [id number] 09:06:00Reason for exam:->Post-op AATA repair with AV replacementShould this be performed at the bedside?->YesFINAL REPORT Chest one view compared to July 11 Disc ussion: There is cardiac valve replacement with left lung base opacity probably atelectasis. I cannot exclude very small effusions. No pneumothorax. IMPRESSIONS : No change. Signed: Lena Hinkleeport Verified Date/Time: 07/12/2017 09:06 :37 Reading Location: [facility] Radiology Reading Room Electronically s igned by: LENA HINKLE M.D. on 07/12/2017 09:06 AM POCT-GLUCOSE METER 2017-07-12 06:54:00* Test Item Value Reference Range Comments POC-GLUCOSE METER (BEAKER) (test cznw=6032) 88 mg/dL 70-[address] [facility] [address] [facility] [address] [id number] 05:49:00* Test Item Value Reference Range Comments PHOSPHORUS (BEAKER) (test myam=363) 2.5 mg/dL 2.3-4.7 [id number] 05:49:00* Test Item Value Reference Range Comments MAGNESIUM (BEAKER) (test abme=930) 1.7 mg/dL 1.6-2.6 BASIC METABOLIC [id number] 05:49:00* Test Item Value Reference Range Comments SODIUM (BEAKER) (test llcn=207) 134 meq/L 136-145 POTASSIUM (BEAKER) (test zfhi=211) 3.7 meq/L 3.5-5.1 CHLORIDE (BEAKER) (test imgk=730) 110 meq/L 98-107 CO2 (BEAKER) (test kkey=223) 19 meq/L 22-29 BLOOD UREA NITROGEN (BEAKER) (test oamk=902) 7 mg/dL 7-21 CREATININE (BEAKER) (test kdpv=997) 0.87 mg/dL 0.57-1.25 GLUCOSE RANDOM (BEAKER) (test gujs=053) 84 mg/dL 70-105 CALCIUM (BEAKER) (test vwos=327) 8.7 mg/dL 8.4-10.2 EGFR (BEAKER) (test dkvj=0057) 79 mL/min/1.73 sq m ESTIMATED GFR IS NOT ACCURATE CREATININE CLEARANCE IN PREDICTING GLOMERULAR FILTRATION RATE. ESTIMATED GFR IS NOT APPLICABLE FOR DIALYSIS PATIENTS. [id number] 05:38:00* Test Item Value Reference Range Comments PARTIAL THROMBOPLASTIN TIME (BEAKER) (test nxvn=077) 46.4 seconds 22.5-36.0 PROTHROMBIN TIME/[id number] 05:37:00* Test Item Value Reference Range Comments PROTIME (BEAKER) (test cifq=738) 16.6 seconds 11.7-14.7 INR (BEAKER) (test jvhw=386) 1.4 <=5.9 RECOMMENDED COUMADIN/WARFARIN INR THERAPY RANGESSTANDARD DOSE: 2.0 - 3.0 Inclu rip: PROPHYLAXIS for venous thrombosis, systemic embolization; TREATMENT for kris ous thrombosis and/or pulmonary embolus.HIGH RISK: Target INR is 2.5-3.5 for pat ients with mechanical heart valves.CBC (HEMOGRAM ONLY)2017-07-12 05:28:00* Test Item Value Reference Range Comments WHITE BLOOD CELL COUNT (BEAKER) (test vref=506) 10.9 K/ L 3.5-10.5 RED BLOOD CELL COUNT (BEAKER) (test inoe=365) 3.84 M/ L 3.93-5.22 HEMOGLOBIN (BEAKER) (test ypqt=833) 9.7 GM/DL 11.2-15.7 HEMATOCRIT (BEAKER) (test exry=367) 30.1 % 34.1-44.9 MEAN CORPUSCULAR VOLUME (BEAKER) (test hszb=711) 78.4 fL 79.4-94.8 MEAN CORPUSCULAR HEMOGLOBIN (BEAKER) (test zvzf=474) 25.3 pg 25.6-32.2 MEAN CORPUSCULAR HEMOGLOBIN CONC (BEAKER) (test ufvd=818) 32.2 GM/DL 32.2-35.5 RED CELL DISTRIBUTION WIDTH (BEAKER) (test efnt=770) 20.0 % 11.7-14.4 PLATELET COUNT (BEAKER) (test cclo=956) 301 K/CU MM 150-450 MEAN PLATELET VOLUME (BEAKER) (test fwwz=200) 8.6 fL 9.4-12.3 NUCLEATED RED BLOOD CELLS (BEAKER) (test kjsp=331) 0 /100 WBC 0-0 POCT-GLUCOSE [id number] 20:53:00* Test Item Value Reference Range Comments POC-GLUCOSE METER (BEAKER) (test wzrs=2920) 114 mg/dL 70-[address] [facility] [address] [facility] [address] POCT-GLUCOSE [id number] 16:32:00* Test Item Value Reference Range Comments POC-GLUCOSE METER (BEAKER) (test igwr=6831) 123 mg/dL 70-110 TESTED AT [place] [id number] [facility] [address] TISSUE [id number] 16:10:00Surgical Pathology Report Case: [id number] Authorizing Provider: Wilmer Lozada, Collected: 07/04/2017 Curt KEYES Ordering Location: [facility] Received: 07/05/2017 0934 PERIOPERATIVE SERVICES Pathologist: Darryn Monteiro MD Specimen: Leaflets, aortic valve leaflets AORTIC VALVE LEAFLETS, REPAIR: - MYXOID DEGENERATIVE CHANGE Signing Pathologist Direct Phone Line: [phone] signed by Darryn Monteiro MD on 07/11/2017 at 4:10 [id number], [id number] Aortic valve leafletsSpecimen is received in a formalin-filled container labeled with the patient's information and labeled "aortic valve leaflets" and consists of three yellow partially calcified leaflets, the largest measuring 2 x 1 x 0.2 cm. Dried Fruit Washer sections are submitted in A1 for decalcification. CG/ew Performed.POCT-GLUCOSE [id number] 11:31:00* Test Item Value Reference Range Comments POC-GLUCOSE METER (BEAKER) (test zmdz=6146) 111 mg/dL 70-110 TESTED AT [place] [id number] [facility] [address] RAD, CHEST, 1 VIEW, NON [id number] 08:39:00Reason for exam:->Post-op AATA repair with AV replacementShould this be performed at the bedside?->YesFINAL REPORT Chest, one view. HISTORY: Postop COMPARISON: 2017 IMPRESSION: No significant interval change. Unchanged retrocardiac o pacification which could represent combination of atelectasis, consolidation, an d/or effusion. Unchanged moderate interstitial edema and central venous congesti on. Cardiomediastinal silhouette is enlarged but unchanged from prior examinatio n. No acute osseous abnormality Signed: Efren Cesar MDReport Verified Date/Time : 07/11/2017 08:39:51 Reading Location: [address] Radiology Reading Room - GLUCOSE [id number] 08:30:00* Test Item Value Reference Range Comments POC-GLUCOSE METER (BEAKER) (test iois=8740) 102 mg/dL 70-[address] [facility] [address] [facility] [address] POCT-GLUCOSE [id number] 07:28:00* Test Item Value Reference Range Comments POC-GLUCOSE METER (BEAKER) (test wuqo=5560) 92 mg/dL 70-110 TESTED AT [place] [id number] [facility] [address] [id number] 05:23:00* Test Item Value Reference Range Comments PHOSPHORUS (BEAKER) (test xgfn=126) 2.1 mg/dL 2.3-4.7 [id number] 05:23:00* Test Item Value Reference Range Comments MAGNESIUM (BEAKER) (test bxqw=083) 1.7 mg/dL 1.6-2.6 BASIC METABOLIC [id number] 05:23:00* Test Item Value Reference Range Comments SODIUM (BEAKER) (test gucx=984) 134 meq/L 136-145 POTASSIUM (BEAKER) (test fpuz=362) 3.6 meq/L 3.5-5.1 CHLORIDE (BEAKER) (test kbmj=510) 110 meq/L 98-107 CO2 (BEAKER) (test hpho=158) 17 meq/L 22-29 BLOOD UREA NITROGEN (BEAKER) (test nyhv=443) 8 mg/dL 7-21 CREATININE (BEAKER) (test usnn=407) 0.91 mg/dL 0.57-1.25 GLUCOSE RANDOM (BEAKER) (test brth=708) 88 mg/dL 70-105 CALCIUM (BEAKER) (test vjmw=260) 8.4 mg/dL 8.4-10.2 EGFR (BEAKER) (test iare=6796) 75 mL/min/1.73 sq m ESTIMATED GFR IS NOT ACCURATE CREATININE CLEARANCE IN PREDICTING GLOMERULAR FILTRATION RATE. ESTIMATED GFR IS NOT APPLICABLE FOR DIALYSIS PATIENTS. [id number] 05:10:00* Test Item Value Reference Range Comments PARTIAL THROMBOPLASTIN TIME (BEAKER) (test mvir=628) 44.0 seconds 22.5-36.0 PROTHROMBIN TIME/[id number] 05:09:00* Test Item Value Reference Range Comments PROTIME (BEAKER) (test bwsh=090) 16.5 seconds 11.7-14.7 INR (BEAKER) (test nzuv=683) 1.3 <=5.9 RECOMMENDED COUMADIN/WARFARIN INR THERAPY RANGESSTANDARD DOSE: 2.0 - 3.0 Inclu rip: PROPHYLAXIS for venous thrombosis, systemic embolization; TREATMENT for kris ous thrombosis and/or pulmonary embolus.HIGH RISK: Target INR is 2.5-3.5 for pat ients with mechanical heart valves.CBC (HEMOGRAM ONLY)2017-07-11 05:00:00* Test Item Value Reference Range Comments WHITE BLOOD CELL COUNT (BEAKER) (test eqfj=539) 11.2 K/ L 3.5-10.5 RED BLOOD CELL COUNT (BEAKER) (test njzp=553) 3.76 M/ L 3.93-5.22 HEMOGLOBIN (BEAKER) (test coeq=152) 9.6 GM/DL 11.2-15.7 HEMATOCRIT (BEAKER) (test rizd=385) 29.6 % 34.1-44.9 MEAN CORPUSCULAR VOLUME (BEAKER) (test gcjg=819) 78.7 fL 79.4-94.8 MEAN CORPUSCULAR HEMOGLOBIN (BEAKER) (test xvjt=971) 25.5 pg 25.6-32.2 MEAN CORPUSCULAR HEMOGLOBIN CONC (BEAKER) (test seto=573) 32.4 GM/DL 32.2-35.5 RED CELL DISTRIBUTION WIDTH (BEAKER) (test awkt=593) 19.9 % 11.7-14.4 PLATELET COUNT (BEAKER) (test yopy=240) 260 K/CU MM 150-450 MEAN PLATELET VOLUME (BEAKER) (test rogh=024) 9.0 fL 9.4-12.3 NUCLEATED RED BLOOD CELLS (BEAKER) (test mbgo=758) 0 /100 WBC 0-0 POCT-GLUCOSE [id number] 20:39:00* Test Item Value Reference Range Comments POC-GLUCOSE METER (BEAKER) (test dxbo=9791) 103 mg/dL 70-[address] [facility] [address] [facility] [address] POCT-GLUCOSE [id number] 17:03:00* Test Item Value Reference Range Comments POC-GLUCOSE METER (BEAKER) (test hbsi=5220) 114 mg/dL 70-[address] [facility] [address] [facility] [address] POCT-GLUCOSE [id number] 12:42:00* Test Item Value Reference Range Comments POC-GLUCOSE METER (BEAKER) (test dqpz=8811) 110 mg/dL 70-[address] [facility] [address] [facility] [address] RAD, CHEST, 1 VIEW, NON [id number] 11:05:00Reason for exam:->Post-op AATA repair with AV replacementShould this be performed at the bedside?->YesFINAL REPORT AP chest HISTORY: Postoperative COMPARISON: 07/09/2017 IMPRESSION:Status post median sternotomy. Stable cardiac silhouette enl argement. Retrocardiac airspace disease unchanged. Possible small effusions. No pneumothorax. Signed: Edwin Babin MDReport Verified Date/Time: 2017 1 1:05:08 Reading Location: [facility] C013X Ortho Consult Reading Room Electronicall y signed by: EDWIN BABIN M.D. on 2017 11:05 AM POCT-GLUCOSE [id number] 07:13:00* Test Item Value Reference Range Comments POC-GLUCOSE METER (BEAKER) (test tuel=6598) 84 mg/dL 70-[address] [facility] [address] [facility] [address] [id number] 05:50:00* Test Item Value Reference Range Comments PHOSPHORUS (BEAKER) (test bkhq=991) 2.4 mg/dL 2.3-4.7 [id number] 05:50:00* Test Item Value Reference Range Comments MAGNESIUM (BEAKER) (test achy=290) 1.8 mg/dL 1.6-2.6 BASIC METABOLIC [id number] 05:50:00* Test Item Value Reference Range Comments SODIUM (BEAKER) (test aazh=286) 136 meq/L 136-145 POTASSIUM (BEAKER) (test cxyg=878) 3.9 meq/L 3.5-5.1 CHLORIDE (BEAKER) (test cszv=365) 112 meq/L 98-107 CO2 (BEAKER) (test xrxr=380) 17 meq/L 22-29 BLOOD UREA NITROGEN (BEAKER) (test lohh=293) 10 mg/dL 7-21 CREATININE (BEAKER) (test ptwz=008) 0.97 mg/dL 0.57-1.25 GLUCOSE RANDOM (BEAKER) (test qsin=100) 82 mg/dL 70-105 CALCIUM (BEAKER) (test hkxw=183) 8.5 mg/dL 8.4-10.2 EGFR (BEAKER) (test uqux=7818) 69 mL/min/1.73 sq m ESTIMATED GFR IS NOT ACCURATE CREATININE CLEARANCE IN PREDICTING GLOMERULAR FILTRATION RATE. ESTIMATED GFR IS NOT APPLICABLE FOR DIALYSIS PATIENTS. [id number] 05:25:00* Test Item Value Reference Range Comments PARTIAL THROMBOPLASTIN TIME (BEAKER) (test vvfw=326) 38.3 seconds 22.5-36.0 PROTHROMBIN TIME/[id number] 05:24:00* Test Item Value Reference Range Comments PROTIME (BEAKER) (test hffg=671) 15.7 seconds 11.7-14.7 INR (BEAKER) (test znsz=488) 1.3 <=5.9 RECOMMENDED COUMADIN/WARFARIN INR THERAPY RANGESSTANDARD DOSE: 2.0 - 3.0 Inclu rip: PROPHYLAXIS for venous thrombosis, systemic embolization; TREATMENT for kris ous thrombosis and/or pulmonary embolus.HIGH RISK: Target INR is 2.5-3.5 for pat ients with mechanical heart valves.CBC (HEMOGRAM ONLY)2017 05:19:00* Test Item Value Reference Range Comments WHITE BLOOD CELL COUNT (BEAKER) (test eztj=981) 10.7 K/ L 3.5-10.5 RED BLOOD CELL COUNT (BEAKER) (test uyeg=455) 3.99 M/ L 3.93-5.22 HEMOGLOBIN (BEAKER) (test xpkr=463) 10.0 GM/DL 11.2-15.7 HEMATOCRIT (BEAKER) (test rwis=342) 31.7 % 34.1-44.9 MEAN CORPUSCULAR VOLUME (BEAKER) (test cdri=222) 79.4 fL 79.4-94.8 MEAN CORPUSCULAR HEMOGLOBIN (BEAKER) (test xptb=674) 25.1 pg 25.6-32.2 MEAN CORPUSCULAR HEMOGLOBIN CONC (BEAKER) (test jqmr=381) 31.5 GM/DL 32.2-35.5 RED CELL DISTRIBUTION WIDTH (BEAKER) (test cwpz=595) 19.9 % 11.7-14.4 PLATELET COUNT (BEAKER) (test woih=224) 229 K/CU MM 150-450 MEAN PLATELET VOLUME (BEAKER) (test oijz=652) 8.5 fL 9.4-12.3 NUCLEATED RED BLOOD CELLS (BEAKER) (test pncu=438) 0 /100 WBC 0-0 POCT-GLUCOSE [id number] 17:19:00* Test Item Value Reference Range Comments POC-GLUCOSE METER (BEAKER) (test oppp=0230) 98 mg/dL 70-110 TESTED AT [address] [address] U/S, [id number] 12:32:00Laterality?->RightReason for exam:-> moderate to large pleural effusion seen on CTFINAL REPORT PROCEDURE: Ultrasound-guided thoracentesis INDICATION: 66-year-old woman with right pleural effusion. DESCRIPTION: After obtaining informed written consent, ultrasound scan showed pleural effusion on the right. The overlying skin was prepped and draped in the usual, sterile fashion and local 1% lidocaine anesthesia was administered. A 4 [place] catheter was advanced into the pleural cavity and 800 cc of serosanguineous fluid was removed. The catheter was removed without immediate complication. Samples were sent for analysis. IMPRESSION:Uncomplicated ultrasound-guided right thoracentesis with 800 cc fluid removed. Signed: Dolly Bowens MDReport Verified Date/Time: 07/09/2017 12:32:35 Reading Location: [facility] C013Y CT Body Reading Room -GLUCOSE METER 2017-07-09 12:00:00* Test Item Value Reference Range Comments POC-GLUCOSE METER (BEAKER) (test yxmg=7913) 88 mg/dL 70-110 TESTED AT [address] [address] RAD, CHEST, 1 VIEW, NON [id number] 10:51:00Reason for exam:->post right thoracentesisReason for exam:->pt is in US room 1Should this be performed at the bedside?->YesFINAL REPORT AP chest HISTORY: Thoracentesis COMPARISON: 07/09/2017. IMPRESSION:Right pleural effusion diminished volume thoracentesis. Possible small left effusion. No pneumothorax. Stable cardiac silhouette. Bibasilar atelectasis noted. Signed: Edwin Babin Verified Date/Time: 07/09/2017 10:51:23 Reading Location: [address] Ortho Consult Reading Room , CHEST, 1 VIEW, NON [id number] 09:20:00Reason for exam:->Post-op AATA repair with AV replacementShould this be performed at the bedside?->YesFINAL REPORT CLINICAL HISTORY: Post-op AATA repair with AV replacement TECHNIQUE: 1 view of the chest. COMPARISON: 07/08/2017 IMPRESSION: The right jugular sheath and the midline chest tubes have been removed. There is no pneumothorax. Bilateral airspace opacities and small pleural effusions have decreased. The cardiomediastinal silhouette is magnified by technique with sternotomy wires. Signed: Tatyana Haywood Verified Date/Time: 07/09/2017 09:20:37 Reading Location: [facility] C013V Neuro Reading Room -GLUCOSE [id number] 08:27:00* Test Item Value Reference Range Comments POC-GLUCOSE METER (BEAKER) (test vhei=0833) 87 mg/dL 70-[address] [facility] [address] [facility] [address] CBC (HEMOGRAM ONLY)2017-07-09 08:13:00* Test Item Value Reference Range Comments WHITE BLOOD CELL COUNT (BEAKER) (test nuve=211) 9.4 K/ L 3.5-10.5 RED BLOOD CELL COUNT (BEAKER) (test bwwb=304) 3.96 M/ L 3.93-5.22 HEMOGLOBIN (BEAKER) (test lngl=462) 10.2 GM/DL 11.2-15.7 HEMATOCRIT (BEAKER) (test jmkq=252) 31.5 % 34.1-44.9 MEAN CORPUSCULAR VOLUME (BEAKER) (test dnwp=766) 79.5 fL 79.4-94.8 MEAN CORPUSCULAR HEMOGLOBIN (BEAKER) (test yxpj=315) 25.8 pg 25.6-32.2 MEAN CORPUSCULAR HEMOGLOBIN CONC (BEAKER) (test pgvu=682) 32.4 GM/DL 32.2-35.5 RED CELL DISTRIBUTION WIDTH (BEAKER) (test ctyg=928) 20.1 % 11.7-14.4 PLATELET COUNT (BEAKER) (test oeet=199) 230 K/CU MM 150-450 MEAN PLATELET VOLUME (BEAKER) (test tfqn=917) 8.8 fL 9.4-12.3 NUCLEATED RED BLOOD CELLS (BEAKER) (test yele=946) 0 /100 WBC 0-0 [id number] 07:52:00* Test Item Value Reference Range Comments PHOSPHORUS (BEAKER) (test kvcu=242) 2.5 mg/dL 2.3-4.7 [id number] 07:52:00* Test Item Value Reference Range Comments MAGNESIUM (BEAKER) (test pdld=163) 1.9 mg/dL 1.6-2.6 BASIC METABOLIC [id number] 07:52:00* Test Item Value Reference Range Comments SODIUM (BEAKER) (test ojtz=115) 136 meq/L 136-145 POTASSIUM (BEAKER) (test uydr=261) 4.2 meq/L 3.5-5.1 CHLORIDE (BEAKER) (test zidw=010) 112 meq/L 98-107 CO2 (BEAKER) (test gsvy=092) 18 meq/L 22-29 BLOOD UREA NITROGEN (BEAKER) (test shpc=185) 15 mg/dL 7-21 CREATININE (BEAKER) (test chiw=134) 1.06 mg/dL 0.57-1.25 GLUCOSE RANDOM (BEAKER) (test wndy=130) 82 mg/dL 70-105 CALCIUM (BEAKER) (test shoh=104) 8.6 mg/dL 8.4-10.2 EGFR (BEAKER) (test erji=4090) 63 mL/min/1.73 sq m ESTIMATED GFR IS NOT ACCURATE CREATININE CLEARANCE IN PREDICTING GLOMERULAR FILTRATION RATE. ESTIMATED GFR IS NOT APPLICABLE FOR DIALYSIS PATIENTS. [id number] 06:57:00* Test Item Value Reference Range Comments PARTIAL THROMBOPLASTIN TIME (BEAKER) (test coun=301) 37.7 seconds 22.5-36.0 PROTHROMBIN TIME/[id number] 06:56:00* Test Item Value Reference Range Comments PROTIME (BEAKER) (test fhue=149) 15.7 seconds 11.7-14.7 INR (BEAKER) (test vcwn=361) 1.3 <=5.9 RECOMMENDED COUMADIN/WARFARIN INR THERAPY RANGESSTANDARD DOSE: 2.0 - 3.0 Inclu rip: PROPHYLAXIS for venous thrombosis, systemic embolization; TREATMENT for kris ous thrombosis and/or pulmonary embolus.HIGH RISK: Target INR is 2.5-3.5 for pat ients with mechanical heart valves.POCT-GLUCOSE [id number] 20:37:00* Test Item Value Reference Range Comments POC-GLUCOSE METER (BRIANNEAKER) (test cemc=6394) 117 mg/dL 70-[address] [facility] [address] [facility] [address] POCT-GLUCOSE [id number] 17:23:00* Test Item Value Reference Range Comments POC-GLUCOSE METER (LEIGH) (test zvnp=4323) 134 mg/dL 70-[address] [facility] [address] [facility] [address] CTA, CHEST, ABDOMEN - PELVIS, FOR [id number] 16:44:00With 3D reconstruction.Reason for exam:->Post op EvaluationAddendum BeginsREPORT STATUS:A Addendum: I reviewed the nonvascular findings enumerated by Dr. Lara in his report and concur. 1.9 cm left thyroid nodule, suggest ultrasound. Moderate right pleural effusion and small left pleural effusion. Gallbladder is contracted and there is some pericholecystic edema that could indicate inflammatory changes of the gallbladder. There is an area of slight increased density in the dependent portion the gallbladder that may represent a gallstone. Clinical correlation is advised as this may represent calculus cholecystitis. Ultrasound may provide additional clarification. This information was communicated to the patient's nurse at 1630 hours. . Signed: To ana cristinaWinston MDReport Verified Date/Time: 07/08/2017 16:44:41 Reading Location: [place] [address] Angio Body Reading RoomAddendum EndsFINAL REPORT 912 CT angiography of the thoracoabdominal aorta and pelvic arteries, 2016 INDICATION: This is a 66 years old female, for post op evaluation. No o ther information is provided. TECHNIQUE: Spiral acquisition before and during co ntrast administration using a Óscar multidetector CT scanner. Multiplanar 3-D volume rendering reformation was performed using independent workstation interac tively by the dictating physician and the 3-D specialist. The amount of contrast use and method of administration can be found in the scanned EPIC document. This exam was performed according to our departmental dose-optimisation programme, which includes automated exposure control, adjustment of the mA and/or kV accord ing to patient size and/or use of iterative reconstruction technique. Dose modul ation, iterative reconstruction, and/or weight based adjustment of the mA/kV was utilized to reduce the radiation dose to as low as reasonably achievable. Accor ding to operative report, on 04 July 2017, patient underwent ascending aor tic and proximal transverse arch replacement using a precurved 26 mm graft, as w ell as aortic valve replacement using [address] [place] Trifecta bovine pericardial aortic valve. 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 ECG gating was not utilized to minimise radiation exposure to patient. There is an outside facility study performed on 2016 imaging the entire thoracoabdominal aorta. FINDINGS: VASCULAR: The centr al pulmonary artery is normal in calibre. There is no evidence of central pulmon valeria artery embolism. The cardiac chamber demonstrate normal atrioventricular and ventriculoarterial concordance, systemic and pulmonary venous return. Only mild pericardial effusion is identified. Despite this is not a ECG gated, the yousif ry artery origins are well seen. A prosthetic ring is seen in the aortic valve l evel indicating patient's aortic valve replacement. The aortic root could be mckenna sergei. A graft is seen in the ascending thoracic aorta extending into the proximal arch. The vascular graft is widely patent with no anastomotic stenosis or extra vasation of contrast identified. Circumferential hypodensity is seen surrounding the ascending aortic graft with tiny foci of air identified considered postsurg ical in nature. The innominate artery, the left common carotid, the left subclav [place] arteries are well seen. The right common carotid and the right subclavian ar kendra is also well seen. Thereafter, the descending thoracic aorta, abdominal aor ta is koi with scattered calcific atherosclerosis identified. No interval dianne nge is noted when compared to outside facility study a few days ago. Of note, f ocal outpouching of contrast is identified, at the diaphragmatic hiatus, at imag e 162, at 7:00 orientation. This is interpreted as atherosclerotic ulceration. T his has already been present in outside facility study therefore it is not an ac tahir phenomenon. This can be imaged in follow-up assessment. The common iliac, ex ternal iliac, common femoral, and the visualized superficial femoral arteries, b ilaterally, are widely patent with only mild calcific atherosclerosis seen in th e common iliac arteries, bilaterally. The coeliac axis, SMA, DENNIS are widely hammonds nt. Single left renal artery is seen that is widely patent. Only a stump of the takeoff of the right renal artery is identified. The right kidney is atrophic. Q uantitative dimensions of the koi aorta are as follows: 2.5 cm at the proxima l descending thoracic aorta; 2.7 cm at the mid descending thoracic aorta; 2.7 cm at distal descending thoracic aorta; 3.4 x 2.9 cm at the diaphragmatic hiatus; 2.6 cm at the mesenteric level; 2.3 cm at the renal level; and 2.3 cm at the aor tic bifurcation. NONVASCULAR: The visualised thyroid gland has hypodensity ident ified in the left lobe, at image 16, measure 1.9 cm in diameter. If not already performed, ultrasound scan would provide further tissue characterization. The ch est wall and mediastinum is remarkable for prior median sternotomy. Postsurgical changes are seen especially with vertical foci of air identified posterior to t he sternum, for example from image 54 down to image 110, considered postsurgical in nature. Postsurgical changes are also seen surrounding the ascending aortic graft, as expected. Small lymph nodes are seen in the mediastinum. In the lung w indows, no obvious endobronchial lesion is seen. Moderate to large right pleural effusion is identified and small left pleural effusion is seen with associated atelectatic changes/consolidation. Pulmonary vasculature is somewhat prominent s uggesting a degree of cardiac congestion. Correlate with clinical examination. N o suspicious pulmonary nodule is identified. In the abdomen, the liver and splee n appears unremarkable. The liver edge is smooth. No abnormal enhancing structur e is identified. Some hypodensity is seen in the spleen at image 178, that could be perfusion phenomena due to strong arterial phase data set. The left kidney is normal in size and function. No hydronephrosis or perirenal fluid collection is seen. The right kidney is atrophic, likely reflect the right renal artery find ing. The gallbladder is contracted and some pericolic fluid is identified. Bowel is not well assessed by CT angiography as enteric contrast is not given. No obv ious bowel dilation is identified. Suture material is identified in the right-si ded colon. Correlate with appropriate surgical history. Tiny foci of air is iden tified anterior to the liver, at image 213, considered postsurgical in nature. T race fluid is seen adjacent to the peripheral aspect of the right hepatic lobe. Tiny foci of air is identified in the bladder anteriorly reflecting prior cathet erization. The uterus is not well appreciated. No obvious abnormal adnexal mass is seen though CT is not optimized in the assessment of pelvic gynecological str uctures. No significant retroperitoneal adenopathy is identified. Some linear in flammatory changes are identified in the anterior aspect of the right thigh, jus t anterior to the level of the right SFA. This may represent an haematoma. It is located at image 370 of the arterial phase image and image [address] data set. In the bony windows, no acute bony pathology is identified. Some de generative changes are noted. CONCLUSIONS: 1. Patient is post aortic valve repl acement and the graft was placed in the ascending thoracic aorta/transverse arch . The graft is widely patent with no anastomotic stenosis or extravasation of co ntrast identified. Postsurgical changes are seen surrounding the ascending aorti c graft. Thereafter, the descending thoracic aorta and abdominal aorta is koi . Localized atherosclerotic ulceration is seen near the diaphragmatic hiatus le yusuf, no difference to outside study a few days ago. Quantitative dimensions of t he koi thoracoabdominal aorta are as described above. 2. Coronary calcificat ion. 3. Moderate to large right pleural effusion and small left pleural effusio n. Pulmonary vasculature is prominent suggesting a degree of congestion. 4. Oth er findings as described above. The visualised thyroid gland has hypodensity china ntified in the left lobe, at image 16, measure 1.9 cm in diameter. If not alread y performed, ultrasound scan would provide further tissue characterization. The right kidney is atrophic. 5. An addendum will be dictated by the Waiter/Waitress Buffet Rad iologist regarding the nonvascular findings. Signed: Corey Laraeport Verified Date/Time: 07/08/2017 15:32:56 Reading Location: [facility] P047 Cardiolog y MRI -GLUCOSE [id number] 11:38:00* Test Item Value Reference Range Comments POC-GLUCOSE METER (BEAKER) (test lldm=4296) 106 mg/dL 70-[address] [facility] [address] [facility] [address] POCT-GLUCOSE [id number] 08:06:00* Test Item Value Reference Range Comments POC-GLUCOSE METER (BEAKER) (test mscj=3522) 76 mg/dL 70-[address] [facility] [address] [facility] [address] RAD, CHEST, 1 VIEW, NON [id number] 07:52:00Reason for exam:->Post-op AATA repair with AV replacementShould this be performed at the bedside?->YesFINAL REPORT CLINICAL HISTORY: Post-op AATA repair with AV replacement TECHNIQUE: 1 view of the chest. COMPARISON: 07/07/2017 IMPRESSION: One of the two midline chest tubes has been removed. The right jugular sheath rem ains. There is no pneumothorax. Bilateral mid to lower lung airspace opacities a nd small to moderate pleural effusions are unchanged. The cardiomediastinal silh ouette is magnified by technique with sternotomy wires. Signed: Tatyana Haywood Verified Date/Time: 07/08/2017 07:52:18 Reading Location: [facility] Radiology Reading Room Electronically signed by: TATYANA HAYWOOD M.D. on 0 07/08/2017 07:52 AM [id number] 06:19:00* Test Item Value Reference Range Comments PHOSPHORUS (BEAKER) (test aena=529) 2.5 mg/dL 2.3-4.7 [id number] 06:19:00* Test Item Value Reference Range Comments MAGNESIUM (BEAKER) (test vflt=658) 2.1 mg/dL 1.6-2.6 BASIC METABOLIC [id number] 06:19:00* Test Item Value Reference Range Comments SODIUM (BEAKER) (test oeij=206) 138 meq/L 136-145 POTASSIUM (BEAKER) (test ywfb=361) 3.6 meq/L 3.5-5.1 CHLORIDE (BEAKER) (test txfn=325) 112 meq/L 98-107 CO2 (BEAKER) (test jlvv=971) 19 meq/L 22-29 BLOOD UREA NITROGEN (BEAKER) (test wntr=127) 22 mg/dL 7-21 CREATININE (BEAKER) (test smmh=730) 1.09 mg/dL 0.57-1.25 GLUCOSE RANDOM (BEAKER) (test erhk=271) 83 mg/dL 70-105 CALCIUM (BEAKER) (test dcxy=469) 8.4 mg/dL 8.4-10.2 EGFR (BEAKER) (test ydnl=5202) 61 mL/min/1.73 sq m ESTIMATED GFR IS NOT ACCURATE CREATININE CLEARANCE IN PREDICTING GLOMERULAR FILTRATION RATE. ESTIMATED GFR IS NOT APPLICABLE FOR DIALYSIS PATIENTS. CBC (HEMOGRAM ONLY)2017-07-08 06:06:00* Test Item Value Reference Range Comments WHITE BLOOD CELL COUNT (BEAKER) (test rorr=021) 12.1 K/ L 3.5-10.5 RED BLOOD CELL COUNT (BEAKER) (test dtmp=860) 3.87 M/ L 3.93-5.22 HEMOGLOBIN (BEAKER) (test rpif=789) 9.8 GM/DL 11.2-15.7 HEMATOCRIT (BEAKER) (test nzdw=231) 31.0 % 34.1-44.9 MEAN CORPUSCULAR VOLUME (BEAKER) (test vkit=049) 80.1 fL 79.4-94.8 MEAN CORPUSCULAR HEMOGLOBIN (BEAKER) (test rzyc=616) 25.3 pg 25.6-32.2 MEAN CORPUSCULAR HEMOGLOBIN CONC (BEAKER) (test usao=577) 31.6 GM/DL 32.2-35.5 RED CELL DISTRIBUTION WIDTH (BEAKER) (test cqzj=130) 20.1 % 11.7-14.4 PLATELET COUNT (BEAKER) (test lbqp=152) 213 K/CU MM 150-450 MEAN PLATELET VOLUME (BEAKER) (test zbvo=990) 9.1 fL 9.4-12.3 NUCLEATED RED BLOOD CELLS (BEAKER) (test kzob=299) 0 /100 WBC 0-0 [id number] 06:01:00* Test Item Value Reference Range Comments PARTIAL THROMBOPLASTIN TIME (BEAKER) (test fadv=324) 40.2 seconds 22.5-36.0 PROTHROMBIN TIME/[id number] 06:00:00* Test Item Value Reference Range Comments PROTIME (BEAKER) (test eojc=174) 17.2 seconds 11.7-14.7 INR (BEAKER) (test rerv=243) 1.4 <=5.9 RECOMMENDED COUMADIN/WARFARIN INR THERAPY RANGESSTANDARD DOSE: 2.0 - 3.0 Inclu rip: PROPHYLAXIS for venous thrombosis, systemic embolization; TREATMENT for kris ous thrombosis and/or pulmonary embolus.HIGH RISK: Target INR is 2.5-3.5 for pat ients with mechanical heart valves.POCT-GLUCOSE [id number] 21:20:00* Test Item Value Reference Range Comments POC-GLUCOSE METER (BEAKER) (test bnea=9059) 102 mg/dL 70-[address] [facility] [address] [facility] [address] POCT-GLUCOSE [id number] 17:33:00* Test Item Value Reference Range Comments POC-GLUCOSE METER (BEAKER) (test vrtg=3683) 103 mg/dL 70-[address] [facility] [address] [facility] [address] POCT-GLUCOSE [id number] 11:57:00* Test Item Value Reference Range Comments POC-GLUCOSE METER (BEAKER) (test mxxt=7402) 100 mg/dL 70-110 TESTED AT [place] [id number] [facility] [address] RAD, CHEST, 1 VIEW, NON [id number] 09:28:00Reason for exam:->Post-op AATA repair with AV replacementShould this be performed at the bedside?->YesFINAL REPORT Technique: Single view of the chest COMPARISON: 07/06/2017 FINDINGS: Bilateral interstitial and airspace opacities and pleural effusions are stable. No gross new lung parenchymal changes. Support lines and tubes are stable. IMPRESSION: 1. No significant interval change. Signed: Smiley Dolan MDReport Verified Date/Time: 07/07/2017 09:28:59 Reading Location: [facility] Reading Room Electronically signed by: LOGAN DOLAN M.D. on 07/07 09:28 AM POCT-GLUCOSE [id number] 09:23:00* Test Item Value Reference Range Comments POC-GLUCOSE METER (BEAKER) (test ivcj=8710) 113 mg/dL 70-110 TESTED AT [address] [address] POCT-GLUCOSE [id number] 07:19:00* Test Item Value Reference Range Comments POC-GLUCOSE METER (BEAKER) (test tsag=1310) 101 mg/dL 70-110 TESTED AT [address] [address] [id number] 06:34:00* Test Item Value Reference Range Comments PHOSPHORUS (BEAKER) (test rrnx=322) 2.7 mg/dL 2.3-4.7 [id number] 06:34:00* Test Item Value Reference Range Comments MAGNESIUM (BEAKER) (test ctlo=271) 2.2 mg/dL 1.6-2.6 BASIC METABOLIC [id number] 06:34:00* Test Item Value Reference Range Comments SODIUM (BEAKER) (test wylm=891) 139 meq/L 136-145 POTASSIUM (BEAKER) (test xxax=193) 3.8 meq/L 3.5-5.1 CHLORIDE (BEAKER) (test akvd=958) 113 meq/L 98-107 CO2 (BEAKER) (test hwys=252) 20 meq/L 22-29 BLOOD UREA NITROGEN (BEAKER) (test lkud=065) 22 mg/dL 7-21 CREATININE (BEAKER) (test qepc=896) 1.07 mg/dL 0.57-1.25 GLUCOSE RANDOM (BEAKER) (test mufk=112) 90 mg/dL 70-105 CALCIUM (BEAKER) (test zfhf=156) 9.0 mg/dL 8.4-10.2 EGFR (BEAKER) (test inmo=1123) 62 mL/min/1.73 sq m ESTIMATED GFR IS NOT ACCURATE CREATININE CLEARANCE IN PREDICTING GLOMERULAR FILTRATION RATE. ESTIMATED GFR IS NOT APPLICABLE FOR DIALYSIS PATIENTS. POCT-GLUCOSE [id number] 06:14:00* Test Item Value Reference Range Comments POC-GLUCOSE METER (BEAKER) (test zfta=3630) 109 mg/dL 70-[address] [facility] [address] [facility] [address] PT/[id number] 06:13:00* Test Item Value Reference Range Comments PROTIME (BEAKER) (test lvpk=616) 17.7 seconds 11.7-14.7 INR (BEAKER) (test mfkb=937) 1.5 <=5.9 PARTIAL THROMBOPLASTIN TIME (BEAKER) (test frul=489) 41.4 seconds 22.5-36.0 RECOMMENDED COUMADIN/WARFARIN INR THERAPY RANGESSTANDARD DOSE: 2.0 - 3.0 Inclu rip: PROPHYLAXIS for venous thrombosis, systemic embolization; TREATMENT for kris ous thrombosis and/or pulmonary embolus.HIGH RISK: Target INR is 2.5-3.5 for pat ients with mechanical heart valves.[id number] 06:13:00* Test Item Value Reference Range Comments PARTIAL THROMBOPLASTIN TIME (BEAKER) (test aant=386) 41.4 seconds 22.5-36.0 PROTHROMBIN TIME/[id number] 06:12:00* Test Item Value Reference Range Comments PROTIME (BEAKER) (test kkhz=191) 17.7 seconds 11.7-14.7 INR (BEAKER) (test hzru=387) 1.5 <=5.9 RECOMMENDED COUMADIN/WARFARIN INR THERAPY RANGESSTANDARD DOSE: 2.0 - 3.0 Inclu rip: PROPHYLAXIS for venous thrombosis, systemic embolization; TREATMENT for kris ous thrombosis and/or pulmonary embolus.HIGH RISK: Target INR is 2.5-3.5 for pat ients with mechanical heart valves.CBC (HEMOGRAM ONLY)2017-07-07 06:08:00* Test Item Value Reference Range Comments WHITE BLOOD CELL COUNT (BEAKER) (test ztau=138) 17.1 K/ L 3.5-10.5 RED BLOOD CELL COUNT (BEAKER) (test owvl=870) 4.21 M/ L 3.93-5.22 HEMOGLOBIN (BEAKER) (test zxhr=085) 10.8 GM/DL 11.2-15.7 HEMATOCRIT (BEAKER) (test czkk=460) 33.5 % 34.1-44.9 MEAN CORPUSCULAR VOLUME (BEAKER) (test fguj=376) 79.6 fL 79.4-94.8 MEAN CORPUSCULAR HEMOGLOBIN (BEAKER) (test ipad=319) 25.7 pg 25.6-32.2 MEAN CORPUSCULAR HEMOGLOBIN CONC (BEAKER) (test hcnx=992) 32.2 GM/DL 32.2-35.5 RED CELL DISTRIBUTION WIDTH (BEAKER) (test ljnm=294) 19.9 % 11.7-14.4 PLATELET COUNT (BEAKER) (test djfy=690) 250 K/CU MM 150-450 MEAN PLATELET VOLUME (BEAKER) (test yoqu=589) 9.1 fL 9.4-12.3 NUCLEATED RED BLOOD CELLS (BEAKER) (test aenr=821) 0 /100 WBC 0-0 [id number] 17:36:00* Test Item Value Reference Range Comments POTASSIUM (BEAKER) (test lqyd=621) 3.8 meq/L 3.5-5.1 [id number] 17:36:00* Test Item Value Reference Range Comments MAGNESIUM (BEAKER) (test basu=794) 2.3 mg/dL 1.6-2.6 RAD, CHEST, 1 VIEW, [id number] 11:04:00Reason for exam:->Post-op AATA repair with AV replacementShould this be performed at the bedside?->YesFINAL REPORT Portable chest HISTORY: Postop AAA TAA repair with AVR placement. COMPARISON STUDY: July 05, 2017 FINDINGS: The cardiac silhouette is enlarged. The patient is status post sternotomy and valve placemen t with support lines and tubes in place but the Hamlin-Tresa catheter, endotracheal tube and nasogastric tube have been removed. A right-sided chest tube has also been removed. Airspace opacities are seen in the mid to lower lung benedict, more pronounced on previous with blunting cosmetic angles. No pneumothorax is seen. D egenerative changes are noted. IMPRESSION: Worsening of pulmonary opacities, mos t likely related to worsening CHF. Clinical correlation and follow-up imaging po st therapy recommended. Signed: Cal Dangeloeport Verified Date/Time: 11:04:35 Reading Location: [facility] Diagnostic Imaging Reading Room - [place] [address] [id number] 03:57:00* Test Item Value Reference Range Comments POTASSIUM (BEAKER) (test lpkp=028) 3.6 meq/L 3.5-5.1 [id number] 03:57:00* Test Item Value Reference Range Comments MAGNESIUM (BEAKER) (test zqkq=297) 2.4 mg/dL 1.6-2.6 [id number] 03:57:00* Test Item Value Reference Range Comments PHOSPHORUS (BEAKER) (test pogd=427) 3.6 mg/dL 2.3-4.7 BASIC METABOLIC [id number] 03:57:00* Test Item Value Reference Range Comments SODIUM (BEAKER) (test uzxu=295) 143 meq/L 136-145 POTASSIUM (BEAKER) (test mzai=553) 3.6 meq/L 3.5-5.1 CHLORIDE (BEAKER) (test bwqx=886) 115 meq/L 98-107 CO2 (BEAKER) (test rxjd=432) 19 meq/L 22-29 BLOOD UREA NITROGEN (BEAKER) (test zzeb=739) 15 mg/dL 7-21 CREATININE (BEAKER) (test bnwj=617) 1.13 mg/dL 0.57-1.25 GLUCOSE RANDOM (BEAKER) (test tnrl=812) 108 mg/dL 70-105 CALCIUM (BEAKER) (test prkj=213) 8.8 mg/dL 8.4-10.2 EGFR (BEAKER) (test zrnz=4142) 58 mL/min/1.73 sq m ESTIMATED GFR IS NOT ACCURATE CREATININE CLEARANCE IN PREDICTING GLOMERULAR FILTRATION RATE. ESTIMATED GFR IS NOT APPLICABLE FOR DIALYSIS PATIENTS. PT/[id number] 03:43:00* Test Item Value Reference Range Comments PROTIME (BEAKER) (test yjlj=056) 19.4 seconds 11.7-14.7 INR (BEAKER) (test jxkt=329) 1.6 <=5.9 PARTIAL THROMBOPLASTIN TIME (BEAKER) (test biak=238) 39.8 seconds 22.5-36.0 RECOMMENDED COUMADIN/WARFARIN INR THERAPY RANGESSTANDARD DOSE: 2.0 - 3.0 Inclu rip: PROPHYLAXIS for venous thrombosis, systemic embolization; TREATMENT for kris ous thrombosis and/or pulmonary embolus.HIGH RISK: Target INR is 2.5-3.5 for pat ients with mechanical heart valves.[id number] 03:43:00* Test Item Value Reference Range Comments PARTIAL THROMBOPLASTIN TIME (BEAKER) (test wcmn=638) 39.8 seconds 22.5-36.0 PROTHROMBIN TIME/[id number] 03:42:00* Test Item Value Reference Range Comments PROTIME (BEAKER) (test xnkd=041) 19.4 seconds 11.7-14.7 INR (BEAKER) (test ckxf=599) 1.6 <=5.9 RECOMMENDED COUMADIN/WARFARIN INR THERAPY RANGESSTANDARD DOSE: 2.0 - 3.0 Inclu rip: PROPHYLAXIS for venous thrombosis, systemic embolization; TREATMENT for kris ous thrombosis and/or pulmonary embolus.HIGH RISK: Target INR is 2.5-3.5 for pat ients with mechanical heart valves.CBC (HEMOGRAM ONLY)2017-07-06 03:33:00* Test Item Value Reference Range Comments WHITE BLOOD CELL COUNT (BEAKER) (test ckxb=639) 19.1 K/ L 3.5-10.5 RED BLOOD CELL COUNT (BEAKER) (test xbin=433) 4.12 M/ L 3.93-5.22 HEMOGLOBIN (BEAKER) (test etmz=420) 10.7 GM/DL 11.2-15.7 HEMATOCRIT (BEAKER) (test tulx=224) 32.3 % 34.1-44.9 MEAN CORPUSCULAR VOLUME (BEAKER) (test ubgv=775) 78.4 fL 79.4-94.8 MEAN CORPUSCULAR HEMOGLOBIN (BEAKER) (test hnsb=506) 26.0 pg 25.6-32.2 MEAN CORPUSCULAR HEMOGLOBIN CONC (BEAKER) (test dhsa=327) 33.1 GM/DL 32.2-35.5 RED CELL DISTRIBUTION WIDTH (BEAKER) (test keqf=526) 19.0 % 11.7-14.4 PLATELET COUNT (BEAKER) (test xdun=660) 266 K/CU MM 150-450 MEAN PLATELET VOLUME (BEAKER) (test kvss=453) 8.8 fL 9.4-12.3 NUCLEATED RED BLOOD CELLS (BEAKER) (test wabw=282) 0 /100 WBC 0-0 BLOOD GAS, [id number] 03:29:00* Test Item Value Reference Range Comments PH ARTERIAL (BEAKER) (test vcty=246) 7.47 7.35-7.45 PCO2 ARTERIAL (BEAKER) (test xrsn=393) 29 mmHg 35-45 PO2 ARTERIAL (BEAKER) (test jecm=666) 67 mmHg 80-90 O2 SATURATION ARTERIAL (BEAKER) (test wugj=232) 94.7 % 96.0-97.0 HCO3 ARTERIAL (BEAKER) (test ndny=413) 20 mmol/L 21-29 BASE EXCESS ARTERIAL (BEAKER) (test lpdq=418) -2.7 mmol/L -2.0-3.0 PATIENT TEMPERATURE (BEAKER) (test glav=8159) 36.9 C FIO2 (BEAKER) (test krth=4305) 32.0 % Daily ABG with morning labs while patient is intubated.[id number] 00:02:00* Test Item Value Reference Range Comments POTASSIUM (BEAKER) (test sxzl=138) 3.9 meq/L 3.5-5.1 Specimen slightly hemolyzed Check Serum Potassium level 2 hours after oral potassium replacement completed o r 30 min after intravenous potassium replacement.POCT-GLUCOSE [id number] 23:19:00* Test Item Value Reference Range Comments POC-GLUCOSE METER (BEAKER) (test xiwh=1392) 92 mg/dL 70-110 TESTED AT [address] [address] POCT-GLUCOSE [id number] 15:15:00* Test Item Value Reference Range Comments POC-GLUCOSE METER (BEAKER) (test fvhi=0675) 142 mg/dL 70-110 TESTED AT [address] [address] TSH/FREE T4 IF [id number] 14:21:00* Test Item Value Reference Range Comments THYROID STIMULATING HORMONE (BEAKER) (test viqi=579) 0.29 uIU/mL 0.35-4.94 T4, [id number] 13:53:00* Test Item Value Reference Range Comments FREE T4 (BEAKER) (test njol=634) 0.96 ng/dL 0.70-1.48 POTASSIUM-STAT [id number] 12:46:00* Test Item Value Reference Range Comments POTASSIUM (BEAKER) (test cvap=459) 2.9 meq/L 3.6-5.5 POCT-GLUCOSE [id number] 12:29:00* Test Item Value Reference Range Comments POC-GLUCOSE METER (BEAKER) (test yrqw=1678) 112 mg/dL 70-110 TESTED AT [place] [id number] POCT-GLUCOSE [id number] 12:29:00* Test Item Value Reference Range Comments POC-GLUCOSE METER (BEAKER) (test dmoe=5209) 115 mg/dL 70-110 TESTED AT [address] [address] POCT-GLUCOSE [id number] 08:06:00* Test Item Value Reference Range Comments POC-GLUCOSE METER (BEAKER) (test jfyq=4720) 153 mg/dL 70-110 TESTED AT [address] [address] [id number] 06:09:00* Test Item Value Reference Range Comments ACTIVATED CLOTTING TIME (BEAKER) (test dmoh=333) 120 sec TESTED AT [address] [address] [id number] 06:09:00* Test Item Value Reference Range Comments ACTIVATED CLOTTING TIME (BEAKER) (test bcbs=117) 692 sec TESTED AT [address] [address] [id number] 06:09:00* Test Item Value Reference Range Comments ACTIVATED CLOTTING TIME (BEAKER) (test gsyw=393) 923 sec TESTED AT [address] [address] [id number] 06:09:00* Test Item Value Reference Range Comments ACTIVATED CLOTTING TIME (BEAKER) (test yrdx=895) > sec OUTSIDE MEASURING RANGETESTED AT [place] [address] [id number] 06:08:00* Test Item Value Reference Range Comments ACTIVATED CLOTTING TIME (BEAKER) (test rbwd=060) 494 sec TESTED AT [place] [address] [id number] 06:08:00* Test Item Value Reference Range Comments ACTIVATED CLOTTING TIME (BEAKER) (test ueec=292) 461 sec TESTED AT [place] [address] POCT-GLUCOSE [id number] 06:04:00* Test Item Value Reference Range Comments POC-GLUCOSE METER (BEAKER) (test cufx=0992) 166 mg/dL 70-110 TESTED AT [place] [address] POCT-GLUCOSE [id number] 06:04:00* Test Item Value Reference Range Comments POC-GLUCOSE METER (BEAKER) (test kjpu=6993) 175 mg/dL 70-110 TESTED AT [place] [address] POCT-GLUCOSE [id number] 06:04:00* Test Item Value Reference Range Comments POC-GLUCOSE METER (BEAKER) (test gggz=1094) 180 mg/dL 70-110 TESTED AT [place] [address] [id number] 03:57:00* Test Item Value Reference Range Comments PROTIME (BEAKER) (test fxwh=069) 18.7 seconds 11.7-14.7 INR (BEAKER) (test axdu=329) 1.6 <=5.9 PARTIAL THROMBOPLASTIN TIME (BEAKER) (test bxhd=895) 41.5 seconds 22.5-36.0 RECOMMENDED COUMADIN/WARFARIN INR THERAPY RANGESSTANDARD DOSE: 2.0 - 3.0 Inclu rip: PROPHYLAXIS for venous thrombosis, systemic embolization; TREATMENT for kris ous thrombosis and/or pulmonary embolus.HIGH RISK: Target INR is 2.5-3.5 for pat ients with mechanical heart valves.BASIC METABOLIC [id number] 03:49:00* Test Item Value Reference Range Comments SODIUM (BEAKER) (test qrfk=544) 147 meq/L 136-145 POTASSIUM (BEAKER) (test cxly=012) 2.1 meq/L 3.5-5.1 CHLORIDE (BEAKER) (test bkfh=300) 114 meq/L 98-107 CO2 (BEAKER) (test nakv=837) 13 meq/L 22-29 BLOOD UREA NITROGEN (BEAKER) (test tglr=986) 13 mg/dL 7-21 CREATININE (BEAKER) (test domv=929) 1.52 mg/dL 0.57-1.25 GLUCOSE RANDOM (BEAKER) (test hctb=100) 167 mg/dL 70-105 CALCIUM (BEAKER) (test yckd=772) 8.9 mg/dL 8.4-10.2 EGFR (BEAKER) (test gcwz=0736) 41 mL/min/1.73 sq m ESTIMATED GFR IS NOT ACCURATE CREATININE CLEARANCE IN PREDICTING GLOMERULAR FILTRATION RATE. ESTIMATED GFR IS NOT APPLICABLE FOR DIALYSIS PATIENTS. [id number] 03:49:00* Test Item Value Reference Range Comments PHOSPHORUS (BEAKER) (test rpyj=834) < mg/dL 2.3-4.7 [id number] 03:46:00* Test Item Value Reference Range Comments MAGNESIUM (BEAKER) (test hyvw=337) 3.2 mg/dL 1.6-2.6 OXYGEN SATURATION, [id number] 03:37:00* Test Item Value Reference Range Comments O2 SATURATION (MEASURED) (BEAKER) (test idnd=2881) 89.0 % CBC (HEMOGRAM ONLY)2017-07-05 03:35:00* Test Item Value Reference Range Comments WHITE BLOOD CELL COUNT (BEAKER) (test fajw=620) 11.9 K/ L 3.5-10.5 RED BLOOD CELL COUNT (BEAKER) (test tmvq=084) 3.58 M/ L 3.93-5.22 HEMOGLOBIN (BEAKER) (test nrek=754) 9.3 GM/DL 11.2-15.7 HEMATOCRIT (BEAKER) (test ocsl=651) 29.2 % 34.1-44.9 MEAN CORPUSCULAR VOLUME (BEAKER) (test hqin=197) 81.6 fL 79.4-94.8 MEAN CORPUSCULAR HEMOGLOBIN (BEAKER) (test jvrn=786) 26.0 pg 25.6-32.2 MEAN CORPUSCULAR HEMOGLOBIN CONC (BEAKER) (test qwsf=505) 31.8 GM/DL 32.2-35.5 RED CELL DISTRIBUTION WIDTH (BEAKER) (test bvou=505) 18.6 % 11.7-14.4 PLATELET COUNT (BEAKER) (test pwqf=409) 354 K/CU MM 150-450 MEAN PLATELET VOLUME (BEAKER) (test xadz=893) 8.8 fL 9.4-12.3 NUCLEATED RED BLOOD CELLS (BEAKER) (test watb=953) 0 /100 WBC 0-0 CALCIUM, [id number] 03:28:00* Test Item Value Reference Range Comments CALCIUM IONIZED (BEAKER) (test vxuj=458) 1.18 mmol/L 1.12-1.27 PH, BLOOD (BEAKER) (test pmkd=8845) 7.38 Check serum Ionized Calcium level after 4 hours after IV Calcium replacement. BLOOD GAS, [id number] 03:27:00* Test Item Value Reference Range Comments PH ARTERIAL (BEAKER) (test pzhv=090) 7.40 7.35-7.45 PCO2 ARTERIAL (BEAKER) (test hxbj=786) 23 mmHg 35-45 PO2 ARTERIAL (BEAKER) (test cagc=466) 235 mmHg 80-90 O2 SATURATION ARTERIAL (BEAKER) (test odwd=371) 99.6 % 96.0-97.0 HCO3 ARTERIAL (BEAKER) (test ardj=736) 14 mmol/L 21-29 BASE EXCESS ARTERIAL (BEAKER) (test xtfw=302) -9.6 mmol/L -2.0-3.0 PATIENT TEMPERATURE (BEAKER) (test ilwa=5719) 35.6 C FIO2 (BEAKER) (test vhsc=1154) 60.0 % Daily ABG with morning labs while patient is intubated.HGB/HCT (H&H) - STAT LAB 2017-07-05 01:07:00* Test Item Value Reference Range Comments HEMOGLOBIN (BEAKER) (test eclx=808) 9.9 g/dL 12.0-15.0 HEMATOCRIT (BEAKER) (test wrie=664) 29.0 % 36.0-45.0 POCT-GLUCOSE [id number] 01:04:00* Test Item Value Reference Range Comments POC-GLUCOSE METER (BEAKER) (test hfkw=8055) 221 mg/dL 70-[address] [facility] [address] [facility] [address] POCT-GLUCOSE [id number] 01:04:00* Test Item Value Reference Range Comments POC-GLUCOSE METER (BEAKER) (test vupz=6080) 202 mg/dL 70-[address] [facility] [address] [facility] [address] [id number] 23:07:00* Test Item Value Reference Range Comments MAGNESIUM (BEAKER) (test ovvf=543) 4.0 mg/dL 1.6-2.6 Specimen slightly hemolyzed [id number] 23:07:00* Test Item Value Reference Range Comments PHOSPHORUS (BEAKER) (test kuny=395) 3.0 mg/dL 2.3-4.7 Specimen slightly hemolyzed BASIC METABOLIC [id number] 23:07:00* Test Item Value Reference Range Comments SODIUM (BEAKER) (test ikfu=090) 145 meq/L 136-145 POTASSIUM (BEAKER) (test hbpz=579) 3.1 meq/L 3.5-5.1 Specimen slightly hemolyzed CHLORIDE (BEAKER) (test hooi=486) 106 meq/L 98-107 CO2 (BEAKER) (test ncrl=655) 21 meq/L 22-29 BLOOD UREA NITROGEN (BEAKER) (test yjat=866) 12 mg/dL 7-21 CREATININE (BEAKER) (test qwsv=256) 1.31 mg/dL 0.57-1.25 Specimen slightly hemolyzed GLUCOSE RANDOM (BEAKER) (test ceoi=769) 220 mg/dL 70-105 CALCIUM (BEAKER) (test keyc=218) 9.4 mg/dL 8.4-10.2 EGFR (BEAKER) (test yijo=6999) 49 mL/min/1.73 sq m ESTIMATED GFR IS NOT ACCURATE CREATININE CLEARANCE IN PREDICTING GLOMERULAR FILTRATION RATE. ESTIMATED GFR IS NOT APPLICABLE FOR DIALYSIS PATIENTS. [id number] 22:51:00* Test Item Value Reference Range Comments PARTIAL THROMBOPLASTIN TIME (BEAKER) (test jvuq=097) 35.9 seconds 22.5-36.0 PROTHROMBIN TIME/[id number] 22:50:00* Test Item Value Reference Range Comments PROTIME (BEAKER) (test vhlu=971) 18.1 seconds 11.7-14.7 INR (BEAKER) (test pxqy=737) 1.5 <=5.9 RECOMMENDED COUMADIN/WARFARIN INR THERAPY RANGESSTANDARD DOSE: 2.0 - 3.0 Inclu rip: PROPHYLAXIS for venous thrombosis, systemic embolization; TREATMENT for kris ous thrombosis and/or pulmonary embolus.HIGH RISK: Target INR is 2.5-3.5 for pat ients with mechanical heart valves.CALCIUM, [id number] 22:47:00* Test Item Value Reference Range Comments CALCIUM IONIZED (BEAKER) (test wyqi=927) 1.07 mmol/L 1.12-1.27 PH, BLOOD (BEAKER) (test kgpm=5939) 7.47 BLOOD GAS, [id number] 22:46:00* Test Item Value Reference Range Comments PH ARTERIAL (BEAKER) (test efae=991) 7.53 7.35-7.45 PCO2 ARTERIAL (BEAKER) (test uhkd=510) 26 mmHg 35-45 PO2 ARTERIAL (BEAKER) (test iasz=090) 118 mmHg 80-90 O2 SATURATION ARTERIAL (BEAKER) (test ddbg=875) 98.9 % 96.0-97.0 HCO3 ARTERIAL (BEAKER) (test wjep=966) 22 mmol/L 21-29 BASE EXCESS ARTERIAL (BEAKER) (test skrn=838) -1.0 mmol/L -2.0-3.0 PATIENT TEMPERATURE (BEAKER) (test vdaq=0502) 34.4 C FIO2 (BEAKER) (test debr=1915) 60.0 % CBC W/PLT COUNT & AUTO [id number] 22:45:00* Test Item Value Reference Range Comments WHITE BLOOD CELL COUNT (BEAKER) (test hyxe=102) 8.0 K/ L 3.5-10.5 RED BLOOD CELL COUNT (BEAKER) (test ykgv=347) 3.54 M/ L 3.93-5.22 HEMOGLOBIN (BEAKER) (test kggg=730) 9.7 GM/DL 11.2-15.7 HEMATOCRIT (BEAKER) (test mvez=057) 28.7 % 34.1-44.9 MEAN CORPUSCULAR VOLUME (BEAKER) (test owjg=209) 81.1 fL 79.4-94.8 MEAN CORPUSCULAR HEMOGLOBIN (BEAKER) (test hebs=894) 27.4 pg 25.6-32.2 MEAN CORPUSCULAR HEMOGLOBIN CONC (BEAKER) (test thoy=545) 33.8 GM/DL 32.2-35.5 RED CELL DISTRIBUTION WIDTH (BEAKER) (test nzsn=797) 19.2 % 11.7-14.4 PLATELET COUNT (BEAKER) (test iilh=727) 269 K/CU MM 150-450 MEAN PLATELET VOLUME (BEAKER) (test duoc=309) 8.4 fL 9.4-12.3 NUCLEATED RED BLOOD CELLS (BEAKER) (test mwyy=293) 0 /100 WBC 0-0 NEUTROPHILS RELATIVE PERCENT (BEAKER) (test mbkn=704) 87 % LYMPHOCYTES RELATIVE PERCENT (BEAKER) (test awjd=489) 12 % MONOCYTES RELATIVE PERCENT (BEAKER) (test mtvu=730) 0 % EOSINOPHILS RELATIVE PERCENT (BEAKER) (test dvhw=016) 0 % BASOPHILS RELATIVE PERCENT (BEAKER) (test jhcg=457) 0 % NEUTROPHILS ABSOLUTE COUNT (BEAKER) (test zzjn=878) 7.01 K/ L 1.56-6.13 LYMPHOCYTES ABSOLUTE COUNT (BEAKER) (test wlvd=655) 0.94 K/ L 1.18-3.74 MONOCYTES ABSOLUTE COUNT (BEAKER) (test efot=447) 0.03 K/ L 0.24-0.36 EOSINOPHILS ABSOLUTE COUNT (BEAKER) (test udev=538) 0.01 K/ L 0.04-0.36 BASOPHILS ABSOLUTE COUNT (BEAKER) (test rrdz=746) 0.00 K/ L 0.01-0.08 IMMATURE GRANULOCYTES-RELATIVE PERCENT (BEAKER) (test eadt=2806) 0 % 0-1 OXYGEN SATURATION, [id number] 22:45:00* Test Item Value Reference Range Comments O2 SATURATION (MEASURED) (BEAKER) (test hsdn=3356) 82.4 % POTASSIUM-STAT [id number] 22:44:00* Test Item Value Reference Range Comments POTASSIUM (BEAKER) (test fiqz=039) 2.9 meq/L 3.6-5.5 GLUCOSE-STAT [id number] 22:44:00* Test Item Value Reference Range Comments GLUCOSE RANDOM (BEAKER) (test rorz=652) 206 mg/dL 70-110 HGB/HCT (H&H) - STAT [id number] 22:44:00* Test Item Value Reference Range Comments HEMOGLOBIN (BEAKER) (test heyi=714) 10.1 g/dL 12.0-15.0 HEMATOCRIT (BEAKER) (test ekdb=338) 30.0 % 36.0-45.0 SODIUM NA-STAT [id number] 22:43:00* Test Item Value Reference Range Comments SODIUM (BEAKER) (test pgzz=871) 144 meq/L 135-148 THROMBOELASTOGRAPH (TEG)2017-07-04 21:44:00* Test Item Value Reference Range Comments TEG ACTIVATED CLOTTING TIME (BEAKER) (test cjrx=3922) 3.6 minutes 4.0-7.0 TEG FIBRINOGEN ACTIVITY (BEAKER) (test ecwm=6465) 80.3 degrees 61.0-73.0 TEG PLT. AGGREGATION (BEAKER) (test frgu=8443) 71.5 MM 55.0-65.0 TGH ACTIVATED CLOTTING TIME (BEAKER) (test kyfk=4830) 3.8 minutes 4.0-7.0 TGH FIBRINOGEN ACTIVITY (BEAKER) (test evye=7467) 77.6 degrees 61.0-73.0 TGH PLT. AGGREGATION (BEAKER) (test dizi=6949) 59.0 MM 55.0-65.0 [id number] 21:10:00* Test Item Value Reference Range Comments PARTIAL THROMBOPLASTIN TIME (BEAKER) (test mdnf=649) 34.9 seconds 22.5-36.0 PROTHROMBIN TIME/[id number] 21:09:00* Test Item Value Reference Range Comments PROTIME (BEAKER) (test dnhk=123) 20.1 seconds 11.7-14.7 INR (BEAKER) (test hqov=199) 1.7 <=5.9 RECOMMENDED COUMADIN/WARFARIN INR THERAPY RANGESSTANDARD DOSE: 2.0 - 3.0 Inclu rip: PROPHYLAXIS for venous thrombosis, systemic embolization; TREATMENT for kris ous thrombosis and/or pulmonary embolus.HIGH RISK: Target INR is 2.5-3.5 for pat ients with mechanical heart valves.[id number] 21:09:00* Test Item Value Reference Range Comments FIBRINOGEN LEVEL (BEAKER) (test muhn=856) 338 mg/dl 225-434 PLATELET [id number] 21:09:00* Test Item Value Reference Range Comments PLATELET COUNT (BEAKER) (test dawv=548) 275 K/CU MM 150-450 HEPATITIS B SURFACE [id number] 21:09:00* Test Item Value Reference Range Comments HEPATITIS B SURFACE ANTIGEN (2) (BEAKER) (test pbss=0651) Nonreactive Nonreactive HEPATITIS C [id number] 21:09:00* Test Item Value Reference Range Comments HEPATITIS C ANTIBODY (BEAKER) (test fwqi=288) Nonreactive Nonreactive HIV-1 ANTIGEN WITH HIV-1/2 [id number] 21:09:00* Test Item Value Reference Range Comments HIV-1 ANTIGEN WITH HIV 1\\T\\2 ANTIBODY (2) (BEAKER) (test fgcg=5787) Nonreactive Nonreactive THROMBOELASTOGRAPH (TEG)2017-07-04 21:07:00* Test Item Value Reference Range Comments TEG ACTIVATED CLOTTING TIME (BEAKER) (test gplp=0676) 6.2 minutes 4.0-7.0 TEG FIBRINOGEN ACTIVITY (BEAKER) (test hhzn=7139) 75.6 degrees 61.0-73.0 TEG PLT. AGGREGATION (BEAKER) (test ujuc=5831) 65.1 MM 55.0-65.0 TGH ACTIVATED CLOTTING TIME (BEAKER) (test obnv=7364) 6.5 minutes 4.0-7.0 TGH FIBRINOGEN ACTIVITY (BEAKER) (test yxcw=7996) 75.5 degrees 61.0-73.0 TGH PLT. AGGREGATION (BEAKER) (test kdmf=5005) 63.3 MM 55.0-65.0 CALCIUM, [id number] 20:57:00* Test Item Value Reference Range Comments CALCIUM IONIZED (BEAKER) (test dsbr=995) 0.83 mmol/L 1.12-1.27 PH, BLOOD (BEAKER) (test sowi=3478) 7.36 BLOOD GAS, [id number] 20:57:00* Test Item Value Reference Range Comments PH ARTERIAL (BEAKER) (test ieco=279) 7.36 7.35-7.45 PCO2 ARTERIAL (BEAKER) (test qdli=065) 36 mmHg 35-45 PO2 ARTERIAL (BEAKER) (test jyho=255) 417 mmHg 80-90 O2 SATURATION ARTERIAL (BEAKER) (test zmtv=935) 99.8 % 96.0-97.0 HCO3 ARTERIAL (BEAKER) (test xxlv=396) 21 mmol/L 21-29 BASE EXCESS ARTERIAL (BEAKER) (test hsdp=483) -5.1 mmol/L -2.0-3.0 PATIENT TEMPERATURE (BEAKER) (test sjny=9078) 34.4 C FIO2 (BEAKER) (test lofj=9441) 100.0 % POTASSIUM-STAT [id number] 20:57:00* Test Item Value Reference Range Comments POTASSIUM (BEAKER) (test igjd=910) 3.2 meq/L 3.6-5.5 GLUCOSE-STAT [id number] 20:57:00* Test Item Value Reference Range Comments GLUCOSE RANDOM (BEAKER) (test umgv=303) 190 mg/dL 70-110 HGB/HCT (H&H) - STAT [id number] 20:57:00* Test Item Value Reference Range Comments HEMOGLOBIN (BEAKER) (test hdsk=609) 8.4 g/dL 12.0-15.0 HEMATOCRIT (BEAKER) (test xgre=282) 25.0 % 36.0-45.0 SODIUM NA-STAT [id number] 20:56:00* Test Item Value Reference Range Comments SODIUM (BEAKER) (test nnyy=482) 142 meq/L 135-148 [id number] 20:45:00* Test Item Value Reference Range Comments FIBRINOGEN LEVEL (BEAKER) (test fvge=870) 290 mg/dl 225-434 [id number] 20:45:00* Test Item Value Reference Range Comments PARTIAL THROMBOPLASTIN TIME (BEAKER) (test pknf=356) 39.6 seconds 22.5-36.0 PROTHROMBIN TIME/[id number] 20:44:00* Test Item Value Reference Range Comments PROTIME (BEAKER) (test nyye=968) 23.4 seconds 11.7-14.7 INR (BEAKER) (test lqyh=979) 2.1 <=5.9 RECOMMENDED COUMADIN/WARFARIN INR THERAPY RANGESSTANDARD DOSE: 2.0 - 3.0 Inclu rip: PROPHYLAXIS for venous thrombosis, systemic embolization; TREATMENT for kris ous thrombosis and/or pulmonary embolus.HIGH RISK: Target INR is 2.5-3.5 for pat ients with mechanical heart valves.PLATELET [id number] 20:33:00* Test Item Value Reference Range Comments PLATELET COUNT (BEAKER) (test zcml=664) 193 K/CU MM 150-450 CALCIUM, [id number] 20:19:00* Test Item Value Reference Range Comments CALCIUM IONIZED (BEAKER) (test ygct=948) 1.04 mmol/L 1.12-1.27 PH, BLOOD (BEAKER) (test kbuf=1424) 7.41 BLOOD GAS, [id number] 20:18:00* Test Item Value Reference Range Comments PH ARTERIAL (BEAKER) (test fxah=585) 7.41 7.35-7.45 PCO2 ARTERIAL (BEAKER) (test xlhx=126) 35 mmHg 35-45 PO2 ARTERIAL (BEAKER) (test bist=093) 389 mmHg 80-90 O2 SATURATION ARTERIAL (BEAKER) (test zlns=296) 99.8 % 96.0-97.0 HCO3 ARTERIAL (BEAKER) (test gcxk=202) 22 mmol/L 21-29 BASE EXCESS ARTERIAL (BEAKER) (test pnwb=578) -2.3 mmol/L -2.0-3.0 PATIENT TEMPERATURE (BEAKER) (test viux=6622) 35.3 C GLUCOSE-STAT [id number] 20:18:00* Test Item Value Reference Range Comments GLUCOSE RANDOM (BEAKER) (test hhcv=766) 151 mg/dL 70-110 HGB/HCT (H&H) - STAT [id number] 20:18:00* Test Item Value Reference Range Comments HEMOGLOBIN (BEAKER) (test ydmb=551) 9.2 g/dL 12.0-15.0 HEMATOCRIT (BEAKER) (test vqqg=677) 27.0 % 36.0-45.0 SODIUM NA-STAT [id number] 20:16:00* Test Item Value Reference Range Comments SODIUM (BEAKER) (test sfnd=571) 138 meq/L 135-148 POTASSIUM-STAT [id number] 20:16:00* Test Item Value Reference Range Comments POTASSIUM (BEAKER) (test wavk=160) 3.8 meq/L 3.6-5.5 BLOOD GAS, [id number] 19:27:00* Test Item Value Reference Range Comments PH ARTERIAL (BEAKER) (test uigo=994) 7.41 7.35-7.45 PCO2 ARTERIAL (BEAKER) (test qlhs=961) 35 mmHg 35-45 PO2 ARTERIAL (BEAKER) (test mmtz=340) 269 mmHg 80-90 O2 SATURATION ARTERIAL (BEAKER) (test dplg=702) 99.6 % 96.0-97.0 HCO3 ARTERIAL (BEAKER) (test qzvx=754) 22 mmol/L 21-29 BASE EXCESS ARTERIAL (BEAKER) (test rvyi=238) -2.7 mmol/L -2.0-3.0 PATIENT TEMPERATURE (BEAKER) (test ntek=6332) 34.5 C FIO2 (BEAKER) (test xeod=7724) 60.0 % GLUCOSE-STAT [id number] 19:27:00* Test Item Value Reference Range Comments GLUCOSE RANDOM (BEAKER) (test cbvt=768) 132 mg/dL 70-110 HGB/HCT (H&H) - STAT [id number] 19:27:00* Test Item Value Reference Range Comments HEMOGLOBIN (BEAKER) (test fokj=914) 9.8 g/dL 12.0-15.0 HEMATOCRIT (BEAKER) (test budn=139) 29.0 % 36.0-45.0 SODIUM NA-STAT [id number] 19:21:00* Test Item Value Reference Range Comments SODIUM (BEAKER) (test wpym=963) 139 meq/L 135-148 POTASSIUM-STAT [id number] 19:21:00* Test Item Value Reference Range Comments POTASSIUM (BEAKER) (test pmrs=464) 5.2 meq/L 3.6-5.5 SODIUM NA-STAT [id number] 18:49:00* Test Item Value Reference Range Comments SODIUM (BEAKER) (test qkpi=833) 138 meq/L 135-148 BLOOD GAS, [id number] 18:49:00* Test Item Value Reference Range Comments PH ARTERIAL (BEAKER) (test mjgc=437) 7.41 7.35-7.45 PCO2 ARTERIAL (BEAKER) (test phny=113) 32 mmHg 35-45 PO2 ARTERIAL (BEAKER) (test azzf=146) 340 mmHg 80-90 O2 SATURATION ARTERIAL (BEAKER) (test gqaa=806) 99.8 % 96.0-97.0 HCO3 ARTERIAL (BEAKER) (test mrke=559) 22 mmol/L 21-29 BASE EXCESS ARTERIAL (BEAKER) (test jabu=090) -4.4 mmol/L -2.0-3.0 PATIENT TEMPERATURE (BEAKER) (test lewl=3634) 27.0 C FIO2 (BEAKER) (test dluh=0181) 60.0 % POTASSIUM-STAT [id number] 18:49:00* Test Item Value Reference Range Comments POTASSIUM (BEAKER) (test kfjl=092) 4.7 meq/L 3.6-5.5 GLUCOSE-STAT [id number] 18:49:00* Test Item Value Reference Range Comments GLUCOSE RANDOM (BEAKER) (test wwsq=986) 124 mg/dL 70-110 HGB/HCT (H&H) - STAT [id number] 18:49:00* Test Item Value Reference Range Comments HEMOGLOBIN (BEAKER) (test aqlm=780) 6.8 g/dL 12.0-15.0 HEMATOCRIT (BEAKER) (test rgpb=491) 20.0 % 36.0-45.0 SODIUM NA-STAT [id number] 17:49:00* Test Item Value Reference Range Comments SODIUM (BEAKER) (test oeji=376) 135 meq/L 135-148 BLOOD GAS, [id number] 17:49:00* Test Item Value Reference Range Comments PH ARTERIAL (BEAKER) (test lfzk=817) 7.47 7.35-7.45 PCO2 ARTERIAL (BEAKER) (test faiv=254) 27 mmHg 35-45 PO2 ARTERIAL (BEAKER) (test hqav=886) 361 mmHg 80-90 O2 SATURATION ARTERIAL (BEAKER) (test kzen=931) 99.8 % 96.0-97.0 HCO3 ARTERIAL (BEAKER) (test xbar=213) 22 mmol/L 21-29 BASE EXCESS ARTERIAL (BEAKER) (test drnv=016) -4.2 mmol/L -2.0-3.0 PATIENT TEMPERATURE (BEAKER) (test inoy=5785) 24.5 C FIO2 (BEAKER) (test oztz=7917) 60.0 % GLUCOSE-STAT [id number] 17:49:00* Test Item Value Reference Range Comments GLUCOSE RANDOM (BEAKER) (test jokf=849) 111 mg/dL 70-110 HGB/HCT (H&H) - STAT [id number] 17:49:00* Test Item Value Reference Range Comments HEMOGLOBIN (BEAKER) (test mage=145) 7.6 g/dL 12.0-15.0 HEMATOCRIT (BEAKER) (test houi=277) 22.0 % 36.0-45.0 POTASSIUM-STAT [id number] 17:49:00* Test Item Value Reference Range Comments POTASSIUM (BEAKER) (test zlhi=491) 2.5 meq/L 3.6-5.5 BLOOD GAS, [id number] 17:30:00* Test Item Value Reference Range Comments PH ARTERIAL (BEAKER) (test fjjg=249) 7.37 7.35-7.45 PCO2 ARTERIAL (BEAKER) (test zgwo=373) 39 mmHg 35-45 PO2 ARTERIAL (BEAKER) (test fctp=178) 511 mmHg 80-90 O2 SATURATION ARTERIAL (BEAKER) (test vnqv=725) 99.9 % 96.0-97.0 HCO3 ARTERIAL (BEAKER) (test oues=616) 23 mmol/L 21-29 BASE EXCESS ARTERIAL (BEAKER) (test nakb=475) -3.4 mmol/L -2.0-3.0 PATIENT TEMPERATURE (BEAKER) (test owxf=5151) 32.0 C FIO2 (BEAKER) (test bjnr=1773) 80.0 % POTASSIUM-STAT [id number] 17:30:00* Test Item Value Reference Range Comments POTASSIUM (BEAKER) (test lylc=712) 2.9 meq/L 3.6-5.5 GLUCOSE-STAT [id number] 17:30:00* Test Item Value Reference Range Comments GLUCOSE RANDOM (BEAKER) (test pgcr=554) 117 mg/dL 70-110 HGB/HCT (H&H) - STAT [id number] 17:30:00* Test Item Value Reference Range Comments HEMOGLOBIN (BEAKER) (test bcxz=252) 7.7 g/dL 12.0-15.0 HEMATOCRIT (BEAKER) (test icqf=931) 23.0 % 36.0-45.0 SODIUM NA-STAT [id number] 17:29:00* Test Item Value Reference Range Comments SODIUM (BEAKER) (test gwjt=449) 136 meq/L 135-148 GLUCOSE-STAT [id number] 16:19:00* Test Item Value Reference Range Comments GLUCOSE RANDOM (BEAKER) (test acks=795) 89 mg/dL 70-110 SODIUM NA-STAT [id number] 16:19:00* Test Item Value Reference Range Comments SODIUM (BEAKER) (test ushv=889) 138 meq/L 135-148 BLOOD GAS, [id number] 16:19:00* Test Item Value Reference Range Comments PH ARTERIAL (BEAKER) (test yvxu=528) 7.42 7.35-7.45 PCO2 ARTERIAL (BEAKER) (test efpg=958) 34 mmHg 35-45 PO2 ARTERIAL (BEAKER) (test euaf=180) 463 mmHg 80-90 O2 SATURATION ARTERIAL (BEAKER) (test icle=013) 99.9 % 96.0-97.0 HCO3 ARTERIAL (BEAKER) (test xwai=447) 22 mmol/L 21-29 BASE EXCESS ARTERIAL (BEAKER) (test esco=555) -2.2 mmol/L -2.0-3.0 PATIENT TEMPERATURE (BEAKER) (test otfl=9673) 37.0 C POTASSIUM-STAT [id number] 16:19:00* Test Item Value Reference Range Comments POTASSIUM (BEAKER) (test xode=589) 2.9 meq/L 3.6-5.5 HGB/HCT (H&H) - STAT [id number] 16:19:00* Test Item Value Reference Range Comments HEMOGLOBIN (BEAKER) (test sfun=985) 9.6 g/dL 12.0-15.0 HEMATOCRIT (BEAKER) (test levp=217) 28.0 % 36.0-45.0 BASIC METABOLIC [id number] 15:41:00* Test Item Value Reference Range Comments SODIUM (BEAKER) (test ncis=706) 137 meq/L 136-145 POTASSIUM (BEAKER) (test dqus=687) 3.0 meq/L 3.5-5.1 CHLORIDE (BEAKER) (test mjug=200) 106 meq/L 98-107 CO2 (BEAKER) (test ouby=919) 21 meq/L 22-29 BLOOD UREA NITROGEN (BEAKER) (test vbxt=805) 11 mg/dL 7-21 CREATININE (BEAKER) (test tbtp=134) 1.33 mg/dL 0.57-1.25 GLUCOSE RANDOM (BEAKER) (test smpe=600) 91 mg/dL 70-105 CALCIUM (BEAKER) (test mobr=036) 9.6 mg/dL 8.4-10.2 EGFR (BEAKER) (test rkty=1124) 48 mL/min/1.73 sq m ESTIMATED GFR IS NOT ACCURATE CREATININE CLEARANCE IN PREDICTING GLOMERULAR FILTRATION RATE. ESTIMATED GFR IS NOT APPLICABLE FOR DIALYSIS PATIENTS. CALCIUM, [id number] 15:24:00* Test Item Value Reference Range Comments CALCIUM IONIZED (BEAKER) (test esrk=150) 1.21 mmol/L 1.12-1.27 PH, BLOOD (BEAKER) (test zwdc=4539) 7.42 [id number] 14:48:00* Test Item Value Reference Range Comments MAGNESIUM (BEAKER) (test hngl=791) 1.9 mg/dL 1.6-2.6 Specimen slightly hemolyzed [id number] 14:48:00* Test Item Value Reference Range Comments PHOSPHORUS (BEAKER) (test kkmr=715) 2.1 mg/dL 2.3-4.7 Specimen slightly hemolyzed BASIC METABOLIC [id number] 14:48:00* Test Item Value Reference Range Comments SODIUM (BEAKER) (test odhh=515) 136 meq/L 136-145 POTASSIUM (BEAKER) (test tykw=207) 3.4 meq/L 3.5-5.1 Specimen slightly hemolyzed CHLORIDE (BEAKER) (test gwfd=110) 106 meq/L 98-107 CO2 (BEAKER) (test idkf=340) 21 meq/L 22-29 BLOOD UREA NITROGEN (BEAKER) (test uevi=420) 12 mg/dL 7-21 CREATININE (BEAKER) (test gcur=210) 1.41 mg/dL 0.57-1.25 Specimen slightly hemolyzed GLUCOSE RANDOM (BEAKER) (test lndh=800) 84 mg/dL 70-105 CALCIUM (BEAKER) (test ohpz=976) 9.2 mg/dL 8.4-10.2 EGFR (BEAKER) (test dpjp=6454) 45 mL/min/1.73 sq m ESTIMATED GFR IS NOT ACCURATE CREATININE CLEARANCE IN PREDICTING GLOMERULAR FILTRATION RATE. ESTIMATED GFR IS NOT APPLICABLE FOR DIALYSIS PATIENTS. PT/[id number] 14:35:00* Test Item Value Reference Range Comments PROTIME (BEAKER) (test bqng=515) 18.8 seconds 11.7-14.7 INR (BEAKER) (test czjf=446) 1.6 <=5.9 PARTIAL THROMBOPLASTIN TIME (BEAKER) (test gjqf=766) 32.0 seconds 22.5-36.0 RECOMMENDED COUMADIN/WARFARIN INR THERAPY RANGESSTANDARD DOSE: 2.0 - 3.0 Inclu rip: PROPHYLAXIS for venous thrombosis, systemic embolization; TREATMENT for kris ous thrombosis and/or pulmonary embolus.HIGH RISK: Target INR is 2.5-3.5 for pat ients with mechanical heart valves.PROTHROMBIN [id number] 14:34:00* Test Item Value Reference Range Comments PROTIME (BEAKER) (test wgtc=841) 18.8 seconds 11.7-14.7 INR (BEAKER) (test uqej=610) 1.6 <=5.9 RECOMMENDED COUMADIN/WARFARIN INR THERAPY RANGESSTANDARD DOSE: 2.0 - 3.0 Inclu rip: PROPHYLAXIS for venous thrombosis, systemic embolization; TREATMENT for kris ous thrombosis and/or pulmonary embolus.HIGH RISK: Target INR is 2.5-3.5 for pat ients with mechanical heart valves.CBC W/PLT COUNT & AUTO [id number] 14:29:00* Test Item Value Reference Range Comments WHITE BLOOD CELL COUNT (BEAKER) (test hyzb=159) 6.8 K/ L 3.5-10.5 RED BLOOD CELL COUNT (BEAKER) (test ssjg=121) 3.95 M/ L 3.93-5.22 HEMOGLOBIN (BEAKER) (test fkeb=481) 8.4 GM/DL 11.2-15.7 HEMATOCRIT (BEAKER) (test ixiz=188) 29.1 % 34.1-44.9 MEAN CORPUSCULAR VOLUME (BEAKER) (test efdv=693) 73.7 fL 79.4-94.8 MEAN CORPUSCULAR HEMOGLOBIN (BEAKER) (test qfrt=531) 21.3 pg 25.6-32.2 MEAN CORPUSCULAR HEMOGLOBIN CONC (BEAKER) (test azck=400) 28.9 GM/DL 32.2-35.5 RED CELL DISTRIBUTION WIDTH (BEAKER) (test sbxh=495) 18.4 % 11.7-14.4 PLATELET COUNT (BEAKER) (test rjwg=838) 431 K/CU MM 150-450 MEAN PLATELET VOLUME (BEAKER) (test qxkk=460) 8.3 fL 9.4-12.3 NUCLEATED RED BLOOD CELLS (BEAKER) (test oqxz=776) 0 /100 WBC 0-0 NEUTROPHILS RELATIVE PERCENT (BEAKER) (test uolc=579) 45 % LYMPHOCYTES RELATIVE PERCENT (BEAKER) (test tsnm=769) 45 % MONOCYTES RELATIVE PERCENT (BEAKER) (test sfel=188) 8 % EOSINOPHILS RELATIVE PERCENT (BEAKER) (test jdln=058) 2 % BASOPHILS RELATIVE PERCENT (BEAKER) (test wqat=505) 0 % NEUTROPHILS ABSOLUTE COUNT (BEAKER) (test huvb=332) 3.03 K/ L 1.56-6.13 LYMPHOCYTES ABSOLUTE COUNT (BEAKER) (test mgvq=110) 3.05 K/ L 1.18-3.74 MONOCYTES ABSOLUTE COUNT (BEAKER) (test kula=278) 0.52 K/ L 0.24-0.36 EOSINOPHILS ABSOLUTE COUNT (BEAKER) (test vgvr=565) 0.11 K/ L 0.04-0.36 BASOPHILS ABSOLUTE COUNT (BEAKER) (test kgpb=007) 0.03 K/ L 0.01-0.08 IMMATURE GRANULOCYTES-RELATIVE PERCENT (BEAKER) (test yyxe=1572) 0 % 0-1 (MANUAL DIFFERENTIAL)2017-07-04 14:29:00* Test Item Value Reference Range Comments TOTAL COUNTED (BEAKER) (test bgey=8672) CBC W/PLT COUNT & AUTO [id number] 12:23:00* Test Item Value Reference Range Comments WHITE BLOOD CELL COUNT (BEAKER) (test wifn=488) 6.2 K/ L 4.0-10.0 RED BLOOD CELL COUNT (BEAKER) (test tghp=932) 4.46 M/ L 4.00-5.00 HEMOGLOBIN (BEAKER) (test hjvw=151) 11.4 GM/DL 12.0-15.0 HEMATOCRIT (BEAKER) (test uktr=067) 36.3 % 36.0-45.0 MEAN CORPUSCULAR VOLUME (BEAKER) (test owbw=966) 81.4 fL 82.0-99.0 MEAN CORPUSCULAR HEMOGLOBIN (BEAKER) (test kzrk=176) 25.6 pg 27.0-33.0 MEAN CORPUSCULAR HEMOGLOBIN CONC (BEAKER) (test ylhm=827) 31.4 GM/DL 32.0-36.0 RED CELL DISTRIBUTION WIDTH (BEAKER) (test nrrr=019) 13.9 % 10.3-14.2 PLATELET COUNT (BEAKER) (test vjpw=179) 232 K/CU MM 150-430 MEAN PLATELET VOLUME (BEAKER) (test dcrn=441) 6.9 fL 6.5-10.5 NUCLEATED RED BLOOD CELLS (BEAKER) (test xsyh=172) 0 /100 WBC 0-0 NEUTROPHILS RELATIVE PERCENT (BEAKER) (test icsw=055) 45 % LYMPHOCYTES RELATIVE PERCENT (BEAKER) (test tapm=963) 48 % MONOCYTES RELATIVE PERCENT (BEAKER) (test cuep=786) 5 % EOSINOPHILS RELATIVE PERCENT (BEAKER) (test embl=340) 1 % BASOPHILS RELATIVE PERCENT (BEAKER) (test dtvm=033) 1 % NEUTROPHILS ABSOLUTE COUNT (BEAKER) (test hjyw=870) 2.78 K/ L 1.80-8.00 LYMPHOCYTES ABSOLUTE COUNT (BEAKER) (test qqju=985) 2.96 K/ L 1.48-4.50 MONOCYTES ABSOLUTE COUNT (BEAKER) (test kkoj=893) 0.32 K/ L 0.00-1.30 EOSINOPHILS ABSOLUTE COUNT (BEAKER) (test rljw=607) 0.08 K/ L 0.00-0.50 BASOPHILS ABSOLUTE COUNT (BEAKER) (test rgll=266) 0.03 K/ L 0.00-0.20 0.00(MANUAL DIFFERENTIAL)2017-03-24 12:23:00* Test Item Value Reference Range Comments TOTAL COUNTED (BEAKER) (test uifh=5133) WBC MORPHOLOGY (BEAKER) (test feqt=846) Normal PLT MORPHOLOGY (BEAKER) (test ykkf=025) Normal HYPOCHROMIA (BEAKER) (test naal=648) 1+ few COMPREHENSIVE METABOLIC [id number] 12:17:00* Test Item Value Reference Range Comments TOTAL PROTEIN (BEAKER) (test wxea=317) 6.5 gm/dL 6.0-8.3 Specimen slightly hemolyzed ALBUMIN (BEAKER) (test zofr=4698) 3.6 g/dL 3.5-5.0 Specimen slightly hemolyzed ALKALINE PHOSPHATASE (BEAKER) (test ajif=176) 94 U/L 40-150 BILIRUBIN TOTAL (BEAKER) (test tlgo=883) 0.3 mg/dL 0.2-1.2 Specimen slightly hemolyzed SODIUM (BEAKER) (test qach=726) 145 meq/L 136-145 POTASSIUM (BEAKER) (test rdxv=809) 3.1 meq/L 3.5-5.1 Specimen slightly hemolyzed CHLORIDE (BEAKER) (test hesa=118) 115 meq/L 98-107 CO2 (BEAKER) (test qtmj=288) 20 meq/L 22-29 BLOOD UREA NITROGEN (BEAKER) (test tmfw=227) 16 mg/dL 7-21 CREATININE (BEAKER) (test tqex=416) 1.24 mg/dL 0.57-1.25 Specimen slightly hemolyzed GLUCOSE RANDOM (BEAKER) (test ibyw=957) 113 mg/dL 70-105 CALCIUM (BEAKER) (test qqkl=265) 8.7 mg/dL 8.4-10.2 AST (SGOT) (BEAKER) (test ttez=909) 23 U/L 5-34 Specimen slightly hemolyzed ALT (SGPT) (BEAKER) (test rojw=774) 14 U/L 6-55 Specimen slightly hemolyzed EGFR (BEAKER) (test zgyn=1891) mL/min/1.73 sq m INSUFFICIENT CLINICAL DATA TO CALCULATE ESTIMATED GFR. CREATINE KINASE (CK), TOTAL AND [id number] 11:35:00* Test Item Value Reference Range Comments CREATINE KINASE TOTAL (BEAKER) (test ntlu=514) 78 U/L 29-200 CREATINE KINASE-MB (BEAKER) (test qzjc=923) 1.2 ng/mL 0.0-6.6 CREATINE KINASE-MB INDEX (BEAKER) (test sxrc=098) 1.5 % Effective 09/17/2014: CK-MB Reference Range ChangeNew: 0.0-6.6 Previous: 0.0- 4.9CK-MB Reference Range:<6.7 Normal6.7-10.0 Borderline>10.0 Abnormal TROPONIN [id number] 11:35:00* Test Item Value Reference Range Comments TROPONIN I (BEAKER) (test fkbs=400) 0.01 ng/mL 0.00-0.03 Effective 09/17/2014: Reference Range ChangeNew: 0.00-0.03 Previous 0.00-0.15T roponin I (TnI) levels must be interpreted in the context of the presenting symp toms and the clinical findings. Elevated TnI levels indicate myocardial damage, but are not specific for ischemic heart disease. Elevated TnI levels are seen in patients with other cardiac conditions (including myocarditis and congestive he art failure), and slight TnI elevations occur in patients with other conditions, including sepsis, renal failure, acidosis, acute neurological disease, and pers istent tachyarrhythmia.B-TYPE NATRIURETIC FACTOR (BNP)2017-03-24 11:33:00* Test Item Value Reference Range Comments B-TYPE NATRIURETIC PEPTIDE (BEAKER) (test kxmp=959) 101 pg/mL 0-100 [id number] 11:30:00* Test Item Value Reference Range Comments MAGNESIUM (BEAKER) (test dbmm=258) 1.0 mg/dL 1.6-2.6 COMPREHENSIVE METABOLIC [id number] 11:29:00* Test Item Value Reference Range Comments TOTAL PROTEIN (BEAKER) (test qgri=377) 3.7 gm/dL 6.0-8.3 ALBUMIN (BEAKER) (test vxpg=7060) 2.0 g/dL 3.5-5.0 ALKALINE PHOSPHATASE (BEAKER) (test csxw=155) 53 U/L 40-150 BILIRUBIN TOTAL (BEAKER) (test scbt=730) 0.2 mg/dL 0.2-1.2 SODIUM (BEAKER) (test nkim=383) 148 meq/L 136-145 POTASSIUM (BEAKER) (test evoe=149) 1.8 meq/L 3.5-5.1 CHLORIDE (BEAKER) (test cyes=709) 130 meq/L 98-107 CO2 (BEAKER) (test dzov=745) 13 meq/L 22-29 BLOOD UREA NITROGEN (BEAKER) (test rart=715) 10 mg/dL 7-21 CREATININE (BEAKER) (test hrxn=207) 0.63 mg/dL 0.57-1.25 GLUCOSE RANDOM (BEAKER) (test anuw=873) 75 mg/dL 70-105 CALCIUM (BEAKER) (test xnkb=087) 5.0 mg/dL 8.4-10.2 AST (SGOT) (BEAKER) (test nuvt=529) 14 U/L 5-34 ALT (SGPT) (BEAKER) (test ledv=849) 8 U/L 6-55 EGFR (BEAKER) (test ckfs=2868) mL/min/1.73 sq m INSUFFICIENT CLINICAL DATA TO CALCULATE ESTIMATED GFR. PT/[id number] 11:17:00* Test Item Value Reference Range Comments PROTIME (BEAKER) (test lmjz=871) 13.9 seconds 11.7-14.7 INR (BEAKER) (test ehko=596) 1.1 <=5.9 PARTIAL THROMBOPLASTIN TIME (BEAKER) (test teco=367) 27.6 seconds 22.5-36.0 RECOMMENDED COUMADIN/WARFARIN INR THERAPY RANGESSTANDARD DOSE: 2.0 - 3.0 Inclu rip: PROPHYLAXIS for venous thrombosis, systemic embolization; TREATMENT for kris ous thrombosis and/or pulmonary embolus.HIGH RISK: Target INR is 2.5-3.5 for pat ients with mechanical heart valves.
--- NOTE | 2019-06-07 15:19 | Diagnostic Imaging Report ---
EXAMINATION: SHOULDER 2+VW RT - HOPD INDICATION: Trauma COMPARISON: None FINDINGS: 2 views of the right shoulder demonstrate no acute fracture or dislocation. Alignment is anatomic. No rib fracture. Sternotomy wires intact. The visualized portions of the right lung are clear. The soft tissues appear unremarkable. IMPRESSION: No acute osseous injury to the right shoulder. Signed by: Jose Cruz Jackson MD on 06/07/2019 3:16 PM
--- NOTE | 2019-06-07 15:32 | Diagnostic Imaging Report ---
EXAMINATION: HIP 2 VW RT - HOPD INDICATION: Trauma COMPARISON: None FINDINGS: 2 views of the right hip and pelvis demonstrate no acute fracture or dislocation. Degenerative changes of the lower lumbar spine. Nonobstructive bowel gas pattern. Phleboliths in the pelvis. IMPRESSION: No acute osseous injury of the right hip or pelvis. Signed by: Jose Cruz Jackson MD on 06/07/2019 3:29 PM
--- NOTE | 2019-06-07 15:49 | Diagnostic Imaging Report ---
EXAMINATION: FEMUR 2 VIEW RT - HOPD, KNEE 2VIEW RT - HOPD INDICATION: Trauma COMPARISON: None FINDINGS: Right femur: No acute fracture or dislocation of the right femur. Alignment is anatomic. The soft tissues appear unremarkable. Mild degenerative changes of the right hip joint. Right knee: No acute fracture or dislocation. Alignment is anatomic. No substantial joint effusion. IMPRESSION: No acute osseous injury of the right knee or femur Signed by: Jose Cruz Jackson MD on 06/07/2019 3:46 PM
--- NOTE | 2019-06-07 16:28 | Diagnostic Imaging Report ---
History: Trauma, fall Comparison studies: None Technique: Axial images were obtained from the brain and cervical spine. Coronal and sagittal images reconstructed from the axial data. Dose modulation, iterative reconstruction, and/or weight based adjustment of the mA/kV was utilized to reduce the radiation dose to as low as reasonably achievable. Intravenous contrast: None Findings: Head CT: Scalp: No abnormalities. Bones: No fractures, blastic or lytic lesions. Extra-axial spaces: No masses. No fluid collections. Brain sulci: Mildly prominent. Ventricles: Compensatory dilatation. No hydrocephalus. Parenchyma: No mass, acute hemorrhage or acute cortical vascular insults. Chronic-appearing left superior parietal subcortical insult. A few scattered hypodensities in the supratentorial white matter are nonspecific but most compatible with chronic small vessel ischemic changes. Sellar/suprasellar region: Mildly expanded, mostly CSF filled sella, a nonspecific finding. Craniocervical junction: The foramen magnum is patent. No Chiari one malformation. Cervical spine CT: Fractures: None. Soft tissues: No gross acute abnormalities. Atlantoaxial articulation: Intact. Alignment: Straightened cervical curvature. Minimal anterolisthesis of C4 on C5 and retrolisthesis of C5 on C6 are most likely degenerative in etiology. Cervicomedullary junction: No abnormalities. The foramen magnum is patent. Vertebrae: No infection or neoplasm. Degenerative changes: Moderately degenerated C5-C6 disc. Severely degenerated C6-C7 disc with chronic mixed cystic and sclerotic endplate changes. Mild canal stenosis at C5-C6 due to a disc osteophyte complex with ossified posterior longitudinal ligament.. Multilevel facet arthrosis, worse/severe on the right at C4-C5 moderate right foraminal stenosis at C5-C6 due to uncovertebral arthrosis. Incidental findings: Scattered calcified atherosclerosis with calcified plaque in the carotid siphons and left intradural vertebral artery. Mildly enlarged heterogeneous thyroid gland with possible small hypodense nodules. Findings could be correlated with thyroid function testing and thyroid ultrasound. Partially imaged surgical clip inferior to the thyroid gland at the thoracic inlet. Can correlate with surgical history. IMPRESSION: Head CT: 1. No acute abnormalities. 2. Mild generalized brain volume loss. 3. Small chronic left superior parietal subcortical insult. 4. Mild chronic microvascular ischemic changes. Cervical spine CT: 1. No cervical spine fracture or acute subluxation. 2. Multilevel degenerative changes as described. 3. Mildly enlarged heterogeneous thyroid gland as described. 4. Cannot exclude ligament, spinal cord and or vascular abnormalities on the basis of this examination. Signed by: Dr. Mat Jackson M.D. on 06/07/2019 4:24 PM
[2019-06-07] MEDS ORDERED: TRAMADOL HCL 50 MG TAB ONE (16:38)
[2019-06-07 16:40] VITALS: BP 110/64
[2019-06-07] MEDS ORDERED: TRAMADOL HCL 50 MG TAB PO ONE (16:45)
== END 2019-06-07 16:43 | disposition home or self-care (01) ==
LOC: FSED 14:22
DX: G89.11 Acute pain due to trauma (principal); S00.83XA Contusion of other part of head, initial encounter; S40.011A Contusion of right shoulder, initial encounter; S70.01XA Contusion of right hip, initial encounter; S70.11XA Contusion of right thigh, initial encounter; S80.01XA Contusion of right knee, initial encounter; W01.0XXA Fall on same level from slipping, tripping and stumbling without subsequent striking against object, initial encounter; Y93.01 Activity, walking, marching and hiking; Y92.488 Other paved roadways as the place of occurrence of the external cause
CPT/HCPCS: 70450; 72125; 99283